=== PATIENT | male | born 1935 | race Caucasian/White ===

== ENCOUNTER 2022-09-23 16:48 | Observation (INO) ==
[2022-09-23] MEDS ORDERED: ONDANSETRON INJ 2 MG/ML 2 ML VIAL ONE (17:21)
[2022-09-23] MEDS ORDERED: ONDANSETRON INJ 2 MG/ML 2 ML VIAL IV STA (17:23)
--- NOTE | 2022-09-23 17:27 | Emergency Department Note ---
History of Present Illness General Chief complaint: Weakness Time Seen by Provider: 09/23/22 17:03 Source: patient, family, RN notes reviewed and old records reviewed Mode of arrival: ambulatory Limitations: no limitations History of Present Illness This patient 86-year-old male who comes in after feeling sick since this morning. His was diagnosed with COVID and he took a home test and it was positive as well. He has had nausea and vomiting no diarrhea he had a little bit of a cough denies shortness of breath he was supposed to get his Paxlovid today after he called his doctor but when the family went to check on him he was vomiting and too weak. No blood in vomit or blood or melena stool. Feels diffusely weak nonfocal. He did eat some bad fish on Tuesday as well. His is in the hospital here with it sounds like A-fib. No chest pain Home Medications Medication Instructions Recorded Confirmed Type aspirin 81 mg tablet,delayed 81 mg PO QAM 06/14/19 09/23/22 History release atorvastatin 40 mg tablet (Lipitor) 40 mg PO HS 06/14/19 09/23/22 History fluticasone propionate 50 1 spray intranasal QAM 06/14/19 09/23/22 History mcg/actuation nasal spray,suspension (Flonase Allergy Relief) hydrochlorothiazide 25 mg tablet 25 mg PO QAM 06/14/19 09/23/22 History metformin 500 mg tablet 500 mg PO BIDM 06/14/19 09/23/22 History sitagliptin phosphate 50 mg tablet 50 mg PO QAM 06/14/19 09/23/22 History (Januvia) timolol 0.5 % eye drops 1 drp OPB QAM 06/14/19 09/23/22 History acetaminophen 650 mg 650 mg PO BID PRN Pain 09/23/22 09/23/22 History tablet,extended release ascorbic acid (vitamin C) 1,000 mg 1 g PO QDL 09/23/22 09/23/22 History tablet (Vitamin C) carboxymethylcellulose sodium 0.5 1 drp OPB QID PRN Dry Eyes 09/23/22 09/23/22 History % eye drops cholecalciferol (vitamin D3) 25 25 mcg PO DAILY 09/23/22 09/23/22 History mcg (1,000 unit) capsule (Vitamin D3) cilostazol 50 mg tablet 50 mg PO QAM 09/23/22 09/23/22 History cyanocobalamin (vitamin B-12) 1,000 mcg PO DAILY 09/23/22 09/23/22 History 1,000 mcg tablet (Vitamin B-12) famotidine 20 mg tablet 20 mg PO HS 09/23/22 09/23/22 History folic acid 1 mg tablet 1 mg PO BID 09/23/22 09/23/22 History glipizide 2.5 mg tablet, extended 2.5 mg PO DAILYBB 09/23/22 09/23/22 History release 24 hr glucosamine-chondroitin 1,500 mg 30 ml PO DAILY 09/23/22 09/23/22 History -1,200 mg/30 mL oral liquid lisinopril 10 mg tablet 10 mg PO QAM 09/23/22 09/23/22 History nirmatrelvir 150 mg-ritonavir 100 1 ea PO DAILY 09/23/22 09/23/22 History mg tablets in a dose pack (EUA) (Paxlovid) Allergies Allergy/AdvReac Type Severity Reaction Status Date / Time No Known Allergies Allergy Verified 09/23/22 18:45 Past Med/Surg History Medical History Aortic stenosis Follows with Dr. Woods Cardiac murmur Chronic kidney disease, stage 3 FOLLOWS W/ DR. SORENSEN IN [place] Degenerative disc disease Diabetes mellitus, type 2 NIDDM GERD (gastroesophageal reflux disease) Glaucoma History of prostate cancer PROSTATECTOMY + RADIATION [place] (hard of hearing) Hyperlipidemia Hypertension Osteoarthritis Spinal stenosis Surgical History History of appendectomy History of cataract surgery History of colonoscopy History of esophagogastroduodenoscopy (EGD) History of lumbar surgery History of prostate biopsy History of prostatectomy History of right inguinal hernia repair X 2 History of right shoulder replacement Family History Sister Family history of diabetes mellitus Family hx of colon cancer Sister Family history of diabetes mellitus Sister Family history of diabetes mellitus Brother Family history of diabetes mellitus Mother Family history of diabetes mellitus Other No family history of adverse response to anesthesia Social History Smoking Status: Never smoker Second Hand Exposure: No; Do You Dip or Chew Tobacco: No (QUIT 3 YEARS AGO); Hx Alcohol Use: No Hx Substance Use: No Preferred Language: Macedonian Communication Ability: Effective Beliefs That Will Affect Care: None Current Living Situation: Spouse Feels Safe at Home: Yes Assistive Devices: Glasses Review of Systems A total of 10 systems reviewed and were otherwise negative Physical Exam Vital Signs Vital Signs - 24 hr 09/23/22 16:56 09/23/22 17:19 09/23/22 17:47 Temperature 36.9 C Temperature Source Oral Pulse Rate 101 H 100 H Pulse Rate from SpO2 Sensor Respiratory Rate 22 Blood Pressure 184/123 H Blood Pressure Mean 143 Pulse Oximetry 95 92 Oxygen Delivery Method Room Air Room Air Oxygen Flow Rate Sepsis Recent Fever Within 48 Hours No Sepsis New/Unexplained Change in Mental Status No Sepsis Action Taken by Nursing No Action Required Oxygen Flow Rate - Titration Pulse Oximetry Post Tiitration 09/23/22 17:15 09/23/22 17:30 09/23/22 17:31 Temperature Temperature Source Pulse Rate 100 H 101 H Pulse Rate from SpO2 Sensor Respiratory Rate 25 H 23 Blood Pressure 182/97 H Blood Pressure Mean 125 Pulse Oximetry Oxygen Delivery Method Oxygen Flow Rate Sepsis Recent Fever Within 48 Hours Sepsis New/Unexplained Change in Mental Status Sepsis Action Taken by Nursing Oxygen Flow Rate - Titration Pulse Oximetry Post Tiitration 09/23/22 17:31 09/23/22 17:45 09/23/22 18:22 Temperature Temperature Source Pulse Rate 102 H 99 H Pulse Rate from SpO2 Sensor 102 H Respiratory Rate 21 24 Blood Pressure Blood Pressure Mean Pulse Oximetry 92 88 L Oxygen Delivery Method Room Air Nasal Cannula Oxygen Flow Rate 0 Sepsis Recent Fever Within 48 Hours Sepsis New/Unexplained Change in Mental Status Sepsis Action Taken by Nursing Oxygen Flow Rate - Titration 2 Pulse Oximetry Post Tiitration 95 09/23/22 18:00 09/23/22 18:00 09/23/22 18:15 Temperature Temperature Source Pulse Rate 102 H 101 H Pulse Rate from SpO2 Sensor 106 H Respiratory Rate 33 H 33 H Blood Pressure 185/88 H Blood Pressure Mean 120 Pulse Oximetry 96 Oxygen Delivery Method Nasal Cannula Oxygen Flow Rate 2 Sepsis Recent Fever Within 48 Hours Sepsis New/Unexplained Change in Mental Status Sepsis Action Taken by Nursing Oxygen Flow Rate - Titration Pulse Oximetry Post Tiitration 09/23/22 18:30 09/23/22 18:30 09/23/22 18:45 Temperature Temperature Source Pulse Rate 100 H 101 H Pulse Rate from SpO2 Sensor 100 H 101 H Respiratory Rate 31 H 30 H Blood Pressure 185/87 H Blood Pressure Mean 119 Pulse Oximetry 96 96 Oxygen Delivery Method Nasal Cannula Nasal Cannula Oxygen Flow Rate 2 2 Sepsis Recent Fever Within 48 Hours Sepsis New/Unexplained Change in Mental Status Sepsis Action Taken by Nursing Oxygen Flow Rate - Titration Pulse Oximetry Post Tiitration 09/23/22 19:00 09/23/22 19:15 09/23/22 19:30 Temperature Temperature Source Pulse Rate 102 H 101 H 100 H Pulse Rate from SpO2 Sensor 102 H 101 H 100 H Respiratory Rate 31 H 30 H 29 H Blood Pressure 189/91 H 170/85 H Blood Pressure Mean 123 113 Pulse Oximetry 97 98 97 Oxygen Delivery Method Oxygen Flow Rate Sepsis Recent Fever Within 48 Hours Sepsis New/Unexplained Change in Mental Status Sepsis Action Taken by Nursing Oxygen Flow Rate - Titration Pulse Oximetry Post Tiitration 09/23/22 19:45 09/23/22 20:00 09/23/22 20:15 Temperature Temperature Source Pulse Rate 112 H 111 H 109 H Pulse Rate from SpO2 Sensor 111 H 110 H 111 H Respiratory Rate 30 H 30 H 29 H Blood Pressure 167/78 H Blood Pressure Mean 107 Pulse Oximetry 97 97 98 Oxygen Delivery Method Oxygen Flow Rate Sepsis Recent Fever Within 48 Hours Sepsis New/Unexplained Change in Mental Status Sepsis Action Taken by Nursing Oxygen Flow Rate - Titration Pulse Oximetry Post Tiitration 09/23/22 20:30 Temperature Temperature Source Pulse Rate 99 H Pulse Rate from SpO2 Sensor 99 H Respiratory Rate 28 H Blood Pressure 164/78 H Blood Pressure Mean 106 Pulse Oximetry 97 Oxygen Delivery Method Oxygen Flow Rate Sepsis Recent Fever Within 48 Hours Sepsis New/Unexplained Change in Mental Status Sepsis Action Taken by Nursing Oxygen Flow Rate - Titration Pulse Oximetry Post Tiitration General: Well developed well nourished older male who is wearing a mask but in no acute distress, breathing comfortably on room air. Normal speech. While I was examining he started throwing up some clear vomit. HEENT: Normal cephalic atraumatic. Pupils are equal round and reactive to light. Extraocular movements are intact. Oropharynx is pink with moist mucous membranes. No swelling of the mouth lips or tongue. Neck: Supple with a midline trachea. No meningeal signs or stiffness, no JVD or bruits. No Stridor. Chest: Clear to auscultation bilaterally. No wheezes or rhonchi. No increased work of breathing. Heart: Regular rate and rhythm without murmurs or gallops. Abdomen: Soft nontender, nondistended without rebound guarding or rigidity. Extremities: No cyanosis clubbing or edema. No calf tenderness or assymetry Spine/Back. Non tender to palpation. No CVA tenderness Skin: Good turgor without rashes. Neurologic exam: Cranial nerves two through 12 are intact. Motor and sensation are intact and symmetrical throughout. Course Administered Medications Sodium Chloride (Nss 1000ml) 1,000 mls @ 80 mls/hr IV .[id number] [facility] Stop: 09/24/22 10:41 Last Admin: 09/23/22 22:34 Dose: 80 mls/hr Documented By: STEPHANIE Discontinued Medications Sodium Chloride (Nss 1000ml) 1,000 mls @ 125 mls/hr IV .Q8H [facility] Stop: 09/24/22 01:29 Last Infusion: 09/23/22 22:52 Dose: 0 mls/hr Documented By: Admin: 09/23/22 17:29 Dose: 125 mls/hr Documented By: DARRELL Ondansetron HCl (Ondansetron Inj 2 Mg/Ml 2 Ml Vial) Confirm Administered Dose 4 mg .ROUTE .STK-MED ONE Stop: 09/23/22 17:22 Last Admin: 09/23/22 17:26 Dose: Not Given Documented By: DARRELL Ondansetron HCl (Ondansetron Inj 2 Mg/Ml 2 Ml Vial) 4 mg IV NOW [facility]UST Stop: 09/23/22 17:24 Last Admin: 09/23/22 17:26 Dose: 4 mg Documented By: DARRELL Medical Decision Making Differential Diagnosis Dehydration, COVID, electrolyte or metabolic abnormality, cardiac disease, infection, intra-abdominal process Medical Records Attestation: I reviewed the patient's medical records. Home Medications Current Medication List: was personally reviewed by me Laboratory Data Attestation: I reviewed the patient's lab results. 09/23/22 17:13 09/23/22 17:13 Lab Results 09/23/22 09/23/22 09/23/22 Range/Units 17:13 17:13 17:13 WBC 11.63 H (4.8-10.8) K/ul RBC 4.21 L (4.70-6.10) M/uL Hgb 12.5 L (14.0-18.0) g/dl Hct 38.0 L (42.0-52.0) % MCV 90.3 (80.0-100.0) fL MCH 29.7 (25.0-34.0) pg MCHC 32.9 (32.0-36.0) g/dL RDW Std Deviation 46.8 H (36.4-46.3) fL RDW Coeff of Desire 14.3 (11.5-14.5) % Plt Count 264 (130-400) K/uL MPV 10.6 (9.4-12.4) fL Immature Gran % (Auto) 0.4 % Neut % (Auto) 81.0 % Lymph % (Auto) 8.7 % [place] % (Auto) 8.3 % Eos % (Auto) 1.0 % Baso % (Auto) 0.6 % Neut # (Auto) 9.41 H (1.40-6.50) K/uL Lymph # (Auto) 1.01 L (1.2-3.4) K/uL [place] # (Auto) 0.97 H (0.11-0.59) K/uL Eos # (Auto) 0.12 (0-0.50) K/uL Baso # (Auto) 0.07 (0-0.2) K/uL Immature Gran # (Auto) 0.05 (0.01-0.20) K/uL Sodium 137 (136-145) mmol/L Potassium 4.5 (3.5-5.1) mmol/L Chloride 102 (98-107) mmol/L Carbon Dioxide 24 (21-32) mmol/L Anion Gap 11 (3-11) BUN 27 H (6-23) mg/dl Creatinine 1.31 (0.6-1.4) mg/dl Est Cr Clr Drug Dosing 44.8 ml/min Est GFR ( Amer) 57.5 ml/min Est GFR (Non-Af Amer) 49.6 ml/min BUN/Creatinine Ratio 20.6 H (10-20) Glucose 193 H (70-99(Fasting)) mg/dl Calcium 9.5 (8.6-10.3) mg/dl Magnesium 1.7 (1.7-2.4) mg/dl Total Bilirubin 0.9 (0.2-1.0) mg/dl AST 24 (13-39) U/L ALT 19 (7-52) U/L Alkaline Phosphatase 80 (34-104) U/L Troponin I High Sens 43.0 H (0-20) pg/ml Total Protein 7.6 (6.0-8.3) gm/dl Albumin 4.5 (3.4-5.0) gm/dl Globulin 3.1 (2.5-4.0) gm/dl Albumin/Globulin Ratio 1.5 (0.9-2) TSH 2.010 (0.300-4.500) uIu/ml SARS-CoV-2 (PCR) Influenza Type A (PCR) (Neg) Influenza Type B (PCR) (Neg) RSV (RT-PCR) (Neg) 09/23/22 09/23/22 09/23/22 Range/Units 17:42 17:42 19:31 WBC (4.8-10.8) K/ul RBC (4.70-6.10) M/uL Hgb (14.0-18.0) g/dl Hct (42.0-52.0) % MCV (80.0-100.0) fL MCH (25.0-34.0) pg MCHC (32.0-36.0) g/dL RDW Std Deviation (36.4-46.3) fL RDW Coeff of Desire (11.5-14.5) % Plt Count (130-400) K/uL MPV (9.4-12.4) fL Immature Gran % (Auto) % Neut % (Auto) % Lymph % (Auto) % [place] % (Auto) % Eos % (Auto) % Baso % (Auto) % Neut # (Auto) (1.40-6.50) K/uL Lymph # (Auto) (1.2-3.4) K/uL [place] # (Auto) (0.11-0.59) K/uL Eos # (Auto) (0-0.50) K/uL Baso # (Auto) (0-0.2) K/uL Immature Gran # (Auto) (0.01-0.20) K/uL Sodium (136-145) mmol/L Potassium (3.5-5.1) mmol/L Chloride (98-107) mmol/L Carbon Dioxide (21-32) mmol/L Anion Gap (3-11) BUN (6-23) mg/dl Creatinine (0.6-1.4) mg/dl Est Cr Clr Drug Dosing ml/min Est GFR ( Amer) ml/min Est GFR (Non-Af Amer) ml/min BUN/Creatinine Ratio (10-20) Glucose (70-99(Fasting)) mg/dl Calcium (8.6-10.3) mg/dl Magnesium (1.7-2.4) mg/dl Total Bilirubin (0.2-1.0) mg/dl AST (13-39) U/L ALT (7-52) U/L Alkaline Phosphatase (34-104) U/L Troponin I High Sens 54.9 H* D (0-20) pg/ml Total Protein (6.0-8.3) gm/dl Albumin (3.4-5.0) gm/dl Globulin (2.5-4.0) gm/dl Albumin/Globulin Ratio (0.9-2) TSH (0.300-4.500) uIu/ml SARS-CoV-2 (PCR) Cancelled POSITIVE A* Influenza Type A (PCR) Negative (Neg) Influenza Type B (PCR) Negative (Neg) RSV (RT-PCR) Negative (Neg) Imaging Data Attestation: I personally reviewed and interpreted this imaging study as follows: My Impression: Chest x-raycardiomegaly but no acute infiltrate, failure, pneumothorax seen. Previous surgery on right shoulder Radiologist's Impression: Chest X-Ray 09/23/22 17:23 SINGLE VIEW CHEST CLINICAL HISTORY: Generalized weakness. FINDINGS: An AP, portable, upright chest radiograph is compared to study dated 06/19/2012. The heart is enlarged. The pulmonary vasculature is noncongested. There is mild elevation of the right hemidiaphragm with bibasilar scarring/atelectasis. No airspace consolidation or large pleural effusion is identified. No pneumothorax is seen. The skeletal structures are osteopenic. The bony thorax is grossly intact. A right shoulder arthroplasty is in place. Advanced arthritic change is noted in the left shoulder. IMPRESSION: Cardiomegaly with no acute cardiopulmonary abnormality identified. ACT 112: Negative or not required by law. Electronically signed by: Jean Bernal M.D. 09/23/2022 5:42 PM ECG Data Attestation: I personally reviewed and interpreted this ECG as follows: Indication: + nausea and + vomiting Rate (beats per minute): 100 Rhythm: + sinus tachycardia ECG Intervals/blocks: + Normal QRS, + Normal QT and + Normal NE ECG [place]: + Left axis deviation ECG ST segments: + Normal ST segments ECG Findings: + Other (Low voltage); no PACs or no PVCs Comparison ECG Date: from (06/19/22) Change: the following changes noted (Rate has increased.) MDM Narrative This patient comes in after feeling ill both him and his have positive COVID test. It is most likely related to that but he is also 86 and has multiple other medical problems. He was vomiting when I saw him. He is in no respiratory distress. IV access was established and he was hydrated with a 1 L IV normal saline bolus. He was given Zofran 4 mg IV. EKG, chest x-ray were obtained. he was placed on a nurse monitoring COVID testing was performed here as well as multiple other testing. Despite having nausea he had no diarrhea and denies abdominal pain. EKG did not show any definite ischemic changes the voltage may be lower than before. His initial troponin is mildly elevated. And thus I did a second 1 and it is slightly more elevated in the first. He has had no chest pain he has no significant electrolyte or metabolic abnormality with exception of BUN being mildly elevated which likely goes with dehydration. His COVID test did come back positive. I do think he needs to be admitted for his weakness COVID concern for dehydration his O2 sats also been low at times in the high 80s and was placed on oxygen. Also concerned troponins mildly elevated as well although again has no chest pain or shortness of breath. I have consulted and discussed case with Dr. Mackey and he saw the patient in the ER for these m easures. Continuous nurse monitoring: Orders placed in EMR for continuous cardiac monitoring. Upon my evaluation patient noted to be normal sinus rhythm with a rate of 95 Impression & Plan COVID, Acute dehydration, Vomiting, Elevated troponin, Weakness Discharge Plan Visit Data Chief Complaint: Weakness ED Provider: Paulo Randhawa Discharge Problem: COVID, Acute dehydration, Vomiting, Elevated troponin, Weakness Discharge Instructions Interventions: ED Discharge Assessment Last Done: 09/23/22 21:54
[2022-09-23] MEDS ORDERED: SODIUM CHLORIDE 0.9% 1000ML 1,000 ML IV SCH ×2 (17:30→22:12)
--- NOTE | 2022-09-23 17:44 | XRay Report ---
SINGLE VIEW CHEST CLINICAL HISTORY: Generalized weakness. FINDINGS: An AP, portable, upright chest radiograph is compared to study dated 06/19/2012. The heart i s enlarged. The pulmonary vasculature is noncongested. There is mild elevation of the right hemidiaph ragm with bibasilar scarring/atelectasis. No airspace consolidation or large pleural effusion is iden tified. No pneumothorax is seen. The skeletal structures are osteopenic. The bony thorax is grossly i ntact. A right shoulder arthroplasty is in place. Advanced arthritic change is noted in the left shou lder. IMPRESSION: Cardiomegaly with no acute cardiopulmonary abnormality identified. ACT 112: Negative or not required by law. Electronically signed by: eJan Bernal M.D. 09/23/2022 5:42 PM
[2022-09-23 17:50] LABS: Basophils # (auto) 0.07 K/uL (0-0.2); Basophils % (auto) 0.6 %; Eosinophils # (auto) 0.12 K/uL (0-0.50); Hemoglobin 12.5 g/dl (14.0-18.0); Immature Granulocytes # (auto) 0.05 K/uL (0.01-0.20); Immature Granulocytes % (auto) 0.4 %; Lymphocytes # (auto) 1.01 K/uL (1.2-3.4); Lymphocytes % (auto) 8.7 %; Mean Corpuscular Hemoglobin 29.7 pg (25.0-34.0); Mean Corpuscular Hgb Conc 32.9 g/dL (32.0-36.0); Mean Corpuscular Volume 90.3 fL (80.0-100.0); Mean Platelet Volume 10.6 fL (9.4-12.4); Monocytes # (auto) 0.97 K/uL (0.11-0.59); Monocytes % (auto) 8.3 %; Neutrophils # (auto) 9.41 K/uL (1.40-6.50); Platelet Count 264 K/uL (130-400); RDW Coefficient of Variation 14.3 % (11.5-14.5); RDW Standard Deviation 46.8 fL (36.4-46.3); Red Blood Count 4.21 M/uL (4.70-6.10); White Blood Count 11.63 K/ul (4.8-10.8)
[2022-09-23 17:56] LABS: Albumin Globulin Ratio 1.5 (0.9-2); Albumin Level 4.5 gm/dl (3.4-5.0); BUN Creatinine Ratio 20.6 (10-20); Bilirubin,Total 0.9 mg/dl (0.2-1.0); Calcium 9.5 mg/dl (8.6-10.3); Creatinine Clr Calc Pharmacy 44.8 ml/min; Est GFR (African American) 57.5 ml/min; Est GFR (Non-African American) 49.6 ml/min; Globulin 3.1 gm/dl (2.5-4.0); Magnesium 1.7 mg/dl (1.7-2.4); Potassium 4.5 mmol/L (3.5-5.1); Total Protein 7.6 gm/dl (6.0-8.3)
[2022-09-23 18:36] LABS: Influenza A virus by PCR Negative (Neg); Influenza B virus by PCR Negative (Neg); RSV by PCR Negative (Neg)
[2022-09-23 18:59] LABS: SARS CoV2 RNA(COVID-19) Ceph POSITIVE (Negative)
[2022-09-23] MEDS ORDERED: GLUCOSE 10 TAB/TUBE PO PRN (22:12)
[2022-09-23] MEDS ORDERED: NITROGLYCERIN SL 0.4 MG/TAB TAB SL PRN (22:12)
[2022-09-23] MEDS ORDERED: GLUCOSE 40% GEL 15 GM TUBE PO PRN (22:12)
[2022-09-23] MEDS ORDERED: CARBOHYDRATES FOR HYPOGLYCEMIA PO PRN (22:12)
[2022-09-23] MEDS ORDERED: ACETAMINOPHEN 325 MG TAB PO PRN (22:12)
[2022-09-23] MEDS ORDERED: DEXTROSE 50% 50 ML SYRINGE IV PRN (22:12)
[2022-09-23] MEDS ORDERED: PHARMACY GLYCEMIC MGMT CONSULT PRN (22:12)
[2022-09-23] MEDS ORDERED: GLUCAGON FOR INJ 1 MG VIAL SQ PRN (22:12)
[2022-09-23] MEDS ORDERED: REMDESIVIR 200 MG in SODIUM CHLORIDE 0.9% 210 ML IV ONE (22:30)
[2022-09-23] MEDS ORDERED: ARTIFICIAL TEARS OP PRN (22:38)
[2022-09-23] MEDS: INSULIN ASPART PER UNIT CHARGE SC SCH (23:45)
[2022-09-23] MEDS: HEPARIN SOD 5,000 UNIT/0.5 ML VIAL SQ SCH (23:46)
[2022-09-23] MEDS: FAMOTIDINE 20 MG TAB PO SCH (23:47)
[2022-09-23] MEDS: ATORVASTATIN 40 MG TAB PO SCH (23:47)
[2022-09-23] MEDS: FOLIC ACID 1 MG TAB PO SCH (23:48)
--- NOTE | 2022-09-24 02:33 | History and Physical Report ---
DATE OF ADMISSION: 09/23/2022. CHIEF COMPLAINT: Weakness, COVID. 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 The patient says he is feeling sick since morning. The patient says he had cough for the last two to three days. He was diagnosed with COVID at home test. His has also COVID, seems to be in the hospital. It looks like he has some nausea and vomiting, no diarrhea and seems to get paxlovid today, but when family went to check on him, he was vomiting and too weak, so they brought him here. The patient is somewhat hard of hearing, somewhat drowsy, but answers simple questions. Denies any chest pain, denies any cough. Currently, denies any nausea or abdominal pain. Denies any diarrhea currently. Denies any headache. Denies any blurred visions, runny nose, or sore throat. Knows that he is in the hospital, could tell his name.Tried to call his son, not able to reach. He was saturating at 88% on room air in the ER. Currently on 2 liters, saturating okay. . ALLERGIES: No known drug allergies. PAST MEDICAL HISTORY: As mentioned above. PAST SURGICAL HISTORY: Right carpal tunnel surgery, colonoscopy, cystoscopy, EGDs, injection of the lumbosacral spine, lumbar laminectomy, right partial shoulder replacement, radical prostatectomy, cataract surgeries, repair of inguinal hernia. MEDICATIONS: The patient is on Tylenol 650 mg p.o. b.i.d. p.r.n., vitamin C 1 gram p.o. daily, aspirin 81 mg p.o. daily, Lipitor 40 mg p.o. at bedtime, carboxymethylcellulose one drop ophthalmic q.i.d. p.r.n., vitamin D 25 mcg p.o. daily, cilostazol 50 mg p.o. a.m., vitamin B12 1000 mcg p.o. daily, famotidine 20 mg p.o. at bedtime, Flonase 1 spray intranasal a.m., folic acid 1 mg p.o. b.i.d., glipizide 2.5 mg p.o. daily, glucosamine chondroitin p.o. daily, hydrochlorothiazide 25 mg p.o. daily, lisinopril 10 mg p.o. a.m., metformin 500 mg p.o. b.i.d., Paxlovid daily, Janumet 50 mg p.o. daily, timolol 1 drop ophthalmic a.m. FAMILY HISTORY: Significant for father had prostate cancer, at the age of 84; sister had cancer; brother has diabetes; mother had diabetes, at the age of 78. SOCIAL HISTORY: , quit smoking in 1962, smoked 1 pack a day for 8 years. No alcohol use. No drug use. REVIEW OF SYSTEMS: As per HPI. Could not do complete review of systems. PHYSICAL EXAMINATION: GENERAL: The patient is somewhat drowsy, head of hearing VITAL SIGNS: Temperature 36.9, pulse 98, respiratory rate 26, pressure 151/86, oxygen 98% on 2 liters. HEENT: Pupils equal, round and reactive to light. Oral mucosa somewhat dry. NECK: No JVD, no neck masses. CARDIOVASCULAR: S1 and S2 heard. No murmurs. Regular rhythm. RESPIRATORY SYSTEM: Normal AP diameter. No accessory muscle use. No wheezing, no crackles. ABDOMEN: Soft, bowel sounds present, nontender, no distention. CENTRAL NERVOUS SYSTEM: Alert and somewhat drowsy, but arousable. Speaks in low volume, hard of hearing. No obvious facial droop. Obeys simple commands. Moves extremities. EXTREMITIES: No erythema seen. LABORATORY DATA: WBC 11.6, hemoglobin 12.5, hematocrit 38, platelets 264. Sodium 137, potassium 4.5, chloride 102, bicarbonate 24, BUN 27, creatinine 1.3, serum glucose 193, calcium 9.5, magnesium 1.7, total bilirubin 0.9, AST 24, ALT 19, alkaline phosphatase 80. Troponin I high sensitivity 54.9. TSH is 2. SARS-CoV-2 PCR positive. Influenza A and B PCR negative. RSV PCR negative. IMAGING DATA: Chest x-ray: Cardiomegaly with no acute cardiopulmonary findings. EKG: Sinus tachycardia at a rate of 101, left axis deviation, Q-waves in inferior leads. ASSESSMENT AND PLAN: This is an 86-year-old male who presents with weakness, nausea, found to have COVID. 1. COVID: With some nausea, vomiting, and also the patient was requiring 2 L oxygen. Meets criteria for remdesivir, which will be given and also will place on IV Decadron. Follow the remdesivir labs. The patient says he is COVID vaccinated and boosted, but does not remember the date of his booster. Monitor in the med tele.Will monitor oxygen status and hemodynamics. 2. Diabetes: Will hold home p.o. medication. Placed him on insulin sliding scale. Follow the blood sugars while getting steroids. 3. Mild elevation of troponin: Mostly from demand ischemia. Will follow serial enzymes. 4. Gastroesophageal reflux disease: Continue famotidine. 5. Hyperlipidemia: Continue statin. 6. Hypertension: On hydrochlorothiazide/lisinopril withholding parameters. 7. History of glaucoma and macular degeneration: Continue his home eye drops. 8. History of anemia: Hemoglobin is 12.5. 9. Prostate cancer: History of surgery and radiation. 10. Deep venous thrombosis prophylaxis: Placed on heparin subcutaneous. DISPOSITION: Closely monitor in the Recommend tele. PT/OT prior to discharge. Social service to help with discharge planning. CODE STATUS: Level 1 full code for now. Job ID: [id number] [id number]
[2022-09-24 06:28] LABS: Albumin Level 3.7 gm/dl (3.4-5.0); Bilirubin Direct 0.1 mg/dl (0-0.2); Bilirubin,Total 0.5 mg/dl (0.2-1.0); Total Protein 6.4 gm/dl (6.0-8.3)
[2022-09-24] MEDS: HEPARIN SOD 5,000 UNIT/0.5 ML VIAL SQ SCH ×3 (06:32→21:46)
[2022-09-24 07:57] LABS: Estimated Average Glucose 183 mg/dl
[2022-09-24] MEDS: ASPIRIN 81 MG ECTAB PO SCH (08:07)
[2022-09-24] MEDS: dexAMETHasone 6 MG in SYRINGE 0 ML IV SCH (08:07)
[2022-09-24] MEDS: cilostazoL 100 MG TAB PO SCH (08:07)
[2022-09-24] MEDS: FLUTICASONE PROPIONATE NA SPR 16 GM BTL SCH (08:08)
[2022-09-24] MEDS: FOLIC ACID 1 MG TAB PO SCH ×2 (08:08→20:37)
[2022-09-24] MEDS: CYANOCOBALAMIN (B-12) 500 MCG TABLET PO SCH (08:08)
[2022-09-24] MEDS: hydroCHLOROthiazide 25 MG TAB PO SCH (08:08)
[2022-09-24] MEDS: TIMOLOL MALEATE 0.5% OP SOLN 5 ML BTL OP SCH (08:08)
[2022-09-24] MEDS: CHOLECALCIFEROL 1,000 UNITS 25 MCG TAB PO SCH (08:08)
[2022-09-24] MEDS: lisinopril 10 MG TAB PO SCH (08:08)
[2022-09-24] MEDS: INSULIN ASPART PER UNIT CHARGE SC SCH ×4 (08:31→21:13)
[2022-09-24] MEDS ORDERED: GLUCOSAMINE PO SCH (09:00)
[2022-09-24] MEDS ORDERED: TIMOLOL MALEATE 0.5% OP SOLN 5 ML BTL OP SCH (09:00)
[2022-09-24] MEDS ORDERED: CHONDROITIN PO SCH (09:00)
[2022-09-24] MEDS ORDERED: LANTUS PER UNIT CHARGE SC SCH (09:00)
[2022-09-24 09:07] LABS: Appearance Urine Cloudy (Clear); Bacteria Urine Automated 2+ (Negative); Bilirubin Urine Negative (Negative); Blood Urine 1+ (Negative); Color Urine Yellow; Epithelial Cell Urine Auto >30 /lpf (0-5); Glucose Urine UA Trace (Negative); Ketones Urine Negative (Negative); Leukocyte Esterase Urine 3+ (Negative); Nitrite Urine Positive (Negative); Protein Urine 2+ (Negative); Specific Gravity Urine 1.024 (1.000-1.030); Urobilinogen Urine Negative (Negative); WBC Urine Automated >30 /hpf (0-5)
--- NOTE | 2022-09-24 09:38 | Hospitalist Progress Note ---
Date of Service September 24, 2022 Assessment & Plan (1) COVID: (2) Vomiting: Plan: This is an 86 yo M who presents with weakness, nausea, found to have COVID. 1. +COVID: With some nausea, vomiting, and also the patient was requiring 2 L oxygen. Meets criteria for remdesivir, which will be given and also will place on IV Decadron. Follow the remdesivir labs. The patient says he is COVID vaccinated and boosted, but does not remember the date of his booster. Monitor in the med tele.Will monitor oxygen status and hemodynamics. Currently on RA nausea vomiting resolved, tolerating diet 2. Diabetes: Will hold home p.o. medication. Placed him on insulin sliding scale. Follow the blood sugars while getting steroids. 3. Mild elevation of troponin: Mostly from demand ischemia. Will follow serial enzymes. 4. Gastroesophageal reflux disease: Continue famotidine. 5. Hyperlipidemia: Continue statin. 6. Hypertension: On hydrochlorothiazide/lisinopril withholding parameters. 7. History of glaucoma and macular degeneration: Continue his home eye drops. 8. History of anemia: Hemoglobin is 12.5. 9. Prostate cancer: History of surgery and radiation. DVT prophylaxis:heparin subcutaneous. DISPOSITION: med tele. PT/OT prior to discharge. CODE STATUS: full code Admission and Anticipated Discharge Date Admission Date: September 23, 2022 Subjective Pt seen in follow up of hypoxia, weakness, vomiting, + COVID Currently laying in bed, in NAD Now on RA No more nausea or vomiting - now eating without any issues No fever, chills, chest pain, shortness of breath Reports feeling much better Review of Systems Review of Systems: All systems reviewed & are unremarkable except as noted in Subjective Physical Exam Physical Exam: GENERAL:WD/WN M in NAD HEENT: NC/AT. EOMI. Pupils equal, round and reactive to light. NECK: No JVD, no neck masses. CARDIOVASCULAR: S1 and S2 heard. No murmurs. Regular rhythm. RESPIRATORY: Normal AP diameter. No accessory muscle use. No wheezing, no crackles. ABDOMEN: Soft, bowel sounds present, nontender, no distention. NEURO: Awake and alert, answers appropriately,speech fluent, Moves extremiti es. EXTREMITIES: No erythema seen.no LE edema Results & Data Results & Data Vital Signs (Past 12 Hours) Vital Signs Temp Pulse Pulse Resp BP Pulse Ox O2 Del Method 04/28/23 08:55 95 Room Air 09/24/22 07:40 37.6 C H 87 18 163/80 H 97 Nasal Cannula 09/24/22 00:00 90 09/23/22 22:12 Nasal Cannula 09/23/22 22:12 37.2 C 98 H 22 174/88 H 95 Nasal Cannula 09/24/22 03:00 36.3 C L 83 16 148/74 H 98 Nasal Cannula 09/23/22 22:00 97 H 09/23/22 21:45 98 H 26 H 98 09/23/22 21:54 Nasal Cannula O2 Flow Rate 09/24/22 08:55 09/24/22 07:40 2 09/24/22 00:00 09/23/22 22:12 2 09/23/22 22:12 2 09/24/22 03:00 2 09/23/22 22:00 09/23/22 21:45 09/23/22 21:54 2 Laboratory Results 09/24/22 09/24/22 09/24/22 Range/Units 08:30 08:02 05:24 WBC (4.8-10.8) K/ul RBC (4.70-6.10) M/uL Hgb (14.0-18.0) g/dl Hct (42.0-52.0) % MCV (80.0-100.0) fL MCH (25.0-34.0) pg MCHC (32.0-36.0) g/dL RDW Std Deviation (36.4-46.3) fL RDW Coeff of Desire (11.5-14.5) % Plt Count (130-400) K/uL MPV (9.4-12.4) fL Immature Gran % (Auto) % Neut % (Auto) % Lymph % (Auto) % [place] % (Auto) % Eos % (Auto) % Baso % (Auto) % Neut # (Auto) (1.40-6.50) K/uL Lymph # (Auto) (1.2-3.4) K/uL [place] # (Auto) (0.11-0.59) K/uL Eos # (Auto) (0-0.50) K/uL Baso # (Auto) (0-0.2) K/uL Immature Gran # (Auto) (0.01-0.20) K/uL Sodium (136-145) mmol/L Potassium (3.5-5.1) mmol/L Chloride (98-107) mmol/L Carbon Dioxide (21-32) mmol/L Anion Gap (3-11) BUN (6-23) mg/dl Creatinine (0.6-1.4) mg/dl Est Cr Clr Drug Dosing ml/min Est GFR ( Amer) ml/min Est GFR (Non-Af Amer) ml/min BUN/Creatinine Ratio (10-20) Glucose (70-99(Fasting)) mg/dl POC Glucose 195 H (70-99) mg/dl Estimat Average Glucose 183 mg/dl Hemoglobin A1c 8.0 H (4.5-5.6) % Calcium (8.6-10.3) mg/dl Magnesium (1.7-2.4) mg/dl Total Bilirubin (0.2-1.0) mg/dl Direct Bilirubin (0-0.2) mg/dl AST (13-39) U/L ALT (7-52) U/L Alkaline Phosphatase (34-104) U/L Troponin I High Sens (0-20) pg/ml Total Protein (6.0-8.3) gm/dl Albumin (3.4-5.0) gm/dl Globulin (2.5-4.0) gm/dl Albumin/Globulin Ratio (0.9-2) TSH (0.300-4.500) uIu/ml Urine Color Yellow Urine Appearance Cloudy A (Clear) Urine pH 5.0 (4.5-7.5) Ur Specific [place] 1.024 (1.000-1.030) Urine Protein 2+ H (Negative) Urine Glucose (UA) Trace H (Negative) Urine Ketones Negative (Negative) Urine Blood 1+ H (Negative) Urine Nitrite Positive A (Negative) Urine Bilirubin Negative (Negative) Urine Urobilinogen Negative (Negative) Ur Leukocyte Esterase 3+ H (Negative) Urine WBC (Auto) >30 H (0-5) /hpf Urine RBC (Auto) 5-10 H (0-4) /hpf U Hyaline Cast (Auto) 10-30 H (0-5) /lpf U Epithel Cells (Auto) >30 H (0-5) /lpf Urine Bacteria (Auto) 2+ H (Negative) Granular Casts 1-5 H (0) /lpf SARS-CoV-2 (PCR) Influenza Type A (PCR) (Neg) Influenza Type B (PCR) (Neg) RSV (RT-PCR) (Neg) 09/24/22 09/23/22 09/23/22 Range/Units 05:24 22:54 22:36 WBC (4.8-10.8) K/ul RBC (4.70-6.10) M/uL Hgb (14.0-18.0) g/dl Hct (42.0-52.0) % MCV (80.0-100.0) fL MCH (25.0-34.0) pg MCHC (32.0-36.0) g/dL RDW Std Deviation (36.4-46.3) fL RDW Coeff of Desire (11.5-14.5) % Plt Count (130-400) K/uL MPV (9.4-12.4) fL Immature Gran % (Auto) % Neut % (Auto) % Lymph % (Auto) % [place] % (Auto) % Eos % (Auto) % Baso % (Auto) % Neut # (Auto) (1.40-6.50) K/uL Lymph # (Auto) (1.2-3.4) K/uL [place] # (Auto) (0.11-0.59) K/uL Eos # (Auto) (0-0.50) K/uL Baso # (Auto) (0-0.2) K/uL Immature Gran # (Auto) (0.01-0.20) K/uL Sodium (136-145) mmol/L Potassium (3.5-5.1) mmol/L Chloride (98-107) mmol/L Carbon Dioxide (21-32) mmol/L Anion Gap (3-11) BUN (6-23) mg/dl Creatinine (0.6-1.4) mg/dl Est Cr Clr Drug Dosing ml/min Est GFR ( Amer) ml/min Est GFR (Non-Af Amer) ml/min BUN/Creatinine Ratio (10-20) Glucose (70-99(Fasting)) mg/dl POC Glucose 193 H 191 H (70-99) mg/dl Estimat Average Glucose mg/dl Hemoglobin A1c (4.5-5.6) % Calcium (8.6-10.3) mg/dl Magnesium (1.7-2.4) mg/dl Total Bilirubin 0.5 (0.2-1.0) mg/dl Direct Bilirubin 0.1 (0-0.2) mg/dl AST 18 (13-39) U/L ALT 17 (7-52) U/L Alkaline Phosphatase 62 (34-104) U/L Troponin I High Sens (0-20) pg/ml Total Protein 6.4 (6.0-8.3) gm/dl Albumin 3.7 (3.4-5.0) gm/dl Globulin (2.5-4.0) gm/dl Albumin/Globulin Ratio (0.9-2) TSH (0.300-4.500) uIu/ml Urine Color Urine Appearance (Clear) Urine pH (4.5-7.5) Ur Specific [place] (1.000-1.030) Urine Protein (Negative) Urine Glucose (UA) (Negative) Urine Ketones (Negative) Urine Blood (Negative) Urine Nitrite (Negative) Urine Bilirubin (Negative) Urine Urobilinogen (Negative) Ur Leukocyte Esterase (Negative) Urine WBC (Auto) (0-5) /hpf Urine RBC (Auto) (0-4) /hpf U Hyaline Cast (Auto) (0-5) /lpf U Epithel Cells (Auto) (0-5) /lpf Urine Bacteria (Auto) (Negative) Granular Casts (0) /lpf SARS-CoV-2 (PCR) Influenza Type A (PCR) (Neg) Influenza Type B (PCR) (Neg) RSV (RT-PCR) (Neg) 09/23/22 09/23/22 09/23/22 Range/Units 22:25 19:31 17:42 WBC (4.8-10.8) K/ul RBC (4.70-6.10) M/uL Hgb (14.0-18.0) g/dl Hct (42.0-52.0) % MCV (80.0-100.0) fL MCH (25.0-34.0) pg MCHC (32.0-36.0) g/dL RDW Std Deviation (36.4-46.3) fL RDW Coeff of Desire (11.5-14.5) % Plt Count (130-400) K/uL MPV (9.4-12.4) fL Immature Gran % (Auto) % Neut % (Auto) % Lymph % (Auto) % [place] % (Auto) % Eos % (Auto) % Baso % (Auto) % Neut # (Auto) (1.40-6.50) K/uL Lymph # (Auto) (1.2-3.4) K/uL [place] # (Auto) (0.11-0.59) K/uL Eos # (Auto) (0-0.50) K/uL Baso # (Auto) (0-0.2) K/uL Immature Gran # (Auto) (0.01-0.20) K/uL Sodium (136-145) mmol/L Potassium (3.5-5.1) mmol/L Chloride (98-107) mmol/L Carbon Dioxide (21-32) mmol/L Anion Gap (3-11) BUN (6-23) mg/dl Creatinine (0.6-1.4) mg/dl Est Cr Clr Drug Dosing ml/min Est GFR ( Amer) ml/min Est GFR (Non-Af Amer) ml/min BUN/Creatinine Ratio (10-20) Glucose (70-99(Fasting)) mg/dl POC Glucose 370 H* (70-99) mg/dl Estimat Average Glucose mg/dl Hemoglobin A1c (4.5-5.6) % Calcium (8.6-10.3) mg/dl Magnesium (1.7-2.4) mg/dl Total Bilirubin (0.2-1.0) mg/dl Direct Bilirubin (0-0.2) mg/dl AST (13-39) U/L ALT (7-52) U/L Alkaline Phosphatase (34-104) U/L Troponin I High Sens 54.9 H* D (0-20) pg/ml Total Protein (6.0-8.3) gm/dl Albumin (3.4-5.0) gm/dl Globulin (2.5-4.0) gm/dl Albumin/Globulin Ratio (0.9-2) TSH (0.300-4.500) uIu/ml Urine Color Urine Appearance (Clear) Urine pH (4.5-7.5) Ur Specific [place] (1.000-1.030) Urine Protein (Negative) Urine Glucose (UA) (Negative) Urine Ketones (Negative) Urine Blood (Negative) Urine Nitrite (Negative) Urine Bilirubin (Negative) Urine Urobilinogen (Negative) Ur Leukocyte Esterase (Negative) Urine WBC (Auto) (0-5) /hpf Urine RBC (Auto) (0-4) /hpf U Hyaline Cast (Auto) (0-5) /lpf U Epithel Cells (Auto) (0-5) /lpf Urine Bacteria (Auto) (Negative) Granular Casts (0) /lpf SARS-CoV-2 (PCR) POSITIVE A* Influenza Type A (PCR) Negative (Neg) Influenza Type B (PCR) Negative (Neg) RSV (RT-PCR) Negative (Neg) 09/23/22 09/23/22 09/23/22 Range/Units 17:42 17:13 17:13 WBC (4.8-10.8) K/ul RBC (4.70-6.10) M/uL Hgb (14.0-18.0) g/dl Hct (42.0-52.0) % MCV (80.0-100.0) fL MCH (25.0-34.0) pg MCHC (32.0-36.0) g/dL RDW Std Deviation (36.4-46.3) fL RDW Coeff of Desire (11.5-14.5) % Plt Count (130-400) K/uL MPV (9.4-12.4) fL Immature Gran % (Auto) % Neut % (Auto) % Lymph % (Auto) % [place] % (Auto) % Eos % (Auto) % Baso % (Auto) % Neut # (Auto) (1.40-6.50) K/uL Lymph # (Auto) (1.2-3.4) K/uL [place] # (Auto) (0.11-0.59) K/uL Eos # (Auto) (0-0.50) K/uL Baso # (Auto) (0-0.2) K/uL Immature Gran # (Auto) (0.01-0.20) K/uL Sodium 137 (136-145) mmol/L Potassium 4.5 (3.5-5.1) mmol/L Chloride 102 (98-107) mmol/L Carbon Dioxide 24 (21-32) mmol/L Anion Gap 11 (3-11) BUN 27 H (6-23) mg/dl Creatinine 1.31 (0.6-1.4) mg/dl Est Cr Clr Drug Dosing 44.8 ml/min Est GFR ( Amer) 57.5 ml/min Est GFR (Non-Af Amer) 49.6 ml/min BUN/Creatinine Ratio 20.6 H (10-20) Glucose 193 H (70-99(Fasting)) mg/dl POC Glucose (70-99) mg/dl Estimat Average Glucose mg/dl Hemoglobin A1c (4.5-5.6) % Calcium 9.5 (8.6-10.3) mg/dl Magnesium 1.7 (1.7-2.4) mg/dl Total Bilirubin 0.9 (0.2-1.0) mg/dl Direct Bilirubin (0-0.2) mg/dl AST 24 (13-39) U/L ALT 19 (7-52) U/L Alkaline Phosphatase 80 (34-104) U/L Troponin I High Sens 43.0 H (0-20) pg/ml Total Protein 7.6 (6.0-8.3) gm/dl Albumin 4.5 (3.4-5.0) gm/dl Globulin 3.1 (2.5-4.0) gm/dl Albumin/Globulin Ratio 1.5 (0.9-2) TSH 2.010 (0.300-4.500) uIu/ml Urine Color Urine Appearance (Clear) Urine pH (4.5-7.5) Ur Specific [place] (1.000-1.030) Urine Protein (Negative) Urine Glucose (UA) (Negative) Urine Ketones (Negative) Urine Blood (Negative) Urine Nitrite (Negative) Urine Bilirubin (Negative) Urine Urobilinogen (Negative) Ur Leukocyte Esterase (Negative) Urine WBC (Auto) (0-5) /hpf Urine RBC (Auto) (0-4) /hpf U Hyaline Cast (Auto) (0-5) /lpf U Epithel Cells (Auto) (0-5) /lpf Urine Bacteria (Auto) (Negative) Granular Casts (0) /lpf SARS-CoV-2 (PCR) Cancelled Influenza Type A (PCR) (Neg) Influenza Type B (PCR) (Neg) RSV (RT-PCR) (Neg) 09/23/22 Range/Units 17:13 WBC 11.63 H (4.8-10.8) K/ul RBC 4.21 L (4.70-6.10) M/uL Hgb 12.5 L (14.0-18.0) g/dl Hct 38.0 L (42.0-52.0) % MCV 90.3 (80.0-100.0) fL MCH 29.7 (25.0-34.0) pg MCHC 32.9 (32.0-36.0) g/dL RDW Std Deviation 46.8 H (36.4-46.3) fL RDW Coeff of Desire 14.3 (11.5-14.5) % Plt Count 264 (130-400) K/uL MPV 10.6 (9.4-12.4) fL Immature Gran % (Auto) 0.4 % Neut % (Auto) 81.0 % Lymph % (Auto) 8.7 % [place] % (Auto) 8.3 % Eos % (Auto) 1.0 % Baso % (Auto) 0.6 % Neut # (Auto) 9.41 H (1.40-6.50) K/uL Lymph # (Auto) 1.01 L (1.2-3.4) K/uL [place] # (Auto) 0.97 H (0.11-0.59) K/uL Eos # (Auto) 0.12 (0-0.50) K/uL Baso # (Auto) 0.07 (0-0.2) K/uL Immature Gran # (Auto) 0.05 (0.01-0.20) K/uL Sodium (136-145) mmol/L Potassium (3.5-5.1) mmol/L Chloride (98-107) mmol/L Carbon Dioxide (21-32) mmol/L Anion Gap (3-11) BUN (6-23) mg/dl Creatinine (0.6-1.4) mg/dl Est Cr Clr Drug Dosing ml/min Est GFR ( Amer) ml/min Est GFR (Non-Af Amer) ml/min BUN/Creatinine Ratio (10-20) Glucose (70-99(Fasting)) mg/dl POC Glucose (70-99) mg/dl Estimat Average Glucose mg/dl Hemoglobin A1c (4.5-5.6) % Calcium (8.6-10.3) mg/dl Magnesium (1.7-2.4) mg/dl Total Bilirubin (0.2-1.0) mg/dl Direct Bilirubin (0-0.2) mg/dl AST (13-39) U/L ALT (7-52) U/L Alkaline Phosphatase (34-104) U/L Troponin I High Sens (0-20) pg/ml Total Protein (6.0-8.3) gm/dl Albumin (3.4-5.0) gm/dl Globulin (2.5-4.0) gm/dl Albumin/Globulin Ratio (0.9-2) TSH (0.300-4.500) uIu/ml Urine Color Urine Appearance (Clear) Urine pH (4.5-7.5) Ur Specific [place] (1.000-1.030) Urine Protein (Negative) Urine Glucose (UA) (Negative) Urine Ketones (Negative) Urine Blood (Negative) Urine Nitrite (Negative) Urine Bilirubin (Negative) Urine Urobilinogen (Negative) Ur Leukocyte Esterase (Negative) Urine WBC (Auto) (0-5) /hpf Urine RBC (Auto) (0-4) /hpf U Hyaline Cast (Auto) (0-5) /lpf U Epithel Cells (Auto) (0-5) /lpf Urine Bacteria (Auto) (Negative) Granular Casts (0) /lpf SARS-CoV-2 (PCR) Influenza Type A (PCR) (Neg) Influenza Type B (PCR) (Neg) RSV (RT-PCR) (Neg) Medications Administered Current Inpatient Medications Acetaminophen (Acetaminophen 325 Mg Tab) 650 mg PO Q4H PRN PRN Reason: Pain or Fever Stop: 10/23/22 22:11 Artificial Tears (Artificial Tears) 1 drops OP QID PRN PRN Reason: Dry Eyes Stop: 10/23/22 22:37 Ascorbic Acid (Ascorbic Acid 500 Mg Tab) 1,000 mg PO QDL [facility] Stop: 10/24/22 11:29 Aspirin (Aspirin 81 Mg Ectab) 81 mg PO QAM [facility] Stop: 10/24/22 08:59 Last Admin: 09/24/22 08:07 Dose: 81 mg Atorvastatin Calcium (Atorvastatin 40 Mg Tab) 40 mg PO HS [facility] Stop: 10/23/22 22:11 Last Admin: 09/23/22 23:47 Dose: 40 mg Cilostazol (Cilostazol 100 Mg Tab) 50 mg PO QAM [facility] Stop: 10/24/22 08:59 Last Admin: 09/24/22 08:07 Dose: 50 mg Cyanocobalamin (Cyanocobalamin (B-12) 500 Mcg Tablet) 1,000 mcg PO DAILY [facility] Stop: 10/24/22 08:59 Last Admin: 09/24/22 08:08 Dose: 1,000 mcg Dextrose (Dextrose 50% 50 Ml Syringe) 25 - 50 ml IV UD PRN; Protocol PRN Reason: Hypoglycemia Protocol Stop: 10/23/22 22:11 Famotidine (Famotidine 20 Mg Tab) 20 mg PO [facility] Stop: 10/23/22 22:11 Last Admin: 09/23/22 23:47 Dose: 20 mg Fluticasone Propionate (Fluticasone Propionate Na Spr 16 Gm Btl) [facility] Stop: 10/24/22 08:59 Last Admin: 09/24/22 08:08 Dose: 1 sprays Folic Acid (Folic Acid 1 Mg Tab) 1 mg PO BID [facility] Stop: 10/23/22 22:11 Last Admin: 09/24/22 08:08 Dose: 1 mg Glucagon (Glucagon For Inj 1 Mg Vial) 1 mg SQ UD PRN; Protocol PRN Reason: Hypoglycemia Protocol Stop: 10/23/22 22:11 Glucose (Glucose 10 Tab/Tube) 4 - 8 tab PO UD PRN; Protocol PRN Reason: Hypoglycemia Treatment Stop: 10/23/22 22:11 Glucose (Glucose 40% Gel 15 Gm Tube) 15 - 30 gm PO UD PRN; Protocol PRN Reason: Hypoglycemia Protocol Stop: 10/23/22 22:11 Heparin Sodium (Porcine) (Heparin Sod 5,000 Unit/0.5 Ml Vial) 5,000 units SQ Q8 [facility] Stop: 10/23/22 22:11 Last Admin: 09/24/22 06:32 Dose: 5,000 units Hydrochlorothiazide (Hydrochlorothiazide 25 Mg Tab) 25 mg PO QAM [facility] Stop: 10/24/22 08:59 Last Admin: 09/24/22 08:08 Dose: 25 mg Sodium Chloride (Nss 1000ml) 1,000 mls @ 80 mls/hr IV .[id number] [facility] Stop: 09/24/22 10:41 Last Admin: 09/23/22 22:34 Dose: 80 mls/hr Remdesivir 100 mg/ Sodium (Chloride) 250 mls @ 250 mls/hr IV Q24H [facility] Stop: 09/27/22 20:59 Dexamethasone 6 mg/ Syringe 1.5 mls @ 1 mls/min IV DAILY [facility] Stop: 10/04/22 08:59 Last Admin: 09/24/22 08:07 Dose: 1 mls/min Insulin Aspart (Insulin Aspart Per Unit Charge) 0 units SC ACHS [facility] Stop: 10/23/22 22:11 Last Admin: 09/24/22 08:31 Dose: 7 units Insulin Glargine (Lantus Per Unit Charge) 15 units SC DAILY [facility] Stop: 10/24/22 08:59 Last Admin: 09/24/22 08:56 Dose: 15 units Lisinopril (Lisinopril 10 Mg Tab) 10 mg PO QAM [facility] Stop: 10/24/22 08:59 Last Admin: 09/24/22 08:08 Dose: 10 mg Miscellaneous (Carbohydrates For Hypoglycemia ) 15 - 30 gm PO UD PRN PRN Reason: Hypoglycemia Protocol Stop: 10/23/22 22:11 Miscellaneous Information (Pharmacy Glycemic Mgmt Consult) 1 each N/A UD PRN PRN Reason: Consult Stop: 10/23/22 22:11 Nitroglycerin (Nitroglycerin Sl 0.4 Mg/Tab Tab) 0.4 mg SL UD PRN PRN Reason: Chest Pain Stop: 10/23/22 22:11 Timolol Maleate (Timolol Maleate 0.5% Op Soln 5 Ml Btl) 1 drops OP QAM [facility] Stop: 10/24/22 08:59 Last Admin: 09/24/22 08:08 Dose: 1 drops Vitamin D (Cholecalciferol 1,000 Units 25 Mcg Tab) 1,000 units PO DAILY [facility] Stop: 10/24/22 08:59 Last Admin: 09/24/22 08:08 Dose: 1,000 units
[2022-09-24] MEDS: ASCORBIC ACID 500 MG TAB PO SCH (10:48)
[2022-09-24 12:12] LABS: BUN Creatinine Ratio 20.3 (10-20); Calcium 8.3 mg/dl (8.6-10.3); Creatinine Clr Calc Pharmacy 46.1 ml/min; Est GFR (African American) 59.2 ml/min; Est GFR (Non-African American) 51.1 ml/min; Magnesium 1.6 mg/dl (1.7-2.4); Phosphorus 3.1 mg/dl (2.5-4.9); Potassium 4.2 mmol/L (3.5-5.1)
[2022-09-24 12:50] LABS: Appearance Urine Clear (Clear); Bacteria Urine Automated Negative (Negative); Bilirubin Urine Negative (Negative); Blood Urine 1+ (Negative); Color Urine Yellow; Glucose Urine UA Negative (Negative); Ketones Urine Negative (Negative); Leukocyte Esterase Urine Negative (Negative); Nitrite Urine Negative (Negative); Protein Urine Trace (Negative); Urobilinogen Urine Negative (Negative)
[2022-09-24 13:07] LABS: RBC Urine Automated 0-4 /hpf (0-4)
--- NOTE | 2022-09-24 13:44 | Electrocardiogram Report ---
Test Reason : Blood Pressure : / mmHG Vent. Rate : 101 BPM Atrial Rate : 101 BPM P-R Int : 192 ms QRS Dur : 074 ms QT Int : 350 ms P-R-T Axes : 038 -32 016 degrees QTc Int : 453 ms Sinus tachycardia Left axis deviation Low voltage QRS Inferior infarct , age undetermined Cannot rule out Anterior infarct , age undetermined Abnormal ECG When compared with ECG of 19-JUN-2012 10:09, Significant changes have occurred Confirmed by Jac Birmingham ([id number]) on 09/24/2022 1:44:04 PM Referred By: REFERRED SELF Confirmed By:Jac Birmingham
--- NOTE | 2022-09-24 13:59 | Pharmacy Report ---
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 Pharmacy has been consulted to manage the glycemic control of this patient while admitted. * Patient was started on dexamethasone 6mg IV Q24H today at 0900. T2DM diet ordered. HbA1c resulted at 8% this AM. * Fasting BSG of 195 mg/dL. Administered moderate-stress dose of Lantus this AM since patient above goal. * NovoLog parameters set to weight-based stress of 2. Lunchtime BSG 186mg/dL today. Appears appropriate for now, further adjustment may be indicated with continued steroid administration. PLAN FOR INPATIENT GLYCEMIC CONTROL: * Hold outpatient oral diabetes medications * Basal insulin * Lantus 15 units SQ QAM * Bolus insulin * NovoLog per scale ACHS or Q6hrs while NPO * Goal Range: Low 110 mg/dL - High 140 mg/dL * Correction Factor: 25 mg/dL/unit * Nutritional / Prandial insulin per carb ratio of 1 unit per 9 grams CHO consumed
[2022-09-24] MEDS: REMDESIVIR 100 MG in SODIUM CHLORIDE 0.9% 230 ML IV SCH (20:32)
[2022-09-24] MEDS: ATORVASTATIN 40 MG TAB PO SCH (20:36)
[2022-09-24] MEDS: FAMOTIDINE 20 MG TAB PO SCH (20:37)
[2022-09-24] MEDS: guaiFENesin 600 MG TABCR PO SCH (21:48)
[2022-09-25] MEDS: HEPARIN SOD 5,000 UNIT/0.5 ML VIAL SQ SCH ×3 (05:28→21:24)
[2022-09-25 07:16] LABS: BUN Creatinine Ratio 22.2 (10-20); Calcium 8.4 mg/dl (8.6-10.3); Creatinine Clr Calc Pharmacy 41.2 ml/min; Est GFR (African American) 51.3 ml/min; Est GFR (Non-African American) 44.3 ml/min; Magnesium 1.8 mg/dl (1.7-2.4); Phosphorus 2.7 mg/dl (2.5-4.9); Potassium 3.8 mmol/L (3.5-5.1)
[2022-09-25 07:23] LABS: Hematocrit (blood only) 29.6 % (42.0-52.0); Mean Corpuscular Hemoglobin 29.9 pg (25.0-34.0); Mean Corpuscular Hgb Conc 33.8 g/dL (32.0-36.0); Mean Corpuscular Volume 88.4 fL (80.0-100.0); Mean Platelet Volume 11.1 fL (9.4-12.4); Platelet Count 204 K/uL (130-400); RDW Coefficient of Variation 13.9 % (11.5-14.5); RDW Standard Deviation 45.1 fL (36.4-46.3); Red Blood Count 3.35 M/uL (4.70-6.10); White Blood Count 8.23 K/ul (4.8-10.8)
[2022-09-25 07:27] LABS: Troponin I High Sensitivity 85.7 pg/ml (0-20)
[2022-09-25] MEDS ORDERED: SODIUM CHLORIDE 0.9% 1000ML 1,000 ML IV SCH (08:00)
[2022-09-25] MEDS: INSULIN ASPART PER UNIT CHARGE SC SCH ×4 (08:44→21:23)
[2022-09-25] MEDS: FOLIC ACID 1 MG TAB PO SCH ×2 (08:45→20:01)
[2022-09-25] MEDS: LANTUS PER UNIT CHARGE SC SCH (08:45)
[2022-09-25] MEDS: ASPIRIN 81 MG ECTAB PO SCH (08:45)
[2022-09-25] MEDS: FLUTICASONE PROPIONATE NA SPR 16 GM BTL SCH (08:45)
[2022-09-25] MEDS: CHOLECALCIFEROL 1,000 UNITS 25 MCG TAB PO SCH (08:46)
[2022-09-25] MEDS: cilostazoL 100 MG TAB PO SCH (08:46)
[2022-09-25] MEDS: hydroCHLOROthiazide 25 MG TAB PO SCH (08:46)
[2022-09-25] MEDS: guaiFENesin 600 MG TABCR PO SCH ×2 (08:47→20:01)
[2022-09-25] MEDS: dexAMETHasone 6 MG in SYRINGE 0 ML IV SCH (08:47)
[2022-09-25] MEDS: CYANOCOBALAMIN (B-12) 500 MCG TABLET PO SCH (08:47)
[2022-09-25] MEDS: TIMOLOL MALEATE 0.5% OP SOLN 5 ML BTL OP SCH (08:48)
--- NOTE | 2022-09-25 12:19 | Hospitalist Progress Note ---
Date of Service September 25, 2022 Assessment & Plan (1) COVID: (2) Vomiting: Plan: This is an 86 yo M who presents with weakness, nausea, found to have COVID. 1. +COVID: With some nausea, vomiting, and also the patient was requiring 2 L oxygen. Meeting criteria for remdesivir, which was started and alsol place on IV Decadron. Follow the remdesivir labs. The patient says he is COVID vaccinated and boosted, but does not remember the date of his booster. Monitor in the med tele.Will monitor oxygen status and hemodynamics. Currently on RA nausea vomiting resolved, tolerating diet 2. Diabetes: Holding home p.o. medication. Placed him on insulin sliding scale. Follow the blood sugars while getting steroids. 3. Mild elevation of troponin: Likely demand ischemia. Pt has no chest pain, feeling well and saturating well on RA Serial enzymes followed and elevated today at 80. Repeated ECG - w/ new inferior infarct, age undetermined Discussed w/ cardiology - last ecg to compare with from 06/2021. Cardiology will see the pt, consult placed. 4. Gastroesophageal reflux disease: Continue famotidine. 5. Hyperlipidemia: Continue statin. 6. Hypertension: On hydrochlorothiazide/lisinopril withholding parameters. 7. History of glaucoma and macular degeneration: Continue his home eye drops. 8. History of anemia: Hemoglobin is 12.5. 9. Prostate cancer: History of surgery and radiation. DVT prophylaxis:heparin subcutaneous. DISPOSITION: med tele. PT/OT prior to discharge. CODE STATUS: full code Admission and Anticipated Discharge Date Admission Date: September 23, 2022 Subjective Pt seen in follow up of hypoxia, weakness, vomiting, + COVID Currently laying in bed, in NAD Now on RA No more nausea or vomiting - now eating without any issues No fever, chills, chest pain, shortness of breath Reports feeling much better overall Discussed w/ cardiology abnormal ECG, elev. trop. Also asked PT for eval Review of Systems Review of Systems: All systems reviewed & are unremarkable except as noted in Subjective Physical Exam Physical Exam: GENERAL:WD/WN M in NAD HEENT: NC/AT. EOMI. Pupils equal, round and reactive to light. NECK: No JVD, no neck masses. CARDIOVASCULAR: S1 and S2 heard. No murmurs. Regular rhythm. RESPIRATORY: Normal AP diameter. No accessory muscle use. No wheezing, no crackles. ABDOMEN: Soft, bowel sounds present, nontender, no distention. NEURO: Awake and alert, answers appropriately,speech fluent, Moves extremities. EXTREMITIES: No erythema seen.no LE edema Results & Data Results & Data Vital Signs (Past 12 Hours) Vital Signs Temp Pulse Pulse Resp BP Pulse Ox O2 Del Method 09/25/22 12:04 36.4 C L 76 18 151/75 H 93 Room Air 09/25/22 11:43 97 09/25/22 02:56 36.5 C 67 18 101/60 97 Room Air 09/25/22 00:36 72 Laboratory Results 09/25/22 09/25/22 09/25/22 Range/Units 12:04 07:50 05:58 WBC 8.23 (4.8-10.8) K/ul RBC 3.35 L (4.70-6.10) M/uL Hgb 10.0 L (14.0-18.0) g/dl Hct 29.6 L (42.0-52.0) % MCV 88.4 (80.0-100.0) fL MCH 29.9 (25.0-34.0) pg MCHC 33.8 (32.0-36.0) g/dL RDW Std Deviation 45.1 (36.4-46.3) fL RDW Coeff of Desire 13.9 (11.5-14.5) % Plt Count 204 (130-400) K/uL MPV 11.1 (9.4-12.4) fL Sodium (136-145) mmol/L Potassium (3.5-5.1) mmol/L Chloride (98-107) mmol/L Carbon Dioxide (21-32) mmol/L Anion Gap (3-11) BUN (6-23) mg/dl Creatinine (0.6-1.4) mg/dl Est Cr Clr Drug Dosing ml/min Est GFR ( Amer) ml/min Est GFR (Non-Af Amer) ml/min BUN/Creatinine Ratio (10-20) Glucose (70-99(Fasting)) mg/dl POC Glucose 189 H 164 H (70-99) mg/dl Calcium (8.6-10.3) mg/dl Phosphorus (2.5-4.9) mg/dl Magnesium (1.7-2.4) mg/dl AST (13-39) U/L ALT (7-52) U/L Troponin I High Sens (0-20) pg/ml Urine Color Urine Appearance (Clear) Urine pH (4.5-7.5) Ur Specific [place] (1.000-1.030) Urine Protein (Negative) Urine Glucose (UA) (Negative) Urine Ketones (Negative) Urine Blood (Negative) Urine Nitrite (Negative) Urine Bilirubin (Negative) Urine Urobilinogen (Negative) Ur Leukocyte Esterase (Negative) Urine WBC (Auto) (0-5) /hpf Urine RBC (Auto) (0-4) /hpf U Hyaline Cast (Auto) (0-5) /lpf U Epithel Cells (Auto) (0-5) /lpf Urine Bacteria (Auto) (Negative) Urine Yeast 09/25/22 09/24/22 09/24/22 Range/Units 05:58 Unknown 20:10 WBC (4.8-10.8) K/ul RBC (4.70-6.10) M/uL Hgb (14.0-18.0) g/dl Hct (42.0-52.0) % MCV (80.0-100.0) fL MCH (25.0-34.0) pg MCHC (32.0-36.0) g/dL RDW Std Deviation (36.4-46.3) fL RDW Coeff of Desire (11.5-14.5) % Plt Count (130-400) K/uL MPV (9.4-12.4) fL Sodium 136 (136-145) mmol/L Potassium 3.8 (3.5-5.1) mmol/L Chloride 104 (98-107) mmol/L Carbon Dioxide 23 (21-32) mmol/L Anion Gap 9 (3-11) BUN 32 H (6-23) mg/dl Creatinine 1.44 H (0.6-1.4) mg/dl Est Cr Clr Drug Dosing 41.2 ml/min Est GFR ( Amer) 51.3 ml/min Est GFR (Non-Af Amer) 44.3 ml/min BUN/Creatinine Ratio 22.2 H (10-20) Glucose 139 H (70-99(Fasting)) mg/dl POC Glucose 262 H (70-99) mg/dl Calcium 8.4 L (8.6-10.3) mg/dl Phosphorus 2.7 (2.5-4.9) mg/dl Magnesium 1.8 (1.7-2.4) mg/dl AST 27 (13-39) U/L ALT 21 (7-52) U/L Troponin I High Sens 85.7 H* D (0-20) pg/ml Urine Color Yellow Urine Appearance Clear (Clear) Urine pH 5.0 (4.5-7.5) Ur Specific [place] 1.010 (1.000-1.030) Urine Protein Trace H (Negative) Urine Glucose (UA) Negative (Negative) Urine Ketones Negative (Negative) Urine Blood 1+ H (Negative) Urine Nitrite Negative (Negative) Urine Bilirubin Negative (Negative) Urine Urobilinogen Negative (Negative) Ur Leukocyte Esterase Negative (Negative) Urine WBC (Auto) 1-5 (0-5) /hpf Urine RBC (Auto) 0-4 (0-4) /hpf U Hyaline Cast (Auto) 1-5 (0-5) /lpf U Epithel Cells (Auto) 5-10 H (0-5) /lpf Urine Bacteria (Auto) Negative (Negative) Urine Yeast Not Reportable 09/24/22 Range/Units 16:16 WBC (4.8-10.8) K/ul RBC (4.70-6.10) M/uL Hgb (14.0-18.0) g/dl Hct (42.0-52.0) % MCV (80.0-100.0) fL MCH (25.0-34.0) pg MCHC (32.0-36.0) g/dL RDW Std Deviation (36.4-46.3) fL RDW Coeff of Desire (11.5-14.5) % Plt Count (130-400) K/uL MPV (9.4-12.4) fL Sodium (136-145) mmol/L Potassium (3.5-5.1) mmol/L Chloride (98-107) mmol/L Carbon Dioxide (21-32) mmol/L Anion Gap (3-11) BUN (6-23) mg/dl Creatinine (0.6-1.4) mg/dl Est Cr Clr Drug Dosing ml/min Est GFR ( Amer) ml/min Est GFR (Non-Af Amer) ml/min BUN/Creatinine Ratio (10-20) Glucose (70-99(Fasting)) mg/dl POC Glucose 273 H (70-99) mg/dl Calcium (8.6-10.3) mg/dl Phosphorus (2.5-4.9) mg/dl Magnesium (1.7-2.4) mg/dl AST (13-39) U/L ALT (7-52) U/L Troponin I High Sens (0-20) pg/ml Urine Color Urine Appearance (Clear) Urine pH (4.5-7.5) Ur Specific [place] (1.000-1.030) Urine Protein (Negative) Urine Glucose (UA) (Negative) Urine Ketones (Negative) Urine Blood (Negative) Urine Nitrite (Negative) Urine Bilirubin (Negative) Urine Urobilinogen (Negative) Ur Leukocyte Esterase (Negative) Urine WBC (Auto) (0-5) /hpf Urine RBC (Auto) (0-4) /hpf U Hyaline Cast (Auto) (0-5) /lpf U Epithel Cells (Auto) (0-5) /lpf Urine Bacteria (Auto) (Negative) Urine Yeast Medications Administered Current Inpatient Medications Acetaminophen (Acetaminophen 325 Mg Tab) 650 mg PO Q4H PRN PRN Reason: Pain or Fever Stop: 10/23/22 22:11 Artificial Tears (Artificial Tears) 1 drops OP QID PRN PRN Reason: Dry Eyes Stop: 10/23/22 22:37 Ascorbic Acid (Ascorbic Acid 500 Mg Tab) 1,000 mg PO QDL [facility] Stop: 10/24/22 11:29 Last Admin: 09/24/22 10:48 Dose: 1,000 mg Aspirin (Aspirin 81 Mg Ectab) 81 mg PO QAM [facility] Stop: 10/24/22 08:59 Last Admin: 09/25/22 08:45 Dose: 81 mg Atorvastatin Calcium (Atorvastatin 40 Mg Tab) 40 mg PO HS [facility] Stop: 10/23/22 22:11 Last Admin: 09/24/22 20:36 Dose: 40 mg Cilostazol (Cilostazol 100 Mg Tab) 50 mg PO QAM [facility] Stop: 10/24/22 08:59 Last Admin: 09/25/22 08:46 Dose: 50 mg Cyanocobalamin (Cyanocobalamin (B-12) 500 Mcg Tablet) 1,000 mcg PO DAILY [facility] Stop: 10/24/22 08:59 Last Admin: 09/25/22 08:47 Dose: 1,000 mcg Dextrose (Dextrose 50% 50 Ml Syringe) 25 - 50 ml IV UD PRN; Protocol PRN Reason: Hypoglycemia Protocol Stop: 10/23/22 22:11 Famotidine (Famotidine 20 Mg Tab) 20 mg PO HS [facility] Stop: 10/23/22 22:11 Last Admin: 09/24/22 20:37 Dose: 20 mg Fluticasone Propionate (Fluticasone Propionate Na Spr 16 Gm Btl) 1 sprays NA QAM [facility] Stop: 10/24/22 08:59 Last Admin: 09/25/22 08:45 Dose: 1 sprays Folic Acid (Folic Acid 1 Mg Tab) 1 mg PO BID [facility] Stop: 10/23/22 22:11 Last Admin: 09/25/22 08:45 Dose: 1 mg Glucagon (Glucagon For Inj 1 Mg Vial) 1 mg SQ UD PRN; Protocol PRN Reason: Hypoglycemia Protocol Stop: 10/23/22 22:11 Glucose (Glucose 10 Tab/Tube) 4 - 8 tab PO UD PRN; Protocol PRN Reason: Hypoglycemia Treatment Stop: 10/23/22 22:11 Glucose (Glucose 40% Gel 15 Gm Tube) 15 - 30 gm PO UD PRN; Protocol PRN Reason: Hypoglycemia Protocol Stop: 10/23/22 22:11 Guaifenesin (Guaifenesin 600 Mg Tabcr) 600 mg PO Q12 [facility] Stop: 10/24/22 21:34 Last Admin: 09/25/22 08:47 Dose: 600 mg Heparin Sodium (Porcine) (Heparin Sod 5,000 Unit/0.5 Ml Vial) 5,000 units SQ Q8 [facility] Stop: 10/23/22 22:11 Last Admin: 09/25/22 05:28 Dose: 5,000 units Hydrochlorothiazide (Hydrochlorothiazide 25 Mg Tab) 25 mg PO QAM [facility] Stop: 10/24/22 08:59 Last Admin: 09/25/22 08:46 Dose: 25 mg Remdesivir 100 mg/ Sodium (Chloride) 250 mls @ 250 mls/hr IV Q24H [facility] Stop: 09/27/22 20:59 Last Infusion: 09/24/22 21:47 Dose: Infused Dexamethasone 6 mg/ Syringe 1.5 mls @ 1 mls/min IV DAILY [facility] Stop: 10/04/22 08:59 Last Admin: 09/25/22 08:47 Dose: 1 mls/min Sodium Chloride (Nss 1000ml) 1,000 mls @ 80 mls/hr IV .[id number] [facility] Stop: 10/25/22 07:59 Last Admin: 09/25/22 08:47 Dose: 80 mls/hr Insulin Aspart (Insulin Aspart Per Unit Charge) 0 units SC ACHS [facility] Stop: 10/23/22 22:11 Last Admin: 09/25/22 08:44 Dose: 10 units Insulin Glargine (Lantus Per Unit Charge) 20 units SC DAILY [facility] Stop: 10/25/22 08:59 Last Admin: 09/25/22 08:45 Dose: 20 units Lisinopril (Lisinopril 10 Mg Tab) 10 mg PO QAM [facility] Stop: 10/24/22 08:59 Last Admin: 09/24/22 08:08 Dose: 10 mg Miscellaneous (Carbohydrates For Hypoglycemia ) 15 - 30 gm PO UD PRN PRN Reason: Hypoglycemia Protocol Stop: 10/23/22 22:11 Miscellaneous Information (Pharmacy Glycemic Mgmt Consult) 1 each N/A UD PRN PRN Reason: Consult Stop: 10/23/22 22:11 Nitroglycerin (Nitroglycerin Sl 0.4 Mg/Tab Tab) 0.4 mg SL UD PRN PRN Reason: Chest Pain Stop: 10/23/22 22:11 Timolol Maleate (Timolol Maleate 0.5% Op Soln 5 Ml Btl) 1 drops OP QAM [facility] Stop: 10/24/22 08:59 Last Admin: 09/25/22 08:48 Dose: 1 drops Vitamin D (Cholecalciferol 1,000 Units 25 Mcg Tab) 1,000 units PO DAILY [facility] Stop: 10/24/22 08:59 Last Admin: 09/25/22 08:46 Dose: 1,000 units
[2022-09-25] MEDS: ASCORBIC ACID 500 MG TAB PO SCH (12:39)
--- NOTE | 2022-09-25 15:45 | Cardiology Consultation ---
Date of Consultation September 25, 2022 Assessment & Plan (1) Elevated troponin: (2) COVID: (3) Weakness: - Patient presented with generalized illness including abdominal discomfort and cough of several days duration. He tested positive for SARS-CoV-2 at home and again while in the hospital. -He has a known history of aortic stenosis, graded as being mild on his most recent outpatient echocardiogram performed in May, as summarized. -He has had 3 measurements of the high-sensitivity troponin of 43, 55, and the third most recent measurement this morning was 85.7 PG per mL. -EKG performed today 09/25/2022 at 1038 and interpreted independently: Sinus rhythm at 71 bpm with age-indeterminate inferior infarct pattern noted, Q waves in leads III and aVF. Low voltage and nonspecific T wave flattening otherwise noted. Compared to the baseline EKG performed 06/18/2021 as an outpatient, the low voltage is a chronic finding. The Q waves noted in the inferior leads are more prominent. The current EKG however does not reveal any acute repolarization changes, and as noted the patient denies any cardiac symptoms. He certainly has a firm belief that he did not come to the hospital because he was having a heart attack. -I would recommend that his chronic outpatient medications be continued incl uding aspirin 81 mg daily, HCTZ, lisinopril, and atorvastatin. -He has received 2 doses of remdesivir and 2 doses of dexamethasone thus far. -Patient stable from a cardiac perspective for discharge today, order remain in the hospital for further supportive care and additional remdesivir and dexamethasone. The patient tells me he prefers to go home which I think is reasonable. History of Present Illness Attending Physician: George Clark MD History of Present Illness Shaan Meyer is an 86-year-old male seen in cardiology consultation per the request of Dr. Clark for the evaluation of mild elevation in troponin I and abnormalities on EKG. [facility] I had most recently seen him as an outpatient 2 months ago at which time he described stable cardiac signs and symptoms, and an echocardiogram had revealed stable mild aortic valve stenosis. The patient was admitted via the emergency department on 09/24/2022 with generalized illness including a cough for the last 2 to 3 days with positive COVID test. His had similar symptoms and is also currently admitted. Initially, hypoxia have been noted with oxygen saturation of 80% in the emergency room, but this subsequently improved with supplemental oxygen, and he has since been weaned with most recent pulse oximetry of 95% on room air. Per my discussion with the patient he states that he had been feeling well prior to developing his cough illness. He denies any recent chest discomfort, shortness of breath, or change in activity tolerance. At the time of my assessment in room 279 he stated that he felt like he was ready to go home already feeling improved compared to yesterday. Telemetry revealed sinus rhythm in the 70s with occasional PVCs. Allergies Allergy/AdvReac Type Severity Reaction Status Date / Time No Known Allergies Allergy Verified 09/23/22 18:45 Home Medications Medication Instructions Recorded Confirmed Type aspirin 81 mg tablet,delayed 81 mg PO QAM 06/14/19 09/23/22 History release atorvastatin 40 mg tablet (Lipitor) 40 mg PO HS 06/14/19 09/23/22 History fluticasone propionate 50 1 spray intranasal QAM 06/14/19 09/23/22 History mcg/actuation nasal spray,suspension (Flonase Allergy Relief) hydrochlorothiazide 25 mg tablet 25 mg PO QAM 06/14/19 09/23/22 History metformin 500 mg tablet 500 mg PO BIDM 06/14/19 09/23/22 History sitagliptin phosphate 50 mg tablet 50 mg PO QAM 06/14/19 09/23/22 History (Januvia) timolol 0.5 % eye drops 1 drp OPB QAM 06/14/19 09/23/22 History acetaminophen 650 mg 650 mg PO BID PRN Pain 09/23/22 09/23/22 History tablet,extended release ascorbic acid (vitamin C) 1,000 mg 1 g PO QDL 09/23/22 09/23/22 History tablet (Vitamin C) carboxymethylcellulose sodium 0.5 1 drp OPB QID PRN Dry Eyes 09/23/22 09/23/22 History % eye drops cholecalciferol (vitamin D3) 25 25 mcg PO DAILY 09/23/22 09/23/22 History mcg (1,000 unit) capsule (Vitamin D3) cilostazol 50 mg tablet 50 mg PO QAM 09/23/22 09/23/22 History cyanocobalamin (vitamin B-12) 1,000 mcg PO DAILY 09/23/22 09/23/22 History 1,000 mcg tablet (Vitamin B-12) famotidine 20 mg tablet 20 mg PO HS 09/23/22 09/23/22 History folic acid 1 mg tablet 1 mg PO BID 09/23/22 09/23/22 History glipizide 2.5 mg tablet, extended 2.5 mg PO DAILYBB 09/23/22 09/23/22 History release 24 hr glucosamine-chondroitin 1,500 mg 30 ml PO DAILY 09/23/22 09/23/22 History -1,200 mg/30 mL oral liquid lisinopril 10 mg tablet 10 mg PO QAM 09/23/22 09/23/22 History nirmatrelvir 150 mg-ritonavir 100 1 ea PO DAILY 09/23/22 09/23/22 History mg tablets in a dose pack (EUA) (Paxlovid) Patient History Medical History Aortic stenosis Follows with Dr. Woods Cardiac murmur Chronic kidney disease, stage 3 FOLLOWS W/ DR. S[place]EN IN [place] Degenerative disc disease Diabetes mellitus, type 2 NIDDM GERD (gastroesophageal reflux disease) Glaucoma History of prostate cancer PROSTATECTOMY + RADIATION RESIGHINI (hard of hearing) Hyperlipidemia Hypertension Osteoarthritis Spinal stenosis Surgical History History of appendectomy History of cataract surgery History of colonoscopy History of esophagogastroduodenoscopy (EGD) History of lumbar surgery History of prostate biopsy History of prostatectomy History of right inguinal hernia repair X 2 History of right shoulder replacement Family History Sister Family history of diabetes mellitus Family hx of colon cancer Sister Family history of diabetes mellitus Sister Family history of diabetes mellitus Brother Family history of diabetes mellitus Mother Family history of diabetes mellitus Other No family history of adverse response to anesthesia Social History Smoking Status: Former smoker Smoking End Date: ; Second Hand Exposure: No; Do You Dip or Chew Tobacco: No (QUIT 3 YEARS AGO); Hx Alcohol Use: No Hx Substance Use: No Preferred Language: Faroese Communication Ability: Effective Mutual Fund Manager Required: No Beliefs That Will Affect Care: None Current Living Situation: Spouse Feels Safe at Home: Yes Safety Concerns: Feels Safe At This Time Assistive Devices: Glasses Review of Systems Review of Systems: All systems reviewed & are unremarkable except as noted in HPI & below Physical Exam Constitutional: no acute distress Respiratory: normal respiratory effort, lungs clear to auscultation Cardiovascular: Heart Sounds: normal S1, normal S2 and + murmur (1/6 systolic murmur) Extremities: no edema Gastrointestinal (Abdomen): normal bowel sounds, soft, nontender, no hepatosplenomegaly Neurologic: PERRL, EOMI, accommodation nl, no face palsy, no dysarthria Results & Data Vital Signs (Past 12 Hours) Vital Signs Temp Pulse Pulse Resp BP Pulse Ox O2 Del Method 09/25/22 15:33 67 09/25/22 14:41 36.7 C 88 18 164/78 H 95 Room Air 09/25/22 07:45 36.8 C 70 20 135/75 95 Room Air 09/25/22 08:00 68 09/25/22 12:04 36.4 C L 76 18 151/75 H 93 Room Air 09/25/22 11:43 97 Laboratory Results Cardiac Enzymes 09/25/22 Range/Units 05:58 AST 27 (13-39) U/L Troponin I High Sens 85.7 H* D (0-20) pg/ml CBC 09/25/22 Range/Units 05:58 WBC 8.23 (4.8-10.8) K/ul RBC 3.35 L (4.70-6.10) M/uL Hgb 10.0 L (14.0-18.0) g/dl Hct 29.6 L (42.0-52.0) % Plt Count 204 (130-400) K/uL Comprehensive Metabolic Panel 09/25/22 Range/Units 05:58 Sodium 136 (136-145) mmol/L Potassium 3.8 (3.5-5.1) mmol/L Chloride 104 (98-107) mmol/L Carbon Dioxide 23 (21-32) mmol/L BUN 32 H (6-23) mg/dl Creatinine 1.44 H (0.6-1.4) mg/dl Glucose 139 H (70-99(Fasting)) mg/dl Calcium 8.4 L (8.6-10.3) mg/dl AST 27 (13-39) U/L ALT 21 (7-52) U/L Intake and Output 09/25/22 09/25/22 09/25/22 06:59 14:59 22:59 Intake Total 120 / 1850 730 / 730 Output Total 300 / 701 100 / 100 Balance -180 / 1149 630 / 630 Intake: Oral 120 / 600 730 / 730 Output: Urine 300 / 700 100 / 100 Other: # Unmeasured Voids 2 Weight 87.9 kg Diagnostic Findings Summary of radiology report of chest x-ray: Cardiomegaly with no acute cardiopulmonary abnormality Summary of recent outpatient echocardiogram performed 06/23/2022: The left ventricular cavity size is normal. The LV wall thickness is moderately increased (concentric). The left ventricular wall motion is normal. The qualitative LV ejection fraction is 60-64% (normal). The aortic valve is moderately calcified. Mild aortic valve stenosis is present. There is no significant aortic regurgitation. The aortic root and proximal ascending aorta are mildly enlarged. (4.2/4.1 cm) In comparison prior study of June 09, 2021 aortic size has increased slightly
[2022-09-25] MEDS: REMDESIVIR 100 MG in SODIUM CHLORIDE 0.9% 230 ML IV SCH (19:58)
[2022-09-25] MEDS: FAMOTIDINE 20 MG TAB PO SCH (20:01)
[2022-09-25] MEDS: ATORVASTATIN 40 MG TAB PO SCH (20:01)
[2022-09-26] MEDS: HEPARIN SOD 5,000 UNIT/0.5 ML VIAL SQ SCH (06:17)
[2022-09-26 07:54] LABS: Hematocrit (blood only) 30.1 % (42.0-52.0); Hemoglobin 10.1 g/dl (14.0-18.0); Mean Corpuscular Hemoglobin 28.9 pg (25.0-34.0); Mean Corpuscular Hgb Conc 33.6 g/dL (32.0-36.0); Mean Corpuscular Volume 86.2 fL (80.0-100.0); Mean Platelet Volume 10.5 fL (9.4-12.4); Platelet Count 238 K/uL (130-400); RDW Coefficient of Variation 13.9 % (11.5-14.5); RDW Standard Deviation 43.8 fL (36.4-46.3); Red Blood Count 3.49 M/uL (4.70-6.10); White Blood Count 8.58 K/ul (4.8-10.8)
[2022-09-26] MEDS: INSULIN ASPART PER UNIT CHARGE SC SCH ×2 (08:02→12:36)
[2022-09-26] MEDS: LANTUS PER UNIT CHARGE SC SCH (08:03)
[2022-09-26 08:15] LABS: BUN Creatinine Ratio 24.4 (10-20); Calcium 8.1 mg/dl (8.6-10.3); Creatinine Clr Calc Pharmacy 44.1 ml/min; Est GFR (African American) 55.5 ml/min; Est GFR (Non-African American) 47.9 ml/min; Potassium 3.7 mmol/L (3.5-5.1)
[2022-09-26] MEDS: CYANOCOBALAMIN (B-12) 500 MCG TABLET PO SCH (08:15)
[2022-09-26] MEDS: cilostazoL 100 MG TAB PO SCH (08:15)
[2022-09-26] MEDS: lisinopril 10 MG TAB PO SCH (08:16)
[2022-09-26] MEDS: guaiFENesin 600 MG TABCR PO SCH (08:16)
[2022-09-26] MEDS: hydroCHLOROthiazide 25 MG TAB PO SCH (08:16)
[2022-09-26] MEDS: FOLIC ACID 1 MG TAB PO SCH (08:16)
[2022-09-26] MEDS: TIMOLOL MALEATE 0.5% OP SOLN 5 ML BTL OP SCH (08:17)
[2022-09-26] MEDS: CHOLECALCIFEROL 1,000 UNITS 25 MCG TAB PO SCH (08:17)
[2022-09-26] MEDS: ASPIRIN 81 MG ECTAB PO SCH (08:17)
[2022-09-26] MEDS: FLUTICASONE PROPIONATE NA SPR 16 GM BTL SCH (08:17)
--- NOTE | 2022-09-26 09:16 | Discharge Summary ---
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 The patient says he is feeling sick since morning. The patient says he had cough for the last two to three days. He was diagnosed with COVID at home test. His has also COVID, seems to be in the hospital. It looks like he has some nausea and vomiting, no diarrhea and seems to get paxlovid today, but when family went to check on him, he was vomiting and too weak, so they brought him here. The patient is somewhat hard of hearing, somewhat drowsy, but answers simple questions. Denies any chest pain, denies any cough. Currently, denies any nausea or abdominal pain. Denies any diarrhea currently. Denies any headache. Denies any blurred visions, runny nose, or sore throat. Knows that he is in the hospital, could tell his name.Tried to call his son, not able to reach. He was saturating at 88% on room air in the ER. Currently on 2 liters, saturating okay. . Admission Exam Per Admitting Provider GENERAL: The patient is somewhat drowsy, head of hearing VITAL SIGNS: Temperature 36.9, pulse 98, respiratory rate 26, pressure 151/86, oxygen 98% on 2 liters. HEENT: Pupils equal, round and reactive to light. Oral mucosa somewhat dry. NECK: No JVD, no neck masses. CARDIOVASCULAR: S1 and S2 heard. No murmurs. Regular rhythm. RESPIRATORY SYSTEM: Normal AP diameter. No accessory muscle use. No wheezing, no crackles. ABDOMEN: Soft, bowel sounds present, nontender, no distention. CENTRAL NERVOUS SYSTEM: Alert and somewhat drowsy, but arousable. Speaks in low volume, hard of hearing. No obvious facial droop. Obeys simple commands. Moves extremities. EXTREMITIES: No erythema seen. Principal Diagnosis Covid 19, hypoxia, nausea/vomiting, weakness Discharge Exam GENERAL:WD/WN M in NAD HEENT: NC/AT. EOMI. Pupils equal, round and reactive to light. NECK: No JVD, no neck masses. CARDIOVASCULAR: S1 and S2 heard. No murmurs. Regular rhythm. RESPIRATORY: Normal AP diameter. No accessory muscle use. No wheezing, no crackles. ABDOMEN: Soft, bowel sounds present, nontender, no distention. NEURO: Awake and alert, answers appropriately,speech fluent, Moves extremities. EXTREMITIES: No erythema seen.no LE edema Discharge Data Allergies Allergy/AdvReac Type Severity Reaction Status Date / Time No Known Allergies Allergy Verified 09/23/22 18:45 Consultations 09/23/22 19:19 ED Decision to Admit Stat 09/25/22 12:10 Consult Cardiology Routine Hospital Course (1) COVID: (2) Vomiting: This is an 86 yo M who presents with weakness, nausea, found to have COVID. 1. +COVID: With some nausea, vomiting, and also the patient was requiring 2 L oxygen. Meeting criteria for remdesivir, which was started and alsol placed on IV Decadron. Follow the remdesivir labs. The patient says he is COVID vaccinated and boosted, but does not remember the date of his booster. Monitor in the med tele.Will monitor oxygen status and hemodynamics. Currently on RA nausea vomiting resolved, tolerating diet 2. Diabetes: Holding home p.o. medication. Placed him on insulin sliding scale. Follow the blood sugars while getting steroids. 3. Mild elevation of troponin: Likely demand ischemia. Pt has no chest pain, feeling well and saturating well on RA Serial enzymes followed and elevated yesterday at 80. Repeated ECG - w/ new inferior infarct, age undetermined Discussed w/ cardiology - last ecg to compare with from 06/2021. Cardiology saw the pt - recommend to continue current home meds. 4. Gastroesophageal reflux disease: Continue famotidine. 5. Hyperlipidemia: Continue statin. 6. Hypertension: On hydrochlorothiazide/lisinopril withholding parameters. 7. History of glaucoma and macular degeneration: Continue his home eye drops. 8. History of anemia: Hemoglobin is 12.5. 9. Prostate cancer: History of surgery and radiation. Ambulatory dysfunction PT recommends walker, home PT - Rx given to CM , HH to be arranged Total Time Total Time Spent Total Time Spent (In Minutes): 40 Discharge Plan Discharge Items Patient Disposition: Home - Home Health Services Reason For Visit: WEAKNESS Discharge Diagnosis: Covid 19, hypoxia, nausea/vomiting, weakness Activity: Per Instructions section Non-emergency contact: Primary Care Provider Call non-emergency contact if: you have any medication questions and your symptoms worsen Follow-up/Referrals: Ken Carson MD [Primary Care Provider] - Diet: Carb Consistent or DM2 Addtl Attending Provider Instructions: Follow-up with primary care physician within 1 week. Continue taking guaifenesin, and using flutter valve and incentive spirometry for next several days. As discussed, recommend to use a walker to prevent any falls. Home physical therapy to be set up by our case management. Addtl [employer] Provider Instructions: Home Isolation COVID-19 Instructions The following information about Home Isolation is from the CDC Website: https://www.cdc.gov/coronavirus/2019-ncov/hcp/oyshiovc-qgpjiqp-lnidod.html Stay home except to get medical care People who are mildly ill with COVID-19 are able to isolate at home during their illness. You should restrict activities outside your home, except for getting medical care. Do not go to work, school, or public areas. Avoid using public transportation, ride-sharing, or taxis. Separate yourself from other people and animals in your home People: As much as possible, you should stay in a specific room and away from other people in your home. Also, you should use a separate bathroom, if available. Animals: You should restrict contact with pets and other animals while you are sick with COVID-19, just like you would around other people. Although there have not been reports of pets or other animals becoming sick with COVID-19, it is still recommended that people sick with COVID-19 limit contact with animals until more information is known about the virus. When possible, have another member of your household care for your animals while you are sick. If you are sick with COVID-19, avoid contact with your pet, including petting, snuggling, being kissed or licked, and sharing food. If you must care for your pet or be around animals while you are sick, wash your hands before and after you interact with pets and wear a face mask. Call ahead before visiting your doctor If you have a medical appointment, call the healthcare provider and tell them that you have or may have COVID-19. This will help the healthcare providers office take steps to keep other people from getting infected or exposed. Wear a face mask You should wear a face mask when you are around other people (e.g., sharing a room or vehicle) or pets and before you enter a healthcare providers office. If you are not able to wear a face mask (for example, because it causes trouble breathing), then people who live with you should not stay in the same room with you, or they should wear a face mask if they enter your room. Cover your coughs and sneezes Cover your mouth and nose with a tissue when you cough or sneeze. Throw used tissues in a lined trash can. Immediately wash your hands with soap and water for at least 20 seconds or, if soap and water are not available, clean your hands with an alcohol-based hand job service consultant that contains at least 60% alcohol. Clean your hands often Wash your hands often with soap and water for at least 20 seconds, especially after blowing your nose, coughing, or sneezing; going to the bathroom; and before eating or preparing food. If soap and water are not readily available, use an alcohol-based hand job service consultant with at least 60% alcohol, covering all surfaces of your hands and rubbing them together until they feel dry. Soap and water are the best option if hands are visibly dirty. Avoid touching your eyes, nose, and mouth with unwashed hands. Avoid sharing personal household items You should not share dishes, drinking glasses, cups, eating utensils, towels, or bedding with other people or pets in your home. After using these items, they should be washed thoroughly with soap and water. Clean all high-touch surfaces everyday High touch surfaces include counters, tabletops, doorknobs, bathroom fixtures, toilets, phones, keyboards, tablets, and bedside tables. Also, clean any surfaces that may have blood, stool, or body fluids on them. Use a household cleaning spray or wipe, according to the label instructions. Labels contain instructions for safe and effective use of the cleaning product including precautions you should take when applying the product, such as wearing gloves and making sure you have good ventilation during use of the product. Monitor your symptoms Seek prompt medical attention if your illness is worsening (e.g., difficulty breathing).Beforeseeking care, call your healthcare provider and tell them that you have, or are being evaluated for, COVID-19. Put on a face mask before you enter the facility. These steps will help the healthcare providers office to keep other people in the office or waiting room from getting infected or exposed. Ask your healthcare provider to call the local or state health department. Persons who are placed under active monitoring or facilitated self- monitoring should follow instructions provided by their local health department or occupational health professionals, as appropriate. When working with your local health department check their available hours. If you have a medical emergency and need to call 911, notify the dispatch personnel that you have, or are being evaluated for COVID-19. If possible, put on a face mask before emergency medical services arrive. Discontinuing home isolation Patients with confirmed COVID-19 should remain under home isolation precautions until the risk of secondary transmission to others is thought to be low. The decision to discontinue home isolation precautions should be made on a tqqw-ga-joah basis, in consultation with healthcare providers and state and local health departments. Coronavirus disease 2019 (COVID-19) is a virus that causes a respiratory illness. It is caused by a coronavirus called 2019 novel coronavirus (2019- nCoV). There are many types of coronavirus. Coronaviruses are a very common cause of bronchitis. They may sometimes cause lung infection(pneumonia). Symptoms can range from mild to severe respiratory illness. These viruses are also foundin some animals. COVID-19 was first found in people in [facility], in late 2019. In 2020, several cases of COVID-19 have been confirmed in the [place] Public health officials are working to find the source. How the virus spreads is not yet fully known. It may be spread through droplets of fluid that a person coughs or sneezes into the air. It may be spread if you touch a surface with virus on it, such as a handle or object, and then touch your mouth. What are the symptoms of COVID-19? Some people have no symptoms or mild symptoms. Symptoms may appear 2 to 14 days after contact with the virus. Symptoms can include: Fever Coughing Trouble breathing What are possible complications from COVID-19? In many cases, this virus can cause infection (pneumonia) in both lungs. In some cases, this can cause . How is COVID-19 diagnosed? Your healthcare provider will ask about your symptoms. He or she will also ask about your recent travel and contact with sick people. Testing for the virus is only done through the CDC. If yourhealthcare provider thinks you may have COVID- 19, he or she will work with your local health department and the CDC on testing. Follow all instructions from your healthcare provider. COVID-19 is d iagnosed by: Nasal and throat swab. A cotton-tipped swab is wiped inside your nose or throat. This is done to check for viruses in your nasal mucus. Sputum culture. A small sample of mucus coughed from your lungs (sputum) is collected if you have a cough. It is checked for the virus. How is COVID-19 treated? There is currently no medicine to treat the virus. Treatment is done to help your body while it fights the virus. This is known as supportive care. Supportive care may include: Pain medicine. These include acetaminophen and ibuprofen. They are used to help ease pain and reduce fever. Bed rest. This helps your body fight the illness. For severe illness, you may need to stay in the hospital. Care during severe illness may include: IV (intravenous) fluids.These are given through a vein to help keep your body hydrated. Oxygen. Supplemental oxygen or ventilation with a breathing machine (ventilator) may be given. This is done to keep enough oxygen in your body. Are you at risk for COVID-19? If youve been to a place where people have been sick with this virus, you are at risk for infection. You are at risk if you: Recently traveled to an affected area Had contact with a sick person who recently traveled to this area Had contact with a person who was diagnosed with COVID-19 How can COVID-19 be prevented? There is no vaccine yet. The best prevention is to not have contact with the virus. The CDC advises that people should not travel to areas where there are COVID-19 outbreaks right now for any reason that is not urgent. To help prevent spreading the infection, wash your hands often, or use an alcohol-basedhand job service consultant. If you are in an area with COVID-19: Wash your hands often. Or use an alcohol-based hand job service consultant often. Only touch your eyes, nose, or mouth with clean hands. Dont have contact with people who are sick. Follow local instructions about being in public. For example, you may be told to not use public transport for a period of time. Stay away from markets that have live or animals. Wash your hands after touching any animals. Don't touch animals that may be sick. Dont share eating or drinking tools with sick people. Dont kiss someone who is sick. Clean surfaces often with disinfectant. If you were in an area with COVID-19 in the last 14 days: Call your healthcare provider. He or she can talk with local health staff to see what action may be needed. Follow all instructions from your provider. Take your temperature every morning and evening for at least 14 days. This is to check for fever. Keep a record of the readings. Keep watch for symptoms of the virus. Tell your provider right away if you have symptoms. If you were in an area with COVID-19 and have a fever or other symptoms: Dont panic. Keep in mind that other illnesses can cause similar symptoms. Stay away from work, school, and public places. Limit physical contact with family members. Don't kiss anyone or share eating or drinking utensils. Clean surfaces you touch with disinfectant. This is to help prevent the virus from spreading. Call your healthcare provider. Explain that you have been exposed to COVID-19 and have symptoms. Do this before going to any hospital. Wait for instructions. Keep in mind that healthcare staff may wear protective equipment such as masks, gowns, gloves, and eye protection. You may be put in a separate room. This is to prevent the possible virus from spreading. Tell the healthcare staff about recent travel. This includes local travel on public transport. Staff may need to find other people you have been in contact with. Follow all instructions the healthcare staff give you. If you have been diagnosed with COVID-19 Follow all instructions from your healthcare provider. Dont leave your home, except to get medical care. Call your healthcare providers office before going. They can prepare and give you instructions. This will help prevent the virus from spreading. Dont go to work, school, or public areas. Dont use public transport or taxis. Stay away from other people in your home. Have them wear face masks around you. Dont share household items or food. Wear a face mask if you can. This includes at home or in a medical facility. Cover your face with a tissue when you cough or sneeze. Throw the tissue away. Wash your hands. Wash your hands often. Caregivers should: Follow all instructions from healthcare staff. Wear a face mask and protective clothing as advised. Wash hands often. Keep track of the sick persons symptoms. Clean surfaces, fabrics, and laundry thoroughly. Keep other people away from the sick person. When to call your healthcare provider Call your healthcare provider: If youve recently traveled and have symptoms If you have been diagnosed with COVID-19 and your symptoms are worse To learn more To find out more about COVID-19, visit the CDC website at www.cdc.gov/coronavirus/2019-ncov/index.html. 6051-2938 [employer]. [address] [place] [address], [place] [address]. All rights reserved. This information is not intended as a substitute for professional medical care. Always follow your healthcare professional's instructions. This information has been adapted from [employer] Pending Studies at Discharge: No Stand-Alone Forms: My [facility] Vtap, Smoking Cessation Medications and DC Order Prescriptions: New guaifenesin [Mucinex] 600 mg Tablet Extended Release 12hr 600 mg PO BID 5 Days Qty: 10 0RF Continued atorvastatin [Lipitor] 40 mg Tablet 40 mg PO HS metformin 500 mg Tablet 500 mg PO BIDM aspirin 81 mg Tablet,Delayed Release (Dr/Ec) 81 mg PO QAM timolol 0.5 % Drops 1 drp OPB QAM hydrochlorothiazide 25 mg Tablet 25 mg PO QAM fluticasone propionate [Flonase Allergy Relief] 50 mcg/actuation [place],Suspension 1 spray INTRANASAL QAM Januvia 50 mg Tablet 50 mg PO QAM ascorbic acid (vitamin C) [Vitamin C] 1,000 mg Tablet 1 g PO QDL cilostazol 50 mg tablet 50 mg PO QAM cyanocobalamin (vitamin B-12) [Vitamin B-12] 1,000 mcg Tablet 1,000 mcg PO DAILY acetaminophen [Tylenol Extended Release] 650 mg Tablet Extended Release 650 mg PO BID MDD 6 TABS/24 HOURS PRN (Reason: Pain) famotidine 20 mg Tablet 20 mg PO HS carboxymethylcellulose sodium 0.5 % Drops 1 drp OPB QID PRN (Reason: Dry Eyes) glipizide 2.5 mg tablet extended release 24hr 2.5 mg PO DAILYBB lisinopril 10 mg tablet 10 mg PO QAM folic acid 1 mg Tablet 1 mg PO BID cholecalciferol (vitamin D3) [Vitamin D3] 25 mcg (1,000 unit) Capsule 25 mcg PO DAILY glucosamine-chondroitin 1,500-1,200 mg/30 mL Liquid 30 ml PO DAILY Discontinued Paxlovid (EUA) 150-100 mg tablets,dose pack 1 ea PO DAILY Rx Instructions: ORDERED 09/23/22 DIRECTED. Discharge Orders: Discharge Order (Routine); Ordered 09/26/22 Ordered By: George Mcclain/Other Patient Handouts: Managing Type 2 Diabetes Admission Data Admit Date/Time: 09/23/22 20:43 Attending Provider: George Clark Admit Provider: Simeon Mackey Primary Care Provider: Ken Carson Other Providers: Simeon Mackey ; Chong Woods ; [facility]
[2022-09-26] MEDS: dexAMETHasone 6 MG in SYRINGE 0 ML IV SCH (10:01)
[2022-09-26] MEDS: ASCORBIC ACID 500 MG TAB PO SCH (12:48)
--- NOTE | 2022-09-27 08:52 | Electrocardiogram Report ---
Test Reason : Blood Pressure : / mmHG Vent. Rate : 071 BPM Atrial Rate : 071 BPM P-R Int : 152 ms QRS Dur : 064 ms QT Int : 422 ms P-R-T Axes : 053 -03 -25 degrees QTc Int : 458 ms Normal sinus rhythm Possible Inferior infarct (cited on or before 23-SEP-2022) Abnormal ECG When compared with ECG of 23-SEP-2022 17:41, Inverted T waves have replaced nonspecific T wave abnormality in Inferior leads Confirmed by Paulo Maher ([id number]) on 09/27/2022 8:52:12 AM Referred By: REFERRED SELF Confirmed By:Paulo Maher
== END 2022-09-26 14:20 | disposition home health service (06) | DRG 178 ==
LOC: ED 16:48 → INTOOBSV 20:43 → 2N 20:43

== ENCOUNTER 2022-11-27 21:58 | Inpatient (IN) ==
--- NOTE | 2022-11-28 00:26 | Emergency Department Note ---
Impression & Plan Acute renal failure, Acute hyponatremia Admit to the [facility] ED Provider Note NAME: TITA OWENS AGE: 86 SEX: M ARRIVES VIA: Walk-In INFORMANT: Patient and his daughter ED PROVIDER(S): Tonie Gandhi DO CHIEF COMPLAINT: Decreased urinary output PLAN: Disposition: Admit to the [facility] Condition: Fair MEDICAL DECISION MAKING: This is an 86-year-old male patient who underwent lumbar laminectomy 2 days ago in [place] who now presents to the emergency department with decreased urinary output. Patient has also not had a bowel movement. He was just released from [place] yesterday. He has had minimal food and clear liquid intake. Bladder scan here in the ER shows only 7 cc of urine within the bladder. Laboratory studies show no leukocytosis. Hemoglobin is low at 9.2. He is hyponatremic with a sodium of 127. BUN is 70 and creatinine is 4.1. Reviewing external medical records in the [facility]. His last creatinine from 2 days ago was 1.4. Patient is suffering acute renal failure. He was bolused with IV normal saline solution and placed on IV normal saline drip. He does appear to be dehydrated on physical exam as he has poor skin turgor and dry mucous membranes although he does have some noted peripheral edema. [facility] t [facility] and he will be evaluated for further inpatient care. Triage Nursing notes reviewed and agree with them. Additional history obtained from his daughter who is at the bedside External medical records from the [facility] system were reviewed Vital Signs: reviewed and unremarkable. Differential diagnosis: Acute renal failure, dehydration, constipation, obstructive uropathy ER treatment provided: residential monitor Twelve-lead EKG IV normal saline bolus Diagnostics interpreted by me: ECG: Normal sinus rhythm at a rate of 83 with PACs. There is no ST segment elevation or signs of ischemia. Cardiac Monitoring: Normal sinus rhythm at a rate of 81 Laboratory studies: See below Imaging studies: Bladder scan: 7 cc of urine HPI: 86/M arrives for evaluation of decreased urinary output. Patient underwent a thoracic/lumbar laminectomy at [facility] on November 25. He was discharged from the hospital yesterday. He has had very limited urinary output since that time. His family is concerned about his kidneys. He has a history of stage III kidney disease. He also describes no bowel movement since the surgery. PAST MEDICAL HISTORY:See Below PAST SURGICAL HISTORY:See Below FAMILY HISTORY:See Below SOCIAL HISTORY:See Below HOME MEDICATIONS:See list ALLERGIES:None VITALS:See Below PHYSICAL EXAMINATION: HEENT: Head - normocephalic and atraumatic Pupils are equal, round, and reactive to light. Extraocular eye muscles are intact, and sclera are anicteric. Nose - moist nasal mucosa without discharge. Mouth - moist buccal mucosa. Oropharynx is nonerythematous and there is no tonsillar exudate or edema noted. Neck: Supple; no JVD or cervical lymphadenopathy Heart: Regular rate and rhythm. There is a normal S1 and S2 with no murmurs, clicks, or gallops appreciated. Lungs: Clear to auscultation bilaterally with no wheezes, rales, or rhonchi. Abdomen: Soft, completely nontender, nondistended, with good bowel sounds. There are no palpable pulsatile masses or hepatosplenomegaly. There is no guarding, rigidity, or rebound noted. Extremities: 1+ pitting edema both lower extremities. There are easily palpable peripheral pulses. Skin: Pale, warm and dry with good turgor and no rashes. ED COURSE: Times/Reassessments: 2345: Patient was evaluated in room B10. A complete history and physical was performed. An order was placed for continuous cardiac monitoring. A bladder scan was performed and revealed only 7 cc of urine. The patient was in a normal sinus rhythm at a rate of 84. An IV lock was initiated and labs were drawn as above. Patient was bolused with 500 cc of saline and started on normal saline drip. [facility] and they will evaluate for further management. Tonie Gandhi DO Past Med/Surg History Medical History Aortic stenosis Follows with Dr. Woods Cardiac murmur Chronic kidney disease, stage 3 FOLLOWS W/ DR. SORENSEN IN [place] Degenerative disc disease Diabetes mellitus, type 2 NIDDM GERD (gastroesophageal reflux disease) Glaucoma History of prostate cancer PROSTATECTOMY + RADIATION [place] (hard of hearing) Hyperlipidemia Hypertension Osteoarthritis Spinal stenosis Surgical History History of appendectomy History of cataract surgery History of colonoscopy History of esophagogastroduodenoscopy (EGD) History of lumbar surgery History of prostate biopsy History of prostatectomy History of right inguinal hernia repair X 2 History of right shoulder replacement Family History Sister Family history of diabetes mellitus Family hx of colon cancer Sister Family history of diabetes mellitus Sister Family history of diabetes mellitus Brother Family history of diabetes mellitus Mother Family history of diabetes mellitus Other No family history of adverse response to anesthesia Social History Smoking Status: Never smoker Second Hand Exposure: No; Do You Dip or Chew Tobacco: No; Hx Alcohol Use: No Hx Substance Use: No Preferred Language: Latvian Communication Ability: Effective Senior Safety Support Manager Required: No Beliefs That Will Affect Care: None Current Living Situation: Spouse Feels Safe at Home: Yes Safety Concerns: Feels Safe At This Time Assistive Devices: Cane and Walker Allergies Allergies Allergy/AdvReac Type Severity Reaction Status Date / Time No Known Allergies Allergy Verified 11/28/22 00:10 Home Meds Home Medications Medication Instructions Recorded Confirmed aspirin 81 mg tablet,delayed 81 mg PO .RESUME IN 2 WEEKS 06/14/19 11/27/22 release atorvastatin 40 mg tablet (Lipitor) 40 mg PO HS 06/14/19 11/27/22 fluticasone propionate 50 1 spray intranasal QA 06/14/19 11/27/22 mcg/actuation nasal spray,suspension (Flonase Allergy Relief) hydrochlorothiazide 25 mg tablet 25 mg PO QAM 06/14/19 11/27/22 metformin 500 mg tablet 500 mg PO BIDM 06/14/19 11/27/22 sitagliptin phosphate 50 mg tablet 50 mg PO QAM 06/14/19 11/27/22 (Januvia) timolol 0.5 % eye drops 1 drp OPB QAM 06/14/19 11/27/22 acetaminophen 650 mg 650 mg PO BID PRN Pain 09/23/22 11/27/22 tablet,extended release ascorbic acid (vitamin C) 1,000 mg 1 g PO QDL 09/23/22 11/27/22 tablet (Vitamin C) carboxymethylcellulose sodium 0.5 1 drp OPB QID PRN Dry Eyes 09/23/22 11/27/22 % eye drops cholecalciferol (vitamin D3) 25 25 mcg PO DAILY 09/23/22 11/27/22 mcg (1,000 unit) capsule (Vitamin D3) cilostazol 50 mg tablet 50 mg PO .RESUME IN 2 WEEKS 09/23/22 11/27/22 cyanocobalamin (vitamin B-12) 1,000 mcg PO DAILY 09/23/22 11/27/22 1,000 mcg tablet (Vitamin B-12) famotidine 20 mg tablet 20 mg PO HS 09/23/22 11/27/22 folic acid 1 mg tablet 1 mg PO BID 09/23/22 11/27/22 glipizide 2.5 mg tablet, extended 2.5 mg PO DAILYBB 09/23/22 11/27/22 release 24 hr glucosamine-chondroitin 1,500 mg 30 ml PO DAILY 09/23/22 11/27/22 -1,200 mg/30 mL oral liquid lisinopril 10 mg tablet 10 mg PO QAM 09/23/22 11/27/22 guaifenesin 600 mg tablet, 600 mg PO AMHS 11/27/22 11/27/22 extended release 12 hr (Mucinex) hydrocortisone acetate 25 mg 25 mg LA AMHS PRN .. 11/27/22 11/28/22 rectal suppository pantoprazole 20 mg tablet,delayed 20 mg PO QAM 11/27/22 11/28/22 release tramadol 50 mg tablet 50 mg PO Q6 PRN Pain 11/27/22 11/28/22 Results & Data (ED) Vital Signs Vital Signs - 24 hr 11/27/22 22:08 11/28/22 00:01 11/27/22 23:55 Temperature 36.9 C Temperature Source Temporal Artery Scan Pulse Rate 59 L 84 Pulse Rate from SpO2 Sensor Pulse Rhythm Regular Pulse Strength Normal Respiratory Rate 20 Respiratory Effort / Characteristics Non-Labored Spontaneous Respiratory Depth Normal Respiratory Pattern Regular Blood Pressure 125/75 Blood Pressure Mean 91 Blood Pressure Position Sitting Pulse Oximetry 100 95 Oxygen Delivery Method Room Air Room Air Sepsis Recent Fever Within 48 Hours No Sepsis New/Unexplained Change in Mental Status N/A Sepsis Action Taken by Nursing No Action Required 11/28/22 00:00 11/28/22 00:05 11/28/22 00:05 Temperature Temperature Source Pulse Rate 84 83 Pulse Rate from SpO2 Sensor 87 Pulse Rhythm Pulse Strength Respiratory Rate 15 25 H Respiratory Effort / Characteristics Respiratory Depth Respiratory Pattern Blood Pressure 137/64 Blood Pressure Mean 74 Blood Pressure Position Pulse Oximetry 96 Oxygen Delivery Method Sepsis Recent Fever Within 48 Hours Sepsis New/Unexplained Change in Mental Status Sepsis Action Taken by Nursing 11/28/22 00:10 11/28/22 00:20 11/28/22 00:30 Temperature Temperature Source Pulse Rate 86 85 Pulse Rate from SpO2 Sensor 87 85 Pulse Rhythm Pulse Strength Respiratory Rate 29 H 19 Respiratory Effort / Characteristics Respiratory Depth Respiratory Pattern Blood Pressure 147/72 H Blood Pressure Mean 108 Blood Pressure Position Pulse Oximetry 96 90 Oxygen Delivery Method Sepsis Recent Fever Within 48 Hours Sepsis New/Unexplained Change in Mental Status Sepsis Action Taken by Nursing 11/28/22 00:30 11/28/22 00:40 11/28/22 00:50 Temperature Temperature Source Pulse Rate 83 124 H 120 H Pulse Rate from SpO2 Sensor 84 129 H 121 H Pulse Rhythm Pulse Strength Respiratory Rate 21 22 20 Respiratory Effort / Characteristics Respiratory Depth Respiratory Pattern Blood Pressure Blood Pressure Mean Blood Pressure Position Pulse Oximetry 92 90 91 Oxygen Delivery Method Sepsis Recent Fever Within 48 Hours Sepsis New/Unexplained Change in Mental Status Sepsis Action Taken by Nursing 11/28/22 01:00 11/28/22 01:00 11/28/22 01:10 Temperature Temperature Source Pulse Rate 122 H 121 H Pulse Rate from SpO2 Sensor 122 H 122 H Pulse Rhythm Pulse Strength Respiratory Rate 21 21 Respiratory Effort / Characteristics Respiratory Depth Respiratory Pattern Blood Pressure 144/86 H Blood Pressure Mean 105 Blood Pressure Position Pulse Oximetry 94 95 Oxygen Delivery Method Sepsis Recent Fever Within 48 Hours Sepsis New/Unexplained Change in Mental Status Sepsis Action Taken by Nursing 11/28/22 01:20 11/28/22 01:30 11/28/22 01:30 Temperature Temperature Source Pulse Rate 123 H 86 Pulse Rate from SpO2 Sensor 122 H 86 Pulse Rhythm Pulse Strength Respiratory Rate 22 21 Respiratory Effort / Characteristics Respiratory Depth Respiratory Pattern Blood Pressure 137/69 Blood Pressure Mean 100 Blood Pressure Position Pulse Oximetry 92 93 Oxygen Delivery Method Sepsis Recent Fever Within 48 Hours Sepsis New/Unexplained Change in Mental Status Sepsis Action Taken by Nursing 11/28/22 01:40 11/28/22 01:50 11/28/22 02:00 Temperature Temperature Source Pulse Rate 90 88 Pulse Rate from SpO2 Sensor 87 Pulse Rhythm Pulse Strength Respiratory Rate 16 18 Respiratory Effort / Characteristics Respiratory Depth Respiratory Pattern Blood Pressure 149/86 H Blood Pressure Mean 116 Blood Pressure Position Pulse Oximetry 95 Oxygen Delivery Method Sepsis Recent Fever Within 48 Hours Sepsis New/Unexplained Change in Mental Status Sepsis Action Taken by Nursing 11/28/22 02:00 11/28/22 02:10 11/28/22 02:20 Temperature Temperature Source Pulse Rate 87 88 86 Pulse Rate from SpO2 Sensor 86 85 Pulse Rhythm Pulse Strength Respiratory Rate 20 21 23 Respiratory Effort / Characteristics Respiratory Depth Respiratory Pattern Blood Pressure Blood Pressure Mean Blood Pressure Position Pulse Oximetry 96 97 Oxygen Delivery Method Sepsis Recent Fever Within 48 Hours Sepsis New/Unexplained Change in Mental Status Sepsis Action Taken by Nursing 11/28/22 02:30 11/28/22 02:30 11/28/22 02:40 Temperature Temperature Source Pulse Rate 88 87 Pulse Rate from SpO2 Sensor Pulse Rhythm Pulse Strength Respiratory Rate 22 22 Respiratory Effort / Characteristics Respiratory Depth Respiratory Pattern Blood Pressure 151/81 H Blood Pressure Mean 120 Blood Pressure Position Pulse Oximetry Oxygen Delivery Method Sepsis Recent Fever Within 48 Hours Sepsis New/Unexplained Change in Mental Status Sepsis Action Taken by Nursing Laboratory Data 11/28/22 00:12 11/28/22 00:12 Lab Results 11/28/22 11/28/22 11/28/22 Range/Units 00:12 00:12 00:12 WBC 12.28 H (4.8-10.8) K/ul RBC 3.08 L (4.70-6.10) M/uL Hgb 9.2 L (14.0-18.0) g/dl Hct 27.5 L (42.0-52.0) % MCV 89.3 (80.0-100.0) fL MCH 29.9 (25.0-34.0) pg MCHC 33.5 (32.0-36.0) g/dL RDW Std Deviation 46.4 H (36.4-46.3) fL RDW Coeff of Desire 14.3 (11.5-14.5) % Plt Count 205 (130-400) K/uL MPV 11.0 (9.4-12.4) fL Immature Gran % (Auto) 0.4 % Neut % (Auto) 76.5 % Lymph % (Auto) 9.2 % [place] % (Auto) 11.5 % Eos % (Auto) 2.1 % Baso % (Auto) 0.3 % Neut # (Auto) 9.39 H (1.40-6.50) K/uL Lymph # (Auto) 1.13 L (1.2-3.4) K/uL [place] # (Auto) 1.41 H (0.11-0.59) K/uL Eos # (Auto) 0.26 (0-0.50) K/uL Baso # (Auto) 0.04 (0-0.2) K/uL Immature Gran # (Auto) 0.05 (0.01-0.20) K/uL Sodium 127 L (136-145) mmol/L Potassium 4.5 (3.5-5.1) mmol/L Chloride 96 L (98-107) mmol/L Carbon Dioxide 20 L (21-32) mmol/L Anion Gap 11 (3-11) BUN 70 H (6-23) mg/dl Creatinine 4.10 H (0.6-1.4) mg/dl Est Cr Clr Drug Dosing Not Reportable Est GFR ( Amer) 14.5 ml/min Est GFR (Non-Af Amer) 12.5 ml/min BUN/Creatinine Ratio 17.1 (10-20) Glucose 169 H (70-99(Fasting)) mg/dl Osmolality (280-300) mOsm/kg Calcium 8.1 L (8.6-10.3) mg/dl Magnesium 1.8 (1.7-2.4) mg/dl Total Bilirubin 0.7 (0.2-1.0) mg/dl AST 71 H (13-39) U/L ALT 11 (7-52) U/L Alkaline Phosphatase 60 (34-104) U/L Total Creatine Kinase (30-223) U/L Total Protein 6.5 (6.0-8.3) gm/dl Albumin 3.7 (3.4-5.0) gm/dl Globulin 2.8 (2.5-4.0) gm/dl Albumin/Globulin Ratio 1.3 (0.9-2) TSH 1.586 (0.300-4.500) uIu/ml SARS-CoV-2, RNA, NAAT (NEGATIVE) 11/28/22 11/28/22 11/28/22 Range/Units 00:12 00:12 02:23 WBC (4.8-10.8) K/ul RBC (4.70-6.10) M/uL Hgb (14.0-18.0) g/dl Hct (42.0-52.0) % MCV (80.0-100.0) fL MCH (25.0-34.0) pg MCHC (32.0-36.0) g/dL RDW Std Deviation (36.4-46.3) fL RDW Coeff of Desire (11.5-14.5) % Plt Count (130-400) K/uL MPV (9.4-12.4) fL Immature Gran % (Auto) % Neut % (Auto) % Lymph % (Auto) % [place] % (Auto) % Eos % (Auto) % Baso % (Auto) % Neut # (Auto) (1.40-6.50) K/uL Lymph # (Auto) (1.2-3.4) K/uL [place] # (Auto) (0.11-0.59) K/uL Eos # (Auto) (0-0.50) K/uL Baso # (Auto) (0-0.2) K/uL Immature Gran # (Auto) (0.01-0.20) K/uL Sodium (136-145) mmol/L Potassium (3.5-5.1) mmol/L Chloride (98-107) mmol/L Carbon Dioxide (21-32) mmol/L Anion Gap (3-11) BUN (6-23) mg/dl Creatinine (0.6-1.4) mg/dl Est Cr Clr Drug Dosing Est GFR ( Amer) ml/min Est GFR (Non-Af Amer) ml/min BUN/Creatinine Ratio (10-20) Glucose (70-99(Fasting)) mg/dl Osmolality 291 (280-300) mOsm/kg Calcium (8.6-10.3) mg/dl Magnesium (1.7-2.4) mg/dl Total Bilirubin (0.2-1.0) mg/dl AST (13-39) U/L ALT (7-52) U/L Alkaline Phosphatase (34-104) U/L Total Creatine Kinase 3844 H (30-223) U/L Total Protein (6.0-8.3) gm/dl Albumin (3.4-5.0) gm/dl Globulin (2.5-4.0) gm/dl Albumin/Globulin Ratio (0.9-2) TSH (0.300-4.500) uIu/ml SARS-CoV-2, RNA, NAAT NEGATIVE (NEGATIVE) Administered Medications Acetaminophen (Acetaminophen 325 Mg Tab) 650 mg PO Q6H PRN PRN Reason: Fever/Pain Stop: 12/28/22 02:42 Last Admin: 11/28/22 17:09 Dose: 650 mg Documented By: Admin: 11/28/22 09:38 Dose: 650 mg Documented By: Admin: 11/28/22 03:38 Dose: 650 mg Documented By: OMAR Cyanocobalamin (Cyanocobalamin (B-12) 500 Mcg Tablet) 1,000 mcg PO DAILY [facility] Stop: 12/28/22 08:59 Last Admin: 11/28/22 07:48 Dose: 1,000 mcg Documented By: SHARON Fluticasone Propionate (Fluticasone Propionate Na Spr 16 Gm Btl) 1 sprays NA QAM [facility] Stop: 12/28/22 08:59 Last Admin: 11/28/22 07:49 Dose: 1 sprays Documented By: SHARON Folic Acid (Folic Acid 1 Mg Tab) 1 mg PO BID [facility] Stop: 12/28/22 08:59 Last Admin: 11/28/22 07:48 Dose: 1 mg Documented By: SHARON Lactated Ringer's (Lr) 1,000 mls @ 100 mls/hr IV .Q10H [facility] Stop: 11/29/22 15:59 Last Admin: 11/28/22 17:10 Dose: 100 mls/hr Documented By: JAKOB Insulin Aspart (Insulin Aspart Per Unit Charge) 0 units SC Q6 [facility] Stop: 12/28/22 05:59 Last Admin: 11/28/22 17:02 Dose: 4 units Documented By: JAKOB Co-signed By: YOHANNES Admin: 11/28/22 12:42 Dose: 4 units Documented By: JAKOB Co-signed By: YOHANNES Admin: 11/28/22 06:32 Dose: 2 units Documented By: OMAR Co-signed By: STEVE Timolol Maleate (Timolol Maleate 0.5% Op Soln 5 Ml Btl) 1 drops OPB QAM [facility] Stop: 12/28/22 08:59 Last Admin: 11/28/22 07:49 Dose: 1 drops Documented By: SHARON Discontinued Medications Sodium Chloride (Nss) 500 mls @ 999 mls/hr IV .Q31M ONE Stop: 11/28/22 02:04 Last Infusion: 11/28/22 02:30 Dose: 0 mls/hr Documented By: Admin: 11/28/22 01:55 Dose: 999 mls/hr Documented By: NIKA Sodium Chloride (Nss) 500 mls @ 125 mls/hr IV .Q4H [facility] Stop: 12/28/22 01:44 Last Infusion: 11/28/22 03:42 Dose: 0 mls/hr Documented By: Admin: 11/28/22 01:55 Dose: 125 mls/hr Documented By: NIKA Sodium Chloride (Nss) 500 mls @ 100 mls/hr IV .Q5H STA Stop: 11/28/22 07:57 Last Infusion: 11/28/22 06:33 Dose: 0 mls/hr Documented By: Admin: 11/28/22 03:42 Dose: 100 mls/hr Documented By: OMAR Lactated Ringer's (Lr) 1,000 mls @ 100 mls/hr IV .Q10H ONE Stop: 11/28/22 16:11 Last Infusion: 11/28/22 17:16 Dose: 0 mls/hr Documented By: Admin: 11/28/22 06:33 Dose: 100 mls/hr Documented By: OMAR Lactulose (Lactulose Syrup 20 Gm/30 Ml Udc) 30 gm PO NOW STA Stop: 11/28/22 02:38 Last Admin: 11/28/22 04:28 Dose: 30 gm Documented By: OMAR Lactulose (Lactulose Syrup 20 Gm/30 Ml Udc) 30 gm PO NOW STA Stop: 11/28/22 06:56 Last Admin: 11/28/22 07:48 Dose: 30 gm Documented By: SHARON Ondansetron HCl (Ondansetron Inj 2 Mg/Ml 2 Ml Vial) 4 mg IV NOW STA Stop: 11/28/22 02:38 Last Admin: 11/28/22 03:39 Dose: 4 mg Documented By: OMAR Senna/Docusate Sodium (Docusate Sodium/Senna 50/8.6mg Tab) 1 tab PO NOW STA Stop: 11/28/22 02:38 Last Admin: 11/28/22 03:38 Dose: 1 tab Documented By: OMAR Imaging Data Radiologist's Impression: Chest X-Ray 11/27/22 23:55 SINGLE VIEW CHEST CLINICAL HISTORY: Generalized weakness. FINDINGS: An AP, portable, upright chest radiograph is compared to study dated 09/23/2022. The examination is degraded by portable technique and apical lordotic positioning. The heart is enlarged noting atherosclerotic calcification of the thoracic aorta. The pulmonary vasculature is noncongested. There is elevation of the right hemidiaphragm with bibasilar scarring/atelectasis. Chronic interstit ial thickening is similar to previous. Suspect small pleural effusions. No pneumothorax is seen. The skeletal structures are osteopenic. The bony thorax is grossly intact. A right shoulder arthroplasty is in place. Advanced arthritic change is seen in the left shoulder. IMPRESSION: 1. Cardiomegaly without radiographic evidence of congestive failure. 2. Suspect small pleural effusions. ACT 112: Negative or not required by law. Electronically signed by: Jean Bernal M.D. 11/28/2022 7:26 AM Abdomen/Pelvis CT 11/28/22 02:37 CT SCAN OF THE ABDOMEN AND PELVIS WITHOUT IV CONTRAST CLINICAL HISTORY: Nausea and vomiting. Obstipation. COMPARISON STUDY: No priors. TECHNIQUE: CT scan of the abdomen and pelvis is performed from the lung bases to the proximal femora. Images are reviewed in the axial, sagittal, and coronal planes. IV contrast was not administered for this examination as per the referring clinician. Note that the examination was performed in suboptimal f ashion without oral and IV contrast. Examination is also degraded by motion artifact. A dose lowering technique was utilized adhering to the principles of ALARA. CT DOSE: 1521.46 mGy.cm FINDINGS: Lung bases: The heart is enlarged and without pericardial effusion. There is calcification of the coronary arteries and aortic valve leaflets. There are trace pleural effusions with bibasilar consolidation. Liver: The unenhanced liver is normal in size, contour, and attenuation. There is no intrahepatic biliary ductal dilatation. Gallbladder: Unremarkable. Spleen: Normal in size and attenuation. Pancreas: The unenhanced pancreas is atrophic and grossly unremarkable. Adrenal glands: Unremarkable. Kidneys: The unenhanced kidneys demonstrate mild cortical atrophy and are without hydronephrosis. There are no renal calculi identified. There is no evidence of contour deforming renal mass lesion. Abdominal vasculature: The abdominal aorta is normal in course and caliber noting advanced atherosclerotic calcification. Bowel: There is moderate colonic diverticulosis without CT evidence of acute diverticulitis. No bowel obstruction is seen. [id number] fecal retention is noted throughout the colon. A tiny segment of the sigmoid colon is contained within a left inguinal hernia. The appendix is not visualized. Peritoneum: There is no intraperitoneal free air or abdominal ascites. Lymphadenopathy: None. Pelvic viscera: The prostate gland is surgically absent. The bladder is decompressed and grossly unremarkable. A left inguinal hernia contains a tiny segment of the sigmoid colon. Skeletal structures: The skeletal structures are osteopenic. There is postsurgical change from laminectomy seen at T11-T12 as well as from L2-L5. No lytic or blastic lesions are seen. Soft tissues: Skin clips are seen in the posterior midline. There is soft tissue infiltration and fluid with foci of soft tissue gas posterior to the thecal sac in the upper lobes. This is likely related to recent surgery. No organized fluid collections clearly identified on this unenhanced examination. IMPRESSION: 1. Significantly suboptimal examination without oral and IV contrast. There is also motion artifact. 2. No acute infectious or inflammatory findings are identified in the abdomen or pelvis. 3. Trace pleural effusions with bibasilar consolidation. This could represent atelectasis versus pneumonia/aspiration pneumonitis. Pneumonia is favored at the right lung base. Clinical correlation will be required. 4. A left inguinal hernia contains a tiny segment of the sigmoid colon. 5. Colonic diverticulosis without CT evidence of acute diverticulitis. 6. Extensive postsurgical change involving the thoracic and lumbar spine as above with infiltration posterior to the thecal sac at these levels. This is likely related to recent surgery. 7. Additional findings as above. ACT 112: Negative or not required by law. Electronically signed by: Jean Bernal M.D. 11/28/2022 6:38 AM Discharge Plan Visit Data Chief Complaint: Unable to Void Stated Complaint: NO URINATION FOR 2 HRS ED Provider: Tonie Gandhi Discharge Problem: Acute renal failure, Acute hyponatremia Patient Disposition: Admitted As Inpatient Discharge Instructions Interventions: ED Discharge Assessment Last Done: 11/28/22 05:33
[2022-11-28 00:35] LABS: Basophils # (auto) 0.04 K/uL (0-0.2); Basophils % (auto) 0.3 %; Eosinophils # (auto) 0.26 K/uL (0-0.50); Eosinophils % (auto) 2.1 %; Hematocrit (blood only) 27.5 % (42.0-52.0); Hemoglobin 9.2 g/dl (14.0-18.0); Immature Granulocytes # (auto) 0.05 K/uL (0.01-0.20); Immature Granulocytes % (auto) 0.4 %; Lymphocytes # (auto) 1.13 K/uL (1.2-3.4); Lymphocytes % (auto) 9.2 %; Mean Corpuscular Hemoglobin 29.9 pg (25.0-34.0); Mean Corpuscular Hgb Conc 33.5 g/dL (32.0-36.0); Mean Corpuscular Volume 89.3 fL (80.0-100.0); Monocytes # (auto) 1.41 K/uL (0.11-0.59); Monocytes % (auto) 11.5 %; Neutrophils # (auto) 9.39 K/uL (1.40-6.50); Neutrophils % (auto) 76.5 %; Platelet Count 205 K/uL (130-400); RDW Coefficient of Variation 14.3 % (11.5-14.5); RDW Standard Deviation 46.4 fL (36.4-46.3); Red Blood Count 3.08 M/uL (4.70-6.10); White Blood Count 12.28 K/ul (4.8-10.8)
[2022-11-28 00:48] LABS: Alanine Aminotransferase 11 U/L (7-52); Albumin Globulin Ratio 1.3 (0.9-2); Albumin Level 3.7 gm/dl (3.4-5.0); Alkaline Phosphatase 60 U/L (34-104); Anion Gap 11 (3-11); Aspartate Aminotransferase 71 U/L (13-39); BUN Creatinine Ratio 17.1 (10-20); Bilirubin,Total 0.7 mg/dl (0.2-1.0); Blood Urea Nitrogen 70 mg/dl (6-23); Calcium 8.1 mg/dl (8.6-10.3); Carbon Dioxide 20 mmol/L (21-32); Chloride 96 mmol/L (98-107); Est GFR (African American) 14.5 ml/min; Est GFR (Non-African American) 12.5 ml/min; Globulin 2.8 gm/dl (2.5-4.0); Glucose 169 mg/dl (70-99(Fasting)); Potassium 4.5 mmol/L (3.5-5.1); Sodium 127 mmol/L (136-145); Total Protein 6.5 gm/dl (6.0-8.3)
[2022-11-28] MEDS ORDERED: SODIUM CHLORIDE 0.9% 500 ML IV ONE (01:34)
[2022-11-28] MEDS ORDERED: SODIUM CHLORIDE 0.9% 500 ML IV SCH (01:45)
[2022-11-28 02:11] LABS: Magnesium 1.8 mg/dl (1.7-2.4)
[2022-11-28] MEDS ORDERED: LACTULOSE SYRUP 20 GM/30 ML UDC PO STA ×2 (02:37→06:55)
[2022-11-28] MEDS ORDERED: ONDANSETRON INJ 2 MG/ML 2 ML VIAL IV STA (02:37)
[2022-11-28] MEDS ORDERED: DOCUSATE SODIUM/SENNA 50/8.6MG TAB PO STA (02:37)
--- NOTE | 2022-11-28 02:39 | History & Physical Report ---
Date of Service November 28, 2022 Assessment & Plan (1) Hyponatremia: Plan: Postop hyponatremia, ARF on CKD, rhabdomyolysis Recent thoracolumbar laminectomy at [facility] secondary to kidney dysfunction hypertension, stable hyperlipidemia, statin Rx moderate (TTE 2022) hx PVD DM2 on oral medications, reasonable control as of recent hemoglobin A1c of 7.05 September 2022 Acute on chronic anemia, possibly from postop blood loss, patient antiplatelet Rx on hold for 2 weeks after surgery as per instructions prostate cancer status post surgery Postop constipation past tobacco abuse Medical telemetry Hyponatremia work-up Baseline UA, monitor creatinine/CPK response to gentle IV hydration given valvular heart disease Appropriate to hold home HCTZ, ACEI, and metformin medications for now lisinopril given kidney dysfunction Nephrology consult Re: Hyponatremia, ARF on CKD Bowel regimen Basal bolus insulin, ISS BG goal 1 10-1 40, carb count coverage DVT prophylaxis. SCDs Re: Recent spinal surgery Full code Text document was generated using [employer] voice recognition software. It may contain grammatical or spelling errors. Kindly contact undersigned for clarification of any documentation item in question. History of Present Illness Chief Complaint: Vomiting, constipation, not peeing Primary Care Provider: Ken Carson MD History obtained from patient and records. Medical history significant for hypertension, hyperlipidemia, moderate (TTE 2022), PVD, DM2 on oral medications, CRI (baseline creatinine 1.6), chronic anemia (baseline hemoglobin 11), GERD, prostate cancer status post surgery, recent thoracolumbar laminectomy, past tobacco abuse. Last confinement August 2022 for COVID-19 illness. Overnight confinement at [facility] under Neurosurgery service 3 days ago for thoracic stenosis with cord compression, lumbar stenosis with neurogenic claudication status post laminectomy. No BM, poor urine output at home the last 2 days. Minimal abdominal discomfort with nausea, bilious emesis. Patient denies headache, chest pain, SOB, cough. Denies OTC NSAID intake. Patient brought to ER for evaluation. 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 Allergies Allergy/AdvReac Type Severity Reaction Status Date / Time No Known Allergies Allergy Verified 11/28/22 00:10 Home Medications Medication Instructions Recorded Confirmed Type aspirin 81 mg tablet,delayed 81 mg PO .RESUME IN 2 WEEKS 06/14/19 11/27/22 History release atorvastatin 40 mg tablet (Lipitor) 40 mg PO HS 06/14/19 11/27/22 History fluticasone propionate 50 1 spray intranasal QAM 06/14/19 11/27/22 History mcg/actuation nasal spray,suspension (Flonase Allergy Relief) hydrochlorothiazide 25 mg tablet 25 mg PO QAM 06/14/19 11/27/22 History metformin 500 mg tablet 500 mg PO BIDM 06/14/19 11/27/22 History sitagliptin phosphate 50 mg tablet 50 mg PO QAM 06/14/19 11/27/22 History (Januvia) timolol 0.5 % eye drops 1 drp OPB QAM 06/14/19 11/27/22 History acetaminophen 650 mg 650 mg PO BID PRN Pain 09/23/22 11/27/22 History tablet,extended release ascorbic acid (vitamin C) 1,000 mg 1 g PO QDL 09/23/22 11/27/22 History tablet (Vitamin C) carboxymethylcellulose sodium 0.5 1 drp OPB QID PRN Dry Eyes 09/23/22 11/27/22 History % eye drops cholecalciferol (vitamin D3) 25 25 mcg PO DAILY 09/23/22 11/27/22 History mcg (1,000 unit) capsule (Vitamin D3) cilostazol 50 mg tablet 50 mg PO .RESUME IN 2 WEEKS 09/23/22 11/27/22 History cyanocobalamin (vitamin B-12) 1,000 mcg PO DAILY 09/23/22 11/27/22 History 1,000 mcg tablet (Vitamin B-12) famotidine 20 mg tablet 20 mg PO HS 09/23/22 11/27/22 History folic acid 1 mg tablet 1 mg PO BID 09/23/22 11/27/22 History glipizide 2.5 mg tablet, extended 2.5 mg PO DAILYBB 09/23/22 11/27/22 History release 24 hr glucosamine-chondroitin 1,500 mg 30 ml PO DAILY 09/23/22 11/27/22 History -1,200 mg/30 mL oral liquid lisinopril 10 mg tablet 10 mg PO QAM 09/23/22 11/27/22 History guaifenesin 600 mg tablet, 600 mg PO AMHS 11/27/22 11/27/22 History extended release 12 hr (Mucinex) hydrocortisone acetate 25 mg 25 mg [place] AMHS PRN .. 11/27/22 11/28/22 History rectal suppository pantoprazole 20 mg tablet,delayed 20 mg PO QAM 11/27/22 11/28/22 History release tramadol 50 mg tablet 50 mg PO Q6 PRN Pain 11/27/22 11/28/22 History Past Med/Surg History Medical History Aortic stenosis Follows with Dr. Woods Cardiac murmur Chronic kidney disease, stage 3 FOLLOWS W/ DR. SORENSEN IN [place] Degenerative disc disease Diabetes mellitus, type 2 NIDDM GERD (gastroesophageal reflux disease) Glaucoma History of prostate cancer PROSTATECTOMY + RADIATION [place] (hard of hearing) Hyperlipidemia Hypertension Osteoarthritis Spinal stenosis Surgical History History of appendectomy History of cataract surgery History of colonoscopy History of esophagogastroduodenoscopy (EGD) History of lumbar surgery History of prostate biopsy History of prostatectomy History of right inguinal hernia repair X 2 History of right shoulder replacement Family History Sister Family history of diabetes mellitus Family hx of colon cancer Sister Family history of diabetes mellitus Sister Family history of diabetes mellitus Brother Family history of diabetes mellitus Mother Family history of diabetes mellitus Other No family history of adverse response to anesthesia Social History Smoking Status: Never smoker Second Hand Exposure: No; Do You Dip or Chew Tobacco: No (QUIT 3 YEARS AGO); Hx Alcohol Use: No Hx Substance Use: No Preferred Language: Welsh Communication Ability: Effective Legal Secretary Receptionist Required: No Beliefs That Will Affect Care: None Current Living Situation: Spouse Feels Safe at Home: Yes Assistive Devices: Glasses Review of Systems Review of Systems: As per HPI, all other systems reviewed and negative Physical Exam Physical Exam: GENERAL: Slightly uncomfortable, pleasant, no respiratory distress SKIN: Pallor, warm HEENT: Alopecia, pale palpebral conjunctivae, no ptosis, dry buccal mucosa NECK : Supple, no tenderness CHEST : Decreased breath sounds, no tenderness HEART : RRR, systolic murmur ABDOMEN: Some distention, nontender EXTREMITIES : Minimal LE swelling, no LE tenderness, no other conspicuous deformities noted NEUROLOGIC : Coherent, no facial asymmetry, no other gross focality Results & Data Results & Data Vital Signs (Past 12 Hours) Vital Signs Temp Pulse Resp BP Pulse Ox O2 Del Method 11/27/22 23:55 95 Room Air 11/28/22 00:01 84 11/27/22 22:08 36.9 C 59 L 20 125/75 100 Room Air Laboratory Results Laboratory Results WBC 12.28 K/ul (4.8-10.8) H 11/28/22 00:12 RBC 3.08 M/uL (4.70-6.10) L 11/28/22 00:12 Hgb 9.2 g/dl (14.0-18.0) L 11/28/22 00:12 Hct 27.5 % (42.0-52.0) L 11/28/22 00:12 MCV 89.3 fL (80.0-100.0) 11/28/22 00:12 MCH 29.9 pg (25.0-34.0) 11/28/22 00:12 MCHC 33.5 g/dL (32.0-36.0) 11/28/22 00:12 RDW Std Deviation 46.4 fL (36.4-46.3) H 11/28/22 00:12 RDW Coeff of Desire 14.3 % (11.5-14.5) 11/28/22 00:12 Plt Count 205 K/uL (130-400) 11/28/22 00:12 MPV 11.0 fL (9.4-12.4) 11/28/22 00:12 Immature Gran % (Auto) 0.4 % 11/28/22 00:12 Neut % (Auto) 76.5 % 11/28/22 00:12 Lymph % (Auto) 9.2 % 11/28/22 00:12 [place] % (Auto) 11.5 % 11/28/22 00:12 Eos % (Auto) 2.1 % 11/28/22 00:12 Baso % (Auto) 0.3 % 11/28/22 00:12 Neut # (Auto) 9.39 K/uL (1.40-6.50) H 11/28/22 00:12 Lymph # (Auto) 1.13 K/uL (1.2-3.4) L 11/28/22 00:12 [place] # (Auto) 1.41 K/uL (0.11-0.59) H 11/28/22 00:12 Eos # (Auto) 0.26 K/uL (0-0.50) 11/28/22 00:12 Baso # (Auto) 0.04 K/uL (0-0.2) 11/28/22 00:12 Immature Gran # (Auto) 0.05 K/uL (0.01-0.20) 11/28/22 00:12 Sodium 127 mmol/L (136-145) L 11/28/22 00:12 Potassium 4.5 mmol/L (3.5-5.1) 11/28/22 00:12 Chloride 96 mmol/L (98-107) L 11/28/22 00:12 Carbon Dioxide 20 mmol/L (21-32) L 11/28/22 00:12 Anion Gap 11 (3-11) 11/28/22 00:12 BUN 70 mg/dl (6-23) H 11/28/22 00:12 Creatinine 4.10 mg/dl (0.6-1.4) H 11/28/22 00:12 Est Cr Clr Drug Dosing Not Reportable 11/28/22 00:12 Est GFR ( Amer) 14.5 ml/min 11/28/22 00:12 Est GFR (Non-Af Amer) 12.5 ml/min 11/28/22 00:12 BUN/Creatinine Ratio 17.1 (10-20) 11/28/22 00:12 Glucose 169 mg/dl (70-99(Fasting)) H 11/28/22 00:12 Osmolality 291 mOsm/kg (280-300) 11/28/22 00:12 Calcium 8.1 mg/dl (8.6-10.3) L 11/28/22 00:12 Magnesium 1.8 mg/dl (1.7-2.4) 11/28/22 00:12 Total Bilirubin 0.7 mg/dl (0.2-1.0) 11/28/22 00:12 AST 71 U/L (13-39) H 11/28/22 00:12 ALT 11 U/L (7-52) 11/28/22 00:12 Alkaline Phosphatase 60 U/L (34-104) 11/28/22 00:12 Total Protein 6.5 gm/dl (6.0-8.3) 11/28/22 00:12 Albumin 3.7 gm/dl (3.4-5.0) 11/28/22 00:12 Globulin 2.8 gm/dl (2.5-4.0) 11/28/22 00:12 Albumin/Globulin Ratio 1.3 (0.9-2) 11/28/22 00:12 TSH 1.586 uIu/ml (0.300-4.500) 11/28/22 00:12 Diagnostic Findings Chest x-ray as per my interpretation cardiomegaly CT abdomen pelvis: 1. Significantly suboptimal examination without oral and IV contrast. There is also motion artifact. 2. No acute infectious or inflammatory findings are identified in the abdomen or pelvis. 3. Trace pleural effusions with bibasilar consolidation. This could represent atelectasis versus pneumonia/aspiration pneumonitis. Pneumonia is favored at the right lung base. Clinical correlation will be required. 4. A left inguinal hernia contains a tiny segment of the sigmoid colon. 5. Colonic diverticulosis without CT evidence of acute diverticulitis. 6. Extensive postsurgical change involving the thoracic and lumbar spine as above with infiltration posterior to the thecal sac at these levels. This is likely related to recent surgery. EKG as per my interpretation : Rate 85, NSR, LAD, LAFB, T wave abnormalities inferior leads, inferior and septal infarcts
[2022-11-28] MEDS ORDERED: PROMETHAZINE HCL 6.25 MG in SODIUM CHLORIDE 0.9% 50 ML IV PRN (02:43)
[2022-11-28] MEDS ORDERED: oxyCODONE HCL IR 5 MG TAB (IMMEDIATE RELEASE) PO PRN (02:43)
[2022-11-28] MEDS ORDERED: SODIUM CHLORIDE 0.9% 500 ML IV STA (02:58)
[2022-11-28] MEDS: ACETAMINOPHEN 325 MG TAB PO PRN ×3 (03:38→17:09)
[2022-11-28 04:38] LABS: Appearance Urine Turbid (Clear); Bilirubin Urine Negative (Negative); Blood Urine 3+ (Negative); Color Urine Yellow; Epithelial Cell Urine Auto >30 /lpf (0-5); Glucose Urine UA Negative (Negative); Ketones Urine Trace (Negative); Leukocyte Esterase Urine Trace (Negative); Nitrite Urine Negative (Negative); Protein Urine 2+ (Negative); Specific Gravity Urine 1.019 (1.000-1.030); Urobilinogen Urine Negative (Negative)
[2022-11-28 04:55] LABS: Base Excess VBG -5.3 mEq/L; HCO3 VBG 21 mmol/L; Oxygen Saturation VBG < 60.0 %; PCO2 VBG 44 mmHg (38-50); PO2 VBG 20 mmHg; pH VBG 7.29 (7.36-7.41)
[2022-11-28 04:59] LABS: Hematocrit (blood only) 28.5 % (42.0-52.0); Hemoglobin 9.7 g/dl (14.0-18.0)
[2022-11-28 05:03] LABS: RBC Urine Automated 0-4 /hpf (0-4)
[2022-11-28 05:04] LABS: Bacteria Urine Automated 1+ (Negative); Calcium Oxalate Crystals Urine Present (None Prsent)
[2022-11-28 05:18] LABS: BUN Creatinine Ratio 17.1 (10-20); Calcium 8.1 mg/dl (8.6-10.3); Creatinine Clr Calc Pharmacy 14.8 ml/min; Est GFR (African American) 14.2 ml/min; Est GFR (Non-African American) 12.3 ml/min; Potassium 4.4 mmol/L (3.5-5.1)
[2022-11-28] MEDS ORDERED: CARBOHYDRATES FOR HYPOGLYCEMIA PO PRN (05:33)
[2022-11-28] MEDS ORDERED: GLUCOSE 40% GEL 15 GM TUBE PO PRN (05:33)
[2022-11-28] MEDS ORDERED: GLUCOSE 10 TAB/TUBE PO PRN (05:33)
[2022-11-28] MEDS ORDERED: DEXTROSE 50% 50 ML SYRINGE IV PRN (05:33)
[2022-11-28] MEDS ORDERED: GLUCAGON FOR INJ 1 MG VIAL SQ PRN (05:33)
[2022-11-28] MEDS ORDERED: ARTIFICIAL TEARS OP PRN (05:52)
[2022-11-28] MEDS ORDERED: LACTATED RINGER'S 1,000 ML IV ONE (06:12)
[2022-11-28] MEDS: INSULIN ASPART PER UNIT CHARGE SC SCH ×3 (06:32→17:02)
--- NOTE | 2022-11-28 06:41 | CT Scan Report ---
CT SCAN OF THE ABDOMEN AND PELVIS WITHOUT IV CONTRAST CLINICAL HISTORY: Nausea and vomiting. Obstipation. COMPARISON STUDY: No priors. TECHNIQUE: CT scan of the abdomen and pelvis is performed from the lung bases to the proximal femora. Images are reviewed in the axial, sagittal, and coronal planes. IV contrast was not administered for this examination as per the referring clinician. Note that the examination was performed in suboptim al fashion without oral and IV contrast. Examination is also degraded by motion artifact. A dose lowe ring technique was utilized adhering to the principles of ALARA. CT DOSE: 1521.46 mGy.cm FINDINGS: Lung bases: The heart is enlarged and without pericardial effusion. There is calcification of the cor onary arteries and aortic valve leaflets. There are trace pleural effusions with bibasilar consolidat ion. Liver: The unenhanced liver is normal in size, contour, and attenuation. There is no intrahepatic herminio iary ductal dilatation. Gallbladder: Unremarkable. Spleen: Normal in size and attenuation. Pancreas: The unenhanced pancreas is atrophic and grossly unremarkable. Adrenal glands: Unremarkable. Kidneys: The unenhanced kidneys demonstrate mild cortical atrophy and are without hydronephrosis. The re are no renal calculi identified. There is no evidence of contour deforming renal mass lesion. Abdominal vasculature: The abdominal aorta is normal in course and caliber noting advanced atheroscle rotic calcification. Bowel: There is moderate colonic diverticulosis without CT evidence of acute diverticulitis. No bowel obstruction is seen. [id number] fecal retention is noted throughout the colon. A tiny segment of the sigmoid colon is contained within a left inguinal hernia. The appendix is not visualized. Peritoneum: There is no intraperitoneal free air or abdominal ascites. Lymphadenopathy: None. Pelvic viscera: The prostate gland is surgically absent. The bladder is decompressed and grossly unre markable. A left inguinal hernia contains a tiny segment of the sigmoid colon. Skeletal structures: The skeletal structures are osteopenic. There is postsurgical change from gideon ctomy seen at T11-T12 as well as from L2-L5. No lytic or blastic lesions are seen. Soft tissues: Skin clips are seen in the posterior midline. There is soft tissue infiltration and flu id with foci of soft tissue gas posterior to the thecal sac in the upper lobes. This is likely relate d to recent surgery. No organized fluid collections clearly identified on this unenhanced examination . IMPRESSION: 1. Significantly suboptimal examination without oral and IV contrast. There is also motion artifact. 2. No acute infectious or inflammatory findings are identified in the abdomen or pelvis. 3. Trace pleural effusions with bibasilar consolidation. This could represent atelectasis versus pneu monia/aspiration pneumonitis. Pneumonia is favored at the right lung base. Clinical correlation will be required. 4. A left inguinal hernia contains a tiny segment of the sigmoid colon. 5. Colonic diverticulosis without CT evidence of acute diverticulitis. 6. Extensive postsurgical change involving the thoracic and lumbar spine as above with infiltration p osterior to the thecal sac at these levels. This is likely related to recent surgery. 7. Additional findings as above. ACT 112: Negative or not required by law. Electronically signed by: Jean Bernal M.D. 11/28/2022 6:38 AM
--- NOTE | 2022-11-28 07:27 | XRay Report ---
SINGLE VIEW CHEST CLINICAL HISTORY: Generalized weakness. FINDINGS: An AP, portable, upright chest radiograph is compared to study dated 09/23/2022. The examina tion is degraded by portable technique and apical lordotic positioning. The heart is enlarged noting atherosclerotic calcification of the thoracic aorta. The pulmonary vasculature is noncongested. There is elevation of the right hemidiaphragm with bibasilar scarring/atelectasis. Chronic interstitial th ickening is similar to previous. Suspect small pleural effusions. No pneumothorax is seen. The skelet al structures are osteopenic. The bony thorax is grossly intact. A right shoulder arthroplasty is in place. Advanced arthritic change is seen in the left shoulder. IMPRESSION: 1. Cardiomegaly without radiographic evidence of congestive failure. 2. Suspect small pleural effusions. ACT 112: Negative or not required by law. Electronically signed by: Jean Bernal M.D. 11/28/2022 7:26 AM
[2022-11-28] MEDS: CYANOCOBALAMIN (B-12) 500 MCG TABLET PO SCH (07:48)
[2022-11-28] MEDS: FOLIC ACID 1 MG TAB PO SCH ×2 (07:48→20:37)
[2022-11-28] MEDS: TIMOLOL MALEATE 0.5% OP SOLN 5 ML BTL OPB SCH (07:49)
[2022-11-28] MEDS: FLUTICASONE PROPIONATE NA SPR 16 GM BTL SCH (07:49)
--- NOTE | 2022-11-28 08:02 | Hospitalist Progress Note ---
Date of Service November 28, 2022 Assessment & Plan (1) Acute renal failure: (2) Hyponatremia: (3) Status post spinal surgery: Plan 86 year old male with h/o hypertension, hyperlipidemia, moderate (TTE 2022), PVD, DM2 on oral medications, CRI (baseline creatinine 1.6), chronic anemia (baseline hemoglobin 11), GERD, prostate cancer status post surgery, recent thoracolumbar laminectomy, past tobacco abuse, recent spinal surgery at [place] on 11/25 and discharged on 11/26 presented to the ED 11/27 with inability to void since discharge. CT A/P 1. Significantly suboptimal examination without oral and IV contrast. There is also motion artifact. 2. No acute infectious or inflammatory findings are identified in the abdomen or pelvis. 3. Trace pleural effusions with bibasilar consolidation. This could represent atelectasis versus pneumonia/aspiration pneumonitis. Pneumonia is favored at the right lung base. Clinical correlation will be required. 4. A left inguinal hernia contains a tiny segment of the sigmoid colon. 5. Colonic diverticulosis without CT evidence of acute diverticulitis. 6. Extensive postsurgical change involving the thoracic and lumbar spine as above with infiltration posterior to the thecal sac at these levels. This is likely related to recent surgery. 7. Additional findings as above. Acute renal failure-suspected ischemic ATN. Status post Johnson in ED. getting gentle IVF. -Baseline creatinine 1.3, currently trending up 4.1->4.5. Avoid nephrotoxics -Nephro following NAGMA-due to above, mild. Hyponatremia-sodium 127, getting gentle IVF, recheck. Rhabdomyolysis CK 3800-not enough to cause ROSANNA. Recheck in a.m. DM-2- A1c 7.9-continue Lantus, sliding cell insulin, adjust as indicated S/p T11-12 and L2-L3 laminectomies for thoracic stenosis with cord compression, lumbar stenosis with neurogenic claudication- surgery done at [facility] on 11/25/22 and discharged on 11/[address]- as noted above but clinically no S/S of PNA. Denies any aspiration event. Mild leucocytosis on admission is probably reactive. Currently no indication for antibiotics. Will monitor. DVT prophylaxis-subcu heparin Disposition-pending stabilization improvement in renal function Admission and Anticipated Discharge Date Admission Date: November 28, 2022 Subjective Patient was seen and examined at bedside. Still feels nauseous. No vomiting. Had multiple BM after lactulose. has some back pain. No fever, chills, chest pain, shortness of breath, nausea or vomiting. Review of Systems Review of Systems: All systems reviewed & are unremarkable except as noted in Subjective Physical Exam Physical Exam: General: Lying comfortably in bed, not in distress, on room air HEENT: EOMI, JD, MMM Chest: Clear breath sounds bilaterally, no wheezes or crackles CVS: Regular rate and rhythm, normal heart sounds, no murmur Abdomen: Soft, non tender, not distended, normal bowel sounds Neuro: Awake, alert, oriented, conversing well, non focal Extremities: No cyanosis, clubbing or edema : Johnson with carlos urine Back: Midline incision site clean dry intact with jaclyn. Mepilex on lower back. Results & Data Results & Data Vital Signs (Past 12 Hours) Vital Signs Temp Pulse Resp BP Pulse Ox O2 Del Method 11/28/22 06:31 98 H 18 118/80 88 L 11/28/22 06:30 99 H 17 11/28/22 06:00 102 H 20 11/28/22 06:00 113/78 11/28/22 05:30 101 H 21 11/28/22 05:30 124/60 11/28/22 05:00 91 H 22 11/28/22 05:00 145/73 H 11/28/22 04:30 91 H 20 11/28/22 04:00 88 23 11/28/22 04:00 145/74 H 11/28/22 03:36 90 15 92 11/28/22 03:00 87 21 11/28/22 03:00 146/83 H 11/28/22 06:38 36.9 C 11/28/22 04:09 95 H 11/28/22 02:40 87 22 11/28/22 02:30 88 22 11/28/22 02:30 151/81 H 11/28/22 02:20 86 23 11/28/22 02:10 88 21 97 11/28/22 02:00 87 20 96 11/28/22 02:00 149/86 H 11/28/22 01:50 88 18 95 11/28/22 01:40 90 16 07/02/23 01:30 86 21 93 11/28/22 01:30 137/69 11/28/22 01:20 123 H 22 92 11/28/22 01:10 121 H 21 95 11/28/22 01:00 122 H 21 94 11/28/22 01:00 144/86 H 11/28/22 00:50 120 H 20 91 11/28/22 00:40 124 H 22 90 11/28/22 00:30 83 21 92 11/28/22 00:30 147/72 H 11/28/22 00:20 85 19 90 11/28/22 00:10 86 29 H 96 11/28/22 00:05 137/64 11/28/22 00:05 83 25 H 96 11/28/22 00:00 84 15 11/27/22 23:55 95 Room Air 11/28/22 00:01 84 11/27/22 22:08 36.9 C 59 L 20 125/75 100 Room Air Laboratory Results Short CBC 11/28/22 11/28/22 Range/Units 00:12 04:45 WBC 12.28 H (4.8-10.8) K/ul Hgb 9.2 L 9.7 L (14.0-18.0) g/dl Hct 27.5 L 28.5 L (42.0-52.0) % Plt Count 205 (130-400) K/uL BMP 11/28/22 11/28/22 11/28/22 00:12 04:45 10:06 Sodium 127 L 127 L 127 L Potassium 4.5 4.4 4.3 Chloride 96 L 97 L 96 L Carbon Dioxide 20 L 19 L 18 L BUN 70 H 71 H 73 H Creatinine 4.10 H 4.16 H 4.53 H* D Glucose 169 H 155 H 182 H Calcium 8.1 L 8.1 L 8.2 L Cardiac Enzymes 11/28/22 Range/Units 00:12 Total Creatine Kinase 3844 H (30-223) U/L Liver Function 11/28/22 Range/Units 00:12 Total Bilirubin 0.7 (0.2-1.0) mg/dl AST 71 H (13-39) U/L ALT 11 (7-52) U/L Alkaline Phosphatase 60 (34-104) U/L Albumin 3.7 (3.4-5.0) gm/dl Urine 11/28/22 Range/Units 04:25 Urine Color Yellow Urine Appearance Turbid A (Clear) Urine pH 5.0 (4.5-7.5) Ur Specific [place] 1.019 (1.000-1.030) Urine Protein 2+ H (Negative) Urine Glucose (UA) Negative (Negative) Medications Administered Current Inpatient Medications Acetaminophen (Acetaminophen 325 Mg Tab) 650 mg PO Q6H PRN PRN Reason: Fever/Pain Stop: 12/28/22 02:42 Last Admin: 11/28/22 09:38 Dose: 650 mg Artificial Tears (Artificial Tears) 1 drops OP QID PRN PRN Reason: Dry Eyes Stop: 12/28/22 05:51 Cyanocobalamin (Cyanocobalamin (B-12) 500 Mcg Tablet) 1,000 mcg PO DAILY KILEY Stop: 12/28/22 08:59 Last Admin: 11/28/22 07:48 Dose: 1,000 mcg Dextrose (Dextrose 50% 50 Ml Syringe) 25 - 50 ml IV UD PRN; Protocol PRN Reason: Hypoglycemia Protocol Stop: 12/28/22 05:32 Famotidine (Famotidine 20 Mg Tab) 20 mg PO HS [facility] Stop: 12/28/22 20:59 Fluticasone Propionate (Fluticasone Propionate Na Spr 16 Gm Btl) 1 sprays NA QAM [facility] Stop: 12/28/22 08:59 Last Admin: 11/28/22 07:49 Dose: 1 sprays Folic Acid (Folic Acid 1 Mg Tab) 1 mg PO BID KILEY Stop: 12/28/22 08:59 Last Admin: 11/28/22 07:48 Dose: 1 mg Glucagon (Glucagon For Inj 1 Mg Vial) 1 mg SQ UD PRN; Protocol PRN Reason: Hypoglycemia Protocol Stop: 12/28/22 05:32 Glucose (Glucose 10 Tab/Tube) 4 - 8 tab PO UD PRN; Protocol PRN Reason: Hypoglycemia Treatment Stop: 12/28/22 05:32 Glucose (Glucose 40% Gel 15 Gm Tube) 15 - 30 gm PO UD PRN; Protocol PRN Reason: Hypoglycemia Protocol Stop: 12/28/22 05:32 Promethazine HCl 6.25 mg/ (Sodium Chloride) 50.25 mls @ 201 mls/hr IV Q6H PRN PRN Reason: Nausea And Vomiting Stop: 12/28/22 02:42 Lactated Ringer's (Lr) 1,000 mls @ 100 mls/hr IV .Q10H ONE Stop: 11/28/22 16:11 Last Admin: 11/28/22 06:33 Dose: 100 mls/hr Lactated Ringer's (Lr) 1,000 mls @ 100 mls/hr IV .Q10H [facility] Stop: 11/29/22 15:59 Insulin Aspart (Insulin Aspart Per Unit Charge) 0 units SC Q6 KILEY Stop: 12/28/22 05:59 Last Admin: 11/28/22 12:42 Dose: 4 units Insulin Glargine (Lantus Per Unit Charge) 5 units SQ HS [facility] Stop: 12/28/22 20:59 Miscellaneous (Carbohydrates For Hypoglycemia ) 15 - 30 gm PO UD PRN PRN Reason: Hypoglycemia Protocol Stop: 12/28/22 05:32 Ondansetron HCl (Ondansetron Inj 2 Mg/Ml 2 Ml Vial) 4 mg IV Q6H PRN PRN Reason: Nausea And Vomiting Stop: 12/28/22 10:02 Oxycodone HCl (Oxycodone Hcl Ir 5 Mg Tab (Immediate Release)) 5 mg PO Q4H PRN PRN Reason: Pain Stop: 12/12/22 02:42 Senna/Docusate Sodium (Docusate Sodium/Senna 50/8.6mg Tab) 1 tab PO BID [facility] Stop: 12/28/22 20:59 Timolol Maleate (Timolol Maleate 0.5% Op Soln 5 Ml Btl) 1 drops OPB QAM [facility] Stop: 12/28/22 08:59 Last Admin: 11/28/22 07:49 Dose: 1 drops
[2022-11-28] MEDS ORDERED: ONDANSETRON INJ 2 MG/ML 2 ML VIAL IV PRN (10:03)
[2022-11-28 10:27] LABS: Base Excess VBG -8.1 mEq/L; HCO3 VBG 18 mmol/L; Oxygen Saturation VBG < 60.0 %; PCO2 VBG 41 mmHg (38-50); PO2 VBG 33 mmHg; pH VBG 7.26 (7.36-7.41)
[2022-11-28 10:51] LABS: BUN Creatinine Ratio 16.1 (10-20); Calcium 8.2 mg/dl (8.6-10.3); Creatinine Clr Calc Pharmacy 13.6 ml/min; Est GFR (African American) 12.8 ml/min; Est GFR (Non-African American) 11.1 ml/min; Potassium 4.3 mmol/L (3.5-5.1)
--- NOTE | 2022-11-28 11:46 | Nephrology Consultation ---
Date of Consultation November 28, 2022 Assessment & Plan (1) Acute renal failure: Patient with acute kidney injury due to ischemic ATN in setting of recent lumbar laminectomy and poor p.o. intake. Creatinine is 4.5 from a baseline of 1.6. I reviewed the urine sediment myself and shows numerous muddy brown casts. Patient also has mild CK elevation although this does not explain the creatinine elevation. Electrolytes are stable and no indications for dialysis. Renal function expected to improve. -Monitor renal function with daily BMP. -Monitor input output. -Continue IV fluids at 100 mL/h. (2) Hyponatremia: Patient with hyponatremia in setting of renal failure. If sodium continues to drop we may have to stop the fluids. History of Present Illness Reason for Consultation: Acute kidney injury Requesting Physician: Corby Wing MD Attending Physician: Corby Wing MD History of Present Illness This is a 86-year-old male with history of hypertension, hyperlipidemia, type 2 diabetes, peripheral vascular disease, ex-smoker, CKD stage III baseline creatinine of 1.6, prostate cancer status post prostatectomy and recent lumbar laminectomy at [facility] who was admitted with weakness and inability to urinate. Patient developed nausea a day after discharge. Patient also with recent COVID infection in August 2022. He was found to be in acute kidney injury with creatinine of 4.5. Patient also has hyponatremia with sodium of 127. Patient is completely anuric. Blood pressure is slightly high. He denies shortness of breath. He denied NSAID use and has been using Tylenol and occasional OxyContin. CT abdomen showed no hydronephrosis but relatively atrophic kidneys. He has a Johnson catheter. UA showed 0-4 RBCs but was positive for 3+ for blood. Patient has slightly elevated CK of 3800. He is receiving normal saline at 100 mL/h. Allergies Allergy/AdvReac Type Severity Reaction Status Date / Time No Known Allergies Allergy Verified 11/28/22 00:10 Home Medications Medication Instructions Recorded Confirmed Type aspirin 81 mg tablet,delayed 81 mg PO .RESUME IN 2 WEEKS 06/14/19 11/27/22 History release atorvastatin 40 mg tablet (Lipitor) 40 mg PO HS 06/14/19 11/27/22 History fluticasone propionate 50 1 spray intranasal QAM 06/14/19 11/27/22 History mcg/actuation nasal spray,suspension (Flonase Allergy Relief) hydrochlorothiazide 25 mg tablet 25 mg PO QAM 06/14/19 11/27/22 History metformin 500 mg tablet 500 mg PO BIDM 06/14/19 11/27/22 History sitagliptin phosphate 50 mg tablet 50 mg PO QAM 06/14/19 11/27/22 History (Januvia) timolol 0.5 % eye drops 1 drp OPB QAM 06/14/19 11/27/22 History acetaminophen 650 mg 650 mg PO BID PRN Pain 09/23/22 11/27/22 History tablet,extended release ascorbic acid (vitamin C) 1,000 mg 1 g PO QDL 09/23/22 11/27/22 History tablet (Vitamin C) carboxymethylcellulose sodium 0.5 1 drp OPB QID PRN Dry Eyes 09/23/22 11/27/22 History % eye drops cholecalciferol (vitamin D3) 25 25 mcg PO DAILY 09/23/22 11/27/22 History mcg (1,000 unit) capsule (Vitamin D3) cilostazol 50 mg tablet 50 mg PO .RESUME IN 2 WEEKS 09/23/22 11/27/22 History cyanocobalamin (vitamin B-12) 1,000 mcg PO DAILY 09/23/22 11/27/22 History 1,000 mcg tablet (Vitamin B-12) famotidine 20 mg tablet 20 mg PO HS 09/23/22 11/27/22 History folic acid 1 mg tablet 1 mg PO BID 09/23/22 11/27/22 History glipizide 2.5 mg tablet, extended 2.5 mg PO DAILYBB 09/23/22 11/27/22 History release 24 hr glucosamine-chondroitin 1,500 mg 30 ml PO DAILY 09/23/22 11/27/22 History -1,200 mg/30 mL oral liquid lisinopril 10 mg tablet 10 mg PO QAM 09/23/22 11/27/22 History guaifenesin 600 mg tablet, 600 mg PO AMHS 11/27/22 11/27/22 History extended release 12 hr (Mucinex) hydrocortisone acetate 25 mg 25 mg MA AMHS PRN .. 11/27/22 11/28/22 History rectal suppository pantoprazole 20 mg tablet,delayed 20 mg PO QAM 11/27/22 11/28/22 History release tramadol 50 mg tablet 50 mg PO Q6 PRN Pain 11/27/22 11/28/22 History Patient History Medical History Aortic stenosis Follows with Dr. Woods Cardiac murmur Chronic kidney disease, stage 3 FOLLOWS W/ DR. SORENSEN IN [place] Degenerative disc disease Diabetes mellitus, type 2 NIDDM GERD (gastroesophageal reflux disease) Glaucoma History of prostate cancer PROSTATECTOMY + RADIATION [place] (hard of hearing) Hyperlipidemia Hypertension Osteoarthritis Spinal stenosis Surgical History History of appendectomy History of cataract surgery History of colonoscopy History of esophagogastroduodenoscopy (EGD) History of lumbar surgery History of prostate biopsy History of prostatectomy History of right inguinal hernia repair X 2 History of right shoulder replacement Family History Sister Family history of diabetes mellitus Family hx of colon cancer Sister Family history of diabetes mellitus Sister Family history of diabetes mellitus Brother Family history of diabetes mellitus Mother Family history of diabetes mellitus Other No family history of adverse response to anesthesia Social History Smoking Status: Never smoker Second Hand Exposure: No; Do You Dip or Chew Tobacco: No; Hx Alcohol Use: No Hx Substance Use: No Preferred Language: Bruneian Communication Ability: Effective 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 Gastrointestinal: Abdomen is soft, non distended, non tender, bowel sounds are present CVS: Regular rate and rhythm. No murmurs, rubs or gallops Musculoskeletal: No joint or muscle tenderness Extremities: Non tender, no edema, peripheral pulses are present Neuro: Oriented, no tremors, no focal neurological deficits Skin: No rashes Results & Data Vital Signs (Past 12 Hours) Vital Signs Temp Pulse Pulse Resp BP BP Pulse Ox 11/28/22 09:50 11/28/22 09:50 36.8 C 81 16 152/74 H 94 11/28/22 08:35 72 20 124/84 97 11/28/22 06:31 98 H 18 118/80 88 L 11/28/22 06:30 99 H 17 11/28/22 06:00 102 H 20 11/28/22 06:00 113/78 11/28/22 05:30 101 H 21 11/28/22 05:30 124/60 11/28/22 05:00 91 H 22 11/28/22 05:00 145/73 H 11/28/22 04:30 91 H 20 11/28/22 04:00 88 23 11/28/22 04:00 145/74 H 11/28/22 03:36 90 15 92 11/28/22 03:00 87 21 11/28/22 03:00 146/83 H 11/28/22 06:38 36.9 C 11/28/22 04:09 95 H 11/28/22 02:40 87 22 11/28/22 02:30 88 22 11/28/22 02:30 151/81 H 11/28/22 02:20 86 23 11/28/22 02:10 88 21 97 11/28/22 02:00 87 20 96 11/28/22 02:00 149/86 H 11/28/22 01:50 88 18 95 11/28/22 01:40 90 16 11/28/22 01:30 86 21 93 11/28/22 01:30 137/69 11/28/22 01:20 123 H 22 92 11/28/22 01:10 121 H 21 95 11/28/22 01:00 122 H 21 94 11/28/22 01:00 144/86 H 11/28/22 00:50 120 H 20 91 11/28/22 00:40 124 H 22 90 11/28/22 00:30 83 21 92 11/28/22 00:30 147/72 H 11/28/22 00:20 85 19 90 11/28/22 00:10 86 29 H 96 11/28/22 00:05 137/64 11/28/22 00:05 83 25 H 96 11/28/22 00:00 84 15 11/27/22 23:55 95 11/28/22 00:01 84 O2 Del Method O2 Flow Rate 11/28/22 09:50 Room Air 11/28/22 09:50 Room Air 11/28/22 08:35 Nasal Cannula 2 11/28/22 06:31 11/28/22 06:30 11/28/22 06:00 11/28/22 06:00 11/28/22 05:30 11/28/22 05:30 11/28/22 05:00 11/28/22 05:00 11/28/22 04:30 11/28/22 04:00 11/28/22 04:00 11/28/22 03:36 11/28/22 03:00 11/28/22 03:00 11/28/22 06:38 11/28/22 04:09 11/28/22 02:40 11/28/22 02:30 11/28/22 02:30 11/28/22 02:20 11/28/22 02:10 11/28/22 02:00 11/28/22 02:00 11/28/22 01:50 11/28/22 01:40 11/28/22 01:30 11/28/22 01:30 11/28/22 01:20 11/28/22 01:10 11/28/22 01:00 11/28/22 01:00 11/28/22 00:50 11/28/22 00:40 11/28/22 00:30 11/28/22 00:30 11/28/22 00:20 11/28/22 00:10 11/28/22 00:05 11/28/22 00:05 11/28/22 00:00 11/27/22 23:55 Room Air 11/28/22 00:01 Laboratory Results 11/28/22 10:06 11/28/22 11/28/22 00:12 00:12 WBC 12.28 H RBC 3.08 L MCV 89.3 MCH 29.9 MCHC 33.5 RDW Std Deviation 46.4 H RDW Coeff of Desire 14.3 Plt Count 205 MPV 11.0 Albumin 3.7
[2022-11-28 13:09] LABS: BUN Creatinine Ratio 14.8 (10-20); Calcium 7.9 mg/dl (8.6-10.3); Creatinine Clr Calc Pharmacy 13.6 ml/min; Est GFR (African American) 12.8 ml/min; Est GFR (Non-African American) 11.1 ml/min; Potassium 4.4 mmol/L (3.5-5.1)
[2022-11-28] MEDS: LACTATED RINGER'S 1,000 ML IV SCH (17:10)
[2022-11-28] MEDS: DOCUSATE SODIUM/SENNA 50/8.6MG TAB PO SCH (20:36)
[2022-11-28] MEDS: FAMOTIDINE 20 MG TAB PO SCH (20:37)
[2022-11-28 20:42] LABS: Creatinine Clr Calc Pharmacy 13.7 ml/min; Est GFR (African American) 12.9 ml/min; Est GFR (Non-African American) 11.1 ml/min
[2022-11-28 20:43] LABS: BUN Creatinine Ratio 16.2 (10-20); Calcium 7.7 mg/dl (8.6-10.3)
[2022-11-28] MEDS: LANTUS PER UNIT CHARGE SQ SCH (20:44)
[2022-11-29] MEDS: INSULIN ASPART PER UNIT CHARGE SC SCH ×5 (00:07→21:04)
[2022-11-29 00:45] LABS: Base Excess VBG -6.9 mEq/L; HCO3 VBG 19 mmol/L; Oxygen Saturation VBG 66.1 %; PCO2 VBG 36 mmHg (38-50); PO2 VBG 39 mmHg; pH VBG 7.32 (7.36-7.41)
[2022-11-29 01:05] LABS: BUN Creatinine Ratio 16.4 (10-20); Calcium 7.9 mg/dl (8.6-10.3); Creatinine Clr Calc Pharmacy 14.1 ml/min; Est GFR (African American) 13.4 ml/min; Est GFR (Non-African American) 11.5 ml/min; Potassium 4.2 mmol/L (3.5-5.1)
[2022-11-29] MEDS ORDERED: Nursing to Pharmacy Communication SCH (02:30)
[2022-11-29] MEDS: LACTATED RINGER'S 1,000 ML IV SCH ×2 (02:33→12:10)
[2022-11-29 07:34] LABS: Hematocrit (blood only) 25.2 % (42.0-52.0); Hemoglobin 8.8 g/dl (14.0-18.0); Mean Corpuscular Hemoglobin 30.1 pg (25.0-34.0); Mean Corpuscular Hgb Conc 34.9 g/dL (32.0-36.0); Mean Corpuscular Volume 86.3 fL (80.0-100.0); Mean Platelet Volume 10.7 fL (9.4-12.4); Platelet Count 199 K/uL (130-400); RDW Coefficient of Variation 14.1 % (11.5-14.5); RDW Standard Deviation 44.3 fL (36.4-46.3); Red Blood Count 2.92 M/uL (4.70-6.10); White Blood Count 9.21 K/ul (4.8-10.8)
[2022-11-29 07:42] LABS: BUN Creatinine Ratio 15.9 (10-20); Calcium 7.8 mg/dl (8.6-10.3); Creatinine Clr Calc Pharmacy 14.7 ml/min; Est GFR (African American) 14.5 ml/min; Est GFR (Non-African American) 12.5 ml/min; Magnesium 1.9 mg/dl (1.7-2.4); Phosphorus 4.7 mg/dl (2.5-4.9); Potassium 4.2 mmol/L (3.5-5.1)
[2022-11-29] MEDS: ACETAMINOPHEN 325 MG TAB PO PRN (07:57)
[2022-11-29] MEDS: FOLIC ACID 1 MG TAB PO SCH ×2 (07:59→21:05)
[2022-11-29] MEDS: CYANOCOBALAMIN (B-12) 500 MCG TABLET PO SCH (07:59)
[2022-11-29] MEDS: DOCUSATE SODIUM/SENNA 50/8.6MG TAB PO SCH ×2 (09:31→21:05)
[2022-11-29] MEDS: FLUTICASONE PROPIONATE NA SPR 16 GM BTL SCH (09:31)
[2022-11-29] MEDS: TIMOLOL MALEATE 0.5% OP SOLN 5 ML BTL OPB SCH (09:52)
--- NOTE | 2022-11-29 14:26 | Hospitalist Progress Note ---
Date of Service November 29, 2022 Assessment & Plan (1) Acute renal failure: (2) Hyponatremia: (3) Status post spinal surgery: Plan 86 year old male with h/o hypertension, hyperlipidemia, moderate (TTE 2022), PVD, DM2 on oral medications, CRI (baseline creatinine 1.6), chronic anemia (baseline hemoglobin 11), GERD, prostate cancer status post surgery, recent thoracolumbar laminectomy, past tobacco abuse, recent spinal surgery at [place] on 11/25 and discharged on 11/26 presented to the ED 11/27 with inability to void since discharge. CT A/P 1. Significantly suboptimal examination without oral and IV contrast. There is also motion artifact. 2. No acute infectious or inflammatory findings are identified in the abdomen or pelvis. 3. Trace pleural effusions with bibasilar consolidation. This could represent atelectasis versus pneumonia/aspiration pneumonitis. Pneumonia is favored at the right lung base. Clinical correlation will be required. 4. A left inguinal hernia contains a tiny segment of the sigmoid colon. 5. Colonic diverticulosis without CT evidence of acute diverticulitis. 6. Extensive postsurgical change involving the thoracic and lumbar spine as above with infiltration posterior to the thecal sac at these levels. This is likely related to recent surgery. 7. Additional findings as above. Acute kidney injury-suspected ischemic ATN. Status post Johnson in ED. getting gentle IVF. -Baseline creatinine 1.3, currently trending up 4.1->4.5->4.38->4.1. Avoid nephrotoxics -Nephro following NAGMA-due to above, mild. Hyponatremia-improving, correcting appropriately, sodium 131 today. getting gentle IVF, recheck in a.m. Rhabdomyolysis CK trending down 3800->1400. not enough to cause ROSANNA. No need to check further DM-2- A1c 7.9-continue Lantus, sliding scale insulin, adjust as indicated S/p T11-12 and L2-L3 laminectomies for thoracic stenosis with cord compression, lumbar stenosis with neurogenic claudication- surgery done at [facility] on 11/25/22 and discharged on 11/[address]- as noted above but clinically no S/S of PNA. Denies any aspiration event. Mild leucocytosis on admission is probably reactive. Currently no indication for antibiotics. Will monitor. DVT prophylaxis-subcu heparin Disposition-pending resolution of ROSANNA Admission and Anticipated Discharge Date Admission Date: November 28, 2022 Subjective Patient was seen and examined at bedside. He feels slightly better today. Back pain is controlled. Had bowel movement. No nausea, vomiting or chest pain, shortness of breath, fever or chills Review of Systems Review of Systems: All systems reviewed & are unremarkable except as noted in Subjective Physical Exam Physical Exam: General: Lying comfortably in bed, not in distress, on room air HEENT: EOMI, JD, MMM Chest: Clear breath sounds bilaterally, no wheezes or crackles CVS: Regular rate and rhythm, normal heart sounds, no murmur Abdomen: Soft, non tender, not distended, normal bowel sounds Neuro: Awake, alert, oriented, conversing well, non focal Extremities: No cyanosis, clubbing or edema : Johnson with carlos urine Back: Midline incision site clean dry intact with jaclyn. Mepilex on lower back. Results & Data Results & Data Vital Signs (Past 12 Hours) Vital Signs Temp Pulse Pulse Resp BP Pulse Ox O2 Del Method 11/29/22 10:59 36.9 C 76 18 155/80 H 97 Room Air 11/29/22 09:19 36.6 C 11/29/22 06:00 86 11/29/22 08:10 Room Air 11/29/22 07:48 37.3 C 87 18 156/75 H 94 Room Air 11/29/22 04:12 36.9 C 91 H 20 149/79 H 93 Room Air Laboratory Results Short CBC 11/29/22 Range/Units 06:59 WBC 9.21 (4.8-10.8) K/ul Hgb 8.8 L (14.0-18.0) g/dl Hct 25.2 L (42.0-52.0) % Plt Count 199 (130-400) K/uL BMP 11/28/22 11/29/22 11/29/22 19:52 00:31 06:59 Sodium 127 L 128 L 131 L Potassium 4.0 4.2 4.2 Chloride 98 99 101 Carbon Dioxide 17 L 17 L 20 L BUN 73 H 72 H 65 H Creatinine 4.51 H* 4.38 H 4.10 H Glucose 144 H 128 H 133 H Calcium 7.7 L 7.9 L 7.8 L Cardiac Enzymes 11/29/22 Range/Units 06:59 Total Creatine Kinase 1403 H (30-223) U/L Medications Administered Current Inpatient Medications Acetaminophen (Acetaminophen 325 Mg Tab) 650 mg PO Q6H PRN PRN Reason: Fever/Pain Stop: 12/28/22 02:42 Last Admin: 11/29/22 07:57 Dose: 650 mg Artificial Tears (Artificial Tears) 1 drops OP QID PRN PRN Reason: Dry Eyes Stop: 12/28/22 05:51 Cyanocobalamin (Cyanocobalamin (B-12) 500 Mcg Tablet) 1,000 mcg PO DAILY KILEY Stop: 12/28/22 08:59 Last Admin: 11/29/22 07:59 Dose: 1,000 mcg Dextrose (Dextrose 50% 50 Ml Syringe) 25 - 50 ml IV UD PRN; Protocol PRN Reason: Hypoglycemia Protocol Stop: 12/28/22 05:32 Famotidine (Famotidine 20 Mg Tab) 20 mg PO HS KILEY Stop: 12/28/22 20:59 Last Admin: 11/28/22 20:37 Dose: 20 mg Fluticasone Propionate (Fluticasone Propionate Na Spr 16 Gm Btl) 1 sprays NA QAM KILEY Stop: 12/28/22 08:59 Last Admin: 11/29/22 09:31 Dose: Not Given Folic Acid (Folic Acid 1 Mg Tab) 1 mg PO BID KILEY Stop: 12/28/22 08:59 Last Admin: 11/29/22 07:59 Dose: 1 mg Glucagon (Glucagon For Inj 1 Mg Vial) 1 mg SQ UD PRN; Protocol PRN Reason: Hypoglycemia Protocol Stop: 12/28/22 05:32 Glucose (Glucose 10 Tab/Tube) 4 - 8 tab PO UD PRN; Protocol PRN Reason: Hypoglycemia Treatment Stop: 12/28/22 05:32 Glucose (Glucose 40% Gel 15 Gm Tube) 15 - 30 gm PO UD PRN; Protocol PRN Reason: Hypoglycemia Protocol Stop: 12/28/22 05:32 Promethazine HCl 6.25 mg/ (Sodium Chloride) 50.25 mls @ 201 mls/hr IV Q6H PRN PRN Reason: Nausea And Vomiting Stop: 12/28/22 02:42 Lactated Ringer's (Lr) 1,000 mls @ 100 mls/hr IV .Q10H KILEY Stop: 11/29/22 15:59 Last Admin: 11/29/22 12:10 Dose: 100 mls/hr Insulin Aspart (Insulin Aspart Per Unit Charge) 0 units SC ACHS [facility] Stop: 12/29/22 07:29 Last Admin: 11/29/22 11:33 Dose: 7 units Insulin Glargine (Lantus Per Unit Charge) 5 units SQ HS [facility] Stop: 12/28/22 20:59 Last Admin: 11/28/22 20:44 Dose: 5 units Miscellaneous (Carbohydrates For Hypoglycemia ) 15 - 30 gm PO UD PRN PRN Reason: Hypoglycemia Protocol Stop: 12/28/22 05:32 Ondansetron HCl (Ondansetron Inj 2 Mg/Ml 2 Ml Vial) 4 mg IV Q6H PRN PRN Reason: Nausea And Vomiting Stop: 12/28/22 10:02 Oxycodone HCl (Oxycodone Hcl Ir 5 Mg Tab (Immediate Release)) 5 mg PO Q4H PRN PRN Reason: Pain Stop: 12/12/22 02:42 Senna/Docusate Sodium (Docusate Sodium/Senna 50/8.6mg Tab) 1 tab PO BID [facility] Stop: 12/28/22 20:59 Last Admin: 11/29/22 09:31 Dose: 1 tab Timolol Maleate (Timolol Maleate 0.5% Op Soln 5 Ml Btl) 1 drops OPB QAM [facility] Stop: 12/28/22 08:59 Last Admin: 11/29/22 09:52 Dose: 1 drops
--- NOTE | 2022-11-29 14:58 | Nephrology Progress Note ---
Date of Service November 29, 2022 Assessment & Plan (1) Acute renal failure: Plan: Patient with acute kidney injury due to ischemic ATN in setting of recent lumbar laminectomy and poor p.o. intake. Creatinine peaked to 4.5 from a baseline of 1.6. Urine sediment showed numerous muddy brown casts. Patient also has mild CK elevation although this does not explain the creatinine elevation. Electrolytes are stable and no indications for dialysis. Renal function and UOP has started to improve -Monitor renal function with daily BMP. -Monitor input output. -Continue slow IV fluids . (2) Hyponatremia: Plan: Patient with hyponatremia in setting of renal failure. If sodium continues to drop we may have to stop the fluids. Admission and Anticipated Discharge Date Admission Date: November 28, 2022 Subjective Patient was seen and examined at bedside. He feels slightly better today. Back pain is controlled. Had bowel movement. No nausea, vomiting or chest pain, shortness of breath, fever or chills Review of Systems Review of Systems: All other systems were reviewed and negative except as noted in HPI Results & Data Vital Signs (Past 12 Hours) Vital Signs Temp Pulse Pulse Resp BP Pulse Ox O2 Del Method 11/29/22 14:07 82 11/29/22 10:59 36.9 C 76 18 155/80 H 97 Room Air 11/29/22 09:19 36.6 C 11/29/22 06:00 86 11/29/22 08:10 Room Air 11/29/22 07:48 37.3 C 87 18 156/75 H 94 Room Air 11/29/22 04:12 36.9 C 91 H 20 149/79 H 93 Room Air Laboratory Results 11/29/22 06:59 11/29/22 06:59
[2022-11-29] MEDS: amLODIPine BESYLATE 5 MG TAB PO SCH (17:12)
[2022-11-29] MEDS: LANTUS PER UNIT CHARGE SQ SCH (21:04)
[2022-11-29] MEDS: FAMOTIDINE 20 MG TAB PO SCH (21:05)
[2022-11-30] MEDS: ACETAMINOPHEN 325 MG TAB PO PRN ×2 (06:38→14:01)
[2022-11-30 06:45] LABS: Hematocrit (blood only) 27.9 % (42.0-52.0); Hemoglobin 9.7 g/dl (14.0-18.0); Mean Corpuscular Hemoglobin 29.8 pg (25.0-34.0); Mean Corpuscular Hgb Conc 34.8 g/dL (32.0-36.0); Mean Corpuscular Volume 85.8 fL (80.0-100.0); Mean Platelet Volume 10.4 fL (9.4-12.4); Platelet Count 238 K/uL (130-400); RDW Coefficient of Variation 14.1 % (11.5-14.5); RDW Standard Deviation 44.5 fL (36.4-46.3); Red Blood Count 3.25 M/uL (4.70-6.10); White Blood Count 9.33 K/ul (4.8-10.8)
--- NOTE | 2022-11-30 06:58 | Electrocardiogram Report ---
Test Reason : Blood Pressure : / mmHG Vent. Rate : 083 BPM Atrial Rate : 083 BPM P-R Int : 186 ms QRS Dur : 070 ms QT Int : 372 ms P-R-T Axes : 050 -27 037 degrees QTc Int : 437 ms Sinus rhythm with Premature atrial complexes Inferior infarct (cited on or before 23-SEP-2022) Abnormal ECG When compared with ECG of 25-SEP-2022 10:38, Premature atrial complexes are now Present Nonspecific T wave abnormality has replaced inverted T waves in Inferior leads Nonspecific T wave abnormality, improved in Anterolateral leads Confirmed by Caden Ríos ([id number]) on 11/30/2022 6:58:32 AM Referred By: REFERRED SELF Confirmed By:Caden Ríos
[2022-11-30 07:07] LABS: BUN Creatinine Ratio 19.7 (10-20); Calcium 8.6 mg/dl (8.6-10.3); Creatinine Clr Calc Pharmacy 19.4 ml/min; Est GFR (African American) 20.7 ml/min; Est GFR (Non-African American) 17.9 ml/min
[2022-11-30] MEDS: CYANOCOBALAMIN (B-12) 500 MCG TABLET PO SCH (08:13)
[2022-11-30] MEDS: amLODIPine BESYLATE 5 MG TAB PO SCH (08:13)
[2022-11-30] MEDS: FLUTICASONE PROPIONATE NA SPR 16 GM BTL SCH (08:13)
[2022-11-30] MEDS: INSULIN ASPART PER UNIT CHARGE SC SCH ×4 (08:14→20:38)
[2022-11-30] MEDS: FOLIC ACID 1 MG TAB PO SCH ×2 (08:14→20:37)
[2022-11-30] MEDS: TIMOLOL MALEATE 0.5% OP SOLN 5 ML BTL OPB SCH (08:14)
[2022-11-30] MEDS: DOCUSATE SODIUM/SENNA 50/8.6MG TAB PO SCH ×2 (08:17→20:40)
--- NOTE | 2022-11-30 09:07 | Nephrology Progress Note ---
Date of Service November 30, 2022 Assessment & Plan (1) Acute renal failure: Plan: Patient with acute kidney injury due to ischemic ATN in setting of recent lumbar laminectomy and poor p.o. intake. Creatinine peaked to 4.5 from a baseline of 1.6. Urine sediment showed numerous muddy brown casts. Patient also has mild CK elevation although this does not explain the creatinine elevation. Electrolytes are stable and no indications for dialysis. Renal function and UOP has improved - He is now Polyuric- start on 1/2 ns saline at 100 mls/hr -Monitor renal function with daily BMP. -Monitor input output. . (2) Hyponatremia: Plan: Improved - Iv Fluids as above. Admission and Anticipated Discharge Date Admission Date: November 28, 2022 Subjective Patient was seen and examined at bedside. Comfortable Back pain is controlled. Review of Systems Review of Systems: All other systems were reviewed and negative except as noted in HPI Physical Exam Physical Exam: General: Lying comfortably in bed, not in distress, on room air HEENT: EOMI, JD, MMM Chest: Clear breath sounds bilaterally, no wheezes or crackles CVS: Regular rate and rhythm, normal heart sounds, no murmur Abdomen: Soft, non tender, not distended, normal bowel sounds Neuro: Awake, alert, oriented, conversing well, non focal Extremities: No cyanosis, clubbing or edema : Johnson with carlos urine Back: Midline incision site clean dry intact with jaclyn. Results & Data Vital Signs (Past 12 Hours) Vital Signs Temp Pulse Pulse Resp BP BP Pulse Ox 11/30/22 07:47 92 H 11/30/22 07:03 36.4 C L 91 H 19 160/76 H 95 11/30/22 03:36 37.0 C 93 H 18 150/70 H 93 11/30/22 01:03 85 11/29/22 22:51 37.0 C 83 20 151/84 H 95 O2 Del Method 11/30/22 07:47 11/30/22 07:03 Room Air 11/30/22 03:36 Room Air 11/30/22 01:03 11/29/22 22:51 Room Air Laboratory Results 11/30/22 06:04 11/30/22 06:04
--- NOTE | 2022-11-30 11:44 | Hospitalist Progress Note ---
Date of Service November 30, 2022 Assessment & Plan (1) Acute renal failure: (2) Hyponatremia: (3) Status post spinal surgery: Plan 86 year old male with h/o hypertension, hyperlipidemia, moderate (TTE 2022), PVD, DM2 on oral medications, CRI (baseline creatinine 1.6), chronic anemia (baseline hemoglobin 11), GERD, prostate cancer status post surgery, recent thoracolumbar laminectomy, past tobacco abuse, recent spinal surgery at [place] on 11/25 and discharged on 11/26 presented to the ED 11/27 with inability to void since discharge. CT A/P 1. Significantly suboptimal examination without oral and IV contrast. There is also motion artifact. 2. No acute infectious or inflammatory findings are identified in the abdomen or pelvis. 3. Trace pleural effusions with bibasilar consolidation. This could represent atelectasis versus pneumonia/aspiration pneumonitis. Pneumonia is favored at the right lung base. Clinical correlation will be required. 4. A left inguinal hernia contains a tiny segment of the sigmoid colon. 5. Colonic diverticulosis without CT evidence of acute diverticulitis. 6. Extensive postsurgical change involving the thoracic and lumbar spine as above with infiltration posterior to the thecal sac at these levels. This is likely related to recent surgery. 7. Additional findings as above. Acute kidney injury-suspected ischemic ATN. After oliguric phase, and patient now in polyuric phase with improving renal function -Baseline creatinine 1.6, currently trending up 4.1->4.5->4.38->4.1->3. Avoid nephrotoxics -Nephro following-we will start on half NS at 100 cc/h per nephro recommendation. Daily BMP. Monitor intake and output NAGMA-due to above, almost resolved Hyponatremia-resolved. IVF change as above Rhabdomyolysis CK trending down 3800->1400. No need to check further DM-2- A1c 7.9-continue Lantus, sliding scale insulin, adjust as indicated S/p T11-12 and L2-L3 laminectomies for thoracic stenosis with cord compression, lumbar stenosis with neurogenic claudication- surgery done at [facility] on 11/25/22 and discharged on 11/[address]- as noted above but clinically no S/S of PNA. Denies any aspiration event. Mild leucocytosis on admission is probably reactive. Currently no indication for antibiotics. Will monitor. DVT prophylaxis-subcu heparin Disposition-pending resolution of ROSANNA Admission and Anticipated Discharge Date Admission Date: November 28, 2022 Subjective Patient was seen and examined at bedside. No new issues. Still with some back pain better with Tylenol. No fever, chills, chest pain, shortness of breath or nausea or vomiting. Appetite improving. No bowel movement today. Review of Systems Review of Systems: All systems reviewed & are unremarkable except as noted in Subjective Physical Exam Physical Exam: General: Lying comfortably in bed, not in distress, on room air HEENT: EOMI, JD, MMM Chest: Clear breath sounds bilaterally, no wheezes or crackles CVS: Regular rate and rhythm, normal heart sounds, no murmur Abdomen: Soft, non tender, not distended, normal bowel sounds Neuro: Awake, alert, oriented, conversing well, non focal Extremities: No cyanosis, clubbing or edema : Johnson with carlos urine Back: Midline incision site clean dry intact with jaclyn. Mepilex on lower back. Results & Data Results & Data Vital Signs (Past 12 Hours) Vital Signs Temp Pulse Pulse Resp BP BP Pulse Ox 11/30/22 07:47 92 H 11/30/22 07:03 36.4 C L 91 H 19 160/76 H 95 11/30/22 03:36 37.0 C 93 H 18 150/70 H 93 11/30/22 01:03 85 O2 Del Method 11/30/22 07:47 11/30/22 07:03 Room Air 11/30/22 03:36 Room Air 11/30/22 01:03 Laboratory Results Short CBC 11/30/22 Range/Units 06:04 WBC 9.33 (4.8-10.8) K/ul Hgb 9.7 L (14.0-18.0) g/dl Hct 27.9 L (42.0-52.0) % Plt Count 238 (130-400) K/uL BMP 11/30/22 06:04 Sodium 138 Potassium 4.0 Chloride 105 Carbon Dioxide 21 BUN 60 H Creatinine 3.05 H D Glucose 153 H Calcium 8.6 Medications Administered Current Inpatient Medications Acetaminophen (Acetaminophen 325 Mg Tab) 650 mg PO Q6H PRN PRN Reason: Fever/Pain Stop: 12/28/22 02:42 Last Admin: 11/30/22 06:38 Dose: 650 mg Amlodipine Besylate (Amlodipine Besylate 5 Mg Tab) 5 mg PO DAILY KILEY Stop: 12/29/22 16:14 Last Admin: 11/30/22 08:13 Dose: 5 mg Artificial Tears (Artificial Tears) 1 drops OP QID PRN PRN Reason: Dry Eyes Stop: 12/28/22 05:51 Cyanocobalamin (Cyanocobalamin (B-12) 500 Mcg Tablet) 1,000 mcg PO DAILY KILEY Stop: 12/28/22 08:59 Last Admin: 11/30/22 08:13 Dose: 1,000 mcg Dextrose (Dextrose 50% 50 Ml Syringe) 25 - 50 ml IV UD PRN; Protocol PRN Reason: Hypoglycemia Protocol Stop: 12/28/22 05:32 Famotidine (Famotidine 20 Mg Tab) 20 mg PO HS KILEY Stop: 12/28/22 20:59 Last Admin: 11/29/22 21:05 Dose: 20 mg Fluticasone Propionate (Fluticasone Propionate Na Spr 16 Gm Btl) 1 sprays NA QAM KILEY Stop: 12/28/22 08:59 Last Admin: 11/30/22 08:13 Dose: 1 sprays Folic Acid (Folic Acid 1 Mg Tab) 1 mg PO BID KILEY Stop: 12/28/22 08:59 Last Admin: 11/30/22 08:14 Dose: 1 mg Glucagon (Glucagon For Inj 1 Mg Vial) 1 mg SQ UD PRN; Protocol PRN Reason: Hypoglycemia Protocol Stop: 12/28/22 05:32 Glucose (Glucose 10 Tab/Tube) 4 - 8 tab PO UD PRN; Protocol PRN Reason: Hypoglycemia Treatment Stop: 12/28/22 05:32 Glucose (Glucose 40% Gel 15 Gm Tube) 15 - 30 gm PO UD PRN; Protocol PRN Reason: Hypoglycemia Protocol Stop: 12/28/22 05:32 Promethazine HCl 6.25 mg/ (Sodium Chloride) 50.25 mls @ 201 mls/hr IV Q6H PRN PRN Reason: Nausea And Vomiting Stop: 12/28/22 02:42 Insulin Aspart (Insulin Aspart Per Unit Charge) 0 units SC ACHS KILEY Stop: 12/29/22 07:29 Last Admin: 11/30/22 08:14 Dose: 4 units Insulin Glargine (Lantus Per Unit Charge) 5 units SQ HS [facility] Stop: 12/28/22 20:59 Last Admin: 11/29/22 21:04 Dose: 5 units Miscellaneous (Carbohydrates For Hypoglycemia ) 15 - 30 gm PO UD PRN PRN Reason: Hypoglycemia Protocol Stop: 12/28/22 05:32 Ondansetron HCl (Ondansetron Inj 2 Mg/Ml 2 Ml Vial) 4 mg IV Q6H PRN PRN Reason: Nausea And Vomiting Stop: 12/28/22 10:02 Oxycodone HCl (Oxycodone Hcl Ir 5 Mg Tab (Immediate Release)) 5 mg PO Q4H PRN PRN Reason: Pain Stop: 12/12/22 02:42 Senna/Docusate Sodium (Docusate Sodium/Senna 50/8.6mg Tab) 1 tab PO BID [facility] Stop: 12/28/22 20:59 Last Admin: 11/30/22 08:17 Dose: 1 tab Timolol Maleate (Timolol Maleate 0.5% Op Soln 5 Ml Btl) 1 drops OPB QAM [facility] Stop: 12/28/22 08:59 Last Admin: 11/30/22 08:14 Dose: 1 drops
[2022-11-30] MEDS: SODIUM CHLORIDE 0.45 % 1,000 ML IV SCH ×2 (12:03→22:20)
[2022-11-30] MEDS: HEPARIN SOD 5,000 UNIT/0.5 ML VIAL SQ SCH ×2 (13:16→22:21)
[2022-11-30] MEDS: FAMOTIDINE 20 MG TAB PO SCH (20:37)
[2022-11-30] MEDS: LANTUS PER UNIT CHARGE SQ SCH (20:38)
[2022-12-01] MEDS: HEPARIN SOD 5,000 UNIT/0.5 ML VIAL SQ SCH ×3 (05:45→20:30)
[2022-12-01 06:40] LABS: Hematocrit (blood only) 28.3 % (42.0-52.0); Hemoglobin 9.6 g/dl (14.0-18.0); Mean Corpuscular Hemoglobin 29.5 pg (25.0-34.0); Mean Corpuscular Hgb Conc 33.9 g/dL (32.0-36.0); Mean Corpuscular Volume 87.1 fL (80.0-100.0); Mean Platelet Volume 11.5 fL (9.4-12.4); Platelet Count 226 K/uL (130-400); RDW Coefficient of Variation 14.3 % (11.5-14.5); RDW Standard Deviation 45.7 fL (36.4-46.3); Red Blood Count 3.25 M/uL (4.70-6.10); White Blood Count 8.83 K/ul (4.8-10.8)
[2022-12-01 07:14] LABS: BUN Creatinine Ratio 19.5 (10-20); Calcium 8.3 mg/dl (8.6-10.3); Creatinine Clr Calc Pharmacy 23.6 ml/min; Est GFR (African American) 26.2 ml/min; Est GFR (Non-African American) 22.6 ml/min; Magnesium 1.7 mg/dl (1.7-2.4); Phosphorus 3.4 mg/dl (2.5-4.9); Potassium 4.2 mmol/L (3.5-5.1)
[2022-12-01] MEDS: FOLIC ACID 1 MG TAB PO SCH ×2 (07:50→20:32)
[2022-12-01] MEDS: CYANOCOBALAMIN (B-12) 500 MCG TABLET PO SCH (07:50)
[2022-12-01] MEDS: amLODIPine BESYLATE 5 MG TAB PO SCH (07:50)
[2022-12-01] MEDS: TIMOLOL MALEATE 0.5% OP SOLN 5 ML BTL OPB SCH (07:50)
[2022-12-01] MEDS: FLUTICASONE PROPIONATE NA SPR 16 GM BTL SCH (07:51)
[2022-12-01] MEDS: ACETAMINOPHEN 325 MG TAB PO PRN ×2 (07:56→17:27)
[2022-12-01] MEDS: INSULIN ASPART PER UNIT CHARGE SC SCH ×4 (08:26→20:31)
[2022-12-01] MEDS: SODIUM CHLORIDE 0.45 % 1,000 ML IV SCH ×2 (08:26→22:50)
[2022-12-01] MEDS: DOCUSATE SODIUM/SENNA 50/8.6MG TAB PO SCH ×2 (08:34→20:34)
--- NOTE | 2022-12-01 09:30 | Nephrology Progress Note ---
Date of Service December 01, 2022 Assessment & Plan (1) Acute renal failure: Plan: improving stage 3 nonoliguric acute kidney injury due to ischemic ATN in setting of recent lumbar laminectomy and poor p.o. intake. Creatinine peaked at 4.5 from a baseline of 1.3. Urine sediment showed numerous muddy brown casts. Patient also has mild CK elevation although this does not explain the creatinine elevation. Electrolytes are stable and no indications for dialysis. Renal function and UOP has improved - He is now Polyuric- start on 1/2 ns saline at 100 mls/hr -Monitor renal function with daily BMP. -Monitor input output strict though no hector needed Will need hospital discharge appt w/ nephrololgy 2-3 wks after d/c w/ Dr Kasper or myself; bmp to be ordered 48 hrs before appt by nephro RN . (2) Hyponatremia: Plan: Improved - Iv Fluids as above. Admission and Anticipated Discharge Date Admission Date: November 28, 2022 Results & Data Vital Signs (Past 12 Hours) Vital Signs Temp Pulse Pulse Resp BP BP Pulse Ox 12/01/22 07:15 36.7 C 85 18 164/94 H 94 12/01/22 07:27 89 12/01/22 03:24 36.5 C 77 18 152/82 H 94 11/30/22 22:00 94 H 11/30/22 23:23 36.7 C 87 18 172/85 H 93 O2 Del Method 12/01/22 07:15 Room Air 12/01/22 07:27 12/01/22 03:24 Room Air 11/30/22 22:00 11/30/22 23:23 Room Air Laboratory Results 12/01/22 05:50 12/01/22 05:50
--- NOTE | 2022-12-01 11:24 | Hospitalist Progress Note ---
Date of Service December 01, 2022 Assessment & Plan (1) Acute renal failure: (2) Hyponatremia: (3) Status post spinal surgery: Plan 86 year old male with h/o hypertension, hyperlipidemia, moderate (TTE 2022), PVD, DM2 on oral medications, CRI (baseline creatinine 1.6), chronic anemia (baseline hemoglobin 11), GERD, prostate cancer status post surgery, recent thoracolumbar laminectomy, past tobacco abuse, recent spinal surgery at [place] on 11/25 and discharged on 11/26 presented to the ED 11/27 with inability to void since discharge. CT A/P 1. Significantly suboptimal examination without oral and IV contrast. There is also motion artifact. 2. No acute infectious or inflammatory findings are identified in the abdomen or pelvis. 3. Trace pleural effusions with bibasilar consolidation. This could represent atelectasis versus pneumonia/aspiration pneumonitis. Pneumonia is favored at the right lung base. Clinical correlation will be required. 4. A left inguinal hernia contains a tiny segment of the sigmoid colon. 5. Colonic diverticulosis without CT evidence of acute diverticulitis. 6. Extensive postsurgical change involving the thoracic and lumbar spine as above with infiltration posterior to the thecal sac at these levels. This is likely related to recent surgery. 7. Additional findings as above. Acute kidney injury-suspected ischemic ATN. NAGMA After oliguric phase, and patient now in polyuric phase with improving renal function Baseline creatinine 1.3, Cr trend 4.1->4.5->4.38->4.1->3->2.5. Avoid nephrotoxics Nephrology on board Currently on IV 0.45% NS at 100 cc/h per nephro recommendation. Monitor BMP Hyponatremia-resolved. Rhabdomyolysis CK trending down 3800->1400. DM-2 A1c 7.9 Continue Lantus, sliding scale insulin, adjust as indicated S/p T11-12 and L2-L3 laminectomies for thoracic stenosis with cord compression, lumbar stenosis with neurogenic claudication Surgery done at [facility] on 11/25/22 and discharged on 11/26 Patient to follow up with surgeon outpatient Abnormal CT- as noted above but clinically no S/S of PNA. Denies any aspiration event. Mild leucocytosis on admission likely reactive is resolved No antibiotics. Will monitor. DVT prophylaxis-subcu heparin I spent a total of 45 minutes coordinating, documenting and providing care for this patient excluding time spent in performance of separately billed services Admission and Anticipated Discharge Date Admission Date: November 28, 2022 Subjective Patient seen and examined Reports small BM yesterday Denied any nausea, vomiting, abd pain Denied cough, chest pain, SOB Reports some soreness at recent surgery site in the back Denied fever, chills Physical Exam Constitutional: + well hydrated; no acute distress Eyes: PERRL, conjunctivae normal, anicteric sclerae ENMT: external ear and nose normal, oropharynx normal Respiratory: normal respiratory effort, lungs clear to auscultation Cardiovascular: Rate/Rhythm: regular rate and regular rhythm S1 S2 Gastrointestinal (Abdomen): normal bowel sounds, soft, nontender, no hepatosplenomegaly Musculoskeletal: No pedal edema. Leupp over surgical site on back Neurologic: PERRL, EOMI, accommodation nl, no face palsy, no dysarthria Psychiatric: A+Ox3, euthymic affect Genitourinary: Johnson in situ Results & Data Results & Data Vital Signs (Past 12 Hours) Vital Signs Temp Pulse Pulse Resp BP BP Pulse Ox 12/01/22 07:15 36.7 C 85 18 164/94 H 94 12/01/22 07:27 89 12/01/22 03:24 36.5 C 77 18 152/82 H 94 11/30/22 23:23 36.7 C 87 18 172/85 H 93 O2 Del Method 12/01/22 07:15 Room Air 12/01/22 07:27 12/01/22 03:24 Room Air 11/30/22 23:23 Room Air Laboratory Results Abnormal lab results 11/30/22 11/30/22 11/30/22 Range/Units 11:27 16:25 20:00 RBC (4.70-6.10) M/uL Hgb (14.0-18.0) g/dl Hct (42.0-52.0) % BUN (6-23) mg/dl Creatinine (0.6-1.4) mg/dl Glucose (70-99(Fasting)) mg/dl POC Glucose 197 H 203 H 180 H (70-99) mg/dl Calcium (8.6-10.3) mg/dl 12/01/22 12/01/22 12/01/22 Range/Units 05:50 05:50 07:41 RBC 3.25 L (4.70-6.10) M/uL Hgb 9.6 L (14.0-18.0) g/dl Hct 28.3 L (42.0-52.0) % BUN 49 H (6-23) mg/dl Creatinine 2.51 H D (0.6-1.4) mg/dl Glucose 148 H (70-99(Fasting)) mg/dl POC Glucose 168 H (70-99) mg/dl Calcium 8.3 L (8.6-10.3) mg/dl
[2022-12-01] MEDS: LANTUS PER UNIT CHARGE SQ SCH (20:31)
[2022-12-01] MEDS: FAMOTIDINE 20 MG TAB PO SCH (20:32)
[2022-12-02] MEDS: HEPARIN SOD 5,000 UNIT/0.5 ML VIAL SQ SCH ×3 (06:02→20:48)
[2022-12-02 08:30] LABS: Hematocrit (blood only) 28.8 % (42.0-52.0); Hemoglobin 9.8 g/dl (14.0-18.0); Mean Corpuscular Volume 88.1 fL (80.0-100.0); Mean Platelet Volume 10.3 fL (9.4-12.4); Platelet Count 321 K/uL (130-400); RDW Coefficient of Variation 14.5 % (11.5-14.5); RDW Standard Deviation 46.7 fL (36.4-46.3); Red Blood Count 3.27 M/uL (4.70-6.10); White Blood Count 9.01 K/ul (4.8-10.8)
[2022-12-02] MEDS: INSULIN ASPART PER UNIT CHARGE SC SCH ×4 (08:39→20:46)
[2022-12-02] MEDS: CYANOCOBALAMIN (B-12) 500 MCG TABLET PO SCH (08:40)
[2022-12-02] MEDS: amLODIPine BESYLATE 5 MG TAB PO SCH (08:40)
[2022-12-02 08:41] LABS: BUN Creatinine Ratio 17.8 (10-20); Calcium 8.6 mg/dl (8.6-10.3); Creatinine Clr Calc Pharmacy 27.7 ml/min; Est GFR (Non-African American) 27.6 ml/min; Magnesium 1.5 mg/dl (1.7-2.4); Potassium 3.9 mmol/L (3.5-5.1)
[2022-12-02] MEDS: FLUTICASONE PROPIONATE NA SPR 16 GM BTL SCH (08:41)
[2022-12-02] MEDS: FOLIC ACID 1 MG TAB PO SCH ×2 (08:41→20:49)
[2022-12-02] MEDS: TIMOLOL MALEATE 0.5% OP SOLN 5 ML BTL OPB SCH (08:41)
[2022-12-02] MEDS: ACETAMINOPHEN 325 MG TAB PO PRN ×2 (08:42→17:37)
[2022-12-02] MEDS: DOCUSATE SODIUM/SENNA 50/8.6MG TAB PO SCH ×2 (08:45→20:47)
[2022-12-02] MEDS ORDERED: MAGNESIUM SULFATE / D5W 1 GM/100 ML BAG IV ONE (08:48)
[2022-12-02] MEDS: SODIUM CHLORIDE 0.45 % 1,000 ML IV SCH (09:12)
--- NOTE | 2022-12-02 09:48 | Nephrology Progress Note ---
Date of Service December 02, 2022 Assessment & Plan (1) Acute renal failure: Plan: further improving stage 3 nonoliguric acute kidney injury due to ischemic ATN in setting of recent lumbar laminectomy and poor p.o. intake. Creatinine peaked at 4.5 from a baseline of 1.3. Urine sediment showed numerous muddy brown casts. Patient also has mild CK elevation although this does not explain the creatinine elevation. Electrolytes are stable and no indications for dialysis. 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 - He is now Polyuric - maintained on 1/2 ns saline at 100 mls/hr > will stop this given HTN and let him reequilibrate -Monitor renal function with daily BMP. -Monitor input output strict though no hector needed -may need amlodipine trial -if renal function stable or only slightly worse in AM he can be d/c -agree w/ d/c hector NEPHRO d/c RECS (tentative; no sign off yet) Will need hospital discharge appt w/ nephroolgy 1-2 wks after d/c w/ Dr Kasper or myself; bmp to be ordered 48 hrs before appt by nephro RN No nsaids after d/c hold metformin and hctz and ACEI at d/c trial of amlodipine care coordinated w/ dr talbert . (2) Hyponatremia: Plan: resolved stop IVF avoid thiazides use of which can be reevaluated by nephro after d/c as indicated Admission and Anticipated Discharge Date Admission Date: November 28, 2022 Subjective no pain though still moves stiffly w/ walker adn even in chair. nosob. no n/v; no rash Review of Systems Review of Systems: All systems reviewed & are unremarkable except as noted in Subjective Physical Exam Constitutional: well developed, well nourished and average body habitus; no acute distress Eyes: EOM intact bilaterally ENMT: Ears: no external ear abnormality Nose: no external nose abnormality Mouth: + dry oral mucous membranes Neck: no nuchal rigidity Respiratory: normal respiratory effort Auscultation: + diminished lung sounds and + crackles (bibasilar) Cardiovascular: RRR, no murmur, no edema Gastrointestinal (Abdomen): Inspection/Auscultation: normal bowel sounds Percussion/Palpation: abdomen soft; abdomen nontender Musculoskeletal: Extremities: strength 5/5 throughout Skin: no rashes, warm and dry Neurologic: dean, fluent speech, no tremor Results & Data Vital Signs (Past 12 Hours) Vital Signs Temp Pulse Pulse Resp BP Pulse Ox O2 Del Method 12/02/22 07:10 36.8 C 89 16 167/77 H 95 Room Air 12/02/22 07:14 91 H 12/02/22 03:36 37.1 C 74 18 140/76 95 Room Air 12/02/22 00:00 77 12/01/22 23:05 36.7 C 78 16 178/90 H 97 Room Air Laboratory Results 12/02/22 07:39 12/02/22 07:39
--- NOTE | 2022-12-02 14:03 | Hospitalist Progress Note ---
Date of Service December 02, 2022 Assessment & Plan (1) Acute renal failure: (2) Hyponatremia: (3) Status post spinal surgery: Plan 86 year old male with h/o hypertension, hyperlipidemia, moderate (TTE 2022), PVD, DM2 on oral medications, CRI (baseline creatinine 1.6), chronic anemia (baseline hemoglobin 11), GERD, prostate cancer status post surgery, recent thoracolumbar laminectomy, past tobacco abuse, recent spinal surgery at [place] on 11/25 and discharged on 11/26 presented to the ED 11/27 with inability to void since discharge. CT A/P 1. Significantly suboptimal examination without oral and IV contrast. There is also motion artifact. 2. No acute infectious or inflammatory findings are identified in the abdomen or pelvis. 3. Trace pleural effusions with bibasilar consolidation. This could represent atelectasis versus pneumonia/aspiration pneumonitis. Pneumonia is favored at the right lung base. Clinical correlation will be required. 4. A left inguinal hernia contains a tiny segment of the sigmoid colon. 5. Colonic diverticulosis without CT evidence of acute diverticulitis. 6. Extensive postsurgical change involving the thoracic and lumbar spine as above with infiltration posterior to the thecal sac at these levels. This is likely related to recent surgery. 7. Additional findings as above. Acute kidney injury-suspected ischemic ATN. NAGMA Baseline creatinine 1.3, Cr trend 4.1->4.5->4.38->4.1->3->2.5->2.1. Avoid nephrotoxics Nephrology on board Discussed with Abstract Checker. Recommends stopping IV 0.45% NS today and rechecking BMP in AM Encourage po Will need to follow up with Nephro outpatient Hypertension Home HCTZ, lisinopril on hold Continue amlodipine Hyponatremia-resolved. Hypomagnesemia today. Replete and monitor Rhabdomyolysis CK trended down 3800->1400. DM-2 A1c 7.9 Continue Lantus, sliding scale insulin, adjust as indicated S/p T11-12 and L2-L3 laminectomies for thoracic stenosis with cord compression, lumbar stenosis with neurogenic claudication Surgery done at [facility] on 11/25/22 and discharged on 11/26 Patient to follow up with surgeon outpatient PT/OT eval- home recommended Abnormal CT- as noted above but clinically no S/S of PNA. Denies any aspiration event. Mild leucocytosis on admission likely reactive is resolved No antibiotics. Will monitor. DVT prophylaxis-subcu heparin I spent a total of 45 minutes coordinating, documenting and providing care for this patient excluding time spent in performance of separately billed services Admission and Anticipated Discharge Date Admission Date: November 28, 2022 Subjective Patient seen and examined No new complaints Denied any nausea, vomiting, abd pain, constipation, diarrhea Denied cough, chest pain, SOB Denied fever, chills Physical Exam Constitutional: + well hydrated; no acute distress Eyes: PERRL, conjunctivae normal, anicteric sclerae ENMT: external ear and nose normal, oropharynx normal Respiratory: normal respiratory effort, lungs clear to auscultation Cardiovascular: Rate/Rhythm: regular rate and regular rhythm S1 S2 Gastrointestinal (Abdomen): normal bowel sounds, soft, nontender, no hepatosplenomegaly Musculoskeletal: No pedal edema Neurologic: PERRL, EOMI, accommodation nl, no face palsy, no dysarthria Psychiatric: A+Ox3, euthymic affect Results & Data Results & Data Vital Signs (Past 12 Hours) Vital Signs Temp Pulse Pulse Resp BP BP Pulse Ox 12/02/22 11:32 36.8 C 74 16 158/81 H 94 12/02/22 09:00 12/02/22 07:10 36.8 C 89 16 167/77 H 95 12/02/22 07:14 91 H 12/02/22 03:36 37.1 C 74 18 140/76 95 O2 Del Method 12/02/22 11:32 Room Air 12/02/22 09:00 Room Air 12/02/22 07:10 Room Air 12/02/22 07:14 12/02/22 03:36 Room Air Laboratory Results Abnormal lab results 12/01/22 12/01/22 12/02/22 Range/Units 16:25 20:13 07:39 RBC 3.27 L (4.70-6.10) M/uL Hgb 9.8 L (14.0-18.0) g/dl Hct 28.8 L (42.0-52.0) % RDW Std Deviation 46.7 H (36.4-46.3) fL BUN (6-23) mg/dl Creatinine (0.6-1.4) mg/dl Glucose (70-99(Fasting)) mg/dl POC Glucose 201 H 217 H (70-99) mg/dl Magnesium (1.7-2.4) mg/dl 12/02/22 12/02/22 12/02/22 Range/Units 07:39 07:45 11:47 RBC (4.70-6.10) M/uL Hgb (14.0-18.0) g/dl Hct (42.0-52.0) % RDW Std Deviation (36.4-46.3) fL BUN 38 H (6-23) mg/dl Creatinine 2.13 H D (0.6-1.4) mg/dl Glucose 178 H (70-99(Fasting)) mg/dl POC Glucose 178 H 216 H (70-99) mg/dl Magnesium 1.5 L (1.7-2.4) mg/dl
[2022-12-02] MEDS: LIDOCAINE 5% 1 PATCH TD SCH (19:09)
[2022-12-02] MEDS: LANTUS PER UNIT CHARGE SQ SCH (20:46)
[2022-12-02] MEDS: FAMOTIDINE 20 MG TAB PO SCH (20:49)
[2022-12-03] MEDS: ACETAMINOPHEN 325 MG TAB PO PRN (01:36)
[2022-12-03] MEDS: HEPARIN SOD 5,000 UNIT/0.5 ML VIAL SQ SCH (04:34)
[2022-12-03 07:10] LABS: Hematocrit (blood only) 29.1 % (42.0-52.0); Hemoglobin 9.7 g/dl (14.0-18.0); Mean Corpuscular Hemoglobin 29.6 pg (25.0-34.0); Mean Corpuscular Hgb Conc 33.3 g/dL (32.0-36.0); Mean Corpuscular Volume 88.7 fL (80.0-100.0); Mean Platelet Volume 10.7 fL (9.4-12.4); Platelet Count 325 K/uL (130-400); RDW Coefficient of Variation 13.8 % (11.5-14.5); RDW Standard Deviation 45.1 fL (36.4-46.3); Red Blood Count 3.28 M/uL (4.70-6.10); White Blood Count 8.11 K/ul (4.8-10.8)
[2022-12-03 07:24] LABS: BUN Creatinine Ratio 16.8 (10-20); Calcium 8.5 mg/dl (8.6-10.3); Est GFR (African American) 37.9 ml/min; Est GFR (Non-African American) 32.7 ml/min; Magnesium 1.7 mg/dl (1.7-2.4); Phosphorus 3.4 mg/dl (2.5-4.9); Potassium 3.7 mmol/L (3.5-5.1)
[2022-12-03] MEDS: INSULIN ASPART PER UNIT CHARGE SC SCH ×2 (08:09→12:30)
[2022-12-03] MEDS: TIMOLOL MALEATE 0.5% OP SOLN 5 ML BTL OPB SCH (08:13)
[2022-12-03] MEDS: CYANOCOBALAMIN (B-12) 500 MCG TABLET PO SCH (08:15)
[2022-12-03] MEDS: amLODIPine BESYLATE 5 MG TAB PO SCH (08:15)
[2022-12-03] MEDS: FLUTICASONE PROPIONATE NA SPR 16 GM BTL SCH (08:15)
[2022-12-03] MEDS: FOLIC ACID 1 MG TAB PO SCH (08:15)
[2022-12-03] MEDS: DOCUSATE SODIUM/SENNA 50/8.6MG TAB PO SCH (08:17)
[2022-12-03] MEDS: LIDOCAINE 5% 1 PATCH TD SCH (08:18)
--- NOTE | 2022-12-03 10:32 | Nephrology Progress Note ---
Date of Service December 03, 2022 Assessment & Plan (1) Acute renal failure: Plan: further improving stage 3 nonoliguric acute kidney injury due to ischemic ATN in setting of recent lumbar laminectomy and poor p.o. intake. Creatinine peaked at 4.5 from a baseline of 1.3. Urine sediment showed numerous muddy brown casts. Patient also has mild CK elevation although this does not explain the creatinine elevation. Electrolytes are acceptable. 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 some HTN NEPHRO d/c RECS Will need hospital discharge appt w/ nephrology 1-2 wks after d/c w/ Dr Kasper or myself; bmp to be ordered 48 hrs before appt by nephro RN No nsaids after d/c hold metformin and hctz and ACEI at d/c trial of amlodipine 5 mg daily care coordinated w/ dr talbert . (2) Hyponatremia: Plan: resolved avoid thiazides use of which can be reevaluated by nephro after d/c as indicated (2) Hyponatremia: Plan: as above Admission and Anticipated Discharge Date Admission Date: November 28, 2022 Subjective tolerated hector removal adn voiding w/o issues. no sob; no edema. some L s houlder pain this am > non radiating; started in joint; no palpitations; no diarrhea/n/v/abd pain Review of Systems Review of Systems: All systems reviewed & are unremarkable except as noted in Subjective Physical Exam Constitutional: well developed (lying flat in bed on RA) and well nourished; no acute distress Eyes: EOM intact bilaterally ENMT: Ears: + hearing impairment; no external ear abnormality Nose: no external nose abnormality Mouth: + dry oral mucous membranes Neck: no nuchal rigidity Respiratory: normal respiratory effort Auscultation: + diminished lung sounds Cardiovascular: RRR, no murmur, no edema Gastrointestinal (Abdomen): Inspection/Auscultation: normal bowel sounds Percussion/Palpation: abdomen soft; abdomen nontender Musculoskeletal: Extremities: strength 5/5 throughout Skin: no rashes, warm and dry Neurologic: dean, fluent speech, no tremor Results & Data Vital Signs (Past 12 Hours) Vital Signs Temp Pulse Pulse Resp BP BP Pulse Ox 12/03/22 08:00 36.7 C 73 16 171/70 H 95 07/07/23 07:00 74 12/03/22 02:58 36.6 C 74 18 152/74 H 93 12/03/22 00:00 80 12/02/22 23:17 36.8 C 76 18 147/62 H 93 O2 Del Method 12/03/22 08:00 Room Air 12/03/22 07:00 12/03/22 02:58 Room Air 12/03/22 00:00 12/02/22 23:17 Room Air Laboratory Results 12/03/22 06:04 12/03/22 06:04
[2022-12-03] MEDS ORDERED: amLODIPine BESYLATE 5 MG TAB PO ONE (10:44)
--- NOTE | 2022-12-03 13:37 | Discharge Summary ---
Date of Service December 03, 2022 Admission HPI Per Admitting Provider History obtained from patient and records. Medical history significant for hypertension, hyperlipidemia, moderate (TTE 2022), PVD, DM2 on oral medications, CRI (baseline creatinine 1.6), chronic anemia (baseline hemoglobin 11), GERD, prostate cancer status post surgery, recent thoracolumbar laminectomy, past tobacco abuse. Last confinement August 2022 for COVID-19 illness. Overnight confinement at [facility] under Neurosurgery service 3 days ago for thoracic stenosis with cord compression, lumbar stenosis with neurogenic claudication status post laminectomy. No BM, poor urine output at home the last 2 days. Minimal abdominal discomfort with nausea, bilious emesis. Patient denies headache, chest pain, SOB, cough. Denies OTC NSAID intake. Patient brought to ER for evaluation. 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 Admission Exam Per Admitting Provider GENERAL: Slightly uncomfortable, pleasant, no respiratory distress SKIN: Pallor, warm HEENT: Alopecia, pale palpebral conjunctivae, no ptosis, dry buccal mucosa NECK : Supple, no tenderness CHEST : Decreased breath sounds, no tenderness HEART : RRR, systolic murmur ABDOMEN: Some distention, nontender EXTREMITIES : Minimal LE swelling, no LE tenderness, no other conspicuous deformities noted NEUROLOGIC : Coherent, no facial asymmetry, no other gross focality Principal Diagnosis Acute kidney injury Hyponatremia Discharge Exam Constitutional + well hydrated; no acute distress Eyes PERRL, conjunctivae normal, anicteric sclerae ENMT external ear and nose normal, oropharynx normal Respiratory normal respiratory effort, lungs clear to auscultation Cardiovascular Rate/Rhythm: regular rate and regular rhythm S1 S2 Gastrointestinal (Abdomen) normal bowel sounds, soft, nontender, no hepatosplenomegaly Musculoskeletal No pedal edema Neurologic PERRL, EOMI, accommodation nl, no face palsy, no dysarthria Psychiatric A+Ox3, euthymic affect Discharge Data Allergies Allergy/AdvReac Type Severity Reaction Status Date / Time No Known Allergies Allergy Verified 11/28/22 00:10 Consultations 11/28/22 03:02 ED Decision to Admit Stat 11/28/22 06:14 Consult Nephrology Routine Ordered Studies 11/28/22 02:37 CT abd pelvis wo con Stat Hospital Course (1) Acute renal failure: (2) Hyponatremia: (3) Status post spinal surgery: Plan 86 year old male with h/o hypertension, hyperlipidemia, moderate (TTE 2022), PVD, DM2 on oral medications, CRI (baseline creatinine 1.6), chronic anemia (baseline hemoglobin 11), GERD, prostate cancer status post surgery, recent tho racolumbar laminectomy, past tobacco abuse, recent spinal surgery at [facility] on 11/25 and discharged on 11/26 presented to the ED 11/27 with inability to void since discharge. CT A/P 1. Significantly suboptimal examination without oral and IV contrast. There is also motion artifact. 2. No acute infectious or inflammatory findings are identified in the abdomen or pelvis. 3. Trace pleural effusions with bibasilar consolidation. This could represent atelectasis versus pneumonia/aspiration pneumonitis. Pneumonia is favored at the right lung base. Clinical correlation will be required. 4. A left inguinal hernia contains a tiny segment of the sigmoid colon. 5. Colonic diverticulosis without CT evidence of acute diverticulitis. 6. Extensive postsurgical change involving the thoracic and lumbar spine as above with infiltration posterior to the thecal sac at these levels. This is likely related to recent surgery. 7. Additional findings as above. Acute kidney injury-suspected ischemic ATN. NAGMA resolved Baseline creatinine 1.3, Cr trend 4.1->4.5->4.38->4.1->3->2.5->2.1->1.85. ROSANNA resolving Patient to follow up with Nephro outpatient Hypertension HCTZ, lisinopril stopped for now in view of renal failure Started on amlodipine Patient to follow up with Nephrology outpatient who will recheck labs and may resume meds as needed Hyponatremia-resolved. Hypomagnesemia- Resolved Rhabdomyolysis CK trended down 3800->1400. DM-2 A1c 7.9 Metformin stopped for now in view of ROSANNA Continue glipizide and Januvia S/p T11-12 and L2-L3 laminectomies for thoracic stenosis with cord compression, lumbar stenosis with neurogenic claudication Surgery done at [facility] on 11/25/22 and discharged on 11/26 Patient to follow up with surgeon outpatient PT/OT evaluated and recommended discharge home Abnormal CT- as noted above but clinically no S/S of PNA. Denies any aspiration event. Mild leucocytosis on admission likely reactive is resolved No antibiotics. Updated patient Call to daughter to update her as well were unanswered Total Time Total Time Spent Total Time Spent (In Minutes): 45 Total Time Includes: Examination of the Patient, Discharge Planning, Medication Reconciliation and Communication With Other Providers Discharge Plan Discharge Items Patient Disposition: Home - Home Health Services Reason For Visit: Poor urine output, nausea Discharge Diagnosis: Acute kidney injury Hyponatremia Activity: Resume your previous activity Non-emergency contact: Primary Care Provider and Barrel [facility]er Call non-emergency contact if: you have any medication questions and your symptoms worsen Follow-up/Referrals: Ken Carson MD [Primary Care Provider] - (Date & Time 12/07/2022 2:20 PM Provider Ken Carson MD Department Family Medicine [facility] ) Betty Kasper MD [Physician] - (Date & Time 12/17/2022 1:00 PM Provider Betty Kasper MD Department Nephrology, [facility] ) Diet: Carb Consistent or DM2 and Heart Healthy Addtl Attending Provider Instructions: Mr Diaz You presented to the hospital due to nausea, vomiting and poor urine output. You were evaluated and found to have acute kidney injury. You were managed for this with the Barrel Burner. Your kidney function is improving. Some changes were made to some of your medications due to your kidney function as follows until you follow up with the doctors: STOP TAKING LISINOPRIL, HYDROCHLOROTHIAZIDE AND METFORMIN FOR NOW. START taking amlodipine for now for your blood pressure. Please ensure follow up with the Nephrology and Primary Doctor appointment. Nephrology will arrange blood tests. It was a pleasure taking care of you. Pending Studies at Discharge: No Stand-Alone Forms: My [facility] [employer], Smoking Cessation Medications and DC Order Prescriptions: New amlodipine [Norvasc] 5 mg Tablet 10 mg PO DAILY Qty: 60 0RF Continued atorvastatin [Lipitor] 40 mg Tablet 40 mg PO HS aspirin 81 mg Tablet,Delayed Release (Dr/Ec) 81 mg PO .RESUME IN 2 WEEKS Rx Instructions: resume in 2 weeks from from 11/26/22. timolol 0.5 % Drops 1 drp OPB QAM fluticasone propionate [Flonase Allergy Relief] 50 mcg/actuation [place],Suspension 1 spray INTRANASAL QAM Januvia 50 mg Tablet 50 mg PO QAM tramadol 50 mg tablet 50 mg PO Q6 PRN (Reason: Pain) hydrocortisone acetate 25 mg Suppository 25 mg [place] [facility] PRN (Reason: ..) Rx Instructions: Up to 2 weeks pantoprazole 20 mg Tablet,Delayed Release (Dr/Ec) 20 mg PO QAM guaifenesin [Mucinex] 600 mg Tablet Extended Release 12hr 600 mg PO AMHS Rx Instructions: for 5 days ascorbic acid (vitamin C) [Vitamin C] 1,000 mg Tablet 1 g PO QDL cilostazol 50 mg tablet 50 mg PO .RESUME IN 2 WEEKS Rx Instructions: Resume in 2 weeks from 11/26/22 cyanocobalamin (vitamin B-12) [Vitamin B-12] 1,000 mcg Tablet 1,000 mcg PO DAILY acetaminophen 650 mg Tablet Extended Release 650 mg PO BID MDD 6 TABS/24 HOURS PRN (Reason: Pain) famotidine 20 mg Tablet 20 mg PO HS carboxymethylcellulose sodium 0.5 % Drops 1 drp OPB QID PRN (Reason: Dry Eyes) glipizide 2.5 mg tablet extended release 24hr 2.5 mg PO DAILYBB folic acid 1 mg Tablet 1 mg PO BID cholecalciferol (vitamin D3) [Vitamin D3] 25 mcg (1,000 unit) Capsule 25 mcg PO DAILY glucosamine-chondroitin 1,500-1,200 mg/30 mL Liquid 30 ml PO DAILY Discontinued metformin 500 mg Tablet 500 mg PO BIDM hydrochlorothiazide 25 mg Tablet 25 mg PO QAM lisinopril 10 mg tablet 10 mg PO QAM Discharge Orders: Discharge Order (Routine); Ordered 12/03/22 Ordered By: Vanessa Skinner Admission Data Admit Date/Time: 11/28/22 02:41 Attending Provider: Vanessa Skinner I. Admit Provider: Vance Phan Primary Care Provider: Ken Carson Other Providers: Vance Phan ; Enedelia Dawson ; Maximiliano Rm ; Lily Strickland Japheth E. ; Sole Alexis ; Alice Scott ; Corby Wing Other Interventions: Discharge Summary Assessment (RN) Last Done: 12/03/22 14:07
== END 2022-12-03 16:15 | disposition home health service (06) | DRG 683 ==
LOC: ED 21:58 → SUATTDRO 11-28 02:41 → EDINP 11-28 02:41 → 2S 11-28 05:33 → 2N 11-30 18:22

== ENCOUNTER 2024-08-19 12:27 | Inpatient (IN) ==
--- OUTSIDE RECORDS SUMMARY | 2024-08-19 12:32 | External Medical Summary | Summary of Care ---
Author Name Unknown Organization [facility] Address [address] [place] [address] Phone [phone] Care Team Providers Care Cattle Dealer Name Role Phone Kena Razo PA-C Primary Care Provider [phone] Reason for Visit * Reason Comments eRx-Medication Refill Encounter Details Date Type Department Care Team (Late st Contact Info) Description 07/10/2024 Refill Family Medicine [address] [phone] Ken Carson MD [address] [place] [address] [place] [phone] Type 2 diabetes mellitus with stage 3b chronic kidney disease, without long-term current use of insulin ([facility]); Anemia of chronic disease; Gastroesophageal reflux disease with esophagitis without hemorrhage; Dyslipidemia, goal LDL below 100 Allergies No known active allergiesdocumented as of this encounter (statuses as of 07/11/2024) Medications Prodigy Control Solution High In Vitro Solution Use to calibrate glucometer 1 Each 021 Active Prodigy AutoCode Blood Glucose DeviceIndications: 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 Dx E11.9 1 Each 021 Active Acetaminophen ER 650 MG Oral Tablet Extended Release Pt is taking 650mg tylenol extra strength one pill twice daily if needed for pain. Pt is not to exceed >6 in a 24hr period 021 Active Carboxymethylcellu lose Sodium 0.5 % Ophthalmic Solution Instill 1 Drop into eye 4 times a day as needed for Dry eyes. Active Hydrocortisone Acetate 25 MG Rectal Suppository (Anusol-HC)Indicat ions:Hemorrhoids Administer into the rectum 2 times a day in the morning and at bedtime as needed for Hemorrhoids. Up to 2 weeks. 24 Suppository 1 023 Active Polyethylene Glycol 3350 17 GM Oral Packet (MiraLax) Take 1 Packet by mouth in the morning. 14 Each 1 023 Active Cyanocobalamin 1000 MCG Oral Tablet (Cyanocobalamin)In dications:Type 2 diabetes mellitus with stage 3b chronic kidney disease, without long-term current use of insulin ([facility]),Anemia of chronic disease,Gastroesop hageal reflux disease with esophagitis without hemorrhage,Dyslipi demia, goal LDL below 100 Take 1 Tablet by mouth in the morning. 90 Tablet 1 023 Active Vitamin D 25 MCG (1000 UT) Oral TabletIndications: Type 2 diabetes mellitus with stage 3b chronic kidney disease, without long-term current use of insulin ([facility]),Anemia of chronic disease,Gastroesop hageal reflux disease with esophagitis without hemorrhage,Dyslipi demia, goal LDL below 100 Take 1 tablet every other day 90 Tablet 1 023 Active Vitamin C 500 MG Oral Capsule Take 2 Tablets by mouth in the morning. 023 Active Aspirin 81 MG Oral Tablet ChewableIndication s:Type 2 diabetes mellitus with stage 3b chronic kidney disease, without long-term current use of insulin ([facility]),Anemia of chronic disease,Gastroesop hageal reflux disease with esophagitis without hemorrhage,Dyslipi demia, goal LDL below 100 Take 1 Tablet by mouth in the morning. with food.. 100 Tablet 2 024 Active Prodigy Lancing Device Use as directed to test blood sugars once daily 1 Each 024 Active Fluticasone Propionate 50 MCG/ACT Nasal Suspension (Flonase)Indicatio ns:Non-seasonal allergic rhinitis due to other allergic trigger SPRAY 2 SPRAYS INTO EACH NOSTRIL IN THE MORNING 16 mL 5 024 Active Timolol Maleate 0.5 % Ophthalmic Solution (Timoptic)Indicati ons:HTN, goal below 140/90,Nonrheumati c aortic valve stenosis,Dyslipide nehal, goal LDL below 100,Ascending aorta dilatation (HCC),Fatigue, unspecified type Instill 1 Drop into both eyes in the morning. 024 Active Prodigy No Coding Blood Gluc In Vitro Strip (Glucose Blood)Indications: Type 2 diabetes mellitus with hemoglobin A1c goal of less than 8.0% ([facility]) test blood sugars once daily 100 Strip 3 024 Active Folic Acid 1 MG Oral TabletIndications: Type 2 diabetes mellitus with stage 3b chronic kidney disease, without long-term current use of insulin ([facility]),Anemia of chronic disease,Gastroesop hageal reflux disease with esophagitis without hemorrhage,Dyslipi demia, goal LDL below 100 TAKE 1 TABLET BY MOUTH IN THE MORNING AND BEFORE BEDTIME 180 Tablet 1 024 Active Carvedilol 6.25 MG Oral Tablet (Coreg)Indications :Type 2 diabetes mellitus with stage 3b chronic kidney disease, without long-term current use of insulin ([facility]),Anemia of chronic disease,Gastroesop hageal reflux disease with esophagitis without hemorrhage,Dyslipi demia, goal LDL below 100 TAKE 1 TABLET 2 TIMES A DAY WITH MORNING AND EVENING MEALS. 180 Tablet 1 024 Active Januvia 50 MG Oral TabletIndications: Type 2 diabetes mellitus with stage 3b chronic kidney disease, without long-term current use of insulin ([facility]),Anemia of chronic disease,Gastroesop hageal reflux disease with esophagitis without hemorrhage,Dyslipi demia, goal LDL below 100 Take one daily In the morning. 90 Tablet 1 024 Active Pantoprazole Sodium 40 MG Oral Tablet Delayed Release (Protonix)Indicati ons:Type 2 diabetes mellitus with stage 3b chronic kidney disease, without long-term current use of insulin ([facility]),Anemia of chronic disease,Gastroesop hageal reflux disease with esophagitis without hemorrhage,Dyslipi demia, goal LDL below 100 Take 1 Tablet by mouth in the morning. 90 Tablet 1 025 Active Prodigy Lancets 28G Use to test blood sugars once daily 100 Each 3 025 Active glipiZIDE ER 2.5 MG Oral Tablet Extended Release 24 Hour (Glucotrol XL)Indications:Typ e 2 diabetes mellitus with stage 3b chronic kidney disease, without long-term current use of insulin ([facility]),Anemia of chronic disease,Gastroesop hageal reflux disease with esophagitis without hemorrhage,Dyslipi demia, goal LDL below 100 TAKE 1 TABLET BY MOUTH IN THE MORNING. 30 MINS BEFORE A MEAL ADD TO 5 MG TAB TO EQUAL 7.5 MG DAILY 90 Tablet 025 Active metFORMIN HCl ER 500 MG Oral Tablet Extended Release 24 Hour (Glucophage XR)Indications:Typ e 2 diabetes mellitus with hemoglobin A1c goal of less than 8.0% ([facility]) TAKE 1 TABLET BY MOUTH EVERY DAY IN THE MORNING 90 Tablet 025 Active Famotidine 20 MG Oral Tablet (Pepcid)Indication s:Type 2 diabetes mellitus with stage 3b chronic kidney disease, without long-term current use of insulin ([facility]),Gastroesopha geal reflux disease with esophagitis without hemorrhage Take 1 Tablet by mouth every night at bedtime. 90 Tablet 025 Active Atorvastatin Calcium 40 MG Oral Tablet (Lipitor)Indicatio ns:Type 2 diabetes mellitus with stage 3b chronic kidney disease, without long-term current use of insulin ([facility]),Anemia of chronic disease,Gastroesop hageal reflux disease with esophagitis without hemorrhage,Dyslipi demia, goal LDL below 100 TAKE 1 TABLET BY MOUTH EVERYDAY AT BEDTIME 90 Tablet 025 Active amLODIPine Besylate 10 MG Oral Tablet (Norvasc)Indicatio ns:Type 2 diabetes mellitus with stage 3b chronic kidney disease, without long-term current use of insulin ([facility]),Anemia of chronic disease,Gastroesop hageal reflux disease with esophagitis without hemorrhage,Dyslipi demia, goal LDL below 100 TAKE 1 TABLET BY MOUTH EVERY DAY IN THE MORNING 90 Tablet 025 Active Cilostazol 50 MG Oral Tablet (Pletal) TAKE 1 TABLET BY MOUTH EVERY DAY IN THE MORNING 90 Tablet 025 Active glipiZIDE ER 5 MG Oral Tablet Extended Release 24 Hour (Glucotrol XL)Indications:Typ e 2 diabetes mellitus with stage 3b chronic kidney disease, without long-term current use of insulin ([facility]),Anemia of chronic disease,Gastroesop hageal reflux disease with esophagitis without hemorrhage,Dyslipi demia, goal LDL below 100 TAKE 1 TABLET BY MOUTH IN THE MORNING. 30 MINUTES BEFORE A MEAL.. 90 Tablet 025 Active glipiZIDE ER 5 MG Oral Tablet Extended Release 24 Hour (Glucotrol XL)Indications:Typ e 2 diabetes mellitus with stage 3b chronic kidney disease, without long-term current use of insulin ([facility]),Anemia of chronic disease,Gastroesop hageal reflux disease with esophagitis without hemorrhage,Dyslipi demia, goal LDL below 100 TAKE 1 TABLET BY MOUTH IN THE MORNING. 30 MINUTES BEFORE A MEAL.. 90 Tablet 1 024 2024 Discontinued Atorvastatin Calcium 40 MG Oral Tablet (Lipitor)Indicatio ns:Type 2 diabetes mellitus with stage 3b chronic kidney disease, without long-term current use of insulin ([facility]),Anemia of chronic disease,Gastroesop hageal reflux disease with esophagitis without hemorrhage,Dyslipi demia, goal LDL below 100 TAKE 1 TABLET BY MOUTH EVERYDAY AT BEDTIME 90 Tablet 1 024 2024 Discontinued Cilostazol 50 MG Oral Tablet (Pletal) Take 1 Tablet by mouth in the morning. 90 Tablet 1 024 2024 Discontinued amLODIPine Besylate 10 MG Oral Tablet (Norvasc)Indicatio ns:Type 2 diabetes mellitus with stage 3b chronic kidney disease, without long-term current use of insulin ([facility]),Anemia of chronic disease,Gastroesop hageal reflux disease with esophagitis without hemorrhage,Dyslipi demia, goal LDL below 100 TAKE 1 TABLET BY MOUTH EVERY DAY IN THE MORNING 90 Tablet 1 024 2024 Discontinued documented as of this encounter (statuses as of 07/11/2024) Active Problems Problem Noted Date Diagnosed Date S/P lumbar laminectomy 12/07/2022 Type 2 diabetes mellitus wit h stage 3a chronic kidney disease 10/07/2020 Overview: Per CKD protocol Hyperparathyroidism, secondary renal 09/01/2020 Carpal tunnel syndrome on right 03/19/2020 Urinary incontinence without sensory awareness 0 07/19/2019 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 [facility] AV. Gastroesophageal reflux dise ase with esophagitis without hemorrhage 11/18/2017 Hard of hearing 10/10/2012 Anemia of chronic disease 07/11/2012 Spinal stenosis 11/11/2011 Retinal tear 11/08/2011 Overview (11/09/2011): left eye, [facility] HTN, goal below 140/90 06/25/2009 Overview (06/25/2009): Modified per HTN Taxonomy. DYSLIPIDEMIA, GOAL LDL BELOW 100 05/06/2009 Overview (05/06/2009): Per Lipid Taxonomy. Type 2 diabetes mellitus wit h hemoglobin A1c goal of less than 8.0% 03/27/2009 Overview (09/23/2015): Per Diabetes Taxonomy. ICD-10 update of inactive term LOC PRIM OSTEOART-SHLDER 07/13/2006 Macular degeneration 12/29/2001 DIVERTICULOSIS OF COLON Glaucoma History of prostate cancer Testicular cyst documented as of this encounter (statuses as of 07/11/2024) Resolved Problems Problem Noted Date Diagnosed Date Resolved Date Chronic kidney disease, stage 3a 11/11/2020 09/17/2022 Overview: Per CKD protocol Type 2 diabetes mellitus wit h stage 3 chronic kidney disease and hypertension 05/04/2018 10/10/19 21 Overview: Per CKD protocol Globus sensation 09/06/2016 09/04/2018 KIDNEY DISEASE, CHRONIC, STA GE III (GFR 30-59 ML/MIN) 10/18/2011 05/12/2018 Overview (10/21/2011): Per CKD protocol #1 ACTIVE CASE MANAGEMENT- Callie Sargent RN [phone] 10/06/2009 03/16/2010 HTN, GOAL BELOW 140/90 04/04/200906/25 Overview (06/25/2009): Modified per HTN Taxonomy. ATHEROSCLEROSIS NEC 11/10/2006 03/26/20 15 ADVANCE DIRECTIVE INFORMATION 04/06/2005 04/02/2024 Overview (04/06/2005): Yes, Patient instructed to provide copy of advance directive for provider to review and to be scanned into Electronic Medical Record Thoracic and lumbosacral neuritis 08/26/2004 01/15/2019 Overview (10/06/2004): saw Liz for pain right leg, recieved epidurals (2) HTN, goal below 140/90 04/07/200404/04 Overview (04/04/2009): Modified per HTN Taxonomy. GENERAL OSTEOARTHROSIS 04/07/200411/18 ROTATOR CUFF SYND NOS 10/11/20032017 CHR BLOOD LOSS ANEMIA 2014 PURE HYPERCHOLESTEROLEM 12/2008 Overview (05/06/2009): Per Lipid Taxonomy. Type 2 diabetes mellitus wit h hemoglobin A1c goal of less than 7.0% 03/27/2009 Overview (09/23/2015): Per Diabetes Taxonomy. 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,[id number] body lesion probable heman documented as of this encounter (statuses as of 07/11/2024) Immunizations Name Administration Dates Next Due COVID-19 mRNA, LNP-s, No Pre serve, 2-Dose Series (Moderna) 07/08/2020,06/10/2020 COVID-19, mRNA, LNP-s, PF, B ooster, 100mcg/0.5mg (Moderna) 05/19/2021 Covid-19, Mrna, Lnp-s, Pf, B ivalent, 25 Mcg, IM,6-11 yrs (Moderna) 04/30/2021 Covid-19, Mrna, Lnp-s, Pf, B ivalent, 30 Mcg, IM, 12 yrs and above (Pfizer) 03/23/2022 Influenza, Whole Virus 03/10/1999 Pneumococcal Conjugate Vacc, 13 Valent (Prevnar) 09/26/2015 Pneumococcal Polysaccharide PPV23 (Pneumovax) 11/23/2007 Season Influenza, Quad, PF, Adjuvanted, 65+ Yrs, IM (FLUAD) 02/18/2020 Seasonal Influenza Vac., MDV , IM, 0.5 mL (Fluzone) 02/26/2014,02/20/2013,02/18/2012,04/06,06/10/2010,02/13/2009,03/28/2008 ,03/15/2007,04/16/2006 Seasonal Influenza, High Dos e, Trivalent, PF, IM (Fluzone HD) 03/08/2024,03/31/2018 Seasonal Influenza, PF, 6 M & above, IM , (FluLaval or Fluzone) 03/13/2019,06/28/2017 Seasonal Influenza, Quadriva lent Hd (Fluzone Hd) 04/26/2023,03/08/2022,03/03/2021 Seasonal Influenza, Quadriva lent, No Preserve, IM 03/31/2018,03/23/2016,03/26/2015 TDAP, Age 7 and older, IM (Adacel) 08/16/2011 Varicella Zoster Vaccine (Adult) 12/12/2011 documented as of this encounter Social History Tobacco Use Types Packs/Day Years Used Date Smoking Tobacco: Former Cigarettes 1 8 0 05/30/1954 - 05/30/1962 Smokeless Tobacco: Former Snuff Quit: 2019 Comments:62 years at 10/07 c hewing Alcohol Use Standard Drinks/Week Comments No 0 (1 standard drink = 0.6 oz pur e alcohol) PHQ-2 Answer Date Recorded PHQ Adult Total Score 0 05/29/2024 Hunger Vital Sign Answer Date Recorded Within the past 12 months, y ou worried that your food would run out before you got the money to buy more. Never true 05/29/20 24 Within the past 12 months, t he food you bought just didn't last and you didn't have money to get more. Never true 05/29/2024 Childcare Answer Date Recorded Do you feel overwhelmed with taking care of a child, family member or friend? No 05/29/2024 Does your family need help f inding childcare? (Household - for ages 0-17 years) Not on file 05/29/2024 Clothing Answer Date Recorded Have you been unable to get clothing when it was really needed? No 05/29/2024 Is your family able to get c lothes or diapers when needed? (Household - for ages 0-17 years) Not on file 05/29/2024 Personal Safety Answer Date Recorded Do you feel unsafe or have concerns for your saf ety? No 05/29/2024 Do you have concerns for you r family's safety? (Household - for ages 0-17 years) Not on file 05/29/2024 Utilities Answer Date Recorded Do you have trouble paying y our heating, water, or electric bill? No 05/29/2024 Is your family able to pay t he heat, water, or electric bill? (Household - for ages 0-17 years) Not on file 05/29/2024 Does your family have access to good internet? (Household - for ages 0-17 years) Not on file 05/29/2024 Employment Status Answer Date Recorded Are you unemployed or without regular income? No 05/29/2024 [facility] the [facility] have a [facility]? (Household - for ages 0-17 years) Not on file 05/29/2024 Social Connections Answer Date Recorded How often do you feel lonely or isolated from those around you? Sometimes 05/29/2024 Financial Resource Strain Answer Date R ecorded Do you have any trouble payi ng for your medications, or do you think you might in the future? No 05/29/2024 Does your family have troubl e paying for medicine? (Household - for ages 0-17 years) Not on file 05/29/2024 Transportation Needs Answer Date Record ed Do you have trouble getting a ride to medical visits or work? (Adult - for ages 18 years and over) Not on file 05/29/2024 Does your family have a hard time getting a ride to doctors visits? (Household - for ages 0-17 years) Not on file 05/29/2024 Has lack of transportation k ept you from medical appointments, meetings, work, or from getting things needed for daily living? Check all that apply. No 05/29/2024 Do you (or your family) have trouble finding or paying for a ride (transportation)? (Household - for ages 0-17 years) Not on file 05/29/2024 Housing Stability Answer Date Recorded Do you currently live in a s helter or have no steady place to sleep at night? No 05/29/2024 Do you think you are at risk of becoming homeless? (Adult - for ages 18 years and over) Not on file 05/29/2024 Does your family worry about paying for your home or becoming homeless? (Household - for ages 0-17 years) Not on file 1 Are you homeless or worried that you might be in the future? No 05/29/2024 Are you (or your family) viktoria eless or worried that you might be in the future? (Household - for ages 0-17 years) Not on file Food Insecurity Answer Date Recorded Do you need food for this week? No 05/29/2024 Are you able to get enough f ood for your family? (Household - for ages 0-17 years) Not on file 05/29/2024 Does your family need food t his week? (Household - for ages 0-17 years) Not on file 05/29/2024 Do you always have enough fo od for your family? (Household - for ages 0-17 years) Not on file 05/29/2024 Food Insecurity Answer Date Recorded Within the past 12 months, y ou worried that your food would run out before you got the money to buy more. Never true 05/29/20 24 Within the past 12 months, t he food you bought just didn't last and you didn't have money to get more. Never true 05/29/2024 Do you need food for this week? No 05/29/2024 Sex and Gender Information Value Date Recorded Sex Assigned at Male 01/17/2019 10:34 AM EDT Legal Sex Male 5:27 AM EST Gender Identity Male 01/17/2019 10:34 AM EDT Sexual Orientation Straight 05/19/2022 11 :42 AM EST documented as of this encounter Functional Status * Are you deaf or do you have serious difficulty hearing? Answer Date of Assessment Author No 11/26/2022 9:29 AM Ra claudia Rivera RN * Are you blind or do you have serious difficulty seeing, even when wearing glasses? Answer Date of Assessment Author No 11/26/2022 9:29 AM Ra claudia Rivera RN * Do you have serious difficulty walking or climbing stairs? (5 years old or older) Answer Date of Assessment Author No 11/26/2022 9:29 AM Ra claudia Rivera RN * Do you have difficulty dressing or bathing? (5 years old or older) Answer Date of Assessment Author No 11/26/2022 9:29 AM Ra claudia Rivera RN * Because of a physical, mental, or emotional condition, do you have difficulty doing errands alone such as visiting a doctors office or shopping? (15 years old or older) Answer Date of Assessment Author No 11/26/2022 9:29 AM Ra claudia Rivera RN documented as of this encounter Mental Status * Because of a physical, mental, or emotional condition, do you have serious difficulty concentrating, remembering, or making decisions? (5 years old or older) Answer Entry Date Author No 11/26/2022 9:29 AM Ra claudia Rivera RN documented in this encounter Miscellaneous Notes * Telephone Encounter - Tressa Tony RPh - 07/11/2024 11:26 AM EST RX authorized. Zero refills given until upcoming appt. 07/19/2024 Tressa Acosta PharmD Clinical Pharmacist [facility] ([facility] [phone] 07/11/2024,11:26 AM * Telephone Encounter - Tressa Tony RPh - 07/11/2024 11:26 AM EST Signed Prescriptions: Disp Refills Atorvastatin Calcium 40 MG Oral Tablet (Li*90 Tab*1 Sig: TAKE 1 TABLET BY MOUTH EVERYDAY AT BEDTIME Authorizing Provider: KEN CARSON Ordering User: TRESSA TONY amLODIPine Besylate 10 MG Oral Tablet (Nor*90 Tab*1 Sig: TAKE 1 TABLET BY MOUTH EVERY DAY IN THE MORNING Authorizing Provider: KEN CARSON Ord ering User: TRESSA TONY Cilostazol 50 MG Oral Tablet (Pletal) 90 Tab*0 Sig: TAKE 1 TABLET BY MOUTH EVERY DAY IN THE MORNING Authorizing Provider: KEN CARSON Ordering User: TRESSA TONY glipiZIDE ER 5 MG Oral Tablet Extended Rel*90 Tab*0 Sig: TAKE 1 TABLET BY MOUTH IN THE MORNING. 30 MINUTES BEFORE A MEAL.. Authorizing Provider: KEN CARSON Ordering User: TRESSA TONY documented in this encounter Plan of Treatment Upcoming Encounters Date Type Department Care Team (Late st Contact Info) Description 07/19/2024 3:00 PM EST Office Visit Family Medicine [address] [place] [phone] Kena Razo PA-C [address] [place] [address] [place] [id number] 08/02/2024 11:30 AM EST Office Visit Pharmacy, [address] [place] [phone] [place] [id number] 08/06/2024 2:00 PM EDT Cardiac Studies Cardiac Studies, [facility] [address] [place] [address] 09/07/2024 1:30 PM EDT Office Visit Cardiology, [facility] [address] [place] [address] [place], [address] [place] [address] 09/07/2024 3:00 PM EDT Office Visit Nephrology, [facility] [address] [place] [address] Betty Kasper MD [address] [place] [address] 10/30/2024 1:30 PM EDT Office Visit Ophthalmology, [facility] [address] [place] [address] [place] Yousif, [address] [place] [address] 02/11/2025 1:20 PM EDT Office Visit Family Medicine [address] [place] [phone] Ken Carson MD [address] [place] [address] [place] [phone] 05/31/2025 12:30 PM EST Nurse Only Ancillary [address] [place] [address] [place], Nurse Annual [address] [place] [id number] Health Maintenance Due Date Last Done Comments Zoster Vaccines (2 of 3) 02/06/2012 12/12/2011 DTap/Tdap Vaccines (2 - Td or Tdap) 08/15/2021 08/16/2011, 01/17/2002 COVID-19 Vaccine ( season) 2024 06/20/2023, 03/23/2022, 05/19/2021, Additional history exists Diabetic Eye Exam 07/11/2024 07/11/2023, , 09/01/2021, Additional history exists HbA1c 11/05/2024 05/07/2024, 12/29, 12/27/2023, Additional history exists Albumin/Creatinine Ratio 01/25/2025 024, 01/28/2023, 04/14/2022, Additional history exists CKD HGB USE SMARTSET 91248 01/25/202501/25, 01/26/2024, 10/05/2023, Additional history exists CKD PHOS USE SMARTSET 46829 01/25/202512/29, 09/09/2023, 04/14/2022, Additional history exists Adult Wellness Visit 05/29/2025 05/29/2024, 05/25/2023, 05/19/2022, Additional history exists Depression Screening 05/29/2025 05/29/2024 Diabetic Foot Exam 05/29/2025 05/29/2024, 1 , 07/19/2019, Additional history exists Pneumococcal Vaccine: 50+ Years Completed 09/26/2015, 11/23/2007 Influenza Vaccine (FLU shot) Completed 02/2024, 04/26/2023, 03/08/2022, Additional history exists HPV (Gardasil) Vaccine Aged Out No lo nger eligible based on patient's age to complete this topic Hepatitis B Vaccine Aged Out No longe r eligible based on patient's age to complete this topic MENINGOCOCCAL (MENACTRA/MENVEO) Aged Out No longer eligible based on patient's age to complete this topic documented as of this encounter Medical Devices Not on filedocumented as of this encounter Visit Diagnoses Diagnosis Type 2 diabetes mellitus with stage 3b chronic kidney disease, without long-term current use of insulin (HCC) Anemia of chronic disease Anemia of other chronic disease Gastroesophageal reflux disease with esophagitis without hemorrhage Dyslipidemia, goal LDL below 100 Other and unspecified hyperlipidemia documented in this encounter Advance Directives * Full Code (Latest Code Status on File) Date Activated Date Inactivated Comments 11/25/2022 11:10 AM 11/26/2022 7:21 PM This order reflects the patients wishes and were consensually agreed upon. Question Answer Comments Discussion of Advance Direct renato occurred with: Not Discussed due to patient's condition * Full Code Date Activated Date Inactivated Comments 11/25/2022 7:10 AM 11/25/2022 11:09 AM This order reflects the patients wishes and were consensually agreed upon. Question Answer Comments Discussion of Advance Direct renato occurred with: Not Discussed due to patient's condition Care Teams Cattle Dealer Relationship Specialty Start Date End Date Kena Razo PA-C [address] [place] [address] [place] [phone] PCP - General Physician Temporary Office Assistant 06/05/24 documented as of this encounter
--- OUTSIDE RECORDS SUMMARY | 2024-08-19 12:32 | External Medical Summary | Summary of Care ---
Author Name Unknown Organization [facility] Address [address] [place] [address] Phone [phone] Care Team Providers Care Deputy Coroner Name Role Phone Kena Razo PA-C Primary Care Provider [phone]- [phone] Reason for Visit * Reason Comments eRx-Medication Refill Encounter Details Date Type Department Care Team (Late st Contact Info) Description 06/24/2024 Refill Family Medicine [address] [phone] Ken Carson MD [address] [place] [address] [place] [address] Type 2 diabetes mellitus with stage 3b chronic kidney disease, without long-term current use of insulin ([facility]); Gastroesophageal reflux disease with esophagitis without hemorrhage Allergies No known active allergiesdocumented as of this encounter (statuses as of 06/25/2024) Medications Prodigy Control Solution High In Vitro Solution Use to calibrate glucometer 1 Each 021 Active Prodigy AutoCode Blood Glucose DeviceIndications: 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 Dx E11.9 1 Each 021 [...] disease, without long-term current use of insulin ([facility]),Anemia of chronic disease,Gastroesop hageal reflux disease with esophagitis without hemorrhage,Dyslipi demia, goal LDL below 100 Take 1 Tablet by mouth in the morning. 90 Tablet 1 023 Active Vitamin D 25 MCG (1000 UT) Oral TabletIndications: Type 2 diabetes mellitus with stage 3b chronic kidney disease, without long-term current use of insulin ([facility]),Anemia of chronic disease,Gastroesop hageal reflux disease with [...] disease, without long-term current use of insulin ([facility]),Anemia of chronic disease,Gastroesop hageal reflux disease with [...] both eyes in the morning. 024 Active glipiZIDE ER 5 MG Oral Tablet Extended Release 24 Hour (Glucotrol XL)Indications:Typ e 2 diabetes mellitus with stage 3b chronic kidney disease, without long-term current use of insulin ([facility]),Anemia of chronic disease,Gastroesop hageal reflux disease with esophagitis without hemorrhage,Dyslipi demia, goal LDL below 100 TAKE 1 TABLET BY MOUTH IN THE MORNING. 30 MINUTES BEFORE A MEAL.. 90 Tablet 1 024 Active Atorvastatin Calcium 40 MG Oral Tablet (Lipitor)Indicatio ns:Type 2 diabetes mellitus with stage 3b chronic kidney disease, without long-term current use of insulin ([facility]),Anemia of chronic disease,Gastroesop hageal reflux disease with esophagitis without hemorrhage,Dyslipi demia, goal LDL below 100 TAKE 1 TABLET BY MOUTH EVERYDAY AT BEDTIME 90 Tablet 1 024 Active Prodigy No Coding Blood Gluc In Vitro Strip (Glucose Blood)Indications: Type 2 diabetes mellitus with hemoglobin A1c goal of less than 8.0% ([facility]) test blood sugars once daily 100 Strip 3 024 Active Cilostazol 50 MG Oral Tablet (Pletal) Take 1 Tablet by mouth in the morning. 90 Tablet 1 024 Active Folic Acid 1 MG Oral TabletIndications: Type 2 diabetes mellitus with stage 3b chronic kidney disease, without long-term current use of insulin ([facility]),Anemia of chronic disease,Gastroesop hageal reflux disease with esophagitis without hemorrhage,Dyslipi demia, goal LDL below 100 TAKE 1 TABLET BY MOUTH IN THE MORNING AND BEFORE BEDTIME 180 Tablet 1 024 Active amLODIPine Besylate 10 MG Oral Tablet (Norvasc)Indicatio ns:Type 2 diabetes mellitus with stage 3b chronic kidney disease, without long-term current use of insulin ([facility]),Anemia of chronic disease,Gastroesop hageal reflux disease with esophagitis without hemorrhage,Dyslipi demia, goal LDL below 100 TAKE 1 TABLET BY MOUTH EVERY DAY IN THE MORNING 90 Tablet 1 024 Active Carvedilol 6.25 MG Oral Tablet (Coreg)Indications :Type 2 diabetes mellitus with stage 3b chronic kidney disease, without long-term current use of insulin ([facility]),Anemia of chronic disease,Gastroesop hageal reflux disease with esophagitis without hemorrhage,Dyslipi demia, goal LDL below 100 TAKE 1 TABLET 2 TIMES A DAY WITH MORNING AND EVENING MEALS. 180 Tablet 1 024 Active Januvia 50 MG Oral TabletIndications: Type 2 diabetes mellitus with stage 3b chronic kidney disease, without long-term current use of insulin ([facility]),Anemia of chronic disease,Gastroesop hageal reflux disease with esophagitis without hemorrhage,Dyslipi demia, goal LDL below 100 Take one daily In the morning. 90 Tablet 1 024 Active Pantoprazole Sodium 40 MG Oral Tablet Delayed Release (Protonix)Indicati ons:Type 2 diabetes mellitus with stage 3b chronic kidney disease, without long-term current use of insulin ([facility]),Anemia of chronic disease,Gastroesop hageal reflux disease with esophagitis without hemorrhage,Dyslipi demia, goal LDL below 100 Take 1 Tablet by mouth in the morning. 90 Tablet 1 025 Active Prodigy Lancets 28G Use to test blood sugars once daily 100 Each 3 025 Active metFORMIN HCl ER 500 MG Oral Tablet Extended Release 24 Hour (Glucophage XR)Indications:Typ e 2 diabetes mellitus with hemoglobin A1c goal of less than 8.0% ([facility]) Take 1 Tablet by mouth in the morning. 90 Tablet 3 024 2024 Discontinued Famotidine 20 MG Oral Tablet (Pepcid)Indication s:Type 2 diabetes mellitus with stage 3b chronic kidney disease, without long-term current use of insulin ([facility]),Gastroesopha geal reflux disease with esophagitis without hemorrhage Take 1 Tablet by mouth every night at bedtime. 90 Tablet 1 024 2024 Discontinued( Refill) glipiZIDE ER 2.5 MG Oral Tablet Extended Release 24 Hour (glipiZIDE XL)Indications:Typ e 2 diabetes mellitus with stage 3b chronic kidney disease, without long-term current use of insulin ([facility]),Anemia of chronic disease,Gastroesop hageal reflux disease with esophagitis without hemorrhage,Dyslipi demia, goal LDL below 100 Take 1 Tablet by mouth in the morning. 30 minutes before a meal. Add to 5 mg tablet to equal 7.5 mg daily.. 90 Tablet 1 024 2024 Discontinued documented as of this encounter (statuses as of 06/25/2024) Active Problems Problem Noted Date Diagnosed Date [...] as of this encounter (statuses as of 06/25/2024) Resolved Problems Problem Noted Date Diagnosed Date Resolved Date Chronic kidney disease, stage 3a 11/11/2020 09/17/2022 Overview: Per CKD protocol Type 2 diabetes mellitus wit h stage 3 chronic kidney disease and hypertension 05/04/2018 10/10/19 Overview: Per CKD protocol Globus sensation 09/06/2016 09/04/2018 KIDNEY DISEASE, CHRONIC, STA GE III (GFR 30-59 ML/MIN) 10/18/2011 05/12/2018 Overview (10/21/2011): Per CKD protocol #1 ACTIVE CASE MANAGEMENT- Callie Sargent RN [phone] 10/06/2009 03/16/2010 HTN, GOAL BELOW 140/90 04/04/200906/25 [...] CHR BLOOD LOSS ANEMIA 2014 PURE HYPERCHOLESTEROLEM 12/0 12/2008 Overview (05/06/2009): Per Lipid Taxonomy. Type 2 diabetes mellitus wit h hemoglobin A1c goal of less than 7.0% 03/27/2009 Overview (09/23/2015): Per Diabetes Taxonomy. 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,[id number] body lesion probable heman documented as of this encounter (statuses as of 06/25/2024) Immunizations Name Administration Dates Next Due COVID-19 [...] No 05/29/2024 Does the household have a re gular source of income? (Household - for ages [...] ages 0-17 years) Not on file 05/29/2024 Sex and Gender Information Value Date [...] encounter Miscellaneous Notes * Telephone Encounter - Chetna High RPh - 06/25/2024 11:33 AM EST Refused Prescriptions: Disp Refills Famotidine 20 MG Oral Tablet (Pepcid) 90 Tab*1 Sig: TAKE 1 TABLET BY MOUTH EVERYDAY AT BEDTIMERefused By: CHETNA HIGH for Refusal: Duplicate Request- documented in this encounter Plan of Treatment Upcoming Encounters Date Type Department Care Team (Late st Contact Info) Description 07/19/2024 3:00 PM EST Office Visit Family Medicine [address] [place] [phone] Kena Razo PA-C [address] [place] [address] [place] [id number] 08/02/2024 11:30 AM EST Office Visit Pharmacy, [address] [place] [address] [place] [address] 08/06/2024 2:00 PM EDT Cardiac Studies Cardiac Studies, [facility] [address] [place] [address] 09/07/2024 1:30 PM EDT Office Visit Cardiology, [facility] [address] [place] [address] Chong Woods, DO [address] [place] [address] 09/07/2024 3:00 PM EDT Office Visit Nephrology, [address] [place] [address] Betty Kasper MD [address] [place] [address] [place] [address] 10/30/2024 1:30 PM EDT Office Visit Ophthalmology, [facility] [address] [place] [address] Kirby Yousif, DO [address] [place] [address] 02/11/2025 1:20 PM EDT Office Visit Family Medicine [address] [place] [phone] Ken Carson MD [address] [place] [address] [place] [address] 05/31/2025 12:30 PM EST Nurse Only Ancillary [address] [place] [address] Gamal, Nurse Annual Wellness [address] [place] [address] [place] [address] Health Maintenance Due Date Last Done Comments Zoster Vaccines (2 of 3) 02/06/2012 12/12/2011 DTap/Tdap Vaccines (2 - Td or Tdap) 08/15/2021 08/16/2011, 01/17/2002 COVID-19 Vaccine (6 - season) 2024 06/20/2023, 03/23/2022, 05/19/2021, Additional history exists Diabetic Eye Exam 07/11/2024 07/11/2023, , 09/01/2021, Additional history exists HbA1c 11/05/2024 05/07/2024, 12/29, 12/27/2023, Additional history exists Albumin/Creatinine Ratio 01/25/2025 024, 01/28/2023, 04/14/2022, Additional history exists CKD HGB USE SMARTSET 81049 01/25/202501/25, 01/26/2024, 10/05/2023, Additional history exists CKD PHOS USE SMARTSET 86052 01/25/202512/29, 09/09/2023, 04/14/2022, Additional history exists Adult [...] without long-term current use of insulin (HCC) Gastroesophageal reflux disease with esophagitis without hemorrhage documented in this encounter Advance Directives * [...] Discussed due to patient's condition Care Teams Deputy Coroner Relationship Specialty Start Date End Date Kena Razo PA-C [address] [place] [address] [place] [id number] PCP - General Physician Sink Maker 06/05/24 documented as of this encounter
--- OUTSIDE RECORDS SUMMARY | 2024-08-19 12:32 | External Medical Summary | Summary of Care ---
Author Name Unknown Organization [facility] Address [address] [place] [address] Phone [phone] Care Team Providers Care Stereotyper Apprentice Name Role Phone Kena Razo PA-C Primary Care Provider [phone]- [phone] Reason for Visit * Reason Onset Date Comments Information 06/13/2024 Re Dementia supp ort group [facility]. Encounter Details Date Type Department Care Team (Late st Contact Info) Description 06/13/[address] [phone] Kena Razo PA-C [address] [place] [address] [place] [address] Information (Re Dementia support group [facility]... Allergies No known active allergiesdocumented as of this encounter (statuses as of 06/13/2024) Medications Prodigy Control Solution High In Vitro Solution Use to calibrate glucometer 1 Each 10/30/19 21 Active Prodigy AutoCode Blood Glucose DeviceIndications:T ype 2 diabetes mellitus with stage 3a chronic kidney disease and hypertension ([facility]CC),Type 2 diabetes mellitus with hemoglobin A1c goal of less than 8.0% (HCC) Use daily. Dx E11.9 1 Each 12/17/19 21 Active Acetaminophen ER 650 MG Oral Tablet Extended Release Pt is taking 650mg tylenol extra strength one pill twice daily if needed for pain. Pt is not to exceed >6 in a 24hr period 05/20/20 21 Active Carboxymethylcellul ose Sodium 0.5 % Ophthalmic Solution Instill 1 Drop into eye 4 times a day as needed for Dry eyes. Active Hydrocortisone Acetate 25 MG Rectal Suppository (Anusol-HC)Indicati ons:Hemorrhoids Administer into the rectum 2 times a day in the morning and at bedtime as needed for Hemorrhoids. Up to 2 weeks. 24 Suppository 1 10/16/19 23 Active Polyethylene Glycol 3350 17 GM Oral Packet (MiraLax) Take 1 Packet by mouth in the morning. 14 Each 1 12/18/19 23 Active Cyanocobalamin 1000 MCG Oral Tablet (Cyanocobalamin)Ind ications:Type 2 diabetes mellitus with stage 3b chronic kidney disease, without long-term current use of insulin ([facility]),Anemia of chronic disease,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 90 Tablet 1 03/22/20 23 Active Vitamin D 25 MCG (1000 UT) Oral TabletIndications:T ype 2 diabetes mellitus with stage 3b chronic kidney disease, without long-term current use of insulin ([facility]),Anemia of chronic disease,Gastroesoph ageal reflux disease with esophagitis without hemorrhage,Dyslipid emia, goal LDL below 100 Take 1 tablet every other day 90 Tablet 1 03/22/20 23 Active metFORMIN HCl ER 500 MG Oral Tablet Extended Release 24 Hour (Glucophage XR)Indications:Type 2 diabetes mellitus with hemoglobin A1c goal of less than 8.0% ([facility]) Take 1 Tablet by mouth in the morning. 90 Tablet 3 06/20/19 24 Active Vitamin C 500 MG Oral Capsule Take 2 Tablets by mouth in the morning. 06/30/19 23 Active Aspirin 81 MG Oral Tablet ChewableIndications :Type 2 diabetes mellitus with stage 3b chronic kidney disease, without long-term current use of insulin ([facility]),Anemia of chronic disease,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 with food.. 100 Tablet 2 07/09/19 24 Active Famotidine 20 MG Oral Tablet (Pepcid)Indications :Type 2 diabetes mellitus with stage 3b chronic kidney disease, without long-term current use of insulin ([facility]),Gastroesophag eal reflux disease with esophagitis without hemorrhage Take 1 Tablet by mouth every night at bedtime. 90 Tablet 1 09/13/19 24 Active Prodigy Lancing Device Use as directed to test blood sugars once daily 1 Each 09/20/19 24 Active Fluticasone Propionate 50 MCG/ACT Nasal Suspension (Flonase)Indication s:Non-seasonal allergic rhinitis due to other allergic trigger SPRAY 2 SPRAYS INTO EACH NOSTRIL IN THE MORNING 16 mL 5 09/26/19 24 Active Timolol Maleate 0.5 % Ophthalmic Solution (Timoptic)Indicatio ns:HTN, goal below 140/90,Nonrheumatic aortic valve stenosis,Dyslipidem ia, goal LDL below 100,Ascending aorta dilatation (HCC),Fatigue, unspecified type Instill 1 Drop into both eyes in the morning. 08/26/19 24 Active glipiZIDE ER 5 MG Oral Tablet Extended Release 24 Hour (Glucotrol XL)Indications:Type 2 diabetes mellitus with stage 3b chronic kidney disease, without long-term current use of insulin ([facility]),Anemia of chronic disease,Gastroesoph ageal reflux disease with esophagitis without hemorrhage,Dyslipid emia, goal LDL below 100 TAKE 1 TABLET BY MOUTH IN THE MORNING. 30 MINUTES BEFORE A MEAL.. 90 Tablet 1 01/25/20 24 Active Atorvastatin Calcium 40 MG Oral Tablet (Lipitor)Indication s:Type 2 diabetes mellitus with stage 3b chronic kidney disease, without long-term current use of insulin ([facility]),Anemia of chronic disease,Gastroesoph ageal reflux disease with esophagitis without hemorrhage,Dyslipid emia, goal LDL below 100 TAKE 1 TABLET BY MOUTH EVERYDAY AT BEDTIME 90 Tablet 1 02/28/20 24 Active Prodigy No Coding Blood Gluc In Vitro Strip (Glucose Blood)Indications:T ype 2 diabetes mellitus with hemoglobin A1c goal of less than 8.0% ([facility]) test blood sugars once daily 100 Strip 3 03/05/20 24 Active Cilostazol 50 MG Oral Tablet (Pletal) Take 1 Tablet by mouth in the morning. 90 Tablet 1 03/19/20 24 Active Folic Acid 1 MG Oral TabletIndications:T ype 2 diabetes mellitus with stage 3b chronic kidney disease, without long-term current use of insulin ([facility]),Anemia of chronic disease,Gastroesoph ageal reflux disease with esophagitis without hemorrhage,Dyslipid emia, goal LDL below 100 TAKE 1 TABLET BY MOUTH IN THE MORNING AND BEFORE BEDTIME 180 Tablet 1 03/28/20 24 Active amLODIPine Besylate 10 MG Oral Tablet (Norvasc)Indication s:Type 2 diabetes mellitus with stage 3b chronic kidney disease, without long-term current use of insulin (HCC),Anemia of chronic disease,Gastroesoph ageal reflux disease with esophagitis without hemorrhage,Dyslipid emia, goal LDL below 100 TAKE 1 TABLET BY MOUTH EVERY DAY IN THE MORNING 90 Tablet 1 04/10/20 24 Active Carvedilol 6.25 MG Oral Tablet (Coreg)Indications: Type 2 diabetes mellitus with stage 3b chronic kidney disease, without long-term current use of insulin ([facility]CC),Anemia of chronic disease,Gastroesoph ageal reflux disease with esophagitis without hemorrhage,Dyslipid emia, goal LDL below 100 TAKE 1 TABLET 2 TIMES A DAY WITH MORNING AND EVENING MEALS. 180 Tablet 1 04/10/20 24 Active glipiZIDE ER 2.5 MG Oral Tablet Extended Release 24 Hour (glipiZIDE XL)Indications:Type 2 diabetes mellitus with stage 3b chronic kidney disease, without long-term current use of insulin ([facility]),Anemia of chronic disease,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 30 minutes before a meal. Add to 5 mg tablet to equal 7.5 mg daily.. 90 Tablet 1 04/12/20 24 Active Januvia 50 MG Oral TabletIndications:T ype 2 diabetes mellitus with stage 3b chronic kidney disease, without long-term current use of insulin ([facility]),Anemia of chronic disease,Gastroesoph ageal reflux disease with esophagitis without hemorrhage,Dyslipid emia, goal LDL below 100 Take one daily In the morning. 90 Tablet 1 05/07/20 24 Active Pantoprazole Sodium 40 MG Oral Tablet Delayed Release (Protonix)Indicatio ns:Type 2 diabetes mellitus with stage 3b chronic kidney disease, without long-term current use of insulin ([facility]),Anemia of chronic disease,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 90 Tablet 1 06/04/19 25 Active Prodigy Lancets 28G Use to test blood sugars once daily 100 Each 3 06/07/19 25 Active documented as of this encounter (statuses as of 06/13/2024) Active Problems Problem Noted Date Diagnosed Date [...] as of this encounter (statuses as of 06/13/2024) Resolved Problems Problem Noted Date Diagnosed Date [...] #1 ACTIVE CASE MANAGEMENT- Callie Sargent RN [phone] 10/06/2009 03/16/2010 HTN, GOAL BELOW 140/90 04/04/200906/25 [...] 11/18/2017 Overview (11/02/1999): l5-s1 disc extrusion,severe stenosis l4-5,[id number] body lesion probable heman documented as of this encounter (statuses as of 06/13/2024) Immunizations Name Administration Dates Next Due COVID-19 [...] Date Author No 11/26/2022 9:29 AM Ra clauida Rivera RN documented in this encounter Miscellaneous Notes * Telephone Encounter - Shaila Beck RN - 06/13/2024 11:48 AM EST Shaan called with more information on the other Dementia support group at [facility] Tuesday of the month at 4pm, I called [phone] and Zach Allen is out of the office on leave but they will resume class in Jun. Reason for Call: Information (Re Dementia support group [facility].) Contact: Telephone Call Contact Type: Information Provider In-Basket: Yes Outcome: see note Face to face time spent with Patient (minutes): 0 Total Time including non face to face (minutes): 20 documented in this encounter Plan of Treatment Upcoming Encounters Date Type Department Care Team (Late st Contact Info) Description 07/19/2024 3:00 PM EST Office Visit Family Medicine [address] [place] [phone] Kena Razo PA-C [address] [place] [address] [place] [address] 08/02/2024 11:30 AM EST Office Visit Pharmacy, [address] [place] [address] [place] [address] 08/06/2024 2:00 PM EDT Cardiac Studies Cardiac Studies, [facility] [address] [place] [address] 09/07/2024 1:30 PM EDT Office Visit Cardiology, [facility] [address] [place] [address] Chong Woods, DO [address] [place] [address] 09/07/2024 3:00 PM EDT Office [address] [address] Betyt Kasper MD [address] [place] [address] [place] [address] 10/30/2024 1:30 PM EDT Office Visit Ophthalmology, [facility] [address] [place] [address] Kirby Yousif, DO [address] [place] [address] 02/11/2025 1:20 PM EDT Office Visit Family Medicine [address] [place] [phone] Ken Carson MD [address] [place] [address] [place] [address] 05/31/2025 12:30 PM EST Nurse Only Ancillary Nerissa Blake[address] [place] [address] Gamal, Nurse Annual Wellness [address] [place] [address] [place] [address] Health Maintenance Due Date Last Done Comments Zoster Vaccines (2 of 3) 02/06/2012 12/12/2011 DTap/Tdap Vaccines (2 - Td or Tdap) 08/15/2021 08/16/2011, 01/17/2002 COVID-19 Vaccine ( - season) 2024 06/20/2023, 03/23/2022, 05/19/2021, Additional history exists Diabetic Eye Exam 07/11/2024 07/11/2023, , 09/01/2021, Additional history exists HbA1c 11/05/2024 05/07/2024, 12/29, 12/27/2023, Additional history exists Albumin/Creatinine Ratio 01/25/2025 024, 01/28/2023, 04/14/2022, Additional history exists CKD HGB USE SMARTSET 90875 01/25/202501/25, 01/26/2024, 10/05/2023, Additional history exists CKD PHOS USE SMARTSET 97990 01/25/202512/29, 09/09/2023, 04/14/2022, Additional history exists Adult [...] Not on filedocumented as of this encounter Advance Directives * Full Code [...] Discussed due to patient's condition Care Teams Stereotyper Apprentice Relationship Specialty Start Date End Date Kena Razo PA-C [address] [place] [address] [place] [address] PCP - General Physician Chief Mate 06/05/24 documented as of this encounter
--- OUTSIDE RECORDS SUMMARY | 2024-08-19 12:32 | External Medical Summary | Summary of Care ---
Author Name Unknown Organization [facility] Address [address] [place] [address] Phone [phone] Care Team Providers Care Direct Marketing Executive Name Role Phone Ken Carson MD Primary Care Provide r Reason for Visit * Reason Onset Date Comments Medication Refill 06/04/2024 Encounter Details Date Type Department Care Team (Late st Contact Info) Description 06/04/2024 Refill Family Medicine [address] [phone] Ken Carson MD [address] [place] [address] [place] [address] Type 2 diabetes mellitus with stage 3b chronic kidney disease, without long-term current use of insulin (HCC); Anemia of chronic disease; Gastroesophageal reflux disease with esophagitis without hemorrhage; Dyslipidemia, goal LDL below 100 Allergies No known active allergiesdocumented as of this encounter (statuses as of 06/04/2024) Medications Prodigy Control Solution High In Vitro [...] disease, without long-term current use of insulin ([facility]),Anemia of chronic disease,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 90 Tablet 1 03/22/20 23 Active Vitamin D 25 MCG (1000 UT) Oral TabletIndications:T ype 2 diabetes mellitus with stage 3b chronic kidney disease, without long-term current use of insulin ([facility]),Anemia of chronic disease,Gastroesoph ageal reflux disease with esophagitis without hemorrhage,Dyslipid emia, goal LDL below 100 Take 1 tablet every other day 90 Tablet 1 03/22/20 23 Active metFORMIN HCl ER 500 MG Oral Tablet Extended Release 24 Hour (Glucophage XR)Indications:Type 2 diabetes mellitus with hemoglobin A1c goal of less than 8.0% ([facility]) Take 1 Tablet by mouth in the morning. 90 Tablet 3 06/20/19 24 Active Vitamin C 500 MG Oral Capsule Take 2 Tablets by mouth in the morning. 06/30/19 23 Active Aspirin 81 MG Oral Tablet ChewableIndications :Type 2 diabetes mellitus with stage 3b chronic kidney disease, without long-term current use of insulin ([facility]),Anemia of chronic disease,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 with food.. 100 Tablet 2 07/09/19 24 Active Famotidine 20 MG Oral Tablet (Pepcid)Indications :Type 2 diabetes mellitus with stage 3b chronic kidney disease, without long-term current use of insulin ([facility]),Gastroesophag eal reflux disease with esophagitis without hemorrhage [...] disease, without long-term current use of insulin ([facility]),Anemia of chronic disease,Gastroesoph ageal reflux disease with esophagitis without hemorrhage,Dyslipid emia, goal LDL below 100 TAKE 1 TABLET BY MOUTH IN THE MORNING. 30 MINUTES BEFORE A MEAL.. 90 Tablet 1 01/25/20 24 Active Atorvastatin Calcium 40 MG Oral Tablet (Lipitor)Indication s:Type 2 diabetes mellitus with stage 3b chronic kidney disease, without long-term current use of insulin ([facility]),Anemia of chronic disease,Gastroesoph ageal reflux disease with esophagitis without hemorrhage,Dyslipid emia, goal LDL below 100 TAKE 1 TABLET BY MOUTH EVERYDAY AT BEDTIME 90 Tablet 1 02/28/20 24 Active Prodigy Lancets 28G Use to test blood sugars once daily 100 Each 3 03/05/20 24 Active Prodigy No Coding Blood Gluc In Vitro Strip (Glucose Blood)Indications:T ype 2 diabetes mellitus with hemoglobin A1c goal of less than 8.0% ([facility]) test blood sugars once daily 100 Strip [...] disease, without long-term current use of insulin ([facility]),Anemia of chronic disease,Gastroesoph ageal reflux disease with esophagitis without hemorrhage,Dyslipid emia, goal LDL below 100 TAKE 1 TABLET 2 TIMES A DAY WITH MORNING AND EVENING MEALS. 180 Tablet 1 04/10/20 24 Active glipiZIDE ER 2.5 MG Oral Tablet Extended Release 24 Hour (glipiZIDE XL)Indications:Type 2 diabetes mellitus with stage 3b chronic kidney disease, without long-term current use of insulin ([facility]),Anemia of chronic disease,Gastroesoph ageal reflux disease with [...] disease, without long-term current use of insulin ([facility]),Anemia of chronic disease,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 90 Tablet 1 06/04/19 25 Active Pantoprazole Sodium 40 MG Oral Tablet Delayed Release (Protonix)Indicatio ns:Type 2 diabetes mellitus with stage 3b chronic kidney disease, without long-term current use of insulin (HCC),Anemia of chronic disease,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 Authorizing Provider: AASHISH, DORIANN ARIAS * Telephone Encounter - Batool Lynch RN - 06/04/2024 1:51 PM ESTPending Prescriptions: Disp Refills Pantoprazole Sodium 40 MG Oral Tablet Lashawn*90 Tab*1 Sig: Take 1 Tablet by mouth in the morning. * Telephone Encounter - Vanesa Galan OSA - 06/04/2024 1:33 PM EST Did you pend patient's preferred pharmacy and medication before forwarding?yes Pharmacy: [id number] Pending Prescriptions: Disp Refills Pantoprazole Sodium 40 MG Oral Tablet Del*30 Tab*5 Sig: Take 1 Tablet by mouth in the morning. Last Visit: 05/08/2024 (in office), Visit date not found (telemedicine) Next Visit: 07/19/2024 If no future appointments scheduled, and last appointment is greater than a year ago, please schedule patient for a follow-up appointment Last date the medication was ordered: 05/08/2024 Is this request for a controlled substance?No Urine Drug Screen:No results found. However, due to the size of the patient record, not all encounters were searched. Please check Results Review for a complete set of results. Patient Phone Numbers Labs: Lab Results Component Value Date/Time CREAT 1.4 (H) 01/26/2024 01:35 PM CREAT 1.4 (H) 11/20/2019 08:13 AM POTASSIUM 5.2 (H) 01/26/2024 01:35 PM POTASSIUM 4.6 11/20/2019 08:13 AM TSH 2.92 10/05/2023 12:12 PM TSH 1.36 08/03/2019 02:32 PM LDL 76 01/26/2024 01:35 PM LDL 63 02/18/2020 01:14 PM LDL NOT APPLICABLE 02/18/2020 01:14 PM LDLCALC 42.80 09/09/2017 12:00 AM ALT 18 10/05/2023 12:12 PM ALT 20 11/20/2019 08:13 AM HGBA1C 8.3 (H) 05/07/2024 11:55 AM HGBA1C 8.4 (H) 12/27/2023 01:09 PM HGBA1C 8.0 (H) 02/18/2020 01:14 PM documented in this encounter Plan of Treatment Upcoming Encounters Date Type Department Care Team (Late st Contact Info) Description 06/07/2024 11:30 AM EST Office Visit Pharmacy, [address] [place] [phone] [place] [address] 07/19/2024 3:00 PM EST Office Visit Family Medicine [address] [place] [phone] Kena Razo PA-C [address] [place] [address] [place] [address] 08/06/2024 2:00 PM EDT Cardiac Studies Cardiac Studies, [facility] [address] [place] [address] 09/07/2024 1:30 PM EDT Office Visit Cardiology, [facility] [address] [place] [address] [place], [address] [facility] [place] [address] 09/07/2024 3:00 PM EDT Office Visit Nephrology, [facility] [place] [address] Betty Kasper MD [address] [place] [address] 10/30/2024 1:30 PM EDT Office Visit Ophthalmology, [facility] [address] [place] [address] [place] Yousif, [address] [place] [address] 02/11/2025 1:20 PM EDT Office Visit Family Medicine [address] [place] [phone] Ken Carson MD [address] [place] [address] [place] [address] 05/31/2025 12:30 PM EST Nurse Only Ancillary [address] [place] [address] [place], Nurse Annual [address] [place] [address] Health Maintenance Due Date Last Done Comments Zoster Vaccines (2 of 3) 02/06/2012 12/12/2011 DTap/Tdap Vaccines (2 - Td or Tdap) 08/15/2021 08/16/2011, 01/17/2002 COVID-19 Vaccine ( season) 2024 06/20/2023, 03/23/2022, 05/19/2021, Additional history exists Diabetic Eye Exam 07/11/2024 07/11/2023, , 09/01/2021, Additional history exists HbA1c 11/05/2024 05/07/2024, 0801/2024, 12/27/2023, Additional history exists Albumin/Creatinine Ratio 01/25/2025 024, 01/28/2023, 04/14/2022, Additional history exists CKD HGB USE SMARTSET 31863 01/25/202501/25, 01/26/2024, 10/05/2023, Additional history exists CKD PHOS USE SMARTSET 42895 01/25/2025 0801/2024, 09/09/2023, 04/14/2022, Additional history exists Adult Wellness [...] Discussed due to patient's condition Care Teams Direct Marketing Executive Relationship Specialty Start Date End Date Ken Carson MD [address] [place] [address] [place] [phone] PCP - General Family Medicine 04/18/12 documented as of this encounter
--- OUTSIDE RECORDS SUMMARY | 2024-08-19 12:32 | External Medical Summary | Summary of Care ---
Author Name Unknown Organization [facility] Address [address] [place] [address] Phone [phone] Care Team Providers Care Theatrical Scenic Designer Name Role Phone Leigh Ann Razo PA-C Primary Care Provider [phone] Reason for Visit * Reason Comments eRx-Medication Refill Encounter Details Date Type Department Care Team (Late st Contact Info) Description 06/25/2024 Refill Family Medicine [address] [phone] Ken Carson MD [address] [place] [address] [place] [address] Type 2 diabetes mellitus with stage 3b chronic kidney disease, without long-term current use of insulin ([facility]); Anemia of chronic disease; Gastroesophageal reflux disease with esophagitis without hemorrhage; Dyslipidemia, goal LDL below 100; Type 2 diabetes mellitus with hemoglobin A1c goal of less than 8.0% ([facility]) Allergies No known active allergiesdocumented as of this encounter (statuses as of 06/25/2024) Medications Prodigy Control Solution High In Vitro Solution Use to calibrate glucometer 1 Each 021 Active Prodigy AutoCode Blood Glucose DeviceIndications: Type 2 diabetes mellitus with stage 3a chronic kidney disease and hypertension (HCC),Type 2 diabetes mellitus with hemoglobin A1c goal of less than 8.0% ([facility]) Use daily. Dx E11.9 1 Each [...] disease, without long-term current use of insulin ([facility]),Anemia of chronic disease,Gastroesop hageal reflux disease with esophagitis without hemorrhage,Dyslipi demia, goal LDL below 100 Take 1 Tablet by mouth in the morning. 90 Tablet 1 023 Active Vitamin D 25 MCG (1000 UT) Oral TabletIndications: Type 2 diabetes mellitus with stage 3b chronic kidney disease, without long-term current use of insulin ([facility]),Anemia of chronic disease,Gastroesop hageal reflux disease [...] disease, without long-term current use of insulin ([facility]),Anemia of chronic disease,Gastroesop hageal reflux disease [...] disease, without long-term current use of insulin ([facility]),Anemia of chronic disease,Gastroesop hageal reflux disease with esophagitis without hemorrhage,Dyslipi demia, goal LDL below 100 TAKE 1 TABLET BY MOUTH IN THE MORNING. 30 MINUTES BEFORE A MEAL.. 90 Tablet 1 024 Active Atorvastatin Calcium 40 MG Oral Tablet (Lipitor)Indicatio ns:Type 2 diabetes mellitus with stage 3b chronic kidney disease, without long-term current use of insulin ([facility]),Anemia of chronic disease,Gastroesop hageal reflux disease with esophagitis without hemorrhage,Dyslipi demia, goal LDL below 100 TAKE 1 TABLET BY MOUTH EVERYDAY AT BEDTIME 90 Tablet 1 024 Active Prodigy No Coding Blood Gluc In Vitro Strip (Glucose Blood)Indications: Type 2 diabetes mellitus with hemoglobin A1c goal of less than 8.0% ([facility]) test blood sugars once daily 100 Strip 3 024 Active Cilostazol 50 MG Oral Tablet (Pletal) Take 1 Tablet by mouth in the morning. 90 Tablet 1 024 Active Folic Acid 1 MG Oral TabletIndications: Type 2 diabetes mellitus with stage 3b chronic kidney disease, without long-term current use of insulin ([facility]),Anemia of chronic disease,Gastroesop hageal reflux disease with esophagitis without hemorrhage,Dyslipi demia, goal LDL below 100 TAKE 1 TABLET BY MOUTH IN THE MORNING AND BEFORE BEDTIME 180 Tablet 1 024 Active amLODIPine Besylate 10 MG Oral Tablet (Norvasc)Indicatio ns:Type 2 diabetes mellitus with stage 3b chronic kidney disease, without long-term current use of insulin ([facility]),Anemia of chronic disease,Gastroesop hageal reflux disease with esophagitis without hemorrhage,Dyslipi demia, goal LDL below 100 TAKE 1 TABLET BY MOUTH EVERY DAY IN THE MORNING 90 Tablet 1 024 Active Carvedilol 6.25 MG Oral Tablet (Coreg)Indications :Type 2 diabetes mellitus with stage 3b chronic kidney disease, without long-term current use of insulin ([facility]),Anemia of chronic disease,Gastroesop hageal reflux disease with esophagitis without hemorrhage,Dyslipi demia, goal LDL below 100 TAKE 1 TABLET 2 TIMES A DAY WITH MORNING AND EVENING MEALS. 180 Tablet 1 024 Active Januvia 50 MG Oral TabletIndications: Type 2 diabetes mellitus with stage 3b chronic kidney disease, without long-term current use of insulin ([facility]),Anemia of chronic disease,Gastroesop hageal reflux disease with esophagitis without hemorrhage,Dyslipi demia, goal LDL below 100 Take one daily In the morning. 90 Tablet 1 024 Active Pantoprazole Sodium 40 MG Oral Tablet Delayed Release (Protonix)Indicati ons:Type 2 diabetes mellitus with stage 3b chronic kidney disease, without long-term current use of insulin ([facility]),Anemia of chronic disease,Gastroesop hageal reflux disease [...] disease, without long-term current use of insulin ([facility]),Anemia of chronic disease,Gastroesop hageal reflux disease [...] hemoglobin A1c goal of less than 8.0% ([facility]) TAKE 1 TABLET BY MOUTH EVERY DAY IN THE MORNING 90 Tablet 025 Active Famotidine 20 MG Oral Tablet (Pepcid)Indication s:Type 2 diabetes mellitus with stage 3b chronic kidney disease, without long-term current use of insulin ([facility]),Gastroesopha geal reflux disease with esophagitis without hemorrhage Take 1 Tablet by mouth every night at bedtime. 90 Tablet 1 025 Active metFORMIN HCl ER 500 MG Oral Tablet Extended Release 24 Hour (Glucophage XR)Indications:Typ e 2 diabetes mellitus with hemoglobin A1c goal of less than 8.0% ([facility]) Take 1 Tablet by mouth in the morning. 90 Tablet 3 024 2024 Discontinued Famotidine 20 MG Oral Tablet (Pepcid)Indication s:Type 2 diabetes mellitus with stage 3b chronic kidney disease, without long-term current use of insulin ([facility]),Gastroesopha geal reflux disease with esophagitis without hemorrhage Take 1 Tablet by mouth every night at bedtime. 90 Tablet 1 024 2024 Discontinued( Refill) glipiZIDE ER 2.5 MG Oral Tablet Extended Release 24 Hour (glipiZIDE XL)Indications:Typ e 2 diabetes mellitus with stage 3b chronic kidney disease, without long-term current use of insulin (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 30 MINS BEFORE A MEAL ADD TO 5 MG TAB TO EQUAL 7.5 MG DAILY Authorizing Provider: LEIGH ANN RAZO Ordering User: CHETNA HIGH metFORMIN HCl ER 500 MG Oral Tablet Extend*90 Tab*1 Sig: TAKE 1 TABLET BY MOUTH EVERY DAY IN THE [facility] Authorizing Provider: LEIGH ANN RAZO Ordering User: CHETNA HIGH Famotidine 20 MG Oral Tablet (Pepcid) 90 Tab*1 Sig: Take 1 Tablet by mouth every night at bedtime. Authorizing Provider: LEIGH ANN RAZO Ordering User: CHETNA HIGH * Telephone Encounter - Chetna High RP - 06/25/2024 11:34 AM EST Signed Prescriptions: Disp Refills glipiZIDE ER 2.5 MG Oral Tablet Extended R*90 Tab*1 Sig: TAKE 1 TABLET BY MOUTH IN THE MORNING. 30 MINS BEFORE A MEAL ADD TO 5 MG TAB TO EQUAL 7.5 MG DAILY Authorizing Provider: LEIGH ANN RAZO Ordering User: CHETNA HIGH metFORMIN HCl ER 500 MG Oral Tablet Extend*90 Tab*1 Sig: TAKE 1 TABLET BY MOUTH EVERY DAY IN THE [facility] Authorizing Provider: LEIGH ANN RAZO Ordering User: CHETNA HIGH Famotidine 20 MG Oral Tablet (Pepcid) 90 Tab*1 Sig: Take 1 Tablet by mouth every night at bedtime. Authorizing Provider: LEIGH ANN RAZO Ordering User: CHETNA HIGH * Telephone Encounter - Ale Guajardo CPhT - 06/25/2024 10:51 AM EST Pt needs high priority, he is out of Metformin. Pharmacy request came yesterday Did you pend patient's preferred pharmacy and medication before forwarding?yes Pharmacy: [facility] [id number] Pending Prescriptions: Disp Refills glipiZIDE ER 2.5 MG Oral Tablet Extended *90 Tab*1 Sig: TAKE 1 TABLET BY MOUTH IN THE MORNING. 30 MINS BEFORE A MEAL ADD TO 5 MG TAB TO EQUAL 7.5 MG DAILY metFORMIN HCl ER 500 MG Oral Tablet Exten*90 Tab*3 Sig: TAKE 1 TABLET BY MOUTH EVERY DAY IN THE MORNING Famotidine 20 MG Oral Tablet (Pepcid) 90 Tab*1 Sig: Take 1 Tablet by mouth every night at bedtime. Last Visit: 05/08/2024 (in office), Visit date not found (telemedicine) Next Visit: 07/19/2024 If no future appointments scheduled, and last appointment is greater than a year ago, please schedule patient for a follow-up appointment Last date the medication was ordered: 06/20/2023 Is this request for a controlled substance?No [...] 3:00 PM EST Office Visit Family Medicine [address] [place] [phone] Leigh Ann Razo PA-C [address] [place] [address] [place] [address] 08/02/2024 11:30 AM EST Office Visit Pharmacy, [address] [place] [address] [place] [address] 08/06/2024 2:00 PM EDT Cardiac Studies Cardiac Studies, [address] [place] [address] 09/07/2024 1:30 PM EDT Office Visit Cardiology, [facility] [address] [facility] [place] [address] [place], DO [address] [place] [address] 09/07/2024 3:00 PM EDT Office Visit Nephrology, [facility] [address] [place] [address] [facility] [address] [facility] [address] 10/30/2024 1:30 PM EDT Office Visit Ophthalmology, [facility] [address] [place] [address] Kirby Yousif DO [address] [place] [address] 02/11/2025 1:20 PM EDT Office Visit Family Medicine [address] [place] [phone] Ken Carson MD [address] [place] [address] [place] [address] 05/31/2025 12:30 PM EST Nurse Only Ancillary [address] [place] [address] [place], Nurse Annual Wellness [address] [place] [address] [place] [address] Health Maintenance Due Date Last Done Comments [...] Additional history exists CKD HGB USE SMARTSET 27605 01/25/202501/25, 01/26/2024, 10/05/2023, Additional history exists CKD PHOS USE SMARTSET 62613 01/25/202512/29, 09/09/2023, 04/14/2022, Additional history exists Adult [...] LDL below 100 Other and unspecified hyperlipidemia Type 2 diabetes mellitus with hemoglobin A1c goal of less than 8.0% (HCC) documented in this encounter Advance Directives * [...] Discussed due to patient's condition Care Teams Theatrical Scenic Designer Relationship Specialty Start Date End Date Leigh Ann Razo PA-C [address] [place] [address] [place] [address] PCP - General Physician Patient Financial Rep 06/05/24 documented as of this encounter
--- OUTSIDE RECORDS SUMMARY | 2024-08-19 12:32 | External Medical Summary | Summary of Care ---
Author Name Unknown Organization [facility] Address [address] [place] [address] Phone [phone] Care Team Providers Care Fish Agent Name Role Phone Unavailable Primary Care Provider Unavailabl e Reason for Visit * Reason Comments Re-Check Encounter Details Date Type Department Care Team (Late st Contact Info) Description 07/19/2024 3:20 PM EST Office Visit Family Medicine [address] [phone] Kena Razo PA-C [address] [place] [address] [place] [id number] Type 2 diabetes mellitus with hemoglobin A1c goal of less than 8.0% ([facility])*; Type 2 diabetes mellitus with stage 3b chronic kidney disease, without long-term current use of insulin ([facility]); Anemia of chronic disease; Gastroesophageal reflux disease with esophagitis without hemorrhage; Dyslipidemia, goal LDL below 100; Type 2 diabetes mellitus with stage 3a chronic kidney disease, without long-term current use of insulin ([facility]); History of prostate cancer; HTN, goal below 140/90; Rheumatic aortic stenosis; Hyperparathyroidism, secondary renal ([facility]); S/P lumbar laminectomy Allergies No known active allergiesdocumented as of this encounter (statuses as of 07/19/2024) Medications Prodigy Control Solution High In Vitro Solution Use to calibrate glucometer 1 Each 10/30/19 21 Active Prodigy AutoCode Blood Glucose DeviceIndications:T ype 2 diabetes mellitus with stage 3a chronic kidney disease and hypertension ([facility]),Type 2 diabetes mellitus with hemoglobin A1c goal of less than 8.0% ([facility]) Use daily. Dx E11.9 1 Each 12/17/19 [...] long-term current use of insulin ([facility]),Anemia of chronic disease,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 90 Tablet 1 03/22/20 23 Active Vitamin D 25 MCG (1000 UT) Oral TabletIndications:T ype 2 diabetes mellitus with stage 3b chronic kidney disease, without long-term current use of insulin ([facility]),Anemia of chronic disease,Gastroesoph ageal reflux disease with esophagitis without hemorrhage,Dyslipid emia, goal LDL below 100 Take 1 tablet every other day 90 Tablet 1 03/22/20 23 Active Vitamin C 500 MG Oral Capsule Take 2 Tablets by mouth in the morning. 06/30/19 23 Active Aspirin 81 MG Oral Tablet ChewableIndications :Type 2 diabetes mellitus with stage 3b chronic kidney disease, without long-term current use of insulin ([facility]),Anemia of chronic disease,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 with food.. 100 Tablet 2 07/09/19 24 Active Prodigy Lancing Device Use as [...] eyes in the morning. 08/26/19 24 Active Prodigy No Coding Blood Gluc In Vitro Strip (Glucose Blood)Indications:T ype 2 diabetes mellitus with hemoglobin A1c goal of less than 8.0% ([facility]) test blood sugars once daily 100 Strip 3 03/05/20 24 Active Folic Acid 1 MG Oral TabletIndications:T ype 2 diabetes mellitus with stage 3b chronic kidney disease, without long-term current use of insulin (HCC),Anemia of chronic disease,Gastroesoph ageal reflux disease with esophagitis without hemorrhage,Dyslipid emia, goal LDL below 100 TAKE 1 TABLET BY MOUTH IN THE MORNING AND BEFORE BEDTIME 180 Tablet 1 03/28/20 24 Active Carvedilol 6.25 MG Oral Tablet (Coreg)Indications: Type 2 diabetes mellitus with stage 3b chronic kidney disease, without long-term current use of insulin (HCC),Anemia of chronic disease,Gastroesoph ageal reflux disease with esophagitis without hemorrhage,Dyslipid emia, goal LDL below 100 TAKE 1 TABLET 2 TIMES A DAY WITH MORNING AND EVENING MEALS. 180 Tablet 1 04/10/20 24 Active Januvia 50 MG Oral TabletIndications:T [...] daily 100 Each 3 06/07/19 25 Active glipiZIDE ER 2.5 MG Oral Tablet Extended Release 24 Hour (Glucotrol XL)Indications:Type 2 diabetes mellitus with stage 3b chronic kidney disease, without long-term current use of insulin ([facility]),Anemia of chronic disease,Gastroesoph ageal reflux disease with esophagitis without hemorrhage,Dyslipid emia, goal LDL below 100 TAKE 1 TABLET BY MOUTH IN THE MORNING. 30 MINS BEFORE A MEAL ADD TO 5 MG TAB TO EQUAL 7.5 MG DAILY 90 Tablet 06/25/19 25 Active metFORMIN HCl ER 500 MG Oral Tablet Extended Release 24 Hour (Glucophage XR)Indications:Type 2 diabetes mellitus with hemoglobin A1c goal of less than 8.0% ([facility]) TAKE 1 TABLET BY MOUTH EVERY DAY IN THE MORNING 90 Tablet 06/25/19 25 Active Famotidine 20 MG Oral Tablet (Pepcid)Indications :Type 2 diabetes mellitus with stage 3b chronic kidney disease, without long-term current use of insulin ([facility]),Gastroesophag eal reflux disease with esophagitis without hemorrhage Take 1 Tablet by mouth every night at bedtime. 90 Tablet 06/25/19 25 Active Atorvastatin Calcium 40 MG Oral Tablet (Lipitor)Indication s:Type 2 diabetes mellitus with stage 3b chronic kidney disease, without long-term current use of insulin ([facility]),Anemia of chronic disease,Gastroesoph ageal reflux disease with esophagitis without hemorrhage,Dyslipid emia, goal LDL below 100 TAKE 1 TABLET BY MOUTH EVERYDAY AT BEDTIME 90 Tablet 07/11/19 25 Active amLODIPine Besylate 10 MG Oral Tablet (Norvasc)Indication s:Type 2 diabetes mellitus with stage 3b chronic kidney disease, without long-term current use of insulin ([facility]),Anemia of chronic disease,Gastroesoph ageal reflux disease with esophagitis without hemorrhage,Dyslipid emia, goal LDL below 100 TAKE 1 TABLET BY MOUTH EVERY DAY IN THE MORNING 90 Tablet 07/11/19 25 Active Cilostazol 50 MG Oral Tablet (Pletal) TAKE 1 TABLET BY MOUTH EVERY DAY IN THE MORNING 90 Tablet 07/11/19 25 Active glipiZIDE ER 5 MG Oral Tablet Extended Release 24 Hour (Glucotrol XL)Indications:Type 2 diabetes mellitus with stage 3b chronic kidney disease, without long-term current use of insulin (HCC),Anemia of chronic disease,Gastroesoph ageal reflux disease with esophagitis without hemorrhage,Dyslipid emia, goal LDL below 100 Take 2 Tablets by mouth in the morning. 30 minutes before a meal.. 180 Tablet 1 07/19/19 Active glipiZIDE ER 5 MG Oral Tablet Extended Release 24 Hour (Glucotrol XL)Indications:Type 2 diabetes mellitus with stage 3b chronic kidney disease, without long-term current use of insulin (HCC),Anemia of chronic disease,Gastroesoph ageal reflux disease with esophagitis without hemorrhage,Dyslipid emia, goal LDL below 100 TAKE 1 TABLET BY MOUTH IN THE MORNING. 30 MINUTES BEFORE A MEAL.. 90 Tablet 07/11/19 25 2024 Disconti nued(Ref ill) documented as of this encounter (statuses as of 07/19/2024) Active Problems Problem Noted Date Diagnosed Date [...] as of this encounter (statuses as of 07/19/2024) Resolved Problems Problem Noted Date Diagnosed Date [...] #1 ACTIVE CASE MANAGEMENT- Callie Sargent RN [phone] 10/06/2009 03/16/2010 HTN, GOAL BELOW 140/90 04/04/200906/25 [...] 11/18/2017 Overview (11/02/1999): l5-s1 disc extrusion,severe stenosis l4-5,[id number] body lesion probable heman documented as of this encounter (statuses as of 07/19/2024) Immunizations Name Administration Dates Next Due COVID-19 [...] - 05/30/1962 Smokeless Tobacco: Former Snuff Quit: 2018 Comments:62 years at 03/05 c hewing Alcohol [...] AM EST documented as of this encounter Last Filed Vital Signs Vital Sign Reading Time Taken Comments Blood Pressure 122/68 07/19/2024 2:54 PM EST Pulse 77 07/19/2024 2:54 PM EST Temperature 36.1 C (97 F) 07/19/2024 2:54 PM EST Respiratory Rate - - Oxygen Saturation - - Inhaled Oxygen Concentration - - Weight 81.2 kg (179 lb) 07/19/2024 2:54 PM EST Height - - Body Mass Index 27.22 05/08/2024 12:56 PM EST documented in this encounter Functional Status * Are you [...] claudia Rivera RN documented in this encounter Progress Notes * Kena Razo PA-C - 07/19/2024 2:52 PM EST Nursing Notes: Genie Myles LPN 07/19/24 1456 Sign at exiting of workspace 6 month return Discuss A1C from Dec Blood sugars are running high in evenings Pt here today for recheck. Pt with PMH of DM, dyslipidemia, anemia, GERD, glaucoma, hx of prostate ca, HTN, hyperparathyroid, OA, CKD, , mac degen. Pt wants to discuss his A1C. It is stable at 8.3.it has improved from 9.0. Pt states that his sugars are running high in the evenings. In the low 200's. Pt is taking all of his meds as directed. He does follow with MTM for his sugars. He has an appt with MTM in about 2 weeks. Pt has no other issues at this time. Review of patient's allergies indicates: No Known Allergies Current Outpatient Medications Medication Sig Dispense Refill Prodigy Control Solution High In Vitro Solution Use to calibrate glucometer 1 Each 0 Prodigy AutoCode Blood Glucose Device Use daily. Dx E11.9 1 Each 0 Acetaminophen ER 650 MG Oral Tablet Extended Release Pt is taking 650mg tylenol extra strength one pill twice daily if needed for pain. Pt is not to exceed >6 in a 24hr period Carboxymethylcellulose Sodium 0.5 % Ophthalmic Solution Instill 1 Drop into eye 4 times a day as needed for Dry eyes. Hydrocortisone Acetate 25 MG Rectal Suppository (Anusol-HC) Administer into the rectum 2 times a day in the morning and at bedtime as needed for Hemorrhoids. Up to 2 weeks. 24 Suppository 1 Polyethylene Glycol 3350 17 GM Oral Packet (MiraLax) Take 1 Packet by mouth in the morning. 14 Each1 Cyanocobalamin 1000 MCG Oral Tablet (Cyanocobalamin) Take 1 Tablet by mouth in the morning. 90 Tablet 1 Vitamin D 25 MCG (1000 UT) Oral Tablet Take 1 tablet every other day 90 Tablet 1 Vitamin C 500 MG Oral Capsule Take 2 Tablets by mouth in the morning. Aspirin 81 MG Oral Tablet Chewable Take 1 Tablet by mouth in the morning. with food.. 100 Tablet 2 Prodigy Lancing Device Use as directed to test blood sugars once daily 1 Each 0 Fluticasone Propionate 50 MCG/ACT Nasal Suspension (Flonase) SPRAY 2 SPRAYS INTO EACH NOSTRIL IN THE MORNING 16 mL 5 Timolol Maleate 0.5 % Ophthalmic Solution (Timoptic) Instill 1 Drop into both eyes in the morning. Prodigy No Coding Blood Gluc In Vitro Strip (Glucose Blood) test blood sugars once daily 100 Strip 3 Folic Acid 1 MG Oral Tablet TAKE 1 TABLET BY MOUTH IN THE MORNING AND BEFORE BEDTIME 180 Tablet 1 Carvedilol 6.25 MG Oral Tablet (Coreg) TAKE 1 TABLET 2 TIMES A DAY WITH MORNING AND EVENING MEALS. 180 Tablet 1 Januvia 50 MG Oral Tablet Take one daily In the morning. 90 Tablet 1 Pantoprazole Sodium 40 MG Oral Tablet Delayed Release (Protonix) Take 1 Tablet by mouth in the morning. 90 Tablet 1 Prodigy Lancets 28G Use to test blood sugars once daily 100 Each 3 glipiZIDE ER 2.5 MG Oral Tablet Extended Release 24 Hour (Glucotrol XL) TAKE 1 TABLET BY MOUTH IN THE MORNING. 30 MINS BEFORE A MEAL ADD TO 5 MG TAB TO EQUAL 7.5 MG DAILY 90 Tablet 1 metFORMIN HCl ER 500 MG Oral Tablet Extended Release 24 Hour (Glucophage XR) TAKE 1 TABLET BY MOUTHEVERY DAY IN THE MORNING 90 Tablet 1 Famotidine 20 MG Oral Tablet (Pepcid) Take 1 Tablet by mouth every night at bedtime. 90 Tablet 1 Atorvastatin Calcium 40 MG Oral Tablet (Lipitor) TAKE 1 TABLET BY MOUTH EVERYDAY AT BEDTIME 90 Tablet 1 amLODIPine Besylate 10 MG Oral Tablet (Norvasc) TAKE 1 TABLET BY MOUTH EVERY DAY IN THE MORNING 90 Tablet 1 Cilostazol 50 MG Oral Tablet (Pletal) TAKE 1 TABLET BY MOUTH EVERY DAY IN THE MORNING 90 Tablet 0 glipiZIDE ER 5 MG Oral Tablet Extended Release 24 Hour (Glucotrol XL) TAKE 1 TABLET BY MOUTH IN THEMORNING. 30 MINUTES BEFORE A MEAL.. 90 Tablet 0 No current facility-administered medications for this visit. Past Medical History: Diagnosis Date Anemia due to chronic blood loss Anemia, Chronic ATHEROSCLEROSIS NEC 11/10/2006 Benign essential hypertension with target blood pressure below 140/90 Disorder of rectum and anus Diverticulosis of colon Diverticulosis DM type 2, goal A1c below 7 05/30/1997 Diabetes Type II, Controlled DM type 2, goal A1c below 7 06/28/2001 glucose 128, hgba1c 7.1 DM type 2, goal A1c below 7 06/07/2002 hgba1c 7.0 DM type 2, goal A1c below 7 12/06/2005 hgba1c 6.6 Dyslipidemia, goal LDL below 100 05/06/2009 Dyslipidemia, goal LDL below 160 06/08/2002 chol 170, trig 78, HDL 78, LDL 112, VLDL 16 LFT's normal Dyslipidemia, goal LDL below 160 06/28/2001 chol 188, hdl 39.5, ldl 125, vldl 24, trig 119 Generalized osteoarthritis Glaucoma Glaucoma INFORMATION 06/15/2002 pbcl=zx=598,k+=5.2,cl=99,co2=32.8,lepyjlz=762,bun=30,creatinine=1.1, hgb=12.5,hct=37.6 Kidney disease, chronic, stage III (GFR 30-59 ml/min) ([facility]) 10/18/2011 LOC [facility] 07/13/2006 Lumbago Macular degeneration 12/26/2001 Told by [facility] to take A,C,E, zinc and copper Malignant neoplasm of prostate ([facility]) 05/30/1997 Prostate Malignant neoplasm of prostate ([facility]) 08/29/2001 Dr. 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 Testicular cyst Thoracic and lumbosacral neuritis 08/26/2004 saw Liz for pain right leg, recieved epidurals (2) Vitamin D deficiency 09/04/2009 Vitamin D 26.4 Social History Socioeconomic History Marital status: Spouse name: Not on file Number of children: Not on file Years of education: Not on file Highest education level: Not on file Occupational History Not on file Tobacco Use Smoking status: Former Current packs/day: 0.00 Average packs/day: 1 pack/day for 8.0 years (8.0 ttl pk-yrs) Types: Cigarettes Start date: 05/30/1954 Quit date: 05/30/1962 Years since quittin.1 Smokeless tobacco: Former Types: Snuff Quit date: 2018 Tobacco comments: 60 years at 03/05 chewing Vaping Use Vaping status: Never Used Substance and Sexual Activity Alcohol use: No Drug use: No Sexual activity: Not on file Other Topics Concern Not on file Social History Narrative 66 years as of 05/29/2024 Social Needs Financial Resource Strain: Low Risk (05/29/2024) Financial Resource Strain Do you have any trouble paying for your medications, or do you think you might in the future? (Adult - for ages 18 years and over): No Does your family have trouble paying for medicine? (Household - for ages 0-17 years): Not on file Food Insecurity: No Food Insecurity (05/29/2024) Food Insecurity Worried About Running Out of Food in the Last Year: Never true Ran Out of Food in the Last Year: Never true Do you need food for this week? (Adult - for ages 18 years and over): No Transportation Needs: No Transportation Needs (05/29/2024) Transportation Needs Do you have trouble getting a ride to medical visits or work? (Adult - for ages 18 years and over):Not on file Does your family have a hard time getting a ride to doctors visits? (Household - for ages 0-17 years): Not on file Has lack of transportation kept you from medical appointments, meetings, work, or from getting things needed for daily living? Check all that apply. (Adult - for ages 18 years and over): No Do you (or your family) have trouble finding or paying for a ride (transportation)? (Household - for ages 0-17 years): Not on file Social Connections: Socially Integrated (05/29/2024) Social Connections How often do you feel lonely or isolated from those around you? (Adult - for ages 18 years and over): Sometimes Housing Stability: Low Risk (05/29/2024) Housing Stability Do you currently live in a detention or have no steady place to sleep at night? (Adult - for ages 18 years and over): No Do you think you are at risk of becoming homeless? (Adult - for ages 18 years and over): Not on file Does your family worry about paying for your home or becoming homeless? (Household - for ages 0-17 years): Not on file Are you homeless or worried that you might be in the future? (Adult - for ages 18 years and over): No Are you (or your family) homeless or worried that you might be in the future? (Household - for ages0-17 years): Not on file O:Blood pressure 122/68, pulse 77, temperature 97 F (36.1 C), temperature source Tympanic, weight 179 lb (81.2 kg). GENERAL: alert, healthy, and no distress NECK: supple, no adenopathy, no bruits, thyroid normal size, non-tender, without nodularity EYES: PERRLA, conjunctiva are pink and non-injected, sclera clear EARS: External ears normal, Canals clear, TM's Normal NOSE: no mucosal erythema, no mucosal edema, no purulent discharge OROPHARYNX: no exudate, no erythema, lips, buccal mucosa, and tongue normal, and mucous membranes are moist HEART: regular rate & rhythm, no murmur, and no gallops LUNGS: chest symmetric with normal AP diameter, no chest deformities noted, no chest wall tenderness, lungs clear to auscultation ABDOMEN: abdomen soft, non-tender, normal bowel sounds, and no masses or organomegaly A:Type 2 diabetes mellitus with hemoglobin A1c goal of less than 8.0% ([facility]) (Primary) Type 2 diabetes mellitus with stage 3b chronic kidney disease, without long-term current use of insulin ([facility]) - glipiZIDE ER 5 MG Oral Tablet Extended Release 24 Hour (Glucotrol XL); Take 2 Tablets by mouth inthe morning. 30 minutes before a meal.. Anemia of chronic disease - glipiZIDE ER 5 MG Oral Tablet Extended Release 24 Hour (Glucotrol XL); Take 2 Tablets by mouth inthe morning. 30 minutes before a meal.. Gastroesophageal reflux disease with esophagitis without hemorrhage - glipiZIDE ER 5 MG Oral Tablet Extended Release 24 Hour (Glucotrol XL); Take 2 Tablets by mouth inthe morning. 30 minutes before a meal.. Dyslipidemia, goal LDL below 100 - glipiZIDE ER 5 MG Oral Tablet Extended Release 24 Hour (Glucotrol XL); Take 2 Tablets by mouth inthe morning. 30 minutes before a meal.. Type 2 diabetes mellitus with stage 3a chronic kidney disease, without long-term current use of insulin ([facility]) History of prostate cancer HTN, goal below 140/90 Rheumatic aortic stenosis Hyperparathyroidism, secondary renal (HCC) S/P lumbar laminectomy Continue current meds. Will increase glipizide from 7.5 mg daily to 10 mg daily. Any questions/problems, please call. Keep [facility]TM appt. Any questions/problems, please call. If anything changes, worsens,develops new sx, please call [facility]. Follow Up: Return if symptoms worsen or fail to improve. Kena Razo PA-C documented in this encounter Nursing Notes * Genie Myles LPN - 07/19/2024 2:56 PM EST 6 month return Discuss A1C from [facility] Blood sugars are running high in evenings documented in this encounter Plan of Treatment Upcoming Encounters Date Type Department Care Team (Late st Contact Info) Description 08/02/2024 11:30 AM EST Office Visit Pharmacy, [address] [place] [phone] [place] [id number] 08/06/2024 2:00 PM EDT Cardiac Studies Cardiac Studies, [facility] [address] [facility] [place] [address] 09/07/2024 1:30 PM EDT Office Visit Cardiology, [facility] [address] [facility] [place] [address] [place]ong [place], DO [address] [place] [address] 09/07/2024 3:00 PM EDT Office Visit Nephrology, [address] [place] [address] Betty Kasper MD [address] [place], [place] [address] rodrí[place] [id number] 10/30/2024 1:30 PM EDT Office Visit Ophthalmology, [facility] [address] [facility] [place] [address] Kirby Yousif, DO [facility] [place] [address] 02/11/2025 1:20 PM EDT Office Visit Family Medicine [address] [place] [phone] Ken Carson MD [address] [place] [address] [place] [id number] 05/31/2025 12:30 PM EST Nurse Only Ancillary [address] [place] [address] [place], Nurse Annual Wellness [address] [place] [address] [place] [id number] Health Maintenance Due Date Last Done Comments [...] Additional history exists CKD HGB USE SMARTSET [id number] 01/25/202501/25, 01/26/2024, 10/05/2023, Additional history exists CKD PHOS USE SMARTSET [id number] 01/25/202512/29, 09/09/2023, 04/14/2022, Additional history exists Depression Screening 05/29/2025 05/29/2024 [...] on patient's age to complete this topic Meningitis B Vaccine (Bexsero/Trumemba) Aged Out No longer eligible based on patient's age to complete this topic documented as of this encounter Medical Devices Not on filedocumented as of this encounter Visit Diagnoses Diagnosis Type 2 diabetes mellitus with hemoglobin A1c goal of less than 8.0% (HCC)- Primary Type 2 diabetes mellitus with stage 3b chronic kidney disease, without long-term current use of insulin (HCC) Anemia of chronic disease Anemia of other chronic disease Gastroesophageal reflux disease with esophagitis without hemorrhage Dyslipidemia, goal LDL below 100 Other and unspecified hyperlipidemia Type 2 diabetes mellitus with stage 3a chronic kidney disease, without long-term current use of insulin (HCC) History of prostate cancer Personal history of malignant neoplasm of prostate HTN, goal below 140/90 Unspecified essential hypertension Rheumatic aortic stenosis Hyperparathyroidism, secondary renal (HCC) Secondary hyperparathyroidism (of renal origin) S/P lumbar laminectomy Other postprocedural status documented in this encounter Advance Directives * [...]
--- OUTSIDE RECORDS SUMMARY | 2024-08-19 12:32 | External Medical Summary | Summary of Care ---
Author Name Unknown Organization [facility] Address [address] [facility] [place] [place] [address] Phone [phone] Care Team Providers Care Retread Technician Name Role Phone Kena Razo PA-C Primary Care Provider [phone]- [phone] Reason for Visit * Reason Comments Dosage Adjustment In Person (Anticoag Cl inic) Diabetes Follow-Up Encounter Details Date Type Department Care Team (Late st Contact Info) Description 06/07/2024 11:30 AM EST Office Visit Pharmacy, [address] [place] [phone] [place] [address] Type 2 diabetes mellitus with stage 3b chronic kidney disease, without long-term current use of insulin ([facility])* Allergies No known active allergiesdocumented as of this encounter (statuses as of 06/07/2024) Medications Prodigy Control Solution High In Vitro Solution Use to calibrate glucometer 1 Each 10/30/19 21 Active Prodigy AutoCode Blood Glucose DeviceIndications:T ype 2 diabetes mellitus with stage 3a chronic kidney disease and hypertension ([facility]),Type 2 diabetes mellitus with hemoglobin A1c goal of less than 8.0% ([facility]) Use daily. Dx E11.9 1 Each 12/17/19 [...] disease, without long-term current use of insulin ([facility]),Anemia of chronic disease,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 90 Tablet 1 03/22/20 23 Active Vitamin D 25 MCG (1000 UT) Oral TabletIndications:T ype 2 diabetes mellitus with stage 3b chronic kidney disease, without long-term current use of insulin ([facility]),Anemia of chronic disease,Gastroesoph ageal reflux disease with esophagitis without hemorrhage,Dyslipid emia, goal LDL below 100 Take 1 tablet every other day 90 Tablet 1 03/22/20 23 Active metFORMIN HCl ER 500 MG Oral Tablet Extended Release 24 Hour (Glucophage XR)Indications:Type 2 diabetes mellitus with hemoglobin A1c goal of less than 8.0% ([facility]) Take 1 Tablet by mouth in the morning. 90 Tablet 3 06/20/19 24 Active Vitamin C 500 MG Oral Capsule Take 2 Tablets by mouth in the morning. 06/30/19 23 Active Aspirin 81 MG Oral Tablet ChewableIndications :Type 2 diabetes mellitus with stage 3b chronic kidney disease, without long-term current use of insulin ([facility]),Anemia of chronic disease,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 with food.. 100 Tablet 2 07/09/19 24 Active Famotidine 20 MG Oral Tablet (Pepcid)Indications :Type 2 diabetes mellitus with stage 3b chronic kidney disease, without long-term current use of insulin (HCC),Gastroesophag eal reflux disease with esophagitis without hemorrhage [...] disease, without long-term current use of insulin ([facility]),Anemia of chronic disease,Gastroesoph ageal reflux disease with esophagitis without hemorrhage,Dyslipid emia, goal LDL below 100 TAKE 1 TABLET BY MOUTH IN THE MORNING. 30 MINUTES BEFORE A MEAL.. 90 Tablet 1 01/25/20 24 Active Atorvastatin Calcium 40 MG Oral Tablet (Lipitor)Indication s:Type 2 diabetes mellitus with stage 3b chronic kidney disease, without long-term current use of insulin ([facility]),Anemia of chronic disease,Gastroesoph ageal reflux disease with esophagitis without hemorrhage,Dyslipid emia, goal LDL below 100 TAKE 1 TABLET BY MOUTH EVERYDAY AT BEDTIME 90 Tablet 1 02/28/20 24 Active Prodigy No Coding Blood Gluc In Vitro Strip (Glucose Blood)Indications:T ype 2 diabetes mellitus with hemoglobin A1c goal of less than 8.0% ([facility]) test blood sugars once daily 100 Strip 3 03/05/20 24 Active Cilostazol 50 MG Oral Tablet (Pletal) Take 1 Tablet by mouth in the morning. 90 Tablet 1 03/19/20 24 Active Folic Acid 1 MG Oral TabletIndications:T ype 2 diabetes mellitus with stage 3b chronic kidney disease, without long-term current use of insulin ([facility]),Anemia of chronic disease,Gastroesoph ageal reflux disease with [...] disease, without long-term current use of insulin ([facility]),Anemia of chronic disease,Gastroesoph ageal reflux disease with [...] disease, without long-term current use of insulin ([facility]),Anemia of chronic disease,Gastroesoph ageal reflux disease with esophagitis without hemorrhage,Dyslipid emia, goal LDL below 100 Take one daily In the morning. 90 Tablet 1 05/07/20 24 Active Pantoprazole Sodium 40 MG Oral Tablet Delayed Release (Protonix)Indicatio ns:Type 2 diabetes mellitus with stage 3b chronic kidney disease, without long-term current use of insulin ([facility]),Anemia of chronic disease,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 90 Tablet 1 06/04/19 25 Active Prodigy Lancets 28G Use to test blood sugars once daily 100 Each 3 06/07/19 25 Active Prodigy Lancets 28G Use to test blood sugars once daily 100 Each 3 03/05/20 24 2024 Disconti nued(Ref ill) documented as of this encounter (statuses as of 06/07/2024) Active Problems Problem Noted Date Diagnosed Date [...] as of this encounter (statuses as of 06/07/2024) Resolved Problems Problem Noted Date Diagnosed Date [...] #1 ACTIVE CASE MANAGEMENT- Callie Sargent RN [phone] 10/06/2009 03/16/2010 HTN, GOAL BELOW 140/90 04/04/200906/25 [...] 11/18/2017 Overview (11/02/1999): l5-s1 disc extrusion,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 Patient presents for return diabetic visit. DIABETES: Current diabetic medications: Glipizide 7.5 mg daily (5mg + 2.5mg tablets) RESTART Januvia 50mg daily Metformin ER 500mg daily eGFR 49 as of 01/26/24 Medication Injection Site: N/A Lifestyle: Diet: unchanged Glucose Review/SMBG: Not available Hypoglycemia: Does your blood sugar go below 70 mg/dL? Denies Hyperglycemia symptoms present: none Recent Labs Units 05/07/24 1155 01/26/24 1335 12/27/23 1309 HEMOGLOBIN A1C - [facility] % 8.3* 9.0* -- HEMOGLOBIN A1C POCT - [facility] % -- -- 8.4* Recent Labs Units 01/26/24 1335 10/05/23 1212 09/13/23 0843 ESTIMATED GLOMERULAR FILTRATION RATE - [facility] mL/min 49* 51* 47* CREATININE - [facility] mg/dL 1.4* 1.4* 1.5* HYPERTENSION: Patient on ACEi/ARB: no, deferred BP Readings from Last 3 Encounters: 05/29/24 124/70 05/08/24 128/60 03/08/24 129/74 Blood pressure at goal: yes HYPERLIPIDEMIA: Recent Labs Units 01/26/24 1335 09/09/23 1536 LDL CHOLESTEROL (CALCULATED) - [facility] mg/dL 76 56 Does patient have clinical ASCVD? No, is patient LDL less than 70mg/dL? No: No changes at this time HEALTH MAINTENANCE REVIEW: Health Maintenance Due Topic Date Due Zoster Vaccines (2 of 3) 02/06/2012 DTap/Tdap Vaccines (2 - Td or Tdap) 08/15/2021 COVID-19 Vaccine ( season) 2024 ASSESSMENT & PLAN: ICD-10-CM 1. Type 2 diabetes mellitus with stage 3b chronic kidney disease, without long- term current use of insulin ([facility]) E11.22 N18.32 Considerations: PACE - still concerned with cost Back surgery November 2022, Metformin stopped at that time d/t ROSANNA Renal fx returned to baseline Jardiance --> genital infection requiring treatment, avoid SGLT2 use Trulicity --> stomach upset/ADEs x1 dose; caution with GLP-1s BG Readings - Blood sugars not available. Patient forgot his BG logs. Notes that readings are remaining well controlled in the AM, then rising throughout the day. Of note, last A1c showed improvement. Further reviewed with patient. Medications - Reviewed current regimen, patient is adherent to regimen. Tolerating well. Notes thathis stomach has still not been the same since Trulicity trial. He is inquiring on retrying this. Advised I do not recommend at this time due to ADEs. We discussed trial of Ozempic, however concerns with with ADEs due to similar MOA. Diet, Exercise, Lifestyle - Patient notes that he feels readings are rising due to his breakfast. Continuing to eat oatmeal, cereal, and milk for breakfast. We further discussed CHO content of this meal and brainstormed protein options to replace this with. Encouraged to utilize BG readings at lunch as a guide. Patient expressed understanding and was agreeable. Patient is agreeable to SMBG 1 time(s) daily on rotation Patient aware to contact clinic if any hypoglycemia before next visit. MEDICATION CHANGES: no change Diabetic Medications: Glipizide 7.5 mg daily (5mg + 2.5mg tablets) Januvia 50mg daily Metformin ER 500mg daily eGFR 49 as of 01/26/24 HEALTH MAINTENANCE INTERVENTIONS: Labs: Up to Date Immunizations: Due for tdap, covid, shingles Foot Exam: Up to Date Eye Exam: Up to Date Annual Wellness Visit: Up to Date FOLLOW UP: Return to clinic in 8 weeks 08/02/2024 I spent a total of 30-39 minutes (exact time 35 mins) on the date of service in preparation, delivery, and documentation of the care provided to Shaan Pugh excluding any time spent in the performance of separately billed services. Cheryl Barrow RP Clinical Pharmacist - [facility] 06/07/2024, 11:23 AM documented in this encounter Plan of Treatment Upcoming Encounters Date Type Department Care Team (Late st Contact Info) Description 07/19/2024 3:00 PM EST Office Visit Family Medicine [address] [place] [phone] Kena Razo PA-C [address] [place] [address] [place] [id number] 08/02/2024 11:30 AM EST Office Visit Pharmacy, [address] [place] [phone] [place] [address] 08/06/2024 2:00 PM EDT Cardiac Studies Cardiac Studies, [facility] [address] [facility] [place] [address] 09/07/2024 1:30 PM EDT Office Visit Cardiology, [facility] [address] [facility] [place] [address] Chong Woods, DO [address] [place] [address] 09/07/2024 3:00 PM EDT Office Visit Nephrology, [address] [place] [address] Betty Kasper MD [address] [place] [address] [place] [address] 10/30/2024 1:30 PM EDT Office Visit Ophthalmology, [facility] [address] [facility] [place] [address] Kirby Yousif, DO [address] [facility] [place] [address] 02/11/2025 1:20 PM EDT Office Visit Family Medicine [address] [place] [phone] Ken Carson MD [address] [place] [address] [place] [address] 05/31/2025 12:30 PM EST Nurse Only Ancillary [address] [place] [address] Gam[place], Nurse Annual [address] [place] [address] Health Maintenance Due Date Last Done Comments [...] Additional history exists CKD HGB USE SMARTSET 09244 01/25/202501/25, 01/26/2024, 10/05/2023, Additional history exists CKD PHOS USE SMARTSET 19095 01/25/202512/29, 09/09/2023, 04/14/2022, Additional history exists Adult [...] disease, without long-term current use of insulin (HCC)- Primary documented in this encounter Advance Directives * [...] Discussed due to patient's condition Care Teams Retread Technician Relationship Specialty Start Date End Date Kena Razo PA-C [address] [place] [address] [place] [phone] PCP - General Physician Tile Layer Helper 06/05/24 documented as of this encounter
--- OUTSIDE RECORDS SUMMARY | 2024-08-19 12:32 | External Medical Summary | Summary of Care ---
Author Name Unknown Organization [facility] Address [address] [place] [address] Phone [phone] Care Team Providers Care Charge Master Analyst Name Role Phone Kena Razo PA-C Primary Care Provider [phone]- [phone] Reason for Visit * Reason Onset Date Comments Information 06/13/2024 Re Dementia supp ort group [facility]. Encounter Details Date Type Department Care Team (Late st Contact Info) Description 06/13/[address] [phone] Kena Razo PA-C [address] [place] [address] [place] [address] Information (Re Dementia support group Col... [...] disease, without long-term current use of insulin ([facility]),Anemia of chronic disease,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 90 Tablet 1 03/22/20 23 Active Vitamin D 25 MCG (1000 UT) Oral TabletIndications:T ype 2 diabetes mellitus with stage 3b chronic kidney disease, without long-term current use of insulin ([facility]),Anemia of chronic disease,Gastroesoph ageal reflux disease with esophagitis without hemorrhage,Dyslipid emia, goal LDL below 100 Take 1 tablet every other day 90 Tablet 1 03/22/20 23 Active metFORMIN HCl ER 500 MG Oral Tablet Extended Release 24 Hour (Glucophage XR)Indications:Type 2 diabetes mellitus with hemoglobin A1c goal of less than 8.0% ([facility]) Take 1 Tablet by mouth in the morning. 90 Tablet 3 06/20/19 24 Active Vitamin C 500 MG Oral Capsule Take 2 Tablets by mouth in the morning. 06/30/19 23 Active Aspirin 81 MG Oral Tablet ChewableIndications :Type 2 diabetes mellitus with stage 3b chronic kidney disease, without long-term current use of insulin ([facility]),Anemia of chronic disease,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 with food.. 100 Tablet 2 07/09/19 24 Active Famotidine 20 MG Oral Tablet (Pepcid)Indications :Type 2 diabetes mellitus with stage 3b chronic kidney disease, without long-term current use of insulin ([facility]),Gastroesophag eal reflux disease with esophagitis without hemorrhage [...] disease, without long-term current use of insulin ([facility]),Anemia of chronic disease,Gastroesoph ageal reflux disease with esophagitis without hemorrhage,Dyslipid emia, goal LDL below 100 TAKE 1 TABLET BY MOUTH IN THE MORNING. 30 MINUTES BEFORE A MEAL.. 90 Tablet 1 01/25/20 24 Active Atorvastatin Calcium 40 MG Oral Tablet (Lipitor)Indication s:Type 2 diabetes mellitus with stage 3b chronic kidney disease, without long-term current use of insulin ([facility]),Anemia of chronic disease,Gastroesoph ageal reflux disease with esophagitis without hemorrhage,Dyslipid emia, goal LDL below 100 TAKE 1 TABLET BY MOUTH EVERYDAY AT BEDTIME 90 Tablet 1 02/28/20 24 Active Prodigy No Coding Blood Gluc In Vitro Strip (Glucose Blood)Indications:T ype 2 diabetes mellitus with hemoglobin A1c goal of less than 8.0% ([facility]) test blood sugars once daily 100 Strip 3 03/05/20 24 Active Cilostazol 50 MG Oral Tablet (Pletal) Take 1 Tablet by mouth in the morning. 90 Tablet 1 03/19/20 24 Active Folic Acid 1 MG Oral TabletIndications:T ype 2 diabetes mellitus with stage 3b chronic kidney disease, without long-term current use of insulin ([facility]),Anemia of chronic disease,Gastroesoph ageal reflux disease with [...] disease, without long-term current use of insulin ([facility]),Anemia of chronic disease,Gastroesoph ageal reflux disease with [...] disease, without long-term current use of insulin ([facility]),Anemia of chronic disease,Gastroesoph ageal reflux disease with esophagitis without hemorrhage,Dyslipid emia, goal LDL below 100 Take one daily In the morning. 90 Tablet 1 05/07/20 24 Active Pantoprazole Sodium 40 MG Oral Tablet Delayed Release (Protonix)Indicatio ns:Type 2 diabetes mellitus with stage 3b chronic kidney disease, without long-term current use of insulin ([facility]),Anemia of chronic disease,Gastroesoph ageal reflux disease with [...] #1 ACTIVE CASE MANAGEMENT- Callie Sargent RN [phone] 10/06/2009 03/16/2010 HTN, GOAL BELOW 140/90 04/04/200906/25 [...] 11/18/2017 Overview (11/02/1999): l5-s1 disc extrusion,severe stenosis l4-5,[id number] body lesion probable heman documented as of [...] above (Pfizer) 03/23/2022 Influenza, Whole Virus 03/10/1999 PPD 11/09/2004 Pneumococcal Conjugate Vacc, 13 Valent (Prevnar) 09/26/2015 Pneumococcal Conjugate Vacci ne, 7 Valent 01/17/2002 Pneumococcal Polysaccharide PPV23 (Pneumovax) 11/23/2007 Season Influenza, Quad, PF, Adjuvanted, 65+ Yrs, IM (FLUAD) 02/18/2020 Seasonal Influenza Vac., MDV , IM, 0.5 mL (Fluzone) 02/26/2014,02/20/2013,02/18/2012,04/06,06/10/2010,02/13/2009,03/28/2008 ,03/15/2007,04/16/2006,04/06/2005 Seasonal Influenza, High Dos e, Trivalent, PF, IM (Fluzone HD) 03/08/2024,03/31/2018 Seasonal Influenza, PF, 6 M & above, IM , (FluLaval or Fluzone) 03/13/2019,06/28/2017 Seasonal Influenza, Quadriva lent Hd (Fluzone Hd) 04/26/2023,03/08/2022,03/03/2021 Seasonal Influenza, Quadriva lent, No Preserve, IM 03/31/2018,03/23/2016,03/26/2015 TD - Tetanus/Diptheria (ADULT) 01/17/2002 TDAP, Age 7 and older, IM (Adacel) [...] on the other Dementia support group at [facility] Tuesday of the month at 4pm, I called [phone] and Zach Allen is out of the office on leave but they will resume class in Jun. Reason for Call: Information (Re Dementia support group [facility].) Contact: Telephone Call Contact Type: Information Provider In-Basket: Yes Outcome: see note Face to face time spent with Patient (minutes): 0 Total Time including non face to face (minutes): 20 documented in this encounter Plan of Treatment Upcoming Encounters Date Type Department Care Team (Late st Contact Info) Description 07/19/2024 3:00 PM EST Office Visit Family Medicine [address] [place] [phone] Kena Razo PA-C [address] [place] [address] [place] [address] 08/02/2024 11:30 AM EST Office Visit Pharmacy, [address] [place] [address] [place] [address] 08/06/2024 2:00 PM EDT Cardiac Studies Cardiac Studies, [facility] [address] [place] [address] 09/07/2024 1:30 PM EDT [facility] [place] [address] Chong Woods, DO [address] [place] [address] 09/07/2024 3:00 PM EDT Office Visit Nephrology, [address] [place] [address] Betty Kasper MD [address] [place] [address] [place] [address] 10/30/2024 1:30 PM EDT Office Visit Ophthalmology, [facility] [address] [place] [address] Kirby Yousif, DO [address] [place] [address] 02/11/2025 1:20 PM EDT Office Visit Family Medicine [address] [place] [phone] Ken Carson MD [address] [place] [address] [place] [address] 05/31/2025 12:30 PM EST Nurse Only Ancillary [address] [place] [address] [place], Nurse Annual Wellness [address] [place] [address] [place] [address] Health Maintenance Due Date Last Done Comments [...] Additional history exists CKD HGB USE SMARTSET 80050 01/25/202501/25, 01/26/2024, 10/05/2023, Additional history exists CKD PHOS USE SMARTSET 10733 01/25/202512/29, 09/09/2023, 04/14/2022, Additional history exists Adult [...] Discussed due to patient's condition Care Teams Charge Master Analyst Relationship Specialty Start Date End Date Kena Razo PA-C [address] [place] [address] [place] [address] PCP - General Physician Systems Support Specialist 06/05/24 documented as of this encounter
--- OUTSIDE RECORDS SUMMARY | 2024-08-19 12:32 | External Medical Summary | Summary of Care ---
Author Name Unknown Organization [facility] Address [address] [place] [address] Phone [phone] Care Team Providers Care Propulsion Engineer Name Role Phone Kena Razo PA-C Primary Care Provider [phone] Reason for Visit * Reason Onset Date Comments Advice 06/07/2024 Send dementia morales pport class info Encounter Details Date Type Department Care Team (Late st Contact Info) Description 06/07/2024 Telephone Family Medicine [address] [phone] Kena Razo PA-C [address] [place], [place] [address] [phone] Advice (Send dementia support class info) Allergies No known active allergiesdocumented as of this encounter (statuses as of 06/08/2024) Medications Prodigy Control Solution High In Vitro Solution Use to calibrate glucometer 1 Each 10/30/19 21 Active Prodigy AutoCode Blood Glucose DeviceIndications: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 Dx E11.9 1 Each 12/17/19 [...] disease, without long-term current use of insulin ([facility]),Anemia of chronic disease,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 90 Tablet 3 06/20/19 24 Active Vitamin C 500 MG Oral Capsule Take 2 Tablets by mouth in the morning. 06/30/19 23 Active Aspirin 81 MG Oral Tablet ChewableIndications :Type 2 diabetes mellitus with stage 3b chronic kidney disease, without long-term current use of insulin ([facility]),Anemia of chronic disease,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 with food.. 100 Tablet 2 07/09/19 24 Active Famotidine 20 MG Oral Tablet (Pepcid)Indications :Type 2 diabetes mellitus with stage 3b chronic kidney disease, without long-term current use of insulin ([facility]),Gastroesophag eal reflux disease with esophagitis without [...] disease, without long-term current use of insulin ([facility]),Anemia of chronic disease,Gastroesoph ageal reflux disease with esophagitis without hemorrhage,Dyslipid emia, goal LDL below 100 TAKE 1 TABLET BY MOUTH IN THE MORNING. 30 MINUTES BEFORE A MEAL.. 90 Tablet 1 01/25/20 24 Active Atorvastatin Calcium 40 MG Oral Tablet (Lipitor)Indication s:Type 2 diabetes mellitus with stage 3b chronic kidney disease, without long-term current use of insulin ([facility]),Anemia of chronic disease,Gastroesoph ageal reflux disease with esophagitis without hemorrhage,Dyslipid emia, goal LDL below 100 TAKE 1 TABLET BY MOUTH EVERYDAY AT BEDTIME 90 Tablet 1 02/28/20 24 Active Prodigy No Coding Blood Gluc In Vitro Strip (Glucose Blood)Indications:T ype 2 diabetes mellitus with hemoglobin A1c goal of less than 8.0% ([facility]) test blood sugars once daily 100 Strip 3 03/05/20 24 Active Cilostazol 50 MG Oral Tablet (Pletal) Take 1 Tablet by mouth in the morning. 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 90 Tablet 1 05/07/20 24 Active Pantoprazole Sodium 40 MG Oral Tablet Delayed Release (Protonix)Indicatio ns:Type 2 diabetes mellitus with stage 3b chronic kidney disease, without long-term current use of insulin ([facility]),Anemia of chronic disease,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 90 Tablet 1 06/04/19 25 Active Prodigy Lancets 28G Use to test blood sugars once daily 100 Each 3 06/07/19 25 Active documented as of this encounter (statuses as of 06/08/2024) Active Problems Problem Noted Date Diagnosed Date [...] as of this encounter (statuses as of 06/08/2024) Resolved Problems Problem Noted Date Diagnosed Date [...] #1 ACTIVE CASE MANAGEMENT- Callie Sargent RN [phone] 10/06/2009 03/16/2010 HTN, GOAL BELOW 140/90 04/04/200906/25 [...] 11/18/2017 Overview (11/02/1999): l5-s1 disc extrusion,severe stenosis l4-5,[id number] body lesion probable heman documented as of this encounter (statuses as of 06/08/2024) Immunizations Name Administration Dates Next Due COVID-19 [...] Former Snuff Quit: 2019 Comments:62 years at /07 c hewing Alcohol Use Standard Drinks/Week Comments [...] Telephone Encounter - Shaila Beck RN - 06/08/2024 11:54 AM EST Flyer for support groups mailed to patient. * Telephone Encounter - Shaila Beck RN - 06/08/2024 9:06 AM EST I spoke to patient and I did give him Barbi Moran's information from [facility] dementia support group at the [facility] in [facility] the first Tue of the month at 11 . I will send flyer information in the mail when I receive it. * Telephone Encounter - Shaila Beck RN - 06/07/2024 12:02 PM EST Patient here for [facility] visit and asked if I was aware of any dementia support classes, his does have dementia and he thought he read in the progress that there were meetings held at [facility] Tuesday at 4pm. I called [place] and they are not aware of any classes. I called and left a message for [facility] at [facility], to call me back. Contact: Telephone Call Contact Type: Information Provider In-Basket: Yes Outcome: see note Face to face time spent with Patient (minutes): 0 Total Time including non face to face (minutes): 20 documented in this encounter Plan of Treatment Upcoming Encounters Date Type Department Care Team (Late st Contact Info) Description 07/19/2024 3:00 PM EST Office Visit Family Medicine [address] [place] [phone] Kena Razo PA-C [address] [place] [address] [place] [id number] 08/02/2024 11:30 AM EST Office Visit Pharmacy, [address] [place] [phone] [place] [address] 08/06/2024 2:00 PM EDT Cardiac Studies Cardiac Studies, [facility] [address] [place] [address] 09/07/2024 1:30 PM EDT Office Visit Cardiology, [facility] [address] [place] [address] Chong Woods DO [address] [place] [address] 09/07/2024 3:00 PM EDT Office Visit Nephrology, [address] [place] [address] Betty Kasper MD [address] [place] [phone] 10/30/2024 1:30 PM EDT Office Visit Ophthalmology, [facility] [address] [place] [address] Kirby Yousif, [address] [place] [address] 02/11/2025 1:20 PM EDT Office Visit Family Medicine [address] [place] [phone] Ken Carson MD [address] [place] [address] [place] [id number] 05/31/2025 12:30 PM EST Nurse Only Ancillary [address] [place] [address] [place], Nurse Annual Wellness [address] [place] [address] [place] [id number] Health Maintenance Due Date Last Done Comments [...] Additional history exists CKD HGB USE SMARTSET 06401 01/25/202501/25, 01/26/2024, 10/05/2023, Additional history exists CKD PHOS USE SMARTSET 54647 01/25/2025/01/2024, 09/09/2023, 04/14/2022, Additional history exists Adult Wellness [...] Discussed due to patient's condition Care Teams Propulsion Engineer Relationship Specialty Start Date End Date Kena Razo PA-C [address] [place] [address] [place] [id number] PCP - General Physician Supervisor Kennel 06/05/24 documented as of this encounter
--- OUTSIDE RECORDS SUMMARY | 2024-08-19 12:33 | External Medical Summary | Summary of Care ---
Author Name Unknown Organization [facility] Address [address] [place] [address] Phone [phone] Care Team Providers Care Commercial Banker Name Role Phone Ken Carson MD Primary Care Provide r Reason for Visit * Reason Onset Date Comments Medication Refill 04/16/2024 Encounter Details Date Type Department Care Team (Late st Contact Info) Description 04/16/2024 Refill Pharmacy, [address] [place] [phone] [facility] [address] [facility] [place] [id number] Type 2 diabetes mellitus with stage 3b chronic kidney disease, without long-term current use of insulin (HCC); Anemia of chronic disease; Gastroesophageal reflux disease with esophagitis without hemorrhage; Dyslipidemia, goal LDL below 100 Allergies No known active allergiesdocumented as of this encounter (statuses as of 04/16/2024) Medications zoster vac recomb adjuvanted (SHINGRIX) 50 MCG/0.5ML injection Inject 0.5 mL into a large muscle now and repeat dose in 60 to 180 days. Please fax date this was given to our office. 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 Dx E11.9 1 Each 021 Active Acetaminophen ER 650 MG Oral Tablet Extended Release Pt is taking 650mg tylenol extra strength one pill twice daily if needed for pain. Pt is not to exceed >6 in a 24hr period 021 Active Carboxymethylcellul ose Sodium 0.5 % Ophthalmic [...] 023 Active Cyanocobalamin 1000 MCG Oral Tablet (Cyanocobalamin)Ind ications:Type 2 diabetes mellitus with stage 3b chronic kidney disease, without long-term current use of insulin ([facility]),Anemia of chronic disease,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 90 Tablet 3 024 Active Vitamin C 500 MG Oral Capsule Take 2 Tablets by mouth in the morning. 023 Active Aspirin 81 MG Oral Tablet ChewableIndications :Type 2 diabetes mellitus with stage 3b chronic kidney disease, without long-term current use of insulin ([facility]),Anemia of chronic disease,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 with food.. 100 Tablet 2 Active Famotidine 20 MG Oral Tablet (Pepcid)Indications :Type 2 diabetes mellitus with stage 3b chronic kidney disease, without long-term current use of insulin ([facility]),Gastroesophag eal reflux disease with esophagitis without hemorrhage Take 1 Tablet by mouth every night at bedtime. 90 Tablet 1 024 Active Prodigy Lancing Device Use as directed to test blood sugars once daily 1 Each Active Fluticasone Propionate 50 MCG/ACT Nasal Suspension (Flonase)Indication s:Non-seasonal allergic rhinitis due to other allergic trigger SPRAY 2 SPRAYS INTO EACH NOSTRIL IN THE MORNING 16 mL 5 Active Timolol Maleate 0.5 % Ophthalmic Solution (Timoptic)Indicatio ns:HTN, goal below 140/90,Nonrheumatic aortic valve stenosis,Dyslipidem ia, goal LDL below 100,Ascending aorta dilatation (HCC),Fatigue, unspecified type Active glipiZIDE ER 5 MG Oral Tablet Extended Release 24 Hour (Glucotrol XL)Indications:Type 2 diabetes mellitus with stage 3b chronic kidney disease, without long-term current use of insulin ([facility]),Anemia of chronic disease,Gastroesoph ageal reflux disease with esophagitis without hemorrhage,Dyslipid emia, goal LDL below 100 TAKE 1 TABLET BY MOUTH IN THE MORNING. 30 MINUTES BEFORE A MEAL.. 90 Tablet 1 Active Atorvastatin Calcium 40 MG Oral Tablet (Lipitor)Indication s:Type 2 diabetes mellitus with stage 3b chronic kidney disease, without long-term current use of insulin ([facility]),Anemia of chronic disease,Gastroesoph ageal reflux disease with esophagitis without hemorrhage,Dyslipid emia, goal LDL below 100 TAKE 1 TABLET BY MOUTH EVERYDAY AT BEDTIME 90 Tablet 1 024 Active Prodigy Lancets 28G Use to test blood sugars once daily 100 Each 3 024 Active Prodigy No Coding Blood Gluc In Vitro Strip (Glucose Blood)Indications:T ype 2 diabetes mellitus with hemoglobin A1c goal of less than 8.0% ([facility]) test blood sugars once daily 100 Strip 3 024 Active Cilostazol 50 MG Oral Tablet (Pletal) Take 1 Tablet by mouth in the morning. 90 Tablet 1 024 Active Folic Acid 1 MG Oral TabletIndications:T ype 2 diabetes mellitus with stage 3b chronic kidney disease, without long-term current use of insulin ([facility]),Anemia of chronic disease,Gastroesoph ageal reflux disease with esophagitis without hemorrhage,Dyslipid emia, goal LDL below 100 TAKE 1 TABLET BY MOUTH IN THE MORNING AND BEFORE BEDTIME 180 Tablet 1 024 Active amLODIPine Besylate 10 MG Oral Tablet (Norvasc)Indication s:Type 2 diabetes mellitus with stage 3b chronic kidney disease, without long-term current use of insulin ([facility]),Anemia of chronic disease,Gastroesoph ageal reflux disease with esophagitis without hemorrhage,Dyslipid emia, goal LDL below 100 TAKE 1 TABLET BY MOUTH EVERY DAY IN THE MORNING 90 Tablet 1 024 Active Carvedilol 6.25 MG Oral Tablet (Coreg)Indications: Type 2 diabetes mellitus with stage 3b chronic kidney disease, without long-term current use of insulin ([facility]),Anemia of chronic disease,Gastroesoph ageal reflux disease with esophagitis without hemorrhage,Dyslipid emia, goal LDL below 100 TAKE 1 TABLET 2 TIMES A DAY WITH MORNING AND EVENING MEALS. 180 Tablet 1 024 Active glipiZIDE ER 2.5 MG Oral Tablet Extended Release 24 Hour (glipiZIDE XL)Indications:Type 2 diabetes mellitus with stage 3b chronic kidney disease, without long-term current use of insulin ([facility]),Anemia of chronic disease,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 30 minutes before a meal. Add to 5 mg tablet to equal 7.5 mg daily.. 90 Tablet 1 024 Active Trulicity 0.75 MG/0.5ML Subcutaneous Solution Auto-injector (Dulaglutide) Inject 0.75 mg under the skin once a week. DxE11.9 2 mL 3 024 Active Pantoprazole Sodium 20 MG Oral Tablet Delayed Release (Protonix)Indicatio ns:Type 2 diabetes mellitus with stage 3b chronic kidney disease, without long-term current use of insulin (HCC),Anemia of chronic disease,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 30 minutes before the first meal of the day. Do not crush, split or chew the tablet. 90 Tablet 1 024 Active Pantoprazole Sodium 20 MG Oral Tablet Delayed Release (Protonix)Indicatio ns:Type 2 diabetes mellitus with stage 3b chronic kidney disease, without long-term current use of insulin (HCC),Anemia of chronic disease,Gastroesoph ageal reflux disease with esophagitis without hemorrhage,Dyslipid emia, goal LDL below 100 TAKE 1 TABLET BY MOUTH IN THE MORNING. 30 MINUTES BEFORE THE FIRST MEAL OF THE DAY. DO NOT CRUSH, SPLIT OR CHEW THE TABLET. 90 Tablet 1 024 2023 Disconti nued(Ref ill) documented as of this encounter (statuses as of 04/16/2024) Active Problems Problem Noted Date Diagnosed Date [...] as of this encounter (statuses as of 04/16/2024) Resolved Problems Problem Noted Date Diagnosed Date [...] #1 ACTIVE CASE MANAGEMENT- Callie Sargent RN [phone] 10/06/2009 03/16/2010 HTN, GOAL BELOW 140/90 04/04/200906/25 [...] CHR BLOOD LOSS ANEMIA 2014 PURE HYPERCHOLESTEROLEM 12/12/2008 Overview (05/06/2009): Per Lipid Taxonomy. Type 2 diabetes mellitus wit h hemoglobin A1c goal of less than 7.0% 03/27/2009 Overview (09/23/2015): Per Diabetes Taxonomy. 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,R2axjmlpmrd body lesion probable heman documented as of this encounter (statuses as of 04/16/2024) Immunizations Name Administration Dates Next Due COVID-19 [...] Snuff Quit: 2019 Comments:62 years at 03/05 s moking Alcohol Use Standard Drinks/Week Comments No 0 (1 standard drink = 0.6 oz pur e alcohol) PHQ-2 Answer Date Recorded PHQ Adult Total Score 0 05/25/2023 Hunger Vital Sign Answer Date Recorded Within the past 12 months, y ou worried that your food would run out before you got the money to buy more. Never true 05/25/20 23 Within the past 12 months, t he food you bought just didn't last and you didn't have money to get more. Never true 05/25/2023 Childcare Answer Date Recorded Do you feel overwhelmed with taking care of a child, family member or friend? No 05/25/2023 Does your family need help f inding childcare? (Household - for ages 0-17 years) Not on file 05/25/2023 Clothing Answer Date Recorded Have you been unable to get clothing when it was really needed? No 05/25/2023 Is your family able to get c lothes or diapers when needed? (Household - for ages 0-17 years) Not on file 05/25/2023 Personal Safety Answer Date Recorded Do you feel unsafe or have concerns for your saf ety? No 05/25/2023 Do you have concerns for you r family's safety? (Household - for ages 0-17 years) Not on file 05/25/2023 Utilities Answer Date Recorded Do you have trouble paying y our heating, water, or electric bill? No 05/25/2023 Is your family able to pay t he heat, water, or electric bill? (Household - for ages 0-17 years) Not on file 05/25/2023 Does your family have access to good internet? (Household - for ages 0-17 years) Not on file 05/25/2023 Employment Status Answer Date Recorded Are you unemployed or without regular income? No 05/25/2023 Does the household have a re gular source of income? (Household - for ages 0-17 years) Not on file 05/25/2023 Social Connections Answer Date Recorded How often do you feel lonely or isolated from th ose around you? Never 05/25/2023 Financial Resource Strain Answer Date R ecorded Do you have any trouble payi ng for your medications, or do you think you might in the future? No 05/25/2023 Does your family have troubl e paying for medicine? (Household - for ages 0-17 years) Not on file 05/25/2023 Transportation Needs Answer Date Record ed READ ONLY Do you have troubl e getting a ride to medical visits or work? Never True 05/25/2023 Does your family have a hard time getting a ride to doctors visits? (Household - for ages 0-17 years) Not on file 05/25/2023 Has lack of transportation k ept you from medical appointments, meetings, work, or from getting things needed for daily living? Check all that apply. (Adult - for ages 18 years and over) Not on file 05/25/2023 Do you (or your family) have trouble finding or paying for a ride (transportation)? (Household - for ages 0-17 years) Not on file 05/25/2023 Housing Stability Answer Date Recorded Do you currently live in a s helter or have no steady place to sleep at night? No 05/25/2023 READ ONLY Do you think you a re at risk of becoming homeless? No 05/25/2023 Does your family worry about paying for your home or becoming homeless? (Household - for ages 0-17 years) Not on file 1 07/26/2022 Are you homeless or worried that you might be in the future? (Adult - for ages 18 years and over) Not on file Are you (or your family) viktoria eless or worried that you might be in the future? (Household - for ages 0-17 years) Not on file Food Insecurity Answer Date Recorded Do you need food for this week? No 05/25/2023 Are you able to get enough f ood for your family? (Household - for ages 0-17 years) Not on file 05/25/2023 Does your family need food t his week? (Household - for ages 0-17 years) Not on file 05/25/2023 Do you always have enough fo od for your family? (Household - for ages 0-17 years) Not on file 05/25/2023 Sex and Gender Information Value Date Recorded [...] Telephone Encounter - Ken Carson MD - 04/16/2024 2:55 PM EST Signed Prescriptions: Disp Refills Pantoprazole Sodium 20 MG Oral Tablet Lashawn*90 Tab*1 Sig: Take 1 Tablet by mouth in the morning. 30 minutes before the first meal of the day. Do not crush, split or chew the tablet.Authorizing Provider: KEN CARSON * Telephone Encounter - Cheryl Barrow RPh - 04/16/2024 2:43 PM EST Patient requesting refill of Pantoprazole. Pended for approval. Thanks! Cheryl Barrow RPh, PharmD Clinical Pharmacist - Finishing Area Supervisor Medication Therapy [facility] 04/16/2024, 2:53 PM [phone] documented in this encounter Plan of Treatment Upcoming Encounters Date Type Department Care Team (Late st Contact Info) Description 05/01/2024 2:00 PM EST Office Visit Ophthalmology, [facility] [address] [facility] [place] [id number] [place], [address] [place] [id number] 05/07/2024 11:30 AM EST Office Visit Pharmacy, [address] [place] [phone] [place] [phone] 05/29/2024 11:00 AM EST Nurse Only Ancillary [address] [place] [phone] [place], Nurse [address] [place] [id number] 07/19/2024 3:00 PM EST Office Visit [address] [place] [phone] Kena Razo PA-C [address] [place] [address] [place] [phone] 08/06/2024 2:00 PM EDT Cardiac Studies Cardiac Studies, [facility] [address] [facility] [place] [address] 09/07/2024 1:30 PM EDT Office Visit Cardiology, [facility] [address] [place] [address] [place], [address] [facility] [place] [address] 09/07/2024 3:00 PM EDT Office Visit Nephrology, [address] [place] [address] Betty Kasper MD [address] [place] [address] [place] [address] 02/11/2025 1:20 PM EDT Office Visit [address] [place] [phone] Ken Carson MD [address] [place] [address] [place] [id number] Health Maintenance Due Date Last Done Comments Zoster Vaccines (2 of 3) 02/06/2012 12/12/2011 DTap/Tdap Vaccines (2 - Td or Tdap) 08/15/2021 08/16/2011, 01/17/2002 Diabetic Foot Exam 03/08/2023 03/08/2022, 0 07/19/2019, 09/04/2018, Additional history exists COVID-19 Vaccine ( season) 2024 06/20/2023, 03/23/2022, 05/19/2021, Additional history exists Adult Wellness Visit 05/25/2024 05/25/2023, 05/19/2022, 05/19/2021 Depression Screening 05/25/2024 05/25/2023 Diabetic Eye Exam 07/11/2024 07/11/2023, , 09/01/2021, Additional history exists HbA1c 07/27/2024 01/26/2024, 11/29, 09/13/2023, Additional history exists Albumin/Creatinine Ratio 01/25/2025 024, 01/28/2023, 04/14/2022, Additional history exists CKD HGB USE SMARTSET 45243 01/25/202501/25, 01/26/2024, 10/05/2023, Additional history exists CKD PHOS USE SMARTSET 23602 01/25/2025 082 01/2024, 09/09/2023, 04/14/2022, Additional history exists Pneumococcal Vaccine: 65+ Years Completed 09/26/2015, 11/23/2007 Influenza Vaccine (FLU [...] Discussed due to patient's condition Care Teams Commercial Banker Relationship Specialty Start Date End Date Ken Carson MD [address] [place] [address] [place] [phone] PCP - General Family Medicine 04/18/12 documented as of this encounter
--- OUTSIDE RECORDS SUMMARY | 2024-08-19 12:33 | External Medical Summary | Summary of Care ---
Author Name Unknown Organization [facility] Address [address] [place] [address] Phone [phone] Care Team Providers Care Binding Printer Name Role Phone Ken Carson MD Primary Care Provide r Reason for Visit * Reason Comments Dosage Adjustment In Person (Anticoag Cl inic) Diabetes Follow-Up Encounter Details Date Type Department Care Team (Late st Contact Info) Description 05/07/2024 11:30 AM EST Office Visit Pharmacy, [address] [place] [phone] [place] [address] Type 2 diabetes mellitus with stage 3b chronic kidney disease, without long-term current use of insulin (HCC)*; Anemia of chronic disease; Gastroesophageal reflux disease with esophagitis without hemorrhage; Dyslipidemia, goal LDL below 100 Allergies No known active allergiesdocumented as of this encounter (statuses as of 05/07/2024) Medications zoster vac recomb adjuvanted (SHINGRIX) 50 MCG/0.5ML injection Inject 0.5 mL into a large muscle now and repeat dose in 60 to 180 days. Please fax date this was given to our office. 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 Dx E11.9 1 Each 021 [...] disease, without long-term current use of insulin ([facility]),Anemia of chronic disease,Gastroesop hageal reflux disease with esophagitis without hemorrhage,Dyslipi demia, goal LDL below 100 Take 1 Tablet by mouth in the morning. 90 Tablet 1 023 Active Vitamin D 25 MCG (1000 UT) Oral TabletIndications: Type 2 diabetes mellitus with stage 3b chronic kidney disease, without long-term current use of insulin ([facility]),Anemia of chronic disease,Gastroesop hageal reflux disease with esophagitis without hemorrhage,Dyslipi demia, goal LDL below 100 Take 1 tablet every other day 90 Tablet 1 023 Active metFORMIN HCl ER 500 MG Oral Tablet Extended Release 24 Hour (Glucophage XR)Indications:Typ e 2 diabetes mellitus with hemoglobin A1c goal of less than 8.0% ([facility]) Take 1 Tablet by mouth in the morning. 90 Tablet 3 024 Active Vitamin C 500 MG Oral Capsule Take 2 Tablets by mouth in the morning. 023 Active Aspirin 81 MG Oral Tablet ChewableIndication s:Type 2 diabetes mellitus with stage 3b chronic kidney disease, without long-term current use of insulin (HCC),Anemia of chronic disease,Gastroesop hageal reflux disease with esophagitis without hemorrhage,Dyslipi demia, goal LDL below 100 Take 1 Tablet by mouth in the morning. with food.. 100 Tablet 2 Active Famotidine 20 MG Oral Tablet (Pepcid)Indication s:Type 2 diabetes mellitus with stage 3b chronic kidney disease, without long-term current use of insulin ([facility]),Gastroesopha geal reflux disease with esophagitis without hemorrhage [...] Drop into both eyes in the morning. Active glipiZIDE ER 5 MG Oral Tablet Extended Release 24 Hour (Glucotrol XL)Indications:Typ e 2 diabetes mellitus with stage 3b chronic kidney disease, without long-term current use of insulin ([facility]),Anemia of chronic disease,Gastroesop hageal reflux disease with esophagitis without hemorrhage,Dyslipi demia, goal LDL below 100 TAKE 1 TABLET BY MOUTH IN THE MORNING. 30 MINUTES BEFORE A MEAL.. 90 Tablet 1 024 Active Atorvastatin Calcium 40 MG Oral Tablet (Lipitor)Indicatio ns:Type 2 diabetes mellitus with stage 3b chronic kidney disease, without long-term current use of insulin ([facility]),Anemia of chronic disease,Gastroesop hageal reflux disease with [...] A1c goal of less than 8.0% (HCC) test blood sugars once daily 100 Strip 3 024 Active Cilostazol 50 MG Oral Tablet (Pletal) Take 1 Tablet by mouth in the morning. 90 Tablet 1 024 Active Folic Acid 1 MG Oral TabletIndications: Type 2 diabetes mellitus with stage 3b chronic kidney disease, without long-term current use of insulin (HCC),Anemia of chronic disease,Gastroesop hageal reflux disease with esophagitis without hemorrhage,Dyslipi demia, goal LDL below 100 TAKE 1 TABLET BY MOUTH IN THE MORNING AND BEFORE BEDTIME 180 Tablet 1 024 Active amLODIPine Besylate 10 MG Oral Tablet (Norvasc)Indicatio ns:Type 2 diabetes mellitus with stage 3b chronic kidney disease, without long-term current use of insulin ([facility]),Anemia of chronic disease,Gastroesop hageal reflux disease with esophagitis without hemorrhage,Dyslipi demia, goal LDL below 100 TAKE 1 TABLET BY MOUTH EVERY DAY IN THE MORNING 90 Tablet 1 024 Active Carvedilol 6.25 MG Oral Tablet (Coreg)Indications :Type 2 diabetes mellitus with stage 3b chronic kidney disease, without long-term current use of insulin ([facility]),Anemia of chronic disease,Gastroesop hageal reflux disease with esophagitis without hemorrhage,Dyslipi demia, goal LDL below 100 TAKE 1 TABLET 2 TIMES A DAY WITH MORNING AND EVENING MEALS. 180 Tablet 1 024 Active glipiZIDE ER 2.5 MG Oral Tablet Extended Release 24 Hour (glipiZIDE XL)Indications:Typ e 2 diabetes mellitus with stage 3b chronic kidney disease, without long-term current use of insulin ([facility]),Anemia of chronic disease,Gastroesop hageal reflux disease with esophagitis without hemorrhage,Dyslipi demia, goal LDL below 100 Take 1 Tablet by mouth in the morning. 30 minutes before a meal. Add to 5 mg tablet to equal 7.5 mg daily.. 90 Tablet 1 024 Active Pantoprazole Sodium 20 MG Oral Tablet Delayed Release (Protonix)Indicati ons:Type 2 diabetes mellitus with stage 3b chronic kidney disease, without long-term current use of insulin (HCC),Anemia of chronic disease,Gastroesop hageal reflux disease with esophagitis without hemorrhage,Dyslipi demia, goal LDL below 100 Take 1 Tablet by mouth in the morning. 30 minutes before the first meal of the day. Do not crush, split or chew the tablet. 90 Tablet 1 024 Active Januvia 50 MG Oral TabletIndications: Type 2 diabetes mellitus with stage 3b chronic kidney disease, without long-term current use of insulin (HCC),Anemia of chronic disease,Gastroesop hageal reflux disease with esophagitis without hemorrhage,Dyslipi demia, goal LDL below 100 Take one daily In the morning. 90 Tablet 1 024 Active Trulicity 0.75 MG/0.5ML Subcutaneous Solution Auto-injector (Dulaglutide) Inject 0.75 mg under the skin once a week. 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,[id number] body lesion probable heman documented as of this encounter (statuses as of 05/07/2024) Immunizations Name Administration Dates Next Due COVID-19 mRNA, LNP-s, No Pre serve, 2-Dose Series (Moderna) 07/08/2020,06/10/2020 COVID-19, mRNA, LNP-s, PF, B ooster, 100mcg/0.5mg (Moderna) 05/19/2021 Covid-19, Mrna, Lnp-s, Pf, B ivalent, 25 Mcg, IM,6-11 yrs (Moderna) 04/30/2021 Covid-19, Mrna, Lnp-s, Pf, B ivalent, 30 Mcg, IM, 12 yrs and above (Droplet) 03/23/2022 Influenza, Whole Virus 03/10/1999 Pneumococcal Conjugate [...] in this encounter Progress Notes * Cheryl Barrow [facility] - 05/07/2024 11:33 AM EST Medication Therapy Disease Management [facility] - Diabetes Management Progress Note Shaan Pugh, identified by name and date of , is a 88 year old male being seen for diabetes management/education. Patient presents for return diabetic visit. DIABETES: Current diabetic medications: Glipizide 7.5 mg daily (5mg + 2.5mg tablets) STOP Januvia 50mg daily (restarted) START Trulicity 0.75mg once weekly (stopped taking) Metformin ER 500mg daily eGFR 49 as of 01/26/24 Medication Injection Site: Abdomen Lifestyle: Diet: unchanged Glucose Review/SMBG: Readings obtained from patient documented BG logbook Pre am Pre Lunch Pre pm HS 129 222 137 164 123 181 170 145 160 184 163 186 147 204 220 149 107 171 122 188 136 198 100 125 151 177 111 171 Average 130 185 156 166 Hi 160 222 220 188 Lo [address] 128.5 184.86258 153.8 166.333 Range 53 71 120 43 Hypoglycemia: Does your blood sugar go below 70 mg/dL? No Hyperglycemia symptoms present: none Recent Labs Units 01/26/24 1335 12/27/23 1309 09/13/23 0843 HEMOGLOBIN A1C - [facility] % 9.0* -- 8.4* HEMOGLOBIN A1C POCT - [facility] % -- 8.4* -- Recent Labs Units 01/26/24 1335 10/05/23 1212 09/13/23 0843 ESTIMATED GLOMERULAR FILTRATION RATE - [facility] mL/min 49* 51* 47* CREATININE - [facility] mg/dL 1.4* 1.4* 1.5* HYPERTENSION: Patient on ACEi/ARB: no, deferred BP Readings from Last 3 Encounters: 03/08/24 129/74 01/17/24 138/78 10/05/23 142/82 Blood pressure at goal: yes HYPERLIPIDEMIA: Recent Labs Units 01/26/24 1335 09/09/23 1536 LDL CHOLESTEROL (CALCULATED) - [facility] mg/dL 76 56 Does patient have clinical ASCVD? No, is patient LDL less than 70mg/dL? No: No changes at this time HEALTH MAINTENANCE REVIEW: Health Maintenance Due Topic Date Due Zoster Vaccines (2 of 3) 02/06/2012 DTap/Tdap Vaccines (2 - Td or Tdap) 08/15/2021 Diabetic Foot Exam 03/08/2023 COVID-19 Vaccine ( season) 2024 Depression Screening 05/25/2024 Adult Wellness Visit 05/25/2024 ASSESSMENT & PLAN: ICD-10-CM 1. Type 2 diabetes mellitus with stage 3b chronic kidney disease, without long- term current use of insulin (HCC) E11.22 N18.32 Considerations: PACE - still concerned with cost Back surgery November 2022, Metformin stopped at that time d/t ROSANNA Renal fx returned to baseline Jardiance --> genital infection requiring treatment, avoid SGLT2 use BG Readings - Blood sugars reviewed. Due for updated A1c to assess, ordered for patient to obtain. Medications - Reviewed current regimen. Patient reports he felt very poorly after Trulicity injection. This wore off after about a week but still notes to feeling fatigued, some stomach upset. He didreport he "over indulged" on brownies this past weekend which made him very sick. Patient only tookx1 dose of Trulicity, discussed this should have been out of his system after about a week. Inquiring on if he has a stomach bug in addition to this, agreeable to schedule sooner assessment with provider. Patient inquiring on additional once weekly injectable options. We discussed that due to similar MOA, likely to have same KWADWO. However, would not recommend to trial these until patient has returned to baseline. Patient expressed understanding. Diet, Exercise, Lifestyle - No significant lifestyle changes since last visit. Patient is agreeable to SMBG 1 time(s) daily on rotation Patient aware to contact clinic if any hypoglycemia before next visit. MEDICATION CHANGES: See below Diabetic Medications: Glipizide 7.5 mg daily (5mg + 2.5mg tablets) RESTART Januvia 50mg daily Metformin ER 500mg daily eGFR 49 as of 01/26/24 HEALTH MAINTENANCE INTERVENTIONS: Labs: Up to Date Immunizations: Due for tdap, covid Foot Exam: Due Eye Exam: Up to Date Annual Wellness Visit: Up to Date FOLLOW UP: Return to clinic in 4 weeks 06/07/2024 I spent a total of 30-39 minutes (exact time 35 mins) on the date of service in preparation, delivery, and documentation of the care provided to Shaan Henry Pugh excluding any time spent in the performance of separately billed services. Cheryl Barrow [facility] Clinical Pharmacist - [facility]k Spreader Medication Therapy Management Clinic 05/07/2024, 11:33 AM documented in this encounter Plan of Treatment Upcoming Encounters Date Type Department Care Team (Late st Contact Info) Description 05/08/2024 1:00 PM EST Office Visit Family [address] [place] [phone] Kena Razo PA-C [address] [place] [address] [place] [phone] 05/29/2024 11:00 AM EST Nurse Only Ancillary [address] [place] [address] [place], Nurse [address] [place] [address] 06/07/2024 11:30 AM EST Office Visit Pharmacy, [address] [place] [phone] [place] [address] 07/19/2024 3:00 PM EST Office Visit [address] [place] [phone] Kena Razo PA-C [address] [place] [address] [place] [phone] 08/06/2024 2:00 PM EDT Cardiac Studies Cardiac Studies, [facility] [address] [place] [address] 09/07/2024 1:30 PM EDT Office Visit Cardiology, [facility] [address] [place] [address] [place]ong [place], DO [address] [place] [address] 09/07/2024 3:00 PM EDT Office Visit Nephrology, [facility] [address] [place] [address] Betty Kasper MD [address] [place] [address] 10/30/2024 1:30 PM EDT Office Visit Ophthalmology, [facility] [address] [place] [address] Kirby Yousif DO [address] [place] [address] 02/11/2025 1:20 PM EDT Office Visit Family Medicine [address] [place] [phone] Ken Carson MD [address] [place] [address] [place] [phone] Pending Results Name Type Priority Associated Diagnoses Date /Time HEMOGLOBIN A1C Lab Routine Type 2 diabetes mellitus with stage 3b chronic kidney disease, without long-term current use of insulin (HCC) 05/07/2024 11:55 AM EST Scheduled Orders Name Type Priority Associated Diagnoses Orde r Schedule HEMOGLOBIN A1C Lab Routine Type 2 diabetes mellitus with stage 3b chronic kidney disease, without long-term current use of insulin (HCC) Expected: 05/07/2024 (Approximate), Expires: 05/07/2025 Health Maintenance Due Date Last Done Comments [...] 09/01/2021, Additional history exists HbA1c 07/27/2024 01/26/2024, 07/, 09/13/2023, Additional history exists Albumin/Creatinine Ratio 01/25/2025 024, 01/28/2023, 04/14/2022, Additional history exists CKD HGB USE SMARTSET 85960 01/25/202501/25, 01/26/2024, 10/05/2023, Additional history exists CKD PHOS USE SMARTSET 79669 01/25/2025 082 01/2024, 09/09/2023, 04/14/2022, Additional history [...] long-term current use of insulin (HCC)- Primary Anemia of chronic disease Anemia of other [...] Discussed due to patient's condition Care Teams Binding Printer Relationship Specialty Start Date End Date Ken Carson MD [address] [place] [address] [place] [phone] PCP - General Family Medicine 04/18/12 documented as of this encounter
--- OUTSIDE RECORDS SUMMARY | 2024-08-19 12:33 | External Medical Summary | Summary of Care ---
Author Name Unknown Organization [facility] Address [address] [address] Phone [phone] Care Team Providers Care Outcome Analyst Name Role Phone Ken Carson MD Primary Care Provide r Reason for Visit * Reason Comments Follow Up Encounter Details Date Type Department Care Team (Late st Contact Info) Description 05/01/2024 2:00 PM EST Office Visit Ophthalmology, [facility] [address] [place] [address] Kirby Yousif, DO [address] [place] [address] Rhegmatogenous retinal detachment of left eye* Allergies No known active allergiesdocumented as of this encounter (statuses as of 05/01/2024) Medications zoster vac recomb adjuvanted (SHINGRIX) 50 MCG/0.5ML injection Inject 0.5 mL into a large muscle now and repeat dose in 60 to 180 days. Please fax date this was given to our office. 1 Each 1 07/19/19 20 Active Additional Information Patient not taking.Reported on [...] without long-term current use of insulin ([facility]),Anemia of chronic disease,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 90 Tablet 3 06/20/19 24 Active Vitamin C 500 MG Oral Capsule Take 2 Tablets by mouth in the morning. 06/30/19 23 Active Aspirin 81 MG Oral Tablet ChewableIndications :Type 2 diabetes mellitus with stage 3b chronic kidney disease, without long-term current use of insulin ([facility]),Anemia of chronic disease,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 with food.. 100 Tablet 2 07/09/19 24 Active Famotidine 20 MG Oral Tablet (Pepcid)Indications :Type 2 diabetes mellitus with stage 3b chronic kidney disease, without long-term current use of insulin ([facility]),Gastroesophag eal reflux disease with esophagitis without hemorrhage [...] ia, goal LDL below 100,Ascending aorta dilatation ([facility]),Fatigue, unspecified type Instill 1 Drop into both eyes in the morning. 08/26/19 24 Active glipiZIDE ER 5 MG Oral Tablet Extended Release 24 Hour (Glucotrol XL)Indications:Type 2 diabetes mellitus with stage 3b chronic kidney disease, without long-term current use of insulin ([facility]),Anemia of chronic disease,Gastroesoph ageal reflux disease with esophagitis without hemorrhage,Dyslipid emia, goal LDL below 100 TAKE 1 TABLET BY MOUTH IN THE MORNING. 30 MINUTES BEFORE A MEAL.. 90 Tablet 1 01/25/20 24 Active Atorvastatin Calcium 40 MG Oral Tablet (Lipitor)Indication s:Type 2 diabetes mellitus with stage 3b chronic kidney disease, without long-term current use of insulin ([facility]),Anemia of chronic disease,Gastroesoph ageal reflux disease with [...] A1c goal of less than 8.0% ([facility]) test blood sugars once daily 100 [...] without long-term current use of insulin ([facility]),Anemia of chronic disease,Gastroesoph ageal reflux disease with esophagitis without hemorrhage,Dyslipid emia, goal LDL below 100 TAKE 1 TABLET 2 TIMES A DAY WITH MORNING AND EVENING MEALS. 180 Tablet 1 04/10/20 24 Active glipiZIDE ER 2.5 MG Oral Tablet Extended Release 24 Hour (glipiZIDE XL)Indications:Type 2 diabetes mellitus with stage 3b chronic kidney disease, without long-term current use of insulin ([facility]),Anemia of chronic disease,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 30 minutes before a meal. Add to 5 mg tablet to equal 7.5 mg daily.. 90 Tablet 1 04/12/20 24 Active Trulicity 0.75 MG/0.5ML Subcutaneous Solution Auto-injector (Dulaglutide) Inject 0.75 mg under the skin once a week. 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 30 minutes before the first meal of the day. Do not crush, split or chew the tablet. 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 Last Office Visit: 07/11/2023 (in office), Visit date not found (telemedicine) Patient currently states "something going on with my left eye for a couple months" Are you diabetic? Yes. Do you check your blood sugars daily? YES. Fasting BS this mornin mg/dl. Last Hemoglobin A1C: Lab Results Component Value Date/Time HGBA1C 9.0 (H) 01/26/2024 01:35 PM HGBA1C 8.4 (H) 12/27/2023 01:09 PM HGBA1C 8.4 (H) 09/13/2023 08:43 AM HGBA1C 9.6 (H) 06/28/2023 11:46 AM HGBA1C 9.8 (H) 05/27/2023 09:59 AM HGBA1C 8.0 (H) 02/18/2020 01:14 PM HGBA1C 7.6 (H) 04/30/2019 09:00 AM HGBA1C 7.5 (H) 10/26/2018 08:[address]? yes OCT image(s) of both eyes acquired and filed/scanned into chart. Base Eye Exam Visual Acuity (Snellen - Linear) Right Left Dist cc 20/25 20/60 -2 Dist ph cc NI Correction: Glasses Tonometry (Tonopen, 2:07 PM) Right Left Pressure 16 16 Pupils Shape React APD Right Round Brisk None Left Round Minimal None Visual Owusu (Counting fingers) Right Left Full Restrictions Total inferior nasal deficiency Extraocular Movement Right Left Full, Ortho Full, Ortho Neuro/Psych Oriented x3: Yes Mood/Affect: Normal Dilation Both eyes: 0.5% Proparacaine @ 2:05 PM Dilation #2 Both eyes: 1.0% Mydriacyl, 2.5% Phenylephrine @ 2:07 PM Dilation #3 Both eyes: 1.0% Mydriacyl, 2.5% Phenylephrine @ 2:09 PM Dilation Comments Patient cautioned that effects of dilation may last 2-7 hours dependant upon individual reaction. It was discussed that driving while dilated is not recommended. EXTERNAL: The ocular adnexae are unremarkable. SLE: Lids/Lashes: wnl OU Conjunctiva/Sclera: quiet OU Cornea: clear OU Anterior Chamber: deep and quiet OU Iris: normal OU; no NVI OU Lens: PCIOL OU Dilated fundus exam OD: vitreous: pvd optic nerve: myopic, no edema/pallor/NVD macula: wnl vessels: wnl periphery: no RT/RD Dilated fundus exam OS: vitreous: clear optic nerve: myopic, w/ some pallor no edema/NVD macula: wnl vessels: wnl periphery: laser extending from 2 o'clock-7 o'clock, [RD from 2-6:30 o'clock -no new breaks found; 2 retinal holes [address] from 5-6:30 w/ some demarcation changes at temporal and nasal edge] OCT Interpretation: OD: trace ERM, +myopic, no CME/SRFluid - stable OS: trace ERM, no cme/srfluid--stable A/P: 1. H/o Schisis/RD (macula off) OS -S/P 23G PPV/EL/C3F8 14%/SubTenon's Triesence 20mg -surgery date: 06/18/2019 -stable 2. H/o High Myopia OU -no retinopathy 3. DM2 -no retinopathy -recommend HgbA1C <7, BP and lipid control. 4. Glaucoma OD<OS -followed by [facility]/Dr. Jimenez -uses timolol OU 5. Pseudophakia OU -stable F/u 6 months per pt pref or sooner if problems - dilate OU x 2 and OCT OU Kirby Yousif DO CC: Neftali Jimenez, OD PCP: Ken Carson MD documented in this encounter Nursing Notes * Luba Klein TECH - 05/01/2024 1:59 PM EST Shaan Pugh is a 88 year old year old male who presents for h/o schisis/RD OS. Last Office Visit: 07/11/2023 (in office), Visit date not found (telemedicine) Patient currently states "something going on with my left eye for a couple months" Are you diabetic? Yes. Do you check your blood sugars daily? YES. Fasting BS this mornin mg/dl. Last Hemoglobin A1C: Lab Results Component Value Date/Time HGBA1C 9.0 (H) 01/26/2024 01:35 PM HGBA1C 8.4 (H) 12/27/2023 01:09 PM HGBA1C 8.4 (H) 09/13/2023 08:43 AM HGBA1C 9.6 (H) 06/28/2023 11:46 AM HGBA1C 9.8 (H) 05/27/2023 09:59 AM HGBA1C 8.0 (H) 02/18/2020 01:14 PM HGBA1C 7.6 (H) 04/30/2019 09:00 AM HGBA1C 7.5 (H) 10/26/2018 08:[address]? yes OCT image(s) of both eyes acquired and filed/scanned into chart. documented in this encounter Plan of Treatment Upcoming Encounters Date Type Department Care Team (Late st Contact Info) Description 05/07/2024 11:30 AM EST Office Visit Pharmacy, [address] [place] [phone] [place] [phone] 05/29/2024 11:00 AM EST Nurse Only Ancillary [address] [place] [address] [place], Nurse [address] [place] [phone] 07/19/2024 3:00 PM EST Office Visit Family Medicine [address] [phone] Kena Razo PA-C [address] [place] [address] [place] [phone] 08/06/2024 2:00 PM EDT Cardiac Studies Cardiac Studies, [facility] [address] [facility] [place] [address] 09/07/2024 1:30 PM EDT Office Visit Cardiology, [facility] [address] [facility] [place] [address] [place]ong [place], DO [facility] [place] [address] 09/07/2024 3:00 PM EDT Office [address] [address] Betty Kasper MD [address] [place] [address] [place] [address] 10/30/2024 1:30 PM EDT Office Visit Ophthalmology, [facility] [address] [facility] [place], [place] [address] Kirby Yousif, DO [address] [facility] [place] [address] 02/11/2025 1:20 PM EDT Office Visit Family Medicine [address] [place] [phone] Ken Carson MD [address] [place] [address] [place] [id number] Scheduled Orders Name Type Priority Associated Diagnoses Orde r Schedule RETINA SCAN DIAGNOSTIC IMAGE, POSTERIOR Procedures Routine Rhegmatogenous retinal detachment of left eye Ordered: 05/01/2024 FUNDUS PHOTOGRAPHY Procedures Routine Rhegmatogenous retinal detachment of left eye Ordered: 05/01/2024 Health Maintenance Due Date Last Done Comments [...] 09/01/2021, Additional history exists HbA1c 07/27/2024 01/26/2024, 07/3 , 09/13/2023, Additional history exists Albumin/Creatinine Ratio 01/25/2025 024, 01/28/2023, 04/14/2022, Additional history exists CKD HGB USE SMARTSET 07226 01/25/202501/25, 01/26/2024, 10/05/2023, Additional history exists CKD PHOS USE SMARTSET 99826 01/25/202512/29, 09/09/2023, 04/14/2022, Additional history exists Pneumococcal Vaccine: [...] as of this encounter Visit Diagnoses Diagnosis Rhegmatogenous retinal detachment of left eye- Primary Retinal detachment with retinal defect, unspecified documented in this encounter Advance Directives * [...] Discussed due to patient's condition Care Teams Outcome Analyst Relationship Specialty Start Date End Date Ken Carson MD [address] [place] [address] [place] [phone] PCP - General Family Medicine 04/18/12 documented as of this encounter
--- OUTSIDE RECORDS SUMMARY | 2024-08-19 12:33 | External Medical Summary ---
Author Name Unknown Address Unknown Organization [id number]:[facility] - [address] [facility] [address] Laboratory Report Ordering Provider Test Date Status MARJAN MURILLO 05/07/2024 11:55:02 Final Observation Date Value Abnormality Reference (Units ) Status HbA1C 05/07/2024 11:55:02 8.3 Above high normal 4. 0-5.6 (%) Final The use of HbA1c to monitor glycemic status is based on normal hemoglobin and HbA composition. This test should not be used in patients with abnormal hemoglobin that affects the half life of the red blood cell or the in vivo glycation rates. Glucose, estimated average 05/07/2024 11:55:02 192 Above high normal <126 (mg/dL) Vinicio al Performing Location [facility] - [address] [facility] [address]
--- OUTSIDE RECORDS SUMMARY | 2024-08-19 12:33 | External Medical Summary | Summary of Care ---
Author Name Unknown Organization [facility] Address [address] [place] [address] Phone [phone] Care Team Providers Care Senior Program Analyst Name Role Phone Ken Carson MD Primary Care Provide r Reason for Visit * Reason Comments Acute Encounter Details Date Type Department Care Team (Latest Contact Info) Description 05/08/2024 1:00 PM EST Office Visit Family Medicine [address] [phone] Kena Razo PA-C [address] [place] [address] [place] [phone] Gastroesophageal reflux disease with esophagitis without hemorrhage*; Type 2 diabetes mellitus with stage 3b chronic kidney disease, without long-term current use of insulin (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) Use daily. Dx E11.9 1 Each 021 [...] disease, without long-term current use of insulin ([facility]),Anemia of chronic disease,Gastroesop hageal reflux disease with esophagitis without hemorrhage,Dyslipi demia, goal LDL below 100 Take 1 Tablet by mouth in the morning. 90 Tablet 1 023 Active Vitamin D 25 MCG (1000 UT) Oral TabletIndications: Type 2 diabetes mellitus with stage 3b chronic kidney disease, without long-term current use of insulin ([facility]),Anemia of chronic disease,Gastroesop hageal reflux disease with esophagitis without hemorrhage,Dyslipi demia, goal LDL below 100 Take 1 tablet every other day 90 Tablet 1 023 Active metFORMIN HCl ER 500 MG Oral Tablet Extended Release 24 Hour (Glucophage XR)Indications:Typ e 2 diabetes mellitus with hemoglobin A1c goal of less than 8.0% ([facility]) Take 1 Tablet by mouth in the morning. 90 Tablet 3 024 Active Vitamin C 500 MG Oral Capsule Take 2 Tablets by mouth in the morning. 023 Active Aspirin 81 MG Oral Tablet ChewableIndication s:Type 2 diabetes mellitus with stage 3b chronic kidney disease, without long-term current use of insulin ([facility]),Anemia of chronic disease,Gastroesop hageal reflux disease with esophagitis without hemorrhage,Dyslipi demia, goal LDL below 100 Take 1 Tablet by mouth in the morning. with food.. 100 Tablet 2 024 Active Famotidine 20 MG Oral Tablet (Pepcid)Indication s:Type 2 diabetes mellitus with stage 3b chronic kidney disease, without long-term current use of insulin ([facility]),Gastroesopha geal reflux disease with esophagitis without hemorrhage Take 1 Tablet by mouth every night at bedtime. 90 Tablet 1 Active Prodigy Lancing Device Use as directed [...] disease, without long-term current use of insulin ([facility]),Anemia of chronic disease,Gastroesop hageal reflux disease with esophagitis without hemorrhage,Dyslipi demia, goal LDL below 100 TAKE 1 TABLET BY MOUTH IN THE MORNING. 30 MINUTES BEFORE A MEAL.. 90 Tablet 1 024 Active Atorvastatin Calcium 40 MG Oral Tablet (Lipitor)Indicatio ns:Type 2 diabetes mellitus with stage 3b chronic kidney disease, without long-term current use of insulin ([facility]),Anemia of chronic disease,Gastroesop hageal reflux disease with [...] hemoglobin A1c goal of less than 8.0% ([facility]) test blood sugars once daily 100 Strip 3 Active Cilostazol 50 MG Oral Tablet (Pletal) [...] disease, without long-term current use of insulin ([facility]),Anemia of chronic disease,Gastroesop hageal reflux disease with esophagitis without hemorrhage,Dyslipi demia, goal LDL below 100 TAKE 1 TABLET 2 TIMES A DAY WITH MORNING AND EVENING MEALS. 180 Tablet 1 024 Active glipiZIDE ER 2.5 MG Oral Tablet Extended Release 24 Hour (glipiZIDE XL)Indications:Typ e 2 diabetes mellitus with stage 3b chronic kidney disease, without long-term current use of insulin ([facility]),Anemia of chronic disease,Gastroesop hageal reflux disease with esophagitis without hemorrhage,Dyslipi demia, goal LDL below 100 Take 1 Tablet by mouth in the morning. 30 minutes before a meal. Add to 5 mg tablet to equal 7.5 mg daily.. 90 Tablet 1 024 Active Januvia 50 [...] mouth in the morning. 30 Tablet 5 024 Active zoster vac recomb adjuvanted (SHINGRIX) 50 MCG/0.5ML injection Inject 0.5 mL into a large muscle now and repeat dose in 60 to 180 days. Please fax date this was given to our office. 1 Each 1 020 2023 Discontinued( Patient preference/di scontinuation ) Pantoprazole Sodium 20 MG Oral Tablet Delayed [...] chew the tablet. 90 Tablet 1 024 2023 Discontinued( Refill) Famotidine 20 MG Oral Tablet (Pepcid)Indication s:Gastroesophageal reflux disease with esophagitis without hemorrhage Take 1 Tablet by mouth in the morning and 1 Tablet before bedtime. 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,B7opgadhmps body lesion probable heman documented as of this encounter (statuses as of 05/08/2024) Immunizations Name Administration Dates Next Due COVID-19 [...] Sign Reading Time Taken Comments Blood Pressure 128/60 05/08/2024 12:56 PM EST Pulse 86 05/08/2024 12:56 PM EST Temperature 36 C (96.8 F) 05/08/2024 12:56 PM EST Respiratory Rate 16 05/08/2024 12:56 PM EST Oxygen Saturation 95% 05/08/2024 12:56 PM EST Inhaled Oxygen Concentration - - Weight 80.3 kg (177 lb) 05/08/2024 12:56 PM EST Height 172.7 cm (5' 8") 05/08/2024 12:56 PM EST Body Mass Index 26.91 05/08/2024 12:56 PM EST documented in this [...] Progress Notes * Kena Razo PA-C - 05/08/2024 1:01 PM EST Nursing Notes: Batool Lynch RN 05/08/24 1307 Sign at exiting of workspace Acute visit. Pt is not feeling well. Has a lot of indigestion, getting lightheaded x several days, starting to feel better today. Pt states he has a history of a peptic ulcer, would like this checked He also has decreased urination in the morning, hands have been stiff. He started to drink more fluids and urine output is better and that also helped his hands Pt here today with heartburn, belching, bloating for the past month. It started after he took his first trulicity shot. He stopped it immediately after this. Pt states that his sx have improved. He did eat a brownie the other day and had some belching, heartburn. Pt is taking his pepcid and protonix. Pt denies abdominal pain, fever, chills, nausea, vomiting, diarrhea, blood in stool, black stool,mucus in stool, chest pain, SOB, cough. Pt did increase his fluids and that did help some of his sx. Review of patient's allergies indicates: No Known [...] tablet every other day 90 Tablet 1 metFORMIN HCl ER 500 MG Oral Tablet Extended Release 24 Hour (Glucophage XR) Take 1 Tablet by mouthin the morning. 90 Tablet 3 Vitamin C 500 MG Oral Capsule Take 2 Tablets by mouth in the morning. Aspirin 81 MG Oral Tablet Chewable Take 1 Tablet by mouth in the morning. with food.. 100 Tablet 2 Famotidine 20 MG Oral Tablet (Pepcid) Take 1 Tablet by mouth every night at bedtime. 90 Tablet 1 Prodigy Lancing Device Use as directed to test blood sugars once daily 1 Each 0 Fluticasone Propionate 50 MCG/ACT Nasal Suspension (Flonase) SPRAY 2 SPRAYS INTO EACH NOSTRIL IN THE MORNING 16 mL 5 Timolol Maleate 0.5 % Ophthalmic Solution (Timoptic) Instill 1 Drop into both eyes in the morning. glipiZIDE ER 5 MG Oral Tablet Extended Release 24 Hour (Glucotrol XL) TAKE 1 TABLET BY MOUTH IN THEMORNING. 30 MINUTES BEFORE A MEAL.. 90 Tablet 1 Atorvastatin Calcium 40 MG Oral Tablet (Lipitor) TAKE 1 TABLET BY MOUTH EVERYDAY AT BEDTIME 90 Tablet 1 Prodigy Lancets 28G Use to test blood sugars once daily 100 Each 3 Prodigy No Coding Blood Gluc In Vitro Strip (Glucose Blood) test blood sugars once daily 100 Strip 3 Cilostazol 50 MG Oral Tablet (Pletal) Take 1 Tablet by mouth in the morning. 90 Tablet 1 Folic Acid 1 MG Oral Tablet TAKE 1 TABLET BY MOUTH IN THE MORNING AND BEFORE BEDTIME 180 Tablet 1 amLODIPine Besylate 10 MG Oral Tablet (Norvasc) TAKE 1 TABLET BY MOUTH EVERY DAY IN THE MORNING 90 Tablet 1 Carvedilol 6.25 MG Oral Tablet (Coreg) TAKE 1 TABLET 2 TIMES A DAY WITH MORNING AND EVENING MEALS. 180 Tablet 1 glipiZIDE ER 2.5 MG Oral Tablet Extended Release 24 Hour (glipiZIDE XL) Take 1 Tablet by mouth in the morning. 30 minutes before a meal. Add to 5 mg tablet to equal 7.5 mg daily.. 90 Tablet 1 Pantoprazole Sodium 20 MG Oral Tablet Delayed Release (Protonix) Take 1 Tablet by mouth in the morning. 30 minutes before the first meal of the day. Do not crush, split or chew the tablet. 90 Tablet 1 Januvia 50 MG Oral Tablet Take one daily In the morning. 90 Tablet 1 No current facility-administered medications for this visit. [...] 119 Generalized osteoarthritis Glaucoma Glaucoma INFORMATION 06/15/2002 nwij=ps=989,k+=5.2,cl=99,co2=32.8,qzjeuje=061,bun=30,creatinine=1.1, hgb=12.5,hct=37.6 Kidney disease, chronic, stage III (GFR 30-59 ml/min) ([facility]) 10/18/2011 LOC [facility] 07/13/2006 Lumbago Macular degeneration 12/26/2001 Told by [facility] to take A,C,E, zinc and copper Malignant neoplasm of prostate (HCC) 05/30/1997 Prostate Malignant neoplasm of prostate (HCC) 08/29/2001 Dr. Gary--PSA level was 0.2ng/ml Mixed dyslipidemia 07/01/2005 chol 191, hdl 41, ldl 123, trig 136 Mixed dyslipidemia 12/06/2005 chol 197, hdl 45, ldl 135, trig 82 Optic neuropathy, ischemic Other specified anemias 12/30/2003 [place] 11.6/34.8 6100 WBC Other specified anemias 12/06/2005 10.8/32.5 Pneumonia, organism unspecified(486) 09/30/2009 Admitted to [facility] with bilateral infiltrates Retinal tear 11/08/2011 left [...] date: 05/30/1952 Quit date: 05/30/1962 Years since quittin.9 Smokeless tobacco: Former Types: Snuff Quit date: 2018 Tobacco comments: 60 years at 03/05 smoking Vaping Use Vaping status: Never Used Substance and Sexual Activity Alcohol use: No Drug use: No Sexual activity: Not on file Other Topics Concern Not on file Social History Narrative 65 years as of 05/25/2023 Social Needs Financial Resource Strain: Low Risk (05/25/2023) Financial Resource Strain Do you have any trouble paying for your medications, or do you think you might in the future? (Adult - for ages 18 years and over): No Does your family have trouble paying for medicine? (Household - for ages 0-17 years): Not on file Food Insecurity: No Food Insecurity (05/25/2023) Food Insecurity Do you need food for this week? (Adult - for ages 18 years and over): No Are you able to get enough food for your family? (Household - for ages 0-17 years): Not on file Does your family need food this week? (Household - for ages 0-17 years): Not on file Do you always have enough food for your family? (Household - for ages 0-17 years): Not on file Transportation Needs: No Transportation Needs (05/25/2023) Transportation Needs Do you have trouble getting a ride to medical visits or work? (Adult - for ages 18 years and over):Never True Does your family have a hard time getting a ride to doctors visits? (Household - for ages 0-17 years): Not on file Has lack of transportation kept you from medical appointments, meetings, work, or from getting things needed for daily living? Check all that apply. (Adult - for ages 18 years and over): Not on file Do you (or your family) have trouble finding or paying for a ride (transportation)? (Household - for ages 0-17 years): Not on file Social Connections: Socially Integrated (05/25/2023) Social Connections How often do you feel lonely or isolated from those around you? (Adult - for ages 18 years and over): Never Housing Stability: Low Risk (05/25/2023) Housing Stability Do you currently live in a intermediate or have no steady place to sleep at night? (Adult - for ages 18 years and over): No Do you think you are at risk of becoming homeless? (Adult - for ages 18 years and over): No Does your family worry about paying for your home or becoming homeless? (Household - for ages 0-17 years): Not on file Are you homeless or worried that you might be in the future? (Adult - for ages 18 years and over): Not on file Are you (or your family) homeless or worried that you might be in the future? (Household - for ages0-17 years): Not on file O:Blood pressure 128/60, pulse 86, temperature 96.8 F (36 C), resp. rate 16, height 5' 8" (1.727 m), weight 177 lb (80.3 kg), SpO2 95%. GENERAL: alert, healthy, and no distress HEART: regular rate & rhythm, no murmur, and no gallops LUNGS: chest symmetric with normal AP diameter, no chest deformities noted, no chest wall tenderness, lungs clear to auscultation ABDOMEN: abdomen soft, non-tender, normal bowel sounds, and no masses or organomegaly A:Gastroesophageal reflux disease with esophagitis without hemorrhage (Primary) - Pantoprazole Sodium 40 MG Oral Tablet Delayed Release (Protonix); Take 1 Tablet by mouth in the morning. Type 2 diabetes mellitus with stage 3b chronic kidney disease, without long-term current use of insulin (HCC) - Pantoprazole Sodium 40 MG Oral Tablet Delayed Release (Protonix); Take 1 Tablet by mouth in the morning. Anemia of chronic disease - Pantoprazole Sodium 40 MG Oral Tablet Delayed Release (Protonix); Take 1 Tablet by mouth in the morning. Dyslipidemia, goal LDL below 100 - Pantoprazole Sodium 40 MG Oral Tablet Delayed Release (Protonix); Take 1 Tablet by mouth in the morning. Increase protonix from 20 mg daily to 40 mg daily. Any questions/problems, please call. If anythingchanges, worsens, develops new sx, please call [facility]. Follow Up: Return if symptoms worsen or fail to improve. Kena Razo PA-C documented in this encounter Nursing Notes * Batool Lynch RN - 05/08/2024 1:04 PM EST Acute visit. Pt is not feeling well. Has a lot of indigestion, getting lightheaded x several days, starting to feel better today. Pt states he has a history of a peptic ulcer, would like this checked He also has decreased urination in the morning, hands have been stiff. He started to drink more fluids and urine output is better and that also helped his hands documented in this encounter Plan of Treatment Upcoming Encounters Date Type Department Care Team (Late st Contact Info) Description 05/29/2024 11:00 AM EST Nurse Only Ancillary [address] [place] [id number] [place], Nurse Annual [address] [place] [phone] 06/07/2024 11:30 AM EST Office Visit Pharmacy, [address] [place] [phone] [place] [phone] 07/19/2024 3:00 PM EST Office Visit Family Medicine [address] [place] [phone] Kena Razo PA-C [address] [place] [address] [place] [id number] 08/06/2024 2:00 PM EDT Cardiac Studies Cardiac Studies, [facility] [address] [place] [phone] 09/07/2024 1:30 PM EDT Office Visit Cardiology, [facility] [address] [place] [address] Chong Woods, DO [address] [place] [address] 09/07/2024 3:00 PM EDT Office Visit Nephrology, [address] [place] [address] Betty Kasper MD [address] [place] [address] [place] [id number] 10/30/2024 1:30 PM EDT Office Visit Ophthalmology, [facility] [address] [place] [address] Kirby Yousif, DO [address] [place] [phone] 02/11/2025 1:20 PM EDT Office Visit Family Medicine [address] [place] [phone] Ken Carson MD [address] [place] [address] [place] [phone] Health Maintenance Due Date Last Done Comments [...] Additional history exists CKD HGB USE SMARTSET 41784 01/25/202501/25, 01/26/2024, 10/05/2023, Additional history exists CKD PHOS USE SMARTSET 43201 01/25/202512/29, 09/09/2023, 04/14/2022, Additional history exists Pneumococcal [...] as of this encounter Visit Diagnoses Diagnosis Gastroesophageal reflux disease with esophagitis without hemorrhage- Primary Type 2 diabetes mellitus with stage 3b chronic kidney disease, without long-term current use of insulin (HCC) Anemia of chronic disease Anemia of other chronic disease Dyslipidemia, goal LDL below 100 Other and [...] Discussed due to patient's condition Care Teams Senior Program Analyst Relationship Specialty Start Date End Date Ken Carson MD [address] [place] [address] [place] [id number] PCP - General Family Medicine 04/18/12 documented as of this encounter
--- OUTSIDE RECORDS SUMMARY | 2024-08-19 12:33 | External Medical Summary | Summary of Care ---
Author Name Unknown Organization [facility] Address [address] [address] Phone [phone] Care Team Providers Care Bomb Squad Officer Name Role Phone Ken Carson MD Primary Care Provide r Reason for Visit * Reason Comments Dosage Adjustment In Person (Anticoag Cl inic) Diabetes Follow-Up Encounter Details Date Type Department Care Team (Late st Contact Info) Description 04/16/2024 2:30 PM EST Office Visit Pharmacy, [address] [place] [phone] [place] [address] Type 2 diabetes mellitus with hemoglobin A1c goal of less than 8.0% ([facility])* Allergies No known active allergiesdocumented as of [...] to calibrate glucometer 1 Each 021 Active ThoughtLeadrigy AutoCode Blood Glucose DeviceIndications: 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 Dx E11.9 1 Each 021 [...] disease, without long-term current use of insulin ([facility]),Anemia of chronic disease,Gastroesop hageal reflux disease with esophagitis without hemorrhage,Dyslipi demia, goal LDL below 100 Take 1 Tablet by mouth in the morning. 90 Tablet 1 023 Active Vitamin D 25 MCG (1000 UT) Oral TabletIndications: Type 2 diabetes mellitus with stage 3b chronic kidney disease, without long-term current use of insulin ([facility]),Anemia of chronic disease,Gastroesop hageal reflux disease with esophagitis without hemorrhage,Dyslipi demia, goal LDL below 100 Take 1 tablet every other day 90 Tablet 1 023 Active metFORMIN HCl ER 500 MG Oral Tablet Extended Release 24 Hour (Glucophage XR)Indications:Typ e 2 diabetes mellitus with hemoglobin A1c goal of less than 8.0% ([facility]) Take 1 Tablet by mouth in the morning. 90 Tablet 3 024 Active Vitamin C 500 MG Oral Capsule Take 2 Tablets by mouth in the morning. 023 Active Aspirin 81 MG Oral Tablet ChewableIndication s:Type 2 diabetes mellitus with stage 3b chronic kidney disease, without long-term current use of insulin ([facility]),Anemia of chronic disease,Gastroesop hageal reflux disease with esophagitis without hemorrhage,Dyslipi demia, goal LDL below 100 Take 1 Tablet by mouth in the morning. with food.. 100 Tablet 2 Active Famotidine 20 MG Oral Tablet (Pepcid)Indication s:Type 2 diabetes mellitus with stage 3b chronic kidney disease, without long-term current use of insulin ([facility]),Gastroesopha geal reflux disease with esophagitis without hemorrhage [...] nehal, goal LDL below 100,Ascending aorta dilatation ([facility]),Fatigue, unspecified type Active glipiZIDE ER 5 MG Oral Tablet Extended Release 24 Hour (Glucotrol XL)Indications:Typ e 2 diabetes mellitus with stage 3b chronic kidney disease, without long-term current use of insulin ([facility]),Anemia of chronic disease,Gastroesop hageal reflux disease with esophagitis without hemorrhage,Dyslipi demia, goal LDL below 100 TAKE 1 TABLET BY MOUTH IN THE MORNING. 30 MINUTES BEFORE A MEAL.. 90 Tablet 1 Active Atorvastatin Calcium 40 MG Oral Tablet (Lipitor)Indicatio ns:Type 2 diabetes mellitus with stage 3b chronic kidney disease, without long-term current use of insulin ([facility]),Anemia of chronic disease,Gastroesop hageal reflux disease with [...] hemoglobin A1c goal of less than 8.0% ([facility]) test blood sugars once daily [...] disease, without long-term current use of insulin ([facility]),Anemia of chronic disease,Gastroesop hageal reflux disease with esophagitis without hemorrhage,Dyslipi demia, goal LDL below 100 TAKE 1 TABLET BY MOUTH EVERY DAY IN THE MORNING 90 Tablet 1 024 Active Carvedilol 6.25 MG Oral Tablet (Coreg)Indications :Type 2 diabetes mellitus with stage 3b chronic kidney disease, without long-term current use of insulin ([facility]),Anemia of chronic disease,Gastroesop hageal reflux disease with esophagitis without hemorrhage,Dyslipi demia, goal LDL below 100 TAKE 1 TABLET 2 TIMES A DAY WITH MORNING AND EVENING MEALS. 180 Tablet 1 024 Active glipiZIDE ER 2.5 MG Oral Tablet Extended Release 24 Hour (glipiZIDE XL)Indications:Typ e 2 diabetes mellitus with stage 3b chronic kidney disease, without long-term current use of insulin ([facility]),Anemia of chronic disease,Gastroesop hageal reflux disease with [...] disease, without long-term current use of insulin ([facility]),Anemia of chronic disease,Gastroesop hageal reflux disease with esophagitis without hemorrhage,Dyslipi demia, goal LDL below 100 TAKE 1 TABLET BY MOUTH IN THE MORNING. 30 MINUTES BEFORE THE FIRST MEAL OF THE DAY. DO NOT CRUSH, SPLIT OR CHEW THE TABLET. 90 Tablet 1 024 04/16 Discontinued( Refill) Januvia 50 MG Oral TabletIndications: Type 2 diabetes mellitus with stage 3b chronic kidney disease, without long-term current use of insulin (HCC),Anemia of chronic disease,Gastroesop hageal reflux disease with esophagitis without hemorrhage,Dyslipi demia, goal LDL below 100 Take one daily In the morning. 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,[id number] body lesion probable heman documented as of [...] this encounter Progress Notes * Cheryl Barrow, [facility] - 04/16/2024 2:19 PM EST Medication Therapy Disease Management Clinic - [...] Site: N/A Lifestyle: Diet: unchanged Glucose Review/SMBG: Readings obtained from patient documented BG logbook Pre am Pre Lunch Pre pm HS 129 222 164 123 181 170 169 160 184 183 137 182 130 194 138 163 153 Average 142 193 170 172 Hi 163 222 170 183 Lo [address] 141.1667 186.92023 170 169 Range 40 41 0 19 Hypoglycemia: Does your blood sugar go below [...] Exam 03/08/2023 COVID-19 Vaccine ( season) 2024 Adult Wellness Visit 05/25/2024 ASSESSMENT & PLAN: ICD-10-CM 1. Type 2 diabetes mellitus with hemoglobin A1c goal of less than 8.0% ([facility]) E11.9 Considerations: PACE - still concerned with cost Back surgery November 2022, Metformin stopped at that time d/t ROSANNA Renal fx returned to baseline Jardiance --> genital infection requiring treatment, avoid SGLT2 use BG Readings - Blood sugars reviewed. Overall improvement noted. Reviewed BG goal with patient. Medications - Reviewed current regimen, patient is adherent to regimen. Per 03/09, nephrology recommending GLP-1 start. PCP agreeable. Further discussed with patient today. Discussed GLP-1. Patient denies hx of pancreatitis and denies personal or family history of thyroid cancer. Discussed cardiac benefit. Discussed MOA and AEs. After discussion, patient would like to try Trulicity due to simplicity of auto injector. Taught patient how to use Truilicity pen. Reviewed with patient individual steps to do to prepare Trulicity prior to use: washing hands; remove hi end; place end against stomach, outer thigh or back of arm; dial pen from locked (red) to unlocked (green); press green button; wait for pen to injectand needle to snap back, then remove and throw away. Reviewed proper injection technique. Patient verbalized understanding and displayed successful technique. Instructed to STOP Januvia upon starting Trulicity. Diet, Exercise, Lifestyle - No significant lifestyle changes since last visit. Patient is agreeable to SMBG 1 time(s) daily. Patient aware to contact clinic if any hypoglycemia before next visit. MEDICATION CHANGES: yes, see below; preferred pharmacy: [facility] Diabetic Medications: Glipizide 7.5 mg daily (5mg + 2.5mg tablets) STOP Januvia 50mg daily START Trulicity 0.75mg once weekly Metformin ER 500mg daily eGFR 49 as of 01/26/24 HEALTH MAINTENANCE INTERVENTIONS: Labs: Up to Date Immunizations: Due for covid, tdap Foot Exam: Due Eye Exam: Up to Date Annual Wellness Visit: Up to Date FOLLOW UP: Return to clinic in 3 weeks 05/07/2024 I spent a total of 30-39 minutes (exact time 35 mins) on the date of service in preparation, delivery, and documentation of the care provided to Shaan Pugh excluding any time spent in the performance of separately billed services. Cheryl Barrow [facility] Clinical Pharmacist - Lead Pourer Medication Therapy Management Clinic 04/16/2024, 2:19 PM documented in this encounter Plan of Treatment Upcoming Encounters Date Type Department Care Team (Late st Contact Info) Description 05/01/2024 2:00 PM EST Office Visit Ophthalmology, [facility] [address] [place] [address] Kirby Yousif, DO [address] [place] [address] 05/07/2024 11:30 AM EST Office Visit Pharmacy, [address] [place] [phone] [place] [address] 05/29/2024 11:00 AM EST Nurse Only Ancillary [address] [place] [address] [place], Nurse Annual [address] [place] [address] 07/19/2024 3:00 PM EST Office Visit Family Medicine [address] [place] [phone] Kena Razo, PA-C [address] [place] [address] [place] [address] 08/06/2024 2:00 PM EDT Cardiac Studies Cardiac Studies, [facility] [address] [place] [address] 09/07/2024 1:30 PM EDT Office Visit Cardiology, [facility] [address] [place] [address] [place], DO [address] [place] [address] 09/07/2024 3:00 PM EDT Office Visit Nephrology, [facility] [address] [facility] [place] [address] [facility] [address] [facility] [address] 02/11/2025 1:20 PM EDT Office Visit Family Medicine [address] [place] [phone] Ken Carson MD [address] [place] [address] [place] [address] Health Maintenance Due Date Last Done Comments [...] Additional history exists CKD HGB USE SMARTSET 53736 01/25/202501/25, 01/26/2024, 10/05/2023, Additional history exists CKD PHOS USE SMARTSET 35990 01/25/2025 082 01/2024, 09/09/2023, 04/14/2022, Additional history [...] hemoglobin A1c goal of less than 8.0% ([facility])- Primary documented in this encounter Advance Directives [...] Discussed due to patient's condition Care Teams Bomb Squad Officer Relationship Specialty Start Date End Date Ken Carson MD [address] [place] [address] [place] [address] PCP - General Family Medicine 04/18/12 documented as of this encounter
--- OUTSIDE RECORDS SUMMARY | 2024-08-19 12:33 | External Medical Summary | Summary of Care ---
Author Name Unknown Organization [facility] Address [address] , [place] Care Team Providers Care Pbx Wire Chief Name Role Phone Ken Carson MD Primary Care Provide r Reason for Visit * Reason Onset Date Comments Advice 04/30/2024 Encounter Details Date Type Department Care Team (Late st Contact Info) Description 04/30/2024 Telephone Pharmacy, [facility] [address] [facility] [place] [address] [place] [address] Advice Allergies No known active allergiesdocumented as of this encounter (statuses as of 04/30/2024) Medications zoster vac recomb adjuvanted (SHINGRIX) 50 [...] without long-term current use of insulin ([facility]),Anemia of chronic disease,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 90 Tablet 1 03/22/20 23 Active Vitamin D 25 MCG (1000 UT) Oral TabletIndications:T ype 2 diabetes mellitus with stage 3b chronic kidney disease, without long-term current use of insulin ([facility]),Anemia of chronic disease,Gastroesoph ageal reflux disease with esophagitis without hemorrhage,Dyslipid emia, goal LDL below 100 Take 1 tablet every other day 90 Tablet 1 03/22/20 23 Active metFORMIN HCl ER 500 MG Oral Tablet Extended Release 24 Hour (Glucophage XR)Indications:Type 2 diabetes mellitus with hemoglobin A1c goal of less than 8.0% ([facility]) Take 1 Tablet by mouth in the morning. 90 Tablet 3 06/20/19 24 Active Vitamin C 500 MG Oral Capsule Take 2 Tablets by mouth in the morning. 06/30/19 23 Active Aspirin 81 MG Oral Tablet ChewableIndications :Type 2 diabetes mellitus with stage 3b chronic kidney disease, without long-term current use of insulin ([facility]),Anemia of chronic disease,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 with food.. 100 Tablet 2 07/09/19 24 Active Famotidine 20 MG Oral Tablet (Pepcid)Indications :Type 2 diabetes mellitus with stage 3b chronic kidney disease, without long-term current use of insulin ([facility]),Gastroesophag eal reflux disease with [...] below 100,Ascending aorta dilatation (HCC),Fatigue, unspecified type 08/26/19 24 Active glipiZIDE ER 5 MG Oral Tablet Extended Release 24 Hour (Glucotrol XL)Indications:Type 2 diabetes mellitus with stage 3b chronic kidney disease, without long-term current use of insulin ([facility]),Anemia of chronic disease,Gastroesoph ageal reflux disease with esophagitis without hemorrhage,Dyslipid emia, goal LDL below 100 TAKE 1 TABLET BY MOUTH IN THE MORNING. 30 MINUTES BEFORE A MEAL.. 90 Tablet 1 01/25/20 24 Active Atorvastatin Calcium 40 MG Oral Tablet (Lipitor)Indication s:Type 2 diabetes mellitus with stage 3b chronic kidney disease, without long-term current use of insulin ([facility]),Anemia of chronic disease,Gastroesoph ageal [...] A1c goal of less than 8.0% ([facility]) test blood sugars once [...] without long-term current use of insulin ([facility]),Anemia of chronic disease,Gastroesoph ageal [...] without long-term current use of insulin ([facility]),Anemia of chronic disease,Gastroesoph ageal [...] without long-term current use of insulin ([facility]),Anemia of chronic disease,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 30 minutes before the first meal of the day. Do not crush, split or chew the tablet. 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 Reviewed information discussed in 04/27 TE. Patient inquiring on additional once weekly injections. Discussed similar MOA and similar ADEs. Will continue off of it at this time and will further discuss at previously scheduled appointment x1 week. Cheryl Barrow RPh, PharmD Clinical Pharmacist - [place] Medication Therapy Disease Management [facility] 04/30/2024, 4:20 PM [phone] * Telephone Encounter - Erika Rosenthal CPhT - 04/30/2024 2:21 PM EST Caller's name: Shaan Navarro call back number(OFFICE NUMBER FOR ): [phone] Reason for call: requesting a call from Cherly stating he took the first dose of Trulicity last week and he had some dizziness, he would like to discuss this with you. Erika Rosenthal CPhT, [place] [employer] [facility] ([facility]) [phone] [facility] [phone] [place] [address] ext [phone] documented in this encounter Plan of Treatment Upcoming Encounters Date Type Department Care Team (Late st Contact Info) Description 05/01/2024 2:00 PM EST Office Visit Ophthalmology, [facility] [address] [place] [address] Kirby Yousif DO [address] [place] [address] 05/07/2024 11:30 AM EST Office Visit Pharmacy, [address] [place] [address] [place] [address] 05/29/2024 11:00 AM EST Nurse Only Ancillary [address] [place] [address] [place], Nurse Annual Wellness [address] [place] [address] [place] [address] 07/19/2024 3:00 PM EST Office Visit Family Medicine [address] [place] [phone] Kena Razo PA-C [address] [place] [address] [place] [address] 08/06/2024 2:00 PM EDT Cardiac Studies Cardiac Studies, [facility] [address] [facility] [place] [address] 09/07/2024 1:30 PM EDT Office Visit Cardiology, [facility] [address] [facility] [place] [address] [place], 132 [facility] [place] [address] 09/07/2024 3:00 PM EDT Office Visit Nephrology, [address] [place] [address] Betty Kasper MD [address] [place] [address] 02/11/2025 1:20 PM EDT Office Visit Family Medicine [address] [phone] Ken Carson MD [address] [place] [address] [place] [address] Health Maintenance Due Date Last Done Comments [...] 09/01/2021, Additional history exists HbA1c 07/27/2024 01/26/2024, 07, 09/13/2023, Additional history exists Albumin/Creatinine Ratio 01/25/2025 024, 01/28/2023, 04/14/2022, Additional history exists CKD HGB USE SMARTSET 87926 01/25/202501/25, 01/26/2024, 10/05/2023, Additional history exists CKD PHOS USE SMARTSET 08099 01/25/2025 0801/2024, 09/09/2023, 04/14/2022, Additional history exists Pneumococcal Vaccine: [...] Discussed due to patient's condition Care Teams Pbx Wire Chief Relationship Specialty Start Date End Date Ken Carson MD [address] [place] [address] [place] [phone] PCP - General Family Medicine 04/18/12 documented as of this encounter
--- OUTSIDE RECORDS SUMMARY | 2024-08-19 12:33 | External Medical Summary | Summary of Care ---
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 Name Role Phone Ken Carson MD Primary Care Provide r Reason for Visit * Reason Comments Adult Annual Wellness Visit, Subsequent Visit Encounter Details Date Type Department Care Team (Late st Contact Info) Description 05/29/2024 11:00 AM EST Nurse Only Ancillary [address] [place] [phone] [place], Nurse [address] [place] [id number] Adult Annual Wellness Visit, Subsequent Visit Allergies No known active allergiesdocumented as of this encounter (statuses as of 05/29/2024) Medications Prodigy Control Solution High In Vitro Solution Use to calibrate glucometer 1 Each 10/30/19 21 Active Prodigy AutoCode Blood Glucose DeviceIndications: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 Dx E11.9 1 Each 12/17/19 [...] disease, without long-term current use of insulin ([facility]),Anemia of chronic disease,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 90 Tablet 3 06/20/19 24 Active Vitamin C 500 MG Oral Capsule Take 2 Tablets by mouth in the morning. 06/30/19 23 Active Aspirin 81 MG Oral Tablet ChewableIndications :Type 2 diabetes mellitus with stage 3b chronic kidney disease, without long-term current use of insulin ([facility]),Anemia of chronic disease,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 with food.. 100 Tablet 2 07/09/19 24 Active Famotidine 20 MG Oral Tablet (Pepcid)Indications :Type 2 diabetes mellitus with stage 3b chronic kidney disease, without long-term current use of insulin ([facility]),Gastroesophag eal reflux disease with esophagitis [...] disease, without long-term current use of insulin ([facility]),Anemia of chronic disease,Gastroesoph ageal reflux disease with esophagitis without hemorrhage,Dyslipid emia, goal LDL below 100 TAKE 1 TABLET BY MOUTH IN THE MORNING. 30 MINUTES BEFORE A MEAL.. 90 Tablet 1 01/25/20 24 Active Atorvastatin Calcium 40 MG Oral Tablet (Lipitor)Indication s:Type 2 diabetes mellitus with stage 3b chronic kidney disease, without long-term current use of insulin ([facility]),Anemia of chronic disease,Gastroesoph ageal reflux [...] hemoglobin A1c goal of less than 8.0% ([facility]) test blood sugars once daily 100 Strip 3 03/05/20 24 Active Cilostazol 50 MG Oral Tablet (Pletal) Take 1 Tablet by mouth in the morning. 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 90 Tablet 1 05/07/20 24 Active Pantoprazole Sodium 40 MG Oral Tablet Delayed Release (Protonix)Indicatio ns:Type 2 diabetes mellitus with stage 3b chronic kidney disease, without long-term current use of insulin ([facility]),Anemia of chronic disease,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,O1ghcfudsvy body lesion probable heman documented as of this encounter (statuses as of 05/29/2024) Immunizations Name Administration Dates Next Due COVID-19 [...] 05/30/1960 Smokeless Tobacco: Former Snuff Quit: 2019 Tobacco Cessation:Counseling Given: Not Answered Comments:62 years at 07 chewing Alcohol Use Standard Drinks/Week Comments No 0 [...] Sign Reading Time Taken Comments Blood Pressure 124/70 05/29/2024 11:37 AM EST Pulse 76 05/29/2024 11:37 AM EST Temperature 36.1 C (96.9 F) 05/29/2024 11:[address] Respiratory Rate - - Oxygen Saturation 93% 05/29/2024 11:37 AM EST Inhaled Oxygen Concentration - - Weight 80.7 kg (178 lb) 05/29/2024 11:37 AM EST Height - - Body Mass Index 27.06 05/08/2024 12:56 PM EST documented in this [...] claudia Rivera RN documented in this encounter Patient Instructions * Patient Instructions* Shaila Beck RN - 05/29/2024 11:36 AM EST Patient Instructions - Fall Prevention (This education is for all patients over 65 regardless of symptoms) Remember to take your current medications as prescribed. In order to prevent falls, you are encouraged to: Exercise Utilize assistive/adaptive devices Avoid multifocal lenses when walking Avoid hazards in home Maintain a regular toileting schedule Any questions please contact our office. Preventing Falls in the Home (This education is for all patients over 65 regardless of symptoms) As you get older, falls are more likely. Thats because your reaction time slows. Your muscles and joints may also get stiffer, making them less flexible. Illness, medications, and vision changes can also affect your balance. A fall could leave you unable to live on your own. To make your home safer, follow these tips: Floors Put nonskid pads under area rugs Remove throw rugs Replace worn floor coverings Tack carpets firmly to each step on carpeted stairs. Put nonskid strips on the edges of uncarpeted stairs Keep floors and stairs free of clutter and cords Arrange furniture so there are clear pathways Clean up any spills right away Bathrooms Install grab bars in the tub or shower Apply nonskid strips or put a nonskid rubber mat in the tub or shower Sit on a bath chair to bathe Use bathmats with nonskid backing Lighting Keep a flashlight in each room Put a nightlight along the pathway between the bedroom and the bathroom [employer] Patient Education Copyright 2008 - 2010 Sarahi except where otherwise noted Preventing Falls: Exercises to Improve Balance, Flexibility, Strength, and Staying Power (This education is for all patients over 65 regardless of symptoms) Certain types of exercises may help make you less likely to fall. Try the ones below. Or do other exercises that your healthcare provider suggests. Depending on your health, you may need to start slowly. Dont let that stop you. Even small amounts of exercise can help you. Be sure to talk to yourhealthcare provider before starting any exercise program. Improve Balance Many types of exercise can help improve balance. Bang chi and yoga are good examples. Heres another one to try. You can do it anytime and almost anywhere. Stand next to a counter or solid support. Push yourself up onto your tiptoes. Hold for 5 seconds. If you start to lose your balance, hold on to the counter. Rest and repeat 5 times. Work up to holding for 20 to 30 seconds, if you can. Increase Flexibility Being more flexible makes it easier for you to move around safely. Try exercises like the seated hamstring stretch. Sit in a chair and put one foot on a stool. Straighten your leg and reach with both hands down either side of your leg. Reach as far down your leg as you can. Hold for about 20 seconds. Go back to the starting position. Then repeat 5 times. Switch legs. Build Strength Resistance exercises help build strength. You can do them without equipment. Or you can use weights, elastic bands, or special machines. One such exercise is called the biceps curl. You can hold a 1 pound weight or even a can of soup. Do this exercise at least 3 times a week. Strive for everyday. Sit up straight in a chair. Keep your elbow close to your body and your wrist straight. Bend your arm, moving your hand up to your shoulder. Then slowly lower your arm. Repeat 5 times. Switch to the other arm. Build Your Staying Power Aerobic exercises make your heart and lungs stronger so you can keep moving longer. Walking and swimming are two of the best types of exercises you can do. Using a stationary bike is great, too. Find an aerobic exercise that you enjoy. Start slowly and build up. Even 5 minutes is helpful. Aimfor a goal of 30 minutes, at least 3 times a week. You dont have to do 30 minutes in one session. Break it up and walk a little throughout the day. More Helpful Tips Start easy. Slowly work up to doing more. Talk with your healthcare provider about the best exercises for you. Call senior centers or health clubs about exercise programs. If needed, have a family member watch you walk every so often to check your stability. Exercise with a friend. Choose an activity you both enjoy. Try exercises that you can do anytime, anywhere. Here are two examples. Have someone with you when you first try these: Practice walking by placing one foot right in front of the other. Stand up and sit down 10 times. Repeat this throughout the day. [employer] Patient Education Copyright 2009 - 2010 Sarahi except where otherwise noted. Preventing Falls: Moving Safely Using a Cane or Walker (This education is for all patients over 65 regardless of symptoms) Keep the cane away from your feet so you dont trip. A walking aid, such as a cane or walker, can help you stay more independent and avoid falls. Remember to keep your walking aid within easy reach when youre in a chair or in bed. And learn how to use it safely so you dont injure yourself. Using a Cane If you have a stronger side, hold the cane on that side. Get your balance. Move the cane and your weaker leg forward. Support your weight on both the cane and your weaker side. Step with your stronger leg. Start again from step 1. If youre using a folding walker, be sure you know how to lock it open. Check that its locked open before each use. Using a Walker Roll the walker (or lift it, if youre using one without wheels) forward about 12 inches. Step forward with your weaker leg first. Use the walker to help keep your balance. Bring your other foot forward to the center of the walker. Start again from step 1. Helpful Tips Check with your healthcare provider about the right walking aid to use. Ask about a walker with a seat attached. Check the tips of your cane or walker to make sure they have nonskid covers. Move slowly from room to room. Dont dalal. Sit down to get dressed. Use a joanne pack or backpack to keep your hands free. Get help for jobs that mean climbing, even on a stepstool. [employer] Patient Education Copyright 2008 - 2010 Sarahi except where otherwise noted. Treating Urinary Incontinence in Men (This education is for all patients over 65 regardless of symptoms) You can't always control the release of urine. You may leak urine. Or you may not be able to hold your urine until you can get to a bathroom. This is called urinary incontinence. The problem can be managed. Talk to your doctor about your treatment options. Taking Medications Prescription medications may help you. They may: Help the sphincter to work better. (This is the muscle that closes to keep urine from leaking out of the bladder.) Help stop the bladder from oli too often to push urine out. Help the bladder muscles contract with more force. Help relax the sphincter muscle and allow urine to flow more freely. Making Changes to Your Routine Certain changes in your daily routine may help. These include: Avoiding caffeine and alcohol. Using timed voiding. This is following a schedule for drinking fluids and urinating. Doing Kegel exercises daily. These exercises involve tightening the muscles in your sphincter and around your bladder to help strengthen them. Your doctor can explain how to do them. Using a Catheter A catheter is a narrow tube that is inserted through the urethra into the bladder. It drains urine.A condom catheter covers the penis. It channels urine into a collection bag. It is worn most of thetime. Intermittent catheterization means inserting a catheter to drain the bladder, then removing it. This is done on a regular schedule. Having Surgery If other options don't work, surgery may be recommended. If surgery is an option, your healthcare provider can discuss it with you and explain its risks and benefits. Healing After Prostate Surgery Surgery on the prostate gland can cause incontinence. Most often, the incontinence is only for a short time. It clears up when healing is complete. Very rarely, prostate surgery can result in permanent incontinence. Hi Mr. Pugh, As your primary care physician, I know that regular visits with my patients who have several chronic conditions can go a long way in helping you stay healthy. Many times, the clinic team and I are in touch with you and/or other care team members between office visits to adjust medications, discuss any changes in your health, and review our care plan to make sure it is still meeting your needs. I am dedicated to helping you take a more active role in your overall care. It is important that there are resources available to you, so I created a personalized plan of care with a Health Calendar for you, which is included on the next page of this letter. Below is a list that summarizes your electronic health record: Health Maintenance Due: Health Maintenance Due Topic Date Due Zoster Vaccines (2 of 3) 02/06/2012 DTap/Tdap Vaccines (2 - Td or Tdap) 08/15/2021 Diabetic Foot Exam 03/08/2023 COVID-19 Vaccine ( season) 2024 Current Medication List: (as of Visit date not found (in office), Visit date not found (telemedicine) ) Current Outpatient Medications Medication Sig Dispense Refill Acetaminophen ER 650 MG Oral Tablet Extended [...] mouth in the morning. 14 Each 1 Cyanocobalamin 1000 MCG Oral Tablet (Cyanocobalamin) Take 1 Tablet by mouth in the morning. 90 Tablet 1 Vitamin D 25 MCG (1000 UT) Oral Tablet Take 1 tablet every other day 90 Tablet 1 metFORMIN HCl ER 500 MG Oral Tablet Extended Release 24 Hour (Glucophage XR) Take 1 Tablet by mouth in the morning. 90 Tablet 3 Vitamin C 500 MG Oral Capsule Take 2 Tablets by mouth in the morning. Aspirin 81 MG Oral Tablet Chewable Take 1 Tablet by mouth in the morning. with food.. 100 Tablet 2 Famotidine 20 MG Oral Tablet (Pepcid) Take 1 Tablet by mouth every night at bedtime. 90 Tablet 1 Fluticasone Propionate 50 MCG/ACT Nasal Suspension (Flonase) SPRAY 2 SPRAYS INTO EACH NOSTRIL IN THE MORNING 16 mL 5 Timolol Maleate 0.5 % Ophthalmic Solution (Timoptic) Instill 1 Drop into both eyes in the morning. glipiZIDE ER 5 MG Oral Tablet Extended Release 24 Hour (Glucotrol XL) TAKE 1 TABLET BY MOUTH INTHE MORNING. 30 MINUTES BEFORE A MEAL.. 90 Tablet 1 Atorvastatin Calcium 40 MG Oral Tablet (Lipitor) TAKE 1 TABLET BY MOUTH EVERYDAY AT BEDTIME 90 Tablet 1 Cilostazol 50 MG Oral Tablet (Pletal) Take 1 Tablet by mouth in the morning. 90 Tablet 1 Folic Acid 1 MG Oral Tablet TAKE 1 TABLET BY MOUTH IN THE MORNING AND BEFORE BEDTIME 180 Tablet1 amLODIPine Besylate 10 MG Oral Tablet (Norvasc) TAKE 1 TABLET BY MOUTH EVERY DAY IN THE [id number] Tablet 1 Carvedilol 6.25 MG Oral Tablet (Coreg) TAKE 1 TABLET 2 TIMES A DAY WITH MORNING AND EVENING MEALS. 180 Tablet 1 glipiZIDE ER 2.5 MG Oral Tablet Extended Release 24 Hour (glipiZIDE XL) Take 1 Tablet by mouth in the morning. 30 minutes before a meal. Add to 5 mg tablet to equal 7.5 mg daily.. 90 Tablet 1 Januvia 50 MG Oral Tablet Take one daily In the morning. 90 Tablet 1 Pantoprazole Sodium 40 MG Oral Tablet Delayed Release (Protonix) Take 1 Tablet by mouth in the morning. 30 Tablet 5 Prodigy Control Solution High In Vitro Solution Use to calibrate glucometer 1 Each 0 Prodigy AutoCode Blood Glucose Device Use daily. Dx E11.9 1 Each 0 Prodigy Lancing Device Use as directed to test blood sugars once daily 1 Each 0 Prodigy Lancets 28G Use to test blood sugars once daily 100 Each 3 Prodigy No Coding Blood Gluc In Vitro Strip (Glucose Blood) test blood sugars once daily 100 Strip 3 No current facility-administered medications for this visit. Current List of Allergies: (as of Visit date not found (in office), Visit date not found (telemedicine) ) Review of patient's allergies indicates: No Known Allergies Most Recent Lab Results: Results for orders placed or performed in visit on 05/07/24 HEMOGLOBIN A1C Result Value Ref Range Hemoglobin A1C 8.3 (H) 4.0 - 5.6 % Estimated Average Glucose 192 (H) <126 mg/dL *Note: Due to a large number of results and/or encounters for the requested time period, some results have not been displayed. A complete set of results can be found in Results Review. Sincerely, Ken Carson MD 05/29/2024 [facility] Calendar (as of Visit date not found (in office), Visit date not found (telemedicine) ) Care needs Care needs Last completed Due next Zoster (Shingles) Vaccine (2 of 3) 12/12/2011 02/06/2012 Diphtheria, tetanus & pertussis vaccines (2 - Td or Tdap) 08/16/2011 08/15/2021 Diabetic Foot Exam 03/08/2022 03/08/2023 COVID-19 Vaccine ( season) 2023 01/29/2024 Diabetic Eye Exam 07/11/2023 07/11/2024 A1C blood sugar test 05/07/2024 11/05/2024 Urine albumin/creatinine test 01/26/2024 01/25/2025 Adult Wellness Visit 05/29/2024 05/29/2025 As you look over the recommended services, be sure to check with your insurance company to determine what's covered. [employer] is a great tool that helps you review your medical record online, including test results, doctor notes and your health summary. You can also schedule appointments with me and other members of your care team, request prescription refills and ask for advice related to your medical conditions at [email or web address]. Diabetes: Keeping Feet Healthy Inspect your feet every day for signs of a problem. Diabetes can damage nerves in your feet and cause neuropathy. This condition makes it hard for you to feel injuries or sore spots. Diabetes can also change blood flow, making it harder for small problems, like a blister, to heal properly. In fact, minor injuries can quickly become serious infections that send you to the hospital. Practice self-care to protect your feet and keep them healthy. Take Special Care Inspect your feet daily for problems such as redness, blisters, cracks, dry skin, or numbness. Use a mirror to see the bottoms of your feet. Or, ask for help. Manage your diabetes. Monitor and control your blood sugar. Take all your medications as prescribed. Avoid walking barefoot, even indoors. Wash your feet with warm water and mild soap. Dry well, especially between toes. Dont treat corns or calluses yourself. Talk to your doctor or patient registration manager (a doctor who specializes in foot care) if you need assistance trimming your toenails. Use moisturizing cream or lotion if you have dry skin, but dont use it between toes. Dont use heating pads on your feet. If you have neuropathy, you could get a burn and not feel it. Stop smoking. Smoking restricts blood flow and can make it harder for wounds to heal. Have Regular Checkups Foot problems can develop quickly. So be sure to follow your healthcare teams schedule for regular checkups. During office visits, take off your shoes and socks as soon as you get in the exam room. Ask your healthcare provider to examine your feet for problems. This will make it easier to find and treat small skin irritations before they get worse. Regular checkups can also help keep track of the blood flow and feeling in your feet. If you have neuropathy, you may need to have checkups more often. Wear Proper Footwear Wearing proper footwear is very important. If areas of your feet have been damaged by too much pressure, your healthcare provider may recommend changing your footwear. In some cases, avoiding high heels or tight work boots may be all thats needed. Or, your healthcare provider may recommend special shoes or custom inserts. These help protect your feet and keep existing irritations from getting worse. If you need special footwear, ask your healthcare provider if you qualify for [facility] diabetic shoe program. Make Sure Shoes and Socks Fit Any pair of shoes--new or old--should feel comfortable as soon as you put them on. There shouldnt be any rubbing when you walk. Wear the right shoe for any activity. For instance, a running shoe is designed to keep your feet injury-free while jogging. Buy shoes at the end of the day, when your feet are larger. Make sure they provide support without feeling too loose. Make sure your socks fit, t oo. Wear soft, seamless, well-padded socks for activity. Cotton or microfiber socks are best to help to absorb sweat. To protect your feet, avoid shoes that are open-toed or open-heeled. If you have questions about what kinds of shoes and socks are best, talk to your healthcare team. Get Regular Exercise Regular exercise improves blood flow in your feet. It also increases foot strength and flexibility.Gentle exercises, like walking or riding a stationary bicycle, are best. You can also do special foot exercises. Just be sure to talk with your healthcare provider before starting any exercise program. Also mention if any exercise causes pain, redness, or other signs of foot problems. Note: If you have any kind of break in the skin of your foot or ankle, keep the area clean. Then call your doctor--especially if the area doesnt appear to be healing. [id number] [employer], [address] [place] [address]. All rights reserved. This information is not intended as a substitute for professional medical care. Always follow your healthcare professional's instructions. documented in this encounter Progress Notes * Shaila Beck RN - 05/29/2024 11:28 AM EST AD8 Dementia Screening Interview Person answering questions: patient Remember, "Yes, a change" indicates that there has been a change in the last several years caused by cognitive (thinking and memory) problems 1. Problems with judgement (eg: problems making decisions, bad financial decisions, problems with thinking). No (0) 2. Less interest in hobbies/activities. No (0) 3. Repeats the same things over and over (questions, stories, or statements). No (0) 4. Trouble learning how to use a tool, appliance, or gadget (eg: VCR, computer, microwave, remote control). No (0) 5. Forgets correct month or year. No (0) 6. Trouble handling complicated financial affairs (eg: balancing checkbook, income taxes, paying bills). No (0) 7. Trouble remembering appointments. No (0) 8. Daily problems with thinking and/or memory. No (0) TOTAL AD8: 1 - AD8 Dementia Screening Score The final score is a sum of the number items marked "Yes, A Change". 0 - 1: Normal cognition; 2 or greater: Cognitive impairments is likely to be present - further testing required Adult Annual Wellness Visit: Shaan Pugh is a 88 year old male who presents for an Adult Annual Wellness Visit. Depression Screening: Did the patient complete the screening questionnaire for Depression? Yes Is the patient's total score for Depression 15 or greater? No, no further intervention needed, unless requested by patient. Did the patient answer positively to the suicide question? No, no further intervention needed, unless requested by patient. In general, compared to other people your age, what would you say that your health is? Good Ht Readings from Last 1 Encounters: 05/08/24 5' 8" (1.727 m) Wt Readings from Last 1 Encounters: 05/29/24 178 lb (80.7 kg) Body Mass Index: BMI Less than 30 Body mass index is 27.06 kg/m. BP Readings from Last 1 Encounters: 05/29/24 124/70 Medical/Surgical/Family History Reviewed: Yes Past Medical History: Diagnosis Date Anemia due [...] 119 Generalized osteoarthritis Glaucoma Glaucoma INFORMATION 06/15/2002 zcaz=bh=897,k+=5.2,cl=99,co2=32.8,hbupxfr=160,bun=30,creatinine=1.1, hgb=12.5,hct=37.6 Kidney disease, chronic, stage III (GFR 30-59 ml/min) ([facility]) 10/18/2011 LOC PRIM OSTEOART-SHLDER 07/13/2006 Lumbago Macular degeneration 12/26/2001 Told by [facility] to take A,C,E, zinc and copper Malignant neoplasm of prostate ([facility]) 05/30/1997 Prostate Malignant neoplasm of prostate ([facility]) 08/29/2001 Dr. Gary--PSA level was 0.2ng/ml Mixed dyslipidemia 07/01/2005 chol 191, hdl 41, ldl 123, trig 136 Mixed dyslipidemia 12/06/2005 chol 197, hdl 45, ldl 135, trig 82 Optic neuropathy, ischemic Other specified anemias 12/30/2003 [place] 11.6/34.8 6100 WBC Other specified anemias 12/06/2005 10.8/32.5 Pneumonia, organism unspecified(486) 09/30/2009 Admitted to [facility] with bilateral infiltrates Retinal tear 11/08/2011 left eye, [facility] Spinal stenosis of lumbar region at multiple levels 11/11/2011 Spinal stenosis of lumbar region at multiple levels Testicular cyst Thoracic and lumbosacral neuritis 08/26/2004 saw [facility] for pain right leg, recieved epidurals (2) Vitamin D deficiency 09/04/2009 Vitamin D 26.4 Past Surgical History: Procedure Laterality Date CARPAL TUNNEL SURGERY Right 04/02/2020 NEUROPLASTY MEDIAN NERVE AT CARPAL TUNNEL performed by Hiram Garner MD at OR [facility] COLONOSCOPY 06/30/05 [facility], Dr. Delgadillo, normal COLONOSCOPY 04/05/2013 diverticulosis; internal hemorrhoids CT HEAD/BRAIN WO CONTRAST 10/01/09 left maxillary sinusitis, mold age-related changes CTA CHEST NON-CORONARY W CONTRAST 09/30/09 No PE, bilateral lower lobe opacification most consistent with pneumonia CXR 2 VIEWS AP/PA & LATERAL 05/31/05 [place], normal chest CYSTOSCOPY 12/27/2017 Dr. Mao- in office EGD, FLEXIBLE, DIAGNOSTIC 04/05/2013 normal EGD, FLEXIBLE, DIAGNOSTIC 05/17/2017 reflux esophagitis/ESOPHAGOGASTRODUODENOSCOPY (EGD), FLEXIBLE, TRANSORAL, DIAGNOSTIC performed by Heladio Estes MD at ENDOSCOPY [facility] ENDO DECOMPRESS SPINAL CORD W/LAMINOTOMY, THORACIC N/A 11/25/2022 LAMINECTOMY DECOMPRESSION SPINAL CORD POSTERIOR THORACIC performed by Selwyn Meng III, MD [place] [facility] [place] LUMBAR/SACRAL 11/21/2013 INJECTION SPINE LUMBAR OR SACRAL performed by Amadou Mcwilliams DO at OR [facility] INJECTION LUMBAR/SACRAL 12/10/2013 INJECTION SPINE LUMBAR OR SACRAL performed by Denton Fletcher Mcwilliams DO at OR [facility] IOF US SCROTUM/TESTES 02/12/15 There is a small and benign appearing cyst within each testicle. Followup LAMINECTOMY/LAMINOTOMY, LUMBAR, GUIDE 05/17/14 L3-S1 laminectomy, [place] MISCELLANEOUS ORDER ([facility] ONLY) 06/2012 right partial shoulder replacement--U MISCELLANEOUS ORDER ([facility] ONLY) ACT 112 SIGNED, Dr. Yousif (12-21-2018) MRI L SPINE WO CONTRAST 11/11/11 severe spinal stenosis, abimael L4-5 NM BONE WHOLE BODY 05/14/03 PAH-nno evidence of bone metastatic disease,increased radioactivity in bilateral shoulders including acromioclavicular joints from degenerative osteoarthritis RADICAL PROSTATE REMOVAL 1997 Prostatectomy Radical RADICAL REMOVAL OF PROSTATE 1999 [place] REMOVAL OF PROSTATE, FIRST STAGE 1997 TURP REMOVE CATARACT, INSERT LENS PROSTH left eye, Dr Batres REMOVE CATARACT, INSERT LENS PROSTH 07/10/2007 OD-Dr. Street REMOVE CATARACT, INSERT LENS PROSTH years ago OS-has had laser after REMOVE LUMBAR SPINE LAMINA, 3+ SEGS N/A 11/25/2022 LAMINECTOMY DECOMPRESSION SPINAL CORD POSTERIOR LUMBAR performed by Selwyn Meng III, [place] [facility] REPAIR DETACHED RETINA, VITRECTOMY Left 06/18/2019 23G PPV/EL/C3F8 14%/SubTenon's Triesence 20mg for Schisis/RD OS, Dr. Yousif REPAIR INITIAL INGUINAL HERNIA REDUCIBLE AGE 5 OR MORE 06/01 [place] SHOULDER MANIPUL W/ANESTH/FIXATION 09/04/[address] fabiola meade US AORTA 04/24/09 1.6 cm, normal US RENAL 07/14/11 normal kidneys, right renal aortic ration 2.6, left 0.9 VASC ANKLE BRACHIAL INDEX 12/12/06 OLEG 1.3, right, and 1.2 left, normal VASC ANKLE BRACHIAL INDICES WITHOUT PPG (PAD) 04/24/09 right 1.1, left 1.09, normal VASC DUPLEX CAROTID BILAT 04/24/09 0-19% bilat Family History Problem Relation Name Age of Onset Diabetes Mother at age 78 Cancer Father prostate, at age 84 Heart Disorder Brother at age 62 with mi Cancer Sister Diabetes Sister Diabetes Brother Diabetes Sister Diabetes Sister Diabetes Sister Hypertension Other family hx Thyroid Disorder None Eye Problems Sister Inocencia Jung RD-spontaneous Eye Problems Sister Christie Maza RD-spontaneous Eye Problems Brother West Pugh RD-spontaneous Eye Problems Grandfather (Maternal) severe loss of vision as he aged ?blindness Has patient ever had cancer? History of cancer, type: prostate, and radiation treatment. Social History Tobacco Use Smoking status: Former Current packs/day: 0.00 Average packs/day: 1 pack/day for 8.0 years (8.0 ttl pk-yrs) Types: Cigarettes Start date: 05/30/1954 Quit date: 05/30/1962 Years since quittin.0 Smokeless tobacco: Former Types: Snuff Quit date: 2018 Tobacco comments: 60 years at 03/05 chewing Substance Use Topics Alcohol use: No Vaping/E-Cigarette Use Vaping/E-Cigarette Use Never User Vaping/E-Cigarette Substances Vaping/E-Cigarette Devices Tobacco/Alcohol screening completed today? Yes Hospital Care: Admissions (within the last year): Not Applicable ER within 30 days: No Does the patient have an Advance Directives/Living Will? Yes Last Physical Exam: Last physical exam: 04/2024 Does patient see primary provider regularly? Yes Does patient see other providers? No Patient Care Team updated? Yes Review of patient's allergies indicates: No Known Allergies Immunization History Administered Date(s) Administered COVID-19 mRNA, LNP-s, No Preserve, 2-Dose Series (Moderna) 06/10/2020, 07/08/2020 COVID-19, mRNA, LNP-s, PF, Booster, 100mcg/0.5mg (Moderna) 05/19/2021 Covid-19, Mrna, Lnp-s, Pf, Bivalent, 25 Mcg, IM,6-11 yrs (Moderna) 04/30/2021 Covid-19, Mrna, Lnp-s, Pf, Bivalent, 30 Mcg, IM, 12 yrs and above (Pfizer) 03/23/2022 Influenza, Whole Virus 03/10/1999 PPD 11/09/2004 Pneumococcal Conjugate Vacc, 13 Valent (Prevnar) 09/26/2015 Pneumococcal Conjugate Vaccine, 7 Valent 01/17/2002 Pneumococcal Polysaccharide PPV23 (Pneumovax) 11/23/2007 Season Influenza, Quad, PF, Adjuvanted, 65+ Yrs, IM (FLUAD) 02/18/2020 Seasonal Influenza Vac., MDV, IM, 0.5 mL (Fluzone) 04/06/2005, 04/16/2006, 03/15/2007, 03/28/2008, 02/13/2009, 06/10/2010, 04/06/2011, 02/18/2012, 02/20/2013, 02/26/2014 Seasonal Influenza, High Dose, Trivalent, PF, IM (Fluzone HD) 03/31/2018, 03/08/2024 Seasonal Influenza, PF, 6 M & above, IM , (FluLaval or Fluzone) 06/28/2017, 03/13/2019 Seasonal Influenza, Quadrivalent Hd (Fluzone Hd) 03/03/2021, 03/08/2022, 04/26/2023 Seasonal Influenza, Quadrivalent, No Preserve, IM 03/26/2015, 03/23/2016, 03/31/2018 TD - Tetanus/Diptheria (ADULT) 01/17/2002 TDAP, Age 7 and older, IM (Adacel) 08/16/2011 Varicella Zoster Vaccine (Adult) 12/12/2011 Current Outpatient Medications Medication Sig Dispense Refill Acetaminophen ER 650 MG Oral Tablet Extended [...] every night at bedtime. 90 Tablet 1 Fluticasone Propionate 50 MCG/ACT Nasal Suspension (Flonase) [...] MOUTH EVERYDAY AT BEDTIME 90 Tablet 1 Cilostazol 50 MG Oral Tablet (Pletal) Take [...] equal 7.5 mg daily.. 90 Tablet 1 Januvia 50 MG Oral Tablet Take one daily In the morning. 90 Tablet 1 Pantoprazole Sodium 40 MG Oral Tablet Delayed Release (Protonix) Take 1 Tablet by mouth in the morning. 30 Tablet 5 Prodigy Control Solution High In Vitro Solution Use to calibrate glucometer 1 Each 0 Prodigy AutoCode Blood Glucose Device Use daily. Dx E11.9 1 Each 0 Prodigy Lancing Device Use as directed to test blood sugars once daily 1 Each 0 Prodigy Lancets 28G Use to test blood sugars once daily 100 Each 3 Prodigy No Coding Blood Gluc In Vitro Strip (Glucose Blood) test blood sugars once daily 100 Strip 3 No current facility-administered medications for this visit. 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 Yes Patient takes medications as prescribed? Yes Patient manages own medications: Yes Patient uses a pill box? Yes, refill(s) completed by self Dental Exam: Yes: Every 6 Months Eye Screening: Yes: Every year Are you having trouble with hearing? Yes Do you use an assistive device to help your hearing? bilateral Exercise Screening: exercises 1-2 times per week, bicycle on the bed and shoulders Nutrition Assessment: Eats three meals a day Pain Screening: Are you having any pain? Yes. Pain Scale: arthritis Sleep Screening Tool 'STOP': Do you snore? No Do you feel fatigued during the day? Yes Do you wake up feeling like you haven't slept? No Have you been told you stop breathing at night? No Do you gasp for air or choke while sleeping? No Have you been told you have Sleep Apnea? No, patient may have had a home study Do you have high blood pressure or are on medication(s) to control high blood pressure? Yes SCORE: If you check YES to two or more questions, make a referral for Obstructive Sleep Apnea Discuss with Dr. Woods Patient and Caregiver Support System: Patient lives with a spouse Means of Transportation: Drives. Concerns identified are: night or distance Patient lives in One Story - with basement stairs: 8 with railings Community Resources: Not Applicable Functional Status and ADL Skills: Has patient ever had an amputation? No Functional Assessment: 100- Normal, no complaints, no evidence of disease Ambulation: Patient ambulates with assistive device. Cane Dressing: Gets clothes and dresses without any assistance: Independent Able to move freely in chair or bed including turning over: Independent Repositioning (bed or chair): Not applicable Transfers: Independent Toileting: Goes to bathroom, uses toilet, arranges clothes and returns without any assistance: Independent Toileting: continent of bowel and incontinent of bladder Feeding: Self Bathing: Self; tub and shower encouraged grab bars Requires none assistance with ADLs. Instrumental ADL's: Shopping: Independent Housekeeping: Minimal Assistance Handling Finances: Independent DME Vendor Name: Not Applicable Fall Risk Assessment: Can the patient demonstrate that he can stand from a sitting position? Yes Has the patient had a fall within the last 6 months? No Does the patient have a problem with his gait or balance? Yes Does the patient take 4 or more prescription medicines? Yes Does the patient use sedatives or narcotics? No Fall Risk Factors Present: Uses more than 4 medications Uses assistive devices Balance or gait disturbances Lower extremity weakness Visually impaired Older than age 70 Ncy-Yi-ths-Go Test: Time began at 1100. Patient stood from sitting position and walked approximately 10 feet, returned and sat down. Total time for mtn-lv-ybw-go test was 10 seconds. Wrp-Of-gri-Go Test completed? Yes Gender Specific Preventative Plan: Health Maintenance Topic Date Due Zoster Vaccines (2 of 3) 02/06/2012 DTap/Tdap Vaccines (2 - Td or Tdap) 08/15/2021 COVID-19 Vaccine ( season) 2024 Diabetic Eye Exam 07/11/2024 HbA1c 11/05/2024 Albumin/Creatinine Ratio 01/25/2025 CKD HGB USE SMARTSET 59693 01/25/2025 CKD PHOS USE SMARTSET 48964 01/25/2025 Diabetic Foot Exam 05/29/2025 Depression Screening 05/29/2025 Adult Wellness Visit 05/29/2025 Influenza Vaccine (FLU shot) Completed Pneumococcal Vaccine: 50+ Years Completed Hepatitis B Vaccine Aged Out MENINGOCOCCAL (MENACTRA/MENVEO) Aged Out HPV (Gardasil) Vaccine Aged Out Follow Up/ Referrals/Handouts: Depression screening - completed Functional assessment - doing well, primary caregivever for Falls Risk screening - discussed, encouraged cane Exercise screening -encouraged to stay active and walk more Nutrition assessment -. Discussed, patient to follow up with [facility] 06/07/24 Pain screening - discussed Incontinence screening - yes, and wears depends. Patient encouraged to still increase his fluids Patient has been verbally educated on the need or importance of Cholesterol, Diabetic Eye Exam, Diabetic Foot Exam, GFR, Glucose, Hemoglobin A1c, COVID, Flu Vaccine, and Shingles Vaccine Pt has completed the covid vaccines: No Routine general medical examination at a health care facility (Primary) Risk and functional assessment Type 2 diabetes mellitus with hemoglobin A1c goal of less than 7.0% (HCC) - DIABETES FOOT EXAM DYSLIPIDEMIA, GOAL LDL BELOW 100 - Med reconciliation completed and compliance discussed. - pt to continue present medications. Lab Results Component Value Date/Time LDL (CALCULATED)-OUTSIDE LAB 42.80 09/09/2017 12:00 AM LDL (DIRECT MEASURE)-OUTSIDE LAB 76 06/01/2018 12:00 AM LDL CHOLESTEROL (CALCULATED) - [facility] 76 01/26/2024 01:35 PM LDL CHOLESTEROL (CALCULATED) - [facility] 63 02/18/2020 01:14 PM LDL CHOLESTEROL (DIRECT MEASURE) - [facility] NOT APPLICABLE 02/18/2020 01:14 PM LDL CHOLESTEROL (DIRECT MEASURE) - [facility] 149 (H) 07/13/2006 10:42 AM Gastroesophageal reflux disease with esophagitis without hemorrhage - Med reconciliation completed and compliance discussed. - pt to continue present medications. Glaucoma - Med reconciliation completed and compliance discussed. - pt to continue present medications. HTN, goal below 140/90 - Med reconciliation completed and compliance discussed. - pt to continue present medications. BP Readings from Last 3 Encounters: 05/29/24 124/70 05/08/24 128/60 03/08/24 129/74 Macular degeneration Patient does follow up with eye doctor and specialist both, 2 x a yr Type 2 diabetes mellitus with hemoglobin A1c goal of less than 8.0% ([facility]) Type 2 diabetes mellitus with stage 3a chronic kidney disease ([facility]) - Med reconciliation completed and compliance discussed. - pt to continue present medications. Hemoglobin AIC Results: Lab Results Component Value Date/Time HEMOGLOBIN A1C - [facility] 8.3 (H) 05/07/2024 11:55 AM HEMOGLOBIN A1C - [facility] 9.0 (H) 01/26/2024 01:35 PM HEMOGLOBIN A1C - [facility] 8.4 (H) 09/13/2023 08:43 AM HEMOGLOBIN A1C - [facility] 8.0 (H) 02/18/2020 01:14 PM HEMOGLOBIN A1C - [facility] 7.6 (H) 04/30/2019 09:00 AM HEMOGLOBIN A1C - [facility] 7.5 (H) 10/26/2018 08:37 AM HEMOGLOBIN A1C POCT - [facility] 8.4 (H) 12/27/2023 01:09 PM HEMOGLOBIN A1C POCT - [facility] 9.8 (H) 05/27/2023 09:59 AM Urinary incontinence without sensory awareness Patient does wear depends Follow Up: Return in 1 year (on 05/29/2025) for 12 month Subsequent Adult Wellness Visit. | For: 12month Subsequent Adult Wellness Visit | Check-out note: 12 month Subsequent Adult Wellness Visit Would patient like to schedule next AWV visit? Yes Shaila Beck RN Socks and Shoes Removed for Annual Diabetic Foot Screening RIGHT FOOT: No Reddened, Cracking, Or Open Areas Noted. RIGHT Dorsalis Pedis Pulse: Palpable RIGHT Posterior Tibial Pulse: Palpable RIGHT Monofilament:Patient reports feeling monofilament pressure on plantar surface of foot LEFT FOOT: No Reddened, Cracking or Open Areas Noted. LEFT Dorsalis Pedis Pulse: Palpable LEFT Posterior Tibial Pulse: Palpable LEFT Monofilament:Patient reports feeling monofilament pressure on plantar surface of foot Do you need diabetic shoes: No Patient does follow up with podiatry in [place] documented in this encounter Plan of Treatment Upcoming Encounters Date Type Department Care Team (Late st Contact Info) Description 06/07/2024 11:30 AM EST Office Visit Pharmacy, [address] [place] [phone] [place] [phone] 07/19/2024 3:00 PM EST Office Visit Family Medicine [address] [place] [phone] Kena Razo PA-C [address] [place] [address] [place] [phone] 08/06/2024 2:00 PM EDT [facility] [address] [facility] [place] [phone] 09/07/2024 1:30 PM EDT Office Visit Cardiology, [facility] [address] [facility] [place] [phone] Chong Woods DO [address] [facility] [place] [phone] 09/07/2024 3:00 PM EDT Office [address] [address] Betty Kasper MD [address] [place] [address] [place] [phone] 10/30/2024 1:30 PM EDT Office Visit Ophthalmology, [facility] [address] [place] [address] Kirby Yousif, [address] [place] [phone] 02/11/2025 1:20 PM EDT Office Visit Family Medicine [address] [place] [phone] Ken Carson MD [address] [place] [address] [place] [phone] 05/31/2025 12:30 PM EST Nurse Only Ancillary [address] [place] [phone] [place], Nurse Annual [address] [place] [phone] Health Maintenance Due Date Last Done Comments [...] Additional history exists CKD HGB USE SMARTSET 29171 01/25/202501/25, 01/26/2024, 10/05/2023, Additional history exists CKD PHOS USE SMARTSET 68922 01/25/202512/29, 09/09/2023, 04/14/2022, Additional history exists Adult [...] as of this encounter Visit Diagnoses Diagnosis Routine general medical examination at a health care facility- Primary Risk and functional assessment Screening for unspecified condition Type 2 diabetes mellitus with hemoglobin A1c goal of less than 7.0% (HCC) DYSLIPIDEMIA, GOAL LDL BELOW 100 Other and unspecified hyperlipidemia Gastroesophageal reflux disease with esophagitis without hemorrhage Glaucoma Unspecified glaucoma HTN, goal below 140/90 Unspecified essential hypertension Macular degeneration Macular degeneration (senile) of retina, unspecified Type 2 diabetes mellitus with hemoglobin A1c goal of less than 8.0% (HCC) Urinary incontinence without sensory awareness Incontinence without sensory awareness documented in this encounter Advance Directives * [...] Discussed due to patient's condition Care Teams Liner Installer Relationship Specialty Start Date End Date Ken Carson MD [address] [place] [address] [place] [id number] PCP - General Family Medicine 04/18/12 documented as of this encounter
--- OUTSIDE RECORDS SUMMARY | 2024-08-19 12:33 | External Medical Summary | Summary of Care ---
Author Name Unknown Organization [facility] [address] [facility] [address] Phone [phone] Care Team Providers Care Associate Professor Of Geography Name Role Phone Ken Carson MD Primary Care Provide r Reason for Visit * Reason Comments Outpatient Testing Encounter Details Date Type Department Care Team (Late st Contact Info) Description 05/07/2024 12:00 PM EST Laboratory Laboratory [address] [place] [phone] [place] [address] Type 2 diabetes mellitus with stage 3b chronic kidney disease, without long-term current use of insulin ([facility]) Allergies No known active allergiesdocumented as of [...] of insulin ([facility]),Anemia of chronic disease,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 90 Tablet 1 03/22/20 23 Active Vitamin D 25 MCG (1000 UT) Oral TabletIndications:T ype 2 diabetes mellitus with stage 3b chronic kidney disease, without long-term current use of insulin ([facility]),Anemia of chronic disease,Gastroesoph ageal reflux disease with esophagitis without hemorrhage,Dyslipid emia, goal LDL below 100 Take 1 tablet every other day 90 Tablet 1 03/22/20 23 Active metFORMIN HCl ER 500 MG Oral Tablet Extended Release 24 Hour (Glucophage XR)Indications:Type 2 diabetes mellitus with hemoglobin A1c goal of less than 8.0% ([facility]) Take 1 Tablet by mouth in the morning. 90 Tablet 3 06/20/19 24 Active Vitamin C 500 MG Oral Capsule Take 2 Tablets by mouth in the morning. 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 with food.. 100 Tablet 2 07/09/19 24 Active Famotidine 20 MG Oral Tablet (Pepcid)Indications :Type 2 diabetes mellitus with stage 3b chronic kidney disease, without long-term current use of insulin ([facility]),Gastroesophag eal reflux disease with esophagitis without hemorrhage [...] ia, goal LDL below 100,Ascending aorta dilatation ([facility]),Fatigue, unspecified type Instill 1 Drop into both eyes in the morning. 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 30 MINUTES BEFORE A MEAL.. 90 Tablet 1 01/25/20 24 Active Atorvastatin Calcium 40 MG Oral Tablet (Lipitor)Indication s:Type 2 diabetes mellitus with stage 3b chronic kidney disease, without long-term current use of insulin ([facility]),Anemia of chronic disease,Gastroesoph ageal reflux disease with [...] than 8.0% ([facility]) test blood sugars once daily 100 [...] of insulin ([facility]),Anemia of chronic disease,Gastroesoph ageal reflux disease with [...] of insulin ([facility]),Anemia of chronic disease,Gastroesoph ageal reflux disease with [...] of insulin ([facility]),Anemia of chronic disease,Gastroesoph ageal reflux disease with [...] #1 ACTIVE CASE MANAGEMENT- Callie Sargent RN [phone] 10/06/2009 03/16/2010 HTN, GOAL BELOW 140/90 04/04/200906/25 [...] CHR BLOOD LOSS ANEMIA 2014 PURE HYPERCHOLESTEROLEM /12/2008 Overview (05/06/2009): Per Lipid Taxonomy. Type 2 diabetes mellitus wit h hemoglobin A1c goal of less than 7.0% 03/27/2009 Overview (09/23/2015): Per Diabetes Taxonomy. 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,D0wlliqeyax body lesion probable heman documented as of [...] claudia Rivera RN documented in this encounter Plan of Treatment Upcoming Encounters Date Type Department Care Team (Late st Contact Info) Description 05/08/2024 1:00 PM EST Office Visit Family Medicine [address] [place] [phone] Kena Razo PA-C [address] [place] [address] [place] [id number] 05/29/2024 11:00 AM EST Nurse Only Ancillary [address] [place] [address] Melissaalley, Nurse [address] [place] [address] 06/07/2024 11:30 AM EST Office Visit Pharmacy, [address] [place] [address] [place] [address] 07/19/2024 3:00 PM EST Office Visit Family [address] [place] [phone] Kena Razo PA-C [address] [place] [address] [place] [address] 08/06/2024 2:00 PM EDT Cardiac Studies Cardiac Studies, [facility] [address] [place] [address] 09/07/2024 1:30 PM EDT Office Visit Cardiology, [facility] [address] [place] [address] [place]ong [place], DO [address] [place] [address] 09/07/2024 3:00 PM EDT Office Visit Nephrology, [address] [place] [address] Betty Kasper MD [address] [place], [place] [address] [address] 10/30/2024 1:30 PM EDT Office Visit Ophthalmology, [facility] [address] [place] [address] Kirby Yousif, DO [address] [place] [address] 02/11/2025 1:20 PM EDT Office Visit Family Medicine [address] [place] [phone] Ken Carson MD [address] [place] [address] [place] [phone] Pending Results Name Type Priority Associated Diagnoses Date /Time HEMOGLOBIN A1C Lab Routine Type 2 diabetes mellitus with stage 3b chronic kidney disease, without long-term current use of insulin ([facility]) 05/07/2024 11:55 AM EST Health Maintenance Due Date Last Done Comments [...] Additional history exists CKD HGB USE SMARTSET 27074 01/25/202501/25, 01/26/2024, 10/05/2023, Additional history exists CKD PHOS USE SMARTSET 29487 01/25/2025 0801/2024, 09/09/2023, 04/14/2022, Additional history exists [...] without long-term current use of insulin ([facility]) documented in this encounter Advance Directives [...] Discussed due to patient's condition Care Teams Associate Professor Of Geography Relationship Specialty Start Date End Date Ken Carson MD [address] [place] [address] [place] [phone] PCP - General Family Medicine 04/18/12 documented as of this encounter
--- OUTSIDE RECORDS SUMMARY | 2024-08-19 12:33 | External Medical Summary | Summary of Care ---
Author Name Unknown Organization [facility] Address [address] [facility] [place] [address] Phone [phone] Care Team Providers Care Vp Software Support Name Role Phone Ken Carson MD Primary Care Provide r Encounter Details Date Type Department Care Team (Late st Contact Info) Description 04/27/2024 Telephone Pharmacy, [address] [place] [phone] [place] [address] Allergies No known active allergiesdocumented as of this encounter (statuses as of 04/27/2024) Medications zoster vac recomb adjuvanted (SHINGRIX) 50 MCG/0.5ML injection Inject 0.5 mL into a large muscle now and repeat dose in 60 to 180 days. Please fax date this was given to our office. 1 Each 1 07/19/19 20 Active Additional Information Patient not taking.Reported on 10/05/2023 [employer] Control Solution High In Vitro Solution Use to calibrate glucometer 1 Each 10/30/19 21 Active [employer]igy AutoCode Blood Glucose DeviceIndications:T ype 2 diabetes [...] disease, without long-term current use of insulin ([facility]),Anemia of chronic disease,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 90 Tablet 1 03/22/20 23 Active Vitamin D 25 MCG (1000 UT) Oral TabletIndications:T ype 2 diabetes mellitus with stage 3b chronic kidney disease, without long-term current use of insulin ([facility]),Anemia of chronic disease,Gastroesoph ageal reflux disease with esophagitis without hemorrhage,Dyslipid emia, goal LDL below 100 Take 1 tablet every other day 90 Tablet 1 03/22/20 23 Active metFORMIN HCl ER 500 MG Oral Tablet Extended Release 24 Hour (Glucophage XR)Indications:Type 2 diabetes mellitus with hemoglobin A1c goal of less than 8.0% ([facility]) Take 1 Tablet by mouth in the morning. 90 Tablet 3 06/20/19 24 Active Vitamin C 500 MG Oral Capsule Take 2 Tablets by mouth in the morning. 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 with food.. 100 Tablet 2 07/09/19 24 Active Famotidine 20 MG Oral Tablet (Pepcid)Indications :Type 2 diabetes mellitus with stage 3b chronic kidney disease, without long-term current use of insulin ([facility]),Gastroesophag eal reflux disease with esophagitis without hemorrhage [...] disease, without long-term current use of insulin ([facility]),Anemia of chronic disease,Gastroesoph ageal reflux disease with esophagitis without hemorrhage,Dyslipid emia, goal LDL below 100 TAKE 1 TABLET BY MOUTH IN THE MORNING. 30 MINUTES BEFORE A MEAL.. 90 Tablet 1 01/25/20 24 Active Atorvastatin Calcium 40 MG Oral Tablet (Lipitor)Indication s:Type 2 diabetes mellitus with stage 3b chronic kidney disease, without long-term current use of insulin ([facility]),Anemia of chronic disease,Gastroesoph ageal reflux disease with [...] hemoglobin A1c goal of less than 8.0% ([facility]) test blood sugars once daily 100 Strip [...] disease, without long-term current use of insulin ([facility]),Anemia of chronic disease,Gastroesoph ageal reflux disease with esophagitis without hemorrhage,Dyslipid emia, goal LDL below 100 TAKE 1 TABLET 2 TIMES A DAY WITH MORNING AND EVENING MEALS. 180 Tablet 1 04/10/20 24 Active glipiZIDE ER 2.5 MG Oral Tablet Extended Release 24 Hour (glipiZIDE XL)Indications:Type 2 diabetes mellitus with stage 3b chronic kidney disease, without long-term current use of insulin ([facility]),Anemia of chronic disease,Gastroesoph ageal reflux disease with [...] disease, without long-term current use of insulin ([facility]),Anemia of chronic disease,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 30 minutes before the first meal of the day. Do not crush, split or chew the tablet. 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 Patient notes that he was lightheaded, had worse dry mouth and indigestion. Patient states he will skip the next dose and then determine if he would like to retry it. Willfollow up at next MTM appointment to determine what he would like to do. Shirley Trevino, Pharm D, BCACP Clinical Pharmacist 04/27/2024, 11:53 AM * Telephone Encounter - Jessie Toscano PHARM Tech - 04/27/2024 11:44 AM EST Caller's name: Shaan Preferred call back number(OFFICE NUMBER FOR ): [phone] Reason for call: pt calling in stating he started taking trulicity and ever since he took the firstdose he hasn't felt very well. He stated he has had indigestion and has been lightheaded. Pt statedhe would like a call back to advise and will be skipping his next dose because of this. Thank you, Jessie Toscano Commissary Production Supervisor [facility] 04/27/2024 11:44 AM documented in this encounter Plan of Treatment Upcoming Encounters Date Type Department Care Team (Late st Contact Info) Description 05/01/2024 2:00 PM EST Office Visit Ophthalmology, [facility] [address] [place] [address] Kirby Yousif DO [address] [place] [address] 05/07/2024 11:30 AM EST Office Visit Pharmacy, [address] [place] [address] [place] [address] 05/29/2024 11:00 AM EST Nurse Only Ancillary [address] [place] [address] [place], Nurse Annual [address] [place] [address] 07/19/2024 3:00 PM EST Office Visit Family Medicine [address] [place] [phone] Kena Razo PA-C [address] [place] [address] [place] [address] 08/06/2024 2:00 PM EDT Cardiac Studies Cardiac Studies, [facility] [address] [place] [address] 09/07/2024 1:30 PM EDT Office Visit Cardiology, [facility] [address] [place] [address] [place], [address] [place] [address] 09/07/2024 3:00 PM EDT Office Visit Nephrology, [facility] [address] [facility] [place] [address] Betty Kasper MD [address] [facility] [place] [address] 02/11/2025 1:20 PM EDT Office Visit Family Medicine [address] [phone] Ken Carson MD [address] [place] [address] [place] [address] Health Maintenance Due Date Last Done Comments [...] Additional history exists CKD HGB USE SMARTSET 67353 01/25/202501/25, 01/26/2024, 10/05/2023, Additional history exists CKD PHOS USE SMARTSET 65668 01/25/202512/29, 09/09/2023, 04/14/2022, Additional history exists Pneumococcal [...] Discussed due to patient's condition Care Teams Vp Software Support Relationship Specialty Start Date End Date Ken Carson MD [address] [place] [address] [place] [address] PCP - General Family Medicine 04/18/12 documented as of this encounter
--- OUTSIDE RECORDS SUMMARY | 2024-08-19 12:34 | External Medical Summary | Summary of Care ---
Author Name Unknown Organization [facility] Address [address] [place] [address] Phone [phone] Care Team Providers Care Manager Of Software Development Name Role Phone Ken Carson MD Primary Care Provide r Reason for Visit * Reason Onset Date Comments Medication Refill 04/10/2024 Encounter Details Date Type Department Care Team (Late st Contact Info) Description 04/10/2024 Refill Family Medicine [address] [phone] Ken Carson MD [address] [place] [address] [place] [id number] Type 2 diabetes mellitus with stage 3b chronic kidney disease, without long-term current use of insulin (HCC); Anemia of chronic disease; Gastroesophageal reflux disease with esophagitis without hemorrhage; Dyslipidemia, goal LDL below 100 Allergies No known active allergiesdocumented as of this encounter (statuses as of 04/10/2024) Medications zoster vac recomb adjuvanted (SHINGRIX) 50 MCG/0.5ML injection Inject 0.5 mL into a large muscle now and repeat dose in 60 to 180 days. Please fax date this was given to our office. 1 Each 1 020 Active Additional Information Patient not taking.Reported on 10/05/2023 [employer] Control Solution High In Vitro Solution Use to calibrate glucometer 1 Each 021 Active [employer] AutoCode Blood Glucose DeviceIndications:T ype 2 diabetes mellitus with stage 3a chronic kidney disease and hypertension ([facility]),Type 2 diabetes mellitus with hemoglobin A1c goal of less than 8.0% ([facility]) Use daily. Dx E11.9 1 Each [...] disease, without long-term current use of insulin ([facility]),Anemia of chronic disease,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 90 Tablet 1 023 Active Vitamin D 25 MCG (1000 UT) Oral TabletIndications:T ype 2 diabetes mellitus with stage 3b chronic kidney disease, without long-term current use of insulin ([facility]),Anemia of chronic disease,Gastroesoph ageal reflux disease with esophagitis without hemorrhage,Dyslipid emia, goal LDL below 100 Take 1 tablet every other day 90 Tablet 1 023 Active metFORMIN HCl ER 500 MG Oral Tablet Extended Release 24 Hour (Glucophage XR)Indications:Type 2 diabetes mellitus with hemoglobin A1c goal of less than 8.0% ([facility]) Take 1 Tablet by mouth in [...] disease, without long-term current use of insulin ([facility]),Gastroesophag eal reflux disease with esophagitis without [...] disease, without long-term current use of insulin ([facility]),Anemia of chronic disease,Gastroesoph ageal reflux disease with esophagitis without hemorrhage,Dyslipid emia, goal LDL below 100 TAKE 1 TABLET BY MOUTH IN THE MORNING. 30 MINUTES BEFORE A MEAL.. 90 Tablet 1 024 Active Pantoprazole Sodium 20 MG Oral Tablet Delayed Release (Protonix)Indicatio ns:Type 2 diabetes mellitus with stage 3b chronic kidney disease, without long-term current use of insulin ([facility]),Anemia of chronic disease,Gastroesoph ageal reflux disease with esophagitis without hemorrhage,Dyslipid emia, goal LDL below 100 TAKE 1 TABLET BY MOUTH IN THE MORNING. 30 MINUTES BEFORE THE FIRST MEAL OF THE DAY. DO NOT CRUSH, SPLIT OR CHEW THE TABLET. 90 Tablet 1 024 Active Atorvastatin Calcium [...] hemoglobin A1c goal of less than 8.0% ([facility]) test blood sugars once daily 100 Strip 3 024 Active Cilostazol 50 MG Oral Tablet (Pletal) Take 1 Tablet by mouth in the morning. 90 Tablet 1 024 Active Folic Acid 1 MG Oral TabletIndications:T ype 2 diabetes mellitus with stage 3b chronic kidney disease, without long-term current use of insulin ([facility]),Anemia of chronic disease,Gastroesoph ageal reflux disease with esophagitis without hemorrhage,Dyslipid emia, goal LDL below 100 TAKE 1 TABLET BY MOUTH IN THE MORNING AND BEFORE BEDTIME 180 Tablet 1 024 Active amLODIPine Besylate 10 MG Oral Tablet (Norvasc)Indication s:Type 2 diabetes mellitus with stage 3b chronic kidney disease, without long-term current use of insulin ([facility]),Anemia of chronic disease,Gastroesoph ageal reflux disease with esophagitis without hemorrhage,Dyslipid emia, goal LDL below 100 TAKE 1 TABLET BY MOUTH EVERY DAY IN THE MORNING 90 Tablet 1 024 Active Carvedilol 6.25 MG Oral Tablet (Coreg)Indications: Type 2 diabetes mellitus with stage 3b chronic kidney disease, without long-term current use of insulin ([facility]),Anemia of chronic disease,Gastroesoph ageal reflux disease with esophagitis without hemorrhage,Dyslipid emia, goal LDL below 100 TAKE 1 TABLET 2 TIMES A DAY WITH MORNING AND EVENING MEALS. 180 Tablet 1 024 Active glipiZIDE ER 2.5 MG Oral Tablet Extended Release 24 Hour (glipiZIDE XL)Indications:Type 2 diabetes mellitus with stage 3b chronic kidney disease, without long-term current use of insulin ([facility]),Anemia of chronic disease,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 30 minutes before a meal. Add to 5 mg tablet to equal 7.5 mg daily.. 90 Tablet 1 Active Januvia 50 MG Oral TabletIndications:T ype 2 diabetes mellitus with stage 3b chronic kidney disease, without long-term current use of insulin (HCC),Anemia of chronic disease,Gastroesoph ageal reflux disease with esophagitis without hemorrhage,Dyslipid emia, goal LDL below 100 Take one daily In the morning. 90 Tablet 1 Active glipiZIDE ER 2.5 MG Oral Tablet Extended Release 24 Hour (glipiZIDE XL)Indications:Type 2 diabetes mellitus with stage 3b chronic kidney disease, without long-term current use of insulin ([facility]),Anemia of chronic disease,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 30 minutes before a meal. Add to 5 mg tablet to equal 7.5 mg daily.. 90 Tablet 1 024 2023 Disconti nued(Ref ill) Carvedilol 6.25 MG Oral Tablet (Coreg)Indications: Type 2 diabetes mellitus with stage 3b chronic kidney disease, without long-term current use of insulin ([facility]),Anemia of chronic disease,Gastroesoph ageal reflux disease with esophagitis without hemorrhage,Dyslipid emia, goal LDL below 100 TAKE 1 TABLET 2 TIMES A DAY WITH MORNING AND EVENING MEALS. 180 Tablet 1 024 2023 Disconti nued(Ref ill) amLODIPine Besylate 10 MG Oral Tablet (Norvasc)Indication s:Type 2 diabetes mellitus with stage 3b chronic kidney disease, without long-term current use of insulin (HCC),Anemia of chronic disease,Gastroesoph ageal reflux disease with esophagitis without hemorrhage,Dyslipid emia, goal LDL below 100 TAKE 1 TABLET BY MOUTH EVERY DAY IN THE MORNING 90 Tablet 1 024 2023 Disconti nued(Ref ill) Januvia 50 MG Oral TabletIndications:T ype 2 diabetes mellitus with stage 3b chronic kidney disease, without long-term current use of insulin (HCC),Anemia of chronic disease,Gastroesoph ageal reflux disease with esophagitis without hemorrhage,Dyslipid emia, goal LDL below 100 TAKE 1 TABLET BY MOUTH IN THE MORNING. 90 Tablet 1 024 2023 Disconti nued(Ref ill) documented as of this encounter (statuses as of 04/10/2024) Active Problems Problem Noted Date Diagnosed Date [...] as of this encounter (statuses as of 04/10/2024) Resolved Problems Problem Noted Date Diagnosed Date Resolved Date Chronic kidney disease, stage 3a 11/11/2020 09/17/2022 Overview: Per CKD protocol Type 2 diabetes mellitus wit h stage 3 chronic kidney disease and hypertension 05/04/2018 05/13/20 21 Overview: Per CKD protocol Globus sensation 09/06/2016 09/04/2018 KIDNEY DISEASE, CHRONIC, STA GE III (GFR 30-59 ML/MIN) 10/18/2011 05/12/2018 Overview (10/21/2011): Per CKD protocol #1 ACTIVE CASE MANAGEMENT- Callie Sargent RN [phone] 10/06/2009 03/16/2010 HTN, GOAL BELOW 140/90 04/04/200906/25 [...] 11/18/2017 Overview (11/02/1999): l5-s1 disc extrusion,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 Authorizing Provider: KEN CASRON glipiZIDE ER 2.5 MG Oral Tablet Extended R*90 Tab*1 Sig: Take 1 Tablet by mouth in the morning. 30 minutes before a meal. Add to 5 mg tablet to equal 7.5 mg daily.. Authorizing Provider: KEN CARSON Januvia 50 MG Oral Tablet 90 Tab*1 Sig: Take one daily In the morning. Authorizing Provider: KEN CARSON * Telephone Encounter - Batool Lynch RN - 04/10/2024 4:49 PM ESTPending Prescriptions: Disp Refills amLODIPine Besylate 10 MG Oral Tablet (Nor*90 Tab*1 Sig: TAKE 1 TABLET BY MOUTH EVERY DAY IN THE MORNING Carvedilol 6.25 MG Oral Tablet (Coreg) 180 Ta*1 Sig: TAKE 1 TABLET 2 TIMES A DAY WITH MORNING AND EVENING MEALS. glipiZIDE ER 2.5 MG Oral Tablet Extended R*90 Tab*1 Sig: Take 1 Tablet by mouth in the morning. 30 minut es before a meal. Add to 5 mg tablet to equal 7.5 mg daily.. Januvia 50 MG Oral Tablet 90 Tab*1 Sig: Take one daily In the morning. * Telephone Encounter - Ewa Nash OSA - 04/10/2024 4:25 PM EST Did you pend patient's preferred pharmacy and medication before forwarding?yes [facility] Pending Prescriptions: Disp Refills amLODIPine Besylate 10 MG Oral Tablet (No*90 Tab*1 Carvedilol 6.25 MG Oral Tablet (Coreg) 180 Ta*1 Sig: TAKE 1 TABLET 2 TIMES A DAY WITH MORNING AND EVENING MEALS. glipiZIDE ER 2.5 MG Oral Tablet Extended *90 Tab*1 Sig: Take 1 Tablet by mouth in the morning. 30 minutes before a meal. Add to 5 mg tablet to equal 7.5 mg daily.. Januvia 50 MG Oral Tablet 90 Tab*1 Sig: Take 1 Tablet by mouth. In the morning. Last Visit: 01/17/2024 (in office), Visit date not found (telemedicine) Next Visit: 07/19/2024 If no future appointments scheduled, and last appointment is greater than a year ago, please schedule patient for a follow-up appointment Last date the medication was ordered: 12.19.23 Is this request for a controlled substance?No [...] PM ALT 20 11/20/2019 08:13 AM HGBA1C 9.0 (H) 01/26/2024 01:35 PM HGBA1C 8.4 (H) 12/27/2023 01:09 PM HGBA1C 8.0 (H) 02/18/2020 01:14 PM documented in this encounter Plan of Treatment Upcoming Encounters Date Type Department Care Team (Late st Contact Info) Description 04/16/2024 2:30 PM EST Office Visit Pharmacy, [address] [place] [phone] [place] [phone] 05/01/2024 2:00 PM EST Office Visit Ophthalmology, [facility] [address] [place] [address] Kirby Yousif, DO [address] [place] [phone] 05/29/2024 11:00 AM EST Nurse Only Ancillary [address] [place] [phone] [place], Nurse Annual [address] [place] [phone] 07/19/2024 3:00 PM EST Office Visit Family Medicine [address] [place] [phone] Kena Razo PA-C [address] [place] [address] [place] [id number] 08/06/2024 2:00 PM EDT Cardiac Studies Cardiac Studies, [facility] [address] [place] [address] 09/07/2024 1:30 PM EDT Office Visit Cardiology, [facility] [address] [place] [address] Chong Woods, DO [address] [place] [phone] 09/07/2024 3:00 PM EDT Office Visit Nephrology, [address] [place] [address] Betty Kasper MD [address] [place] [address] [place] [phone] 02/11/2025 1:20 PM EDT Office Visit Family Medicine [address] [place] [phone] Ken Carson MD [address] [place] [address] [place] [phone] Health Maintenance Due Date Last Done Comments [...] Additional history exists CKD HGB USE SMARTSET 69457 01/25/202501/25, 01/26/2024, 10/05/2023, Additional history exists CKD PHOS USE SMARTSET 70916 01/25/202512/29, 09/09/2023, 04/14/2022, Additional history exists Pneumococcal [...] Discussed due to patient's condition Care Teams Manager Of Software Development Relationship Specialty Start Date End Date Ken Carson MD [address] [place] [address] [place] [phone] PCP - General Family Medicine 04/18/12 documented as of this encounter
--- OUTSIDE RECORDS SUMMARY | 2024-08-19 12:34 | External Medical Summary | Summary of Care ---
Author Name Unknown Organization [facility] Address [address] [place] [address] Phone [phone] Care Team Providers Care Curtain Mender Name Role Phone Ken Carson MD Primary Care Provide r Encounter Details Date Type Department Care Team (Late st Contact Info) Description 03/09/2024 Telephone Pharmacy, [address] [place] [id number] [facility] [address] [place] [address] Allergies No known active allergiesdocumented as of this encounter (statuses as of 03/12/2024) Medications Medication Sig Dispensed Refills Start Date End Date Status cilostazol (PLETAL) 50 MG Tablet Take 1 Tablet by mouth in the morning. 5 Active zoster vac recomb adjuvanted (SHINGRIX) 50 MCG/0.5ML injection Inject 0.5 mL into a large muscle now and repeat dose in 60 to 180 days. Please fax date this was given to our office. 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 Dx E11.9 1 Each 1 Active Acetaminophen ER 650 MG Oral Tablet Extended Release Pt is taking 650mg tylenol extra strength one pill twice daily if needed for pain. Pt is not to exceed >6 in a 24hr period 1 Active Carboxymethylcellulos e Sodium 0.5 % Ophthalmic Solution Instill 1 Drop into eye 4 times a day as needed for Dry eyes. Active Hydrocortisone Acetate 25 MG Rectal Suppository (Anusol-HC)Indication s:Hemorrhoids Administer into the rectum 2 times a day in the morning and at bedtime as needed for Hemorrhoids. Up to 2 weeks. 24 Suppository 1 3 Active Polyethylene Glycol 3350 17 GM Oral Packet (MiraLax) Take 1 Packet by mouth in the morning. 14 Each 1 3 Active Cyanocobalamin 1000 MCG Oral Tablet (Cyanocobalamin)Indic ations:Type 2 diabetes mellitus with stage 3b chronic kidney disease, without long-term current use of insulin ([facility]),Anemia of chronic disease,Gastroesophag eal reflux disease with esophagitis without hemorrhage,Dyslipidem ia, goal LDL below 100 Take 1 Tablet by mouth in the morning. 90 Tablet 1 3 Active Vitamin D 25 MCG (1000 UT) Oral TabletIndications:Typ e 2 diabetes mellitus with stage 3b chronic kidney disease, without long-term current use of insulin ([facility]),Anemia of chronic disease,Gastroesophag eal reflux disease with esophagitis without hemorrhage,Dyslipidem ia, goal LDL below 100 Take 1 tablet every other day 90 Tablet 1 3 Active metFORMIN HCl ER 500 MG Oral Tablet Extended Release 24 Hour (Glucophage XR)Indications:Type 2 diabetes mellitus with hemoglobin A1c goal of less than 8.0% ([facility]) Take 1 Tablet by mouth in the morning. 90 Tablet 3 4 Active Vitamin C 500 MG Oral Capsule Take 2 Tablets by mouth in the morning. 3 Active Aspirin 81 MG Oral Tablet ChewableIndications:T ype 2 diabetes mellitus with stage 3b chronic kidney disease, without long-term current use of insulin ([facility]),Anemia of chronic disease,Gastroesophag eal reflux disease with esophagitis without hemorrhage,Dyslipidem ia, goal LDL below 100 Take 1 Tablet by mouth in the morning. with food.. 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, without long-term current use of insulin ([facility]),Anemia of chronic disease,Gastroesophag eal reflux disease with esophagitis without hemorrhage,Dyslipidem ia, goal LDL below 100 TAKE 1 TABLET BY MOUTH IN THE MORNING AND BEFORE BEDTIME 180 Tablet 1 4 Active Famotidine 20 MG Oral Tablet (Pepcid)Indications:T ype 2 diabetes mellitus with stage 3b chronic kidney disease, without long-term current use of insulin ([facility]),Gastroesophagea l reflux disease with esophagitis without hemorrhage Take 1 Tablet by mouth every night at bedtime. 90 Tablet 1 4 Active Prodigy Lancing Device Use as directed to test blood sugars once daily 1 Each 4 Active Fluticasone Propionate 50 MCG/ACT Nasal Suspension (Flonase)Indications: Non-seasonal allergic rhinitis due to other allergic trigger SPRAY 2 SPRAYS INTO EACH NOSTRIL IN THE MORNING 16 mL 5 4 Active Timolol Maleate 0.5 % Ophthalmic Solution (Timoptic)Indications :HTN, goal below 140/90,Nonrheumatic aortic valve stenosis,Dyslipidemia , goal LDL below 100,Ascending aorta dilatation (HCC),Fatigue, unspecified type 4 Active glipiZIDE ER 2.5 MG Oral Tablet Extended Release 24 Hour (glipiZIDE XL)Indications:Type 2 diabetes mellitus with stage 3b chronic kidney disease, without long-term current use of insulin ([facility]),Anemia of chronic disease,Gastroesophag eal reflux disease with esophagitis without hemorrhage,Dyslipidem ia, goal LDL below 100 Take 1 Tablet by mouth in the morning. 30 minutes before a meal. Add to 5 mg tablet to equal 7.5 mg daily.. 90 Tablet 1 4 Active glipiZIDE ER 5 MG Oral Tablet Extended Release 24 Hour (Glucotrol XL)Indications:Type 2 diabetes mellitus with stage 3b chronic kidney disease, without long-term current use of insulin ([facility]),Anemia of chronic disease,Gastroesophag eal reflux disease with esophagitis without hemorrhage,Dyslipidem ia, goal LDL below 100 TAKE 1 TABLET BY MOUTH IN THE MORNING. 30 MINUTES BEFORE A MEAL.. 90 Tablet 1 4 Active Carvedilol 6.25 MG Oral Tablet (Coreg)Indications:Ty pe 2 diabetes mellitus with stage 3b chronic kidney disease, without long-term current use of insulin ([facility]),Anemia of chronic disease,Gastroesophag eal reflux disease with esophagitis without hemorrhage,Dyslipidem ia, goal LDL below 100 TAKE 1 TABLET 2 TIMES A DAY WITH MORNING AND EVENING MEALS. 180 Tablet 1 4 Active amLODIPine Besylate 10 MG Oral Tablet (Norvasc)Indications: Type 2 diabetes mellitus with stage 3b chronic kidney disease, without long-term current use of insulin ([facility]),Anemia of chronic disease,Gastroesophag eal reflux disease with esophagitis without hemorrhage,Dyslipidem ia, goal LDL below 100 TAKE 1 TABLET BY MOUTH EVERY DAY IN THE MORNING 90 Tablet 1 4 Active Januvia 50 MG Oral TabletIndications:Typ e 2 diabetes mellitus with stage 3b chronic kidney disease, without long-term current use of insulin ([facility]),Anemia of chronic disease,Gastroesophag eal reflux disease with esophagitis without hemorrhage,Dyslipidem ia, goal LDL below 100 TAKE 1 TABLET BY MOUTH IN THE MORNING. 90 Tablet 1 4 Active Pantoprazole Sodium 20 MG Oral Tablet Delayed Release (Protonix)Indications :Type 2 diabetes mellitus with stage 3b chronic kidney disease, without long-term current use of insulin ([facility]),Anemia of chronic disease,Gastroesophag eal reflux disease with esophagitis without hemorrhage,Dyslipidem ia, goal LDL below 100 TAKE 1 TABLET BY MOUTH IN THE MORNING. 30 MINUTES BEFORE THE FIRST MEAL OF THE DAY. DO NOT CRUSH, SPLIT OR CHEW THE TABLET. 90 Tablet 1 4 Active Atorvastatin Calcium 40 MG Oral Tablet (Lipitor)Indications: Type 2 diabetes mellitus with stage 3b chronic kidney disease, without long-term current use of insulin ([facility]),Anemia of chronic disease,Gastroesophag eal reflux disease with esophagitis without hemorrhage,Dyslipidem ia, goal LDL below 100 TAKE 1 TABLET BY MOUTH EVERYDAY AT BEDTIME 90 Tablet 1 4 Active Prodigy Lancets 28G Use to test blood sugars once daily 100 Each 3 4 Active Prodigy No Coding Blood Gluc In Vitro Strip (Glucose Blood)Indications:Typ e 2 diabetes mellitus with hemoglobin A1c goal of less than 8.0% ([facility]) test blood sugars once daily 100 Strip 3 4 Active documented as of this encounter (statuses as of 03/12/2024) Active Problems Problem Noted Date Diagnosed Date S/P lumbar laminectomy 12/07/2022 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 [facility]. Gastroesophageal reflux dise ase with esophagitis without hemorrhage 11/18/2017 Hard of hearing 10/10/2012 Anemia of chronic disease 07/11/2012 Spinal stenosis 11/11/2011 Retinal tear 11/08/2011 Overview: left eye, [facility] HTN, goal below 140/90 06/25/2009 Overview: Modified per HTN Taxonomy. DYSLIPIDEMIA, GOAL LDL BELOW 100 05/06/2009 Overview: Per Lipid Taxonomy. Type 2 diabetes mellitus wit h hemoglobin A1c goal of less than 8.0% 03/27/2009 Overview: Per Diabetes Taxonomy. ICD-10 update of inactive term LOC PRIM OSTEOART-SHLDER 07/13/2006 ADVANCE DIRECTIVE INFORMATION 04/06/2005 Overview: Yes, Patient instructed to provide copy of advance directive for provider to review and to be scanned into Electronic Medical Record Macular degeneration 12/29/2001 DIVERTICULOSIS OF COLON Glaucoma History of prostate cancer Testicular cyst documented as of this encounter (statuses as of 03/12/2024) Resolved Problems Problem Noted Date Diagnosed Date Resolved Date Chronic kidney disease, stage 3a 11/11/2020 09/17/2022 Overview: Per CKD protocol Type 2 diabetes mellitus wit h stage 3 chronic kidney disease and hypertension 05/04/2018 10/10/19 Overview: Per CKD protocol Globus sensation 09/06/2016 09/04/2018 KIDNEY DISEASE, CHRONIC, STA GE III (GFR 30-59 ML/MIN) 10/18/2011 05/12/2018 Overview: Per CKD protocol #1 ACTIVE CASE MANAGEMENT- Callie Sargent RN [phone] 10/06/2009 03/16/2010 HTN, GOAL BELOW 140/90 04/04/200906/25 Overview: Modified per HTN Taxonomy. 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/2004 01/15/2019 Overview: saw Liz for pain right leg, recieved epidurals (2) HTN, goal below 140/90 04/07/200404/04 Overview: Modified per HTN Taxonomy. GENERAL OSTEOARTHROSIS 04/07/200411/18 ROTATOR CUFF SYND NOS 10/11/20032017 CHR BLOOD LOSS ANEMIA 2014 PURE HYPERCHOLESTEROLEM 12/2008 Overview: Per Lipid Taxonomy. Type 2 diabetes mellitus wit h hemoglobin A1c goal of less than 7.0% 03/27/2009 Overview: Per Diabetes Taxonomy. ICD-10 update of inactive term LUMBAGO 11/18/2017 Overview: l5-s1 disc extrusion,severe stenosis l4-5,[id number] body lesion probable heman documented as of this encounter (statuses as of 03/12/2024) Immunizations Name Administration Dates Next Due COVID-19 [...] Date Recorded PHQ Adult Total Score 0 05/19/2022 Hunger Vital Sign Answer Date Recorded Within the past 12 months, y ou worried that your food would run out before you got the money to buy more. Never true 05/19/20 22 Within the past 12 months, t he food you bought just didn't last and you didn't have money to get more. Never true 05/19/2022 Sex and Gender Information Value Date Recorded Sex Assigned at Male 01/17/2019 10:34 AM EDT Gender Identity Male 01/17/2019 10:34 AM EDT Sexual Orientation Straight 05/19/2022 11 :42 AM EST Job Start Date Occupation Industry Not on file Not on file Not on file documented as of this encounter Functional Status Functional Status Response Date of Assess ment Are you deaf or do you have serious difficulty h earing? No 11/26/2022 Are you blind or do you have serious difficulty seeing, even when wearing glasses? No 11/26/2022 Do you have serious difficul ty walking or climbing stairs? (5 years old or older) No 11/26/2022 Do you have difficulty dress ing or bathing? (5 years old or older) No 11/26/2022 Because of a physical, menta l, or emotional condition, do you have difficulty doing errands alone such as visiting a doctor s office or shopping? (15 years old or older) No 11/27/19 Cognitive Status Response Date of Assessm ent Because of a physical, menta l, or emotional condition, do you have serious difficulty concentrating, remembering, or making decisions? (5 years old or older) No 11/26/2022 documented as of this encounter Miscellaneous Notes * Telephone Encounter - Ken Carson MD - 03/12/2024 10:50 AM EDT I would fine with Ozempic. * Telephone Encounter - Cheryl Barrow RPh - 03/09/2024 2:[address] Carson - What are your thoughts on starting patient on Ozempic? A1c continuing to rise. Would plan to stop Januvia and start Ozempic if agreeable. Thanks! Cheryl Barrow RP, PharmD Clinical Pharmacist - [facility] 03/09/2024, 2:53 PM .[phone] * Telephone Encounter - Cheryl Barrow RPh - 03/09/2024 2:52 PM EDT ----- Message from Betty Kasper MD sent at 03/08/2024 2:13 PM EDT ----- Regarding: Ozempic [place], I saw mutual patient. He is A1c is 9. I suggest starting him on Ozempic. I briefly discussed it with him and is open to it. Please reach out to him if okay with you. Dr. Betty Kasper MD documented in this encounter Plan of Treatment Upcoming Encounters Date Type Department Care Team (Late st Contact Info) Description 04/04/2024 1:30 PM EST Office Visit Interventional Pain Center, [facility] [address] [facility] [place] [address] Hortensia Hobbs MD [address] [place] [address] [place] [id number] 04/16/2024 2:30 PM EST Office Visit Pharmacy, [address] [place] [phone] [place] [id number] 05/01/2024 2:00 PM EST Office Visit Ophthalmology, [facility] [address] [facility] [place] [address] Kirby Yousif DO [address] [facility] [place] [id number] 05/29/2024 11:00 AM EST Nurse Only Ancillary [address] [place] [address] [place], Nurse Annual [address] [place] [id number] 07/19/2024 3:00 PM EST Office Visit [address] [place] [phone] Kena Razo PA-C [address] [place] [address] [place] [id number] 08/06/2024 2:00 PM EDT Cardiac Studies Cardiac Studies, [facility] [address] [facility] [place] [id number] 09/07/2024 1:30 PM EDT Office Visit Cardiology, [facility] [address] [facility] [place] [address] [place], [address] [facility] [place] [address] 09/07/2024 3:00 PM EDT Office Visit Nephrology, [address] [place] [address] Betty Kasper MD [address] [place], [place] [address] [place] [id number] 02/11/2025 1:20 PM EDT Office Visit [address] [place] [phone] Kne Carson MD [address] [place] [address] [place] [id number] Health Maintenance Due Date Last Done Comments [...] Additional history exists CKD HGB USE SMARTSET 60050 01/25/202501/25, 01/26/2024, 10/05/2023, Additional history exists CKD PHOS USE SMARTSET 47789 01/25/2025 08/01/2024, 09/09/2023, 04/14/2022, Additional history exists Pneumococcal Vaccine: [...] Discussed due to patient's condition Care Teams Curtain Mender Relationship Specialty Start Date End Date Ken Carson MD [address] [place] [address] [place] [id number] PCP - General Family Medicine 04/18/12 documented as of this encounter
--- OUTSIDE RECORDS SUMMARY | 2024-08-19 12:34 | External Medical Summary | Summary of Care ---
Author Name Unknown Organization [facility] Address [address] [place] [address] Phone [phone] Care Team Providers Care Nail Maker Name Role Phone Ken Carsno MD Primary Care Provide r Reason for Visit * Reason Onset Date Comments Medication Refill 04/12/2024 Encounter Details Date Type Department Care Team (Late st Contact Info) Description 04/12/2024 Refill Family Medicine [address] [phone] Ken Carson MD [address] [place] [address] [place] [address] Type 2 diabetes mellitus with stage 3b chronic kidney disease, without long-term current use of insulin (HCC); Anemia of chronic disease; Gastroesophageal reflux disease with esophagitis without hemorrhage; Dyslipidemia, goal LDL below 100 Allergies No known active allergiesdocumented as of this encounter (statuses as of 04/12/2024) Medications zoster vac recomb adjuvanted (SHINGRIX) 50 MCG/0.5ML injection Inject 0.5 mL into a large muscle now and repeat dose in 60 to 180 days. Please fax date this was given to our office. 1 Each 1 020 Active Additional Information Patient not taking.Reported on 10/05/2023 Voxwarey Control Solution High In Vitro Solution Use to calibrate glucometer 1 Each 021 Active Voxwarey AutoCode Blood Glucose DeviceIndications:T ype 2 diabetes mellitus with stage 3a chronic kidney disease and hypertension ([facility]),Type 2 diabetes mellitus with hemoglobin A1c goal of less than 8.0% ([facility]) Use daily. Dx E11.9 1 [...] disease, without long-term current use of insulin ([facility]),Anemia of chronic disease,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 90 Tablet 1 023 Active Vitamin D 25 MCG (1000 UT) Oral TabletIndications:T ype 2 diabetes mellitus with stage 3b chronic kidney disease, without long-term current use of insulin ([facility]),Anemia of chronic disease,Gastroesoph ageal reflux disease with esophagitis without hemorrhage,Dyslipid emia, goal LDL below 100 Take 1 tablet every other day 90 Tablet 1 023 Active metFORMIN HCl ER 500 MG Oral Tablet Extended Release 24 Hour (Glucophage XR)Indications:Type 2 diabetes mellitus with hemoglobin A1c goal of less than 8.0% ([facility]) Take 1 Tablet by mouth [...] disease, without long-term current use of insulin ([facility]),Gastroesophag eal reflux disease with esophagitis [...] disease, without long-term current use of insulin ([facility]),Anemia of chronic disease,Gastroesoph ageal reflux disease with esophagitis without hemorrhage,Dyslipid emia, goal LDL below 100 TAKE 1 TABLET BY MOUTH IN THE MORNING. 30 MINUTES BEFORE A MEAL.. 90 Tablet 1 024 Active Pantoprazole Sodium 20 MG Oral Tablet Delayed Release (Protonix)Indicatio ns:Type 2 diabetes mellitus with stage 3b chronic kidney disease, without long-term current use of insulin ([facility]),Anemia of chronic disease,Gastroesoph ageal reflux [...] hemoglobin A1c goal of less than 8.0% ([facility]) test blood sugars once daily 100 Strip 3 024 Active Cilostazol 50 MG Oral Tablet (Pletal) Take 1 Tablet by mouth in the morning. 90 Tablet 1 024 Active Folic Acid 1 MG Oral TabletIndications:T ype 2 diabetes mellitus with stage 3b chronic kidney disease, without long-term current use of insulin ([facility]),Anemia of chronic disease,Gastroesoph ageal reflux disease with esophagitis without hemorrhage,Dyslipid emia, goal LDL below 100 TAKE 1 TABLET BY MOUTH IN THE MORNING AND BEFORE BEDTIME 180 Tablet 1 024 Active amLODIPine Besylate 10 MG Oral Tablet (Norvasc)Indication s:Type 2 diabetes mellitus with stage 3b chronic kidney disease, without long-term current use of insulin ([facility]),Anemia of chronic disease,Gastroesoph ageal reflux disease with esophagitis without hemorrhage,Dyslipid emia, goal LDL below 100 TAKE 1 TABLET BY MOUTH EVERY DAY IN THE MORNING 90 Tablet 1 024 Active Carvedilol 6.25 MG Oral Tablet (Coreg)Indications: Type 2 diabetes mellitus with stage 3b chronic kidney disease, without long-term current use of insulin ([facility]),Anemia of chronic disease,Gastroesoph ageal reflux disease with esophagitis without hemorrhage,Dyslipid emia, goal LDL below 100 TAKE 1 TABLET 2 TIMES A DAY WITH MORNING AND EVENING MEALS. 180 Tablet 1 024 Active Januvia 50 MG Oral TabletIndications:T ype 2 diabetes mellitus with stage 3b chronic kidney disease, without long-term current use of insulin ([facility]),Anemia of chronic disease,Gastroesoph ageal reflux disease with esophagitis without hemorrhage,Dyslipid emia, goal LDL below 100 Take one daily In the morning. 90 Tablet 1 024 Active glipiZIDE ER 2.5 [...] mg daily.. 90 Tablet 1 024 Active glipiZIDE ER 2.5 [...] as of this encounter (statuses as of 04/12/2024) Active Problems Problem Noted Date Diagnosed Date [...] as of this encounter (statuses as of 04/12/2024) Resolved Problems Problem Noted Date Diagnosed Date [...] #1 ACTIVE CASE MANAGEMENT- Callie Sargent RN [phone] 10/06/2009 03/16/2010 HTN, GOAL BELOW 140/90 04/04/200906/25 [...] 11/18/2017 Overview (11/02/1999): l5-s1 disc extrusion,severe stenosis l4-5,[id number] body lesion probable heman documented as of this encounter (statuses as of 04/12/2024) Immunizations Name Administration Dates Next Due COVID-19 mRNA, LNP-s, No Pre serve, 2-Dose Series (Moderna) 07/08/2020,06/10/2020 COVID-19, mRNA, LNP-s, PF, B ooster, 100mcg/0.5mg (Moderna) 05/19/2021 Covid-19, Mrna, Lnp-s, Pf, B ivalent, 25 Mcg, IM,6-11 yrs (Moderna) 04/30/2021 Covid-19, Mrna, Lnp-s, Pf, B ivalent, 30 Mcg, IM, 12 yrs and above (Drinks4-you) 03/23/2022 Influenza, Whole Virus 03/10/1999 Pneumococcal Conjugate [...] Snuff Quit: 2018 Comments:62 years at 03/05 s moking Alcohol [...] 18 years and over) Not on file 3 Are you (or your family) viktoria eless [...] Telephone Encounter - Ken Carson MD - 04/12/2024 12:25 PM EST Signed Prescriptions: Disp Refills glipiZIDE ER 2.5 MG Oral Tablet Extended R*90 Tab*1 Sig: Take 1 Tablet by mouth in the morning. 30 minutes before a meal. Add to 5 mg tablet to equal 7.5 mg daily.. Authorizing Provider: KEN CARSON * Telephone Encounter - Juany Antoine CMA - 04/12/2024 12:22 PM ESTPending Prescriptions: Disp Refills glipiZIDE ER 2.5 MG Oral Tablet Extended R*90 Tab*1 Sig: Take 1 Tablet by mouth in the morning. 30 minutes before a meal. Add to 5 mg tablet to equal 7.5 mg daily.. * Telephone Encounter - Vanesa Galan OSA - 04/12/2024 8:57 AM EST Did you pend patient's preferred pharmacy and medication before forwarding?yes [id number] Pending Prescriptions: Disp Refills glipiZIDE ER 2.5 MG Oral Tablet Extended *90 Tab*1 Sig: Take 1 Tablet by mouth in the morning. 30 minutes before a meal. Add to 5 mg tablet to equal 7.5 mg daily.. Last Visit: 01/17/2024 (in office), Visit date not found (telemedicine) Next Visit: 07/19/2024 If no future appointments scheduled, and last appointment is greater than a year ago, please schedule patient for a follow-up appointment Last date the medication was ordered: 04.10.24 Is this request for a controlled substance?No [...] 04/16/2024 2:30 PM EST Office Visit Pharmacy, [address] [place] [address] [place] [address] 05/01/2024 2:00 PM EST Office Visit Op[facility], [facility] [place] [address] Kirby Yousif, DO [address] [place] [address] 05/29/2024 11:00 AM EST Nurse Only Ancillary [address] [place] [address] [place], Nurse Annual [address] [place] [address] 07/19/2024 3:00 PM EST Office Visit Family Medicine [address] [place] [phone] Kena Razo PA-C [address] [place] [address] [place] [address] 08/06/2024 2:00 PM EDT Cardiac Studies Cardiac Studies, [facility] [address] [facility] [place] [address] 09/07/2024 1:30 PM EDT Office Visit Cardiology, [facility] [address] [facility] [place] [address] Chong [place], DO 132 [facility] [place] [address] 09/07/2024 3:00 PM EDT Office Visit Nephrology, [address] [place] [address] Betty Kasper MD [address] [place] [address] [place] [address] 02/11/2025 1:20 PM EDT Office Visit [address] Medicine [address] [phone] Ken Carson MD [address] [place] [address] [place] [address] Health Maintenance Due Date Last Done Comments [...] Additional history exists CKD HGB USE SMARTSET 27956 01/25/202501/25, 01/26/2024, 10/05/2023, Additional history exists CKD PHOS USE SMARTSET 76057 01/25/202512/29, 09/09/2023, 04/14/2022, Additional history exists Pneumococcal [...] Discussed due to patient's condition Care Teams Nail Maker Relationship Specialty Start Date End Date Ken Carson MD [address] [place] [address] [place] [address] PCP - General Family Medicine 04/18/12 documented as of this encounter
--- OUTSIDE RECORDS SUMMARY | 2024-08-19 12:34 | External Medical Summary | Summary of Care ---
Author Name Unknown Organization [facility] Address [address] [place] [address] Phone [phone] Care Team Providers Care Onion Topper Name Role Phone Ken Carson MD Primary Care Provide r Reason for Visit * Reason Onset Date Comments Med Request 03/16/2024 Encounter Details Date Type Department Care Team (Late st Contact Info) Description 03/16/2024 Telephone Family Medicine [address] [phone] Ken Carson MD [address] [place], [place] [address] [address] Med Request Allergies No known active allergiesdocumented as of this encounter (statuses as of 03/19/2024) Medications Medication Sig Dispensed Refills Start Date End Date Status zoster vac recomb adjuvanted (SHINGRIX) 50 MCG/0.5ML injection Inject 0.5 mL into a large muscle now and repeat dose in 60 to 180 days. Please fax date this was given to our office. 1 Each 1 0 Active Additional Information Patient not taking.Reported on 10/05/2023 Prodigy Control Solution High In Vitro Solution Use to calibrate glucometer 1 Each 1 Active Certeony AutoCode Blood Glucose DeviceIndications:Ty pe 2 diabetes mellitus with stage 3a chronic [...] >6 in a 24hr period 1 Active Carboxymethylcellulo se Sodium 0.5 % Ophthalmic Solution Instill 1 Drop into eye 4 times a day as needed for Dry eyes. Active Hydrocortisone Acetate 25 MG Rectal Suppository (Anusol-HC)Indicatio ns:Hemorrhoids Administer into the rectum 2 times a day in the morning and at bedtime as needed for Hemorrhoids. Up to 2 weeks. 24 Suppository 1 3 Active Polyethylene Glycol 3350 17 GM Oral Packet (MiraLax) Take 1 Packet by mouth in the morning. 14 Each 1 3 Active Cyanocobalamin 1000 MCG Oral Tablet (Cyanocobalamin)Calli cations:Type 2 diabetes mellitus with stage 3b chronic kidney disease, without long-term current use of insulin ([facility]),Anemia of chronic disease,Gastroesopha geal reflux disease with esophagitis without hemorrhage,Dyslipide nehal, goal LDL below 100 Take 1 Tablet by mouth in the morning. 90 Tablet 1 3 Active Vitamin D 25 MCG (1000 UT) Oral TabletIndications:Ty pe 2 diabetes mellitus with stage 3b chronic kidney disease, without long-term current use of insulin ([facility]),Anemia of chronic disease,Gastroesopha geal reflux disease with esophagitis without hemorrhage,Dyslipide nehal, goal LDL below 100 Take 1 tablet every other day 90 Tablet 1 3 Active metFORMIN HCl ER 500 MG Oral Tablet Extended Release 24 Hour (Glucophage XR)Indications:Type 2 diabetes mellitus with hemoglobin A1c goal of less than 8.0% ([facility]) Take 1 Tablet by mouth in the morning. 90 Tablet 3 4 Active Vitamin C 500 MG Oral Capsule Take 2 Tablets by mouth in the morning. 3 Active Aspirin 81 MG Oral Tablet ChewableIndications: Type 2 diabetes mellitus with stage 3b chronic kidney disease, without long-term current use of insulin ([facility]),Anemia of chronic disease,Gastroesopha geal reflux disease with esophagitis without hemorrhage,Dyslipide nehal, goal LDL below 100 Take 1 Tablet by mouth in the morning. with food.. 100 Tablet 2 4 Active Folic Acid 1 MG Oral TabletIndications:Ty pe 2 diabetes mellitus with stage 3b chronic kidney disease, without long-term current use of insulin ([facility]),Anemia of chronic disease,Gastroesopha geal reflux disease with esophagitis without hemorrhage,Dyslipide nehal, goal LDL below 100 TAKE 1 TABLET BY MOUTH IN THE MORNING AND BEFORE BEDTIME 180 Tablet 1 4 Active Famotidine 20 MG Oral Tablet (Pepcid)Indications: Type 2 diabetes mellitus with stage 3b chronic kidney disease, without long-term current use of insulin ([facility]),Gastroesophage al reflux disease with esophagitis without hemorrhage Take 1 Tablet by mouth every night at bedtime. 90 Tablet 1 4 Active Prodigy Lancing Device Use as directed to test blood sugars once daily 1 Each 4 Active Fluticasone Propionate 50 MCG/ACT Nasal Suspension (Flonase)Indications :Non-seasonal allergic rhinitis due to other allergic trigger SPRAY 2 SPRAYS INTO EACH NOSTRIL IN THE MORNING 16 mL 5 4 Active Timolol Maleate 0.5 % Ophthalmic Solution (Timoptic)Indication s:HTN, goal below 140/90,Nonrheumatic aortic valve stenosis,Dyslipidemi a, goal LDL below 100,Ascending aorta dilatation (HCC),Fatigue, unspecified type 4 Active glipiZIDE ER 2.5 MG Oral Tablet Extended Release 24 Hour (glipiZIDE XL)Indications:Type 2 diabetes mellitus with stage 3b chronic kidney disease, without long-term current use of insulin ([facility]),Anemia of chronic disease,Gastroesopha geal reflux disease with esophagitis without hemorrhage,Dyslipide nehal, goal LDL below 100 Take 1 Tablet by mouth in the morning. 30 minutes before a meal. Add to 5 mg tablet to equal 7.5 mg daily.. 90 Tablet 1 4 Active glipiZIDE ER 5 MG Oral Tablet Extended Release 24 Hour (Glucotrol XL)Indications:Type 2 diabetes mellitus with stage 3b chronic kidney disease, without long-term current use of insulin ([facility]),Anemia of chronic disease,Gastroesopha geal reflux disease with esophagitis without hemorrhage,Dyslipide nehal, goal LDL below 100 TAKE 1 TABLET BY MOUTH IN THE MORNING. 30 MINUTES BEFORE A MEAL.. 90 Tablet 1 4 Active Carvedilol 6.25 MG Oral Tablet (Coreg)Indications:T ype 2 diabetes mellitus with stage 3b chronic kidney disease, without long-term current use of insulin (HCC),Anemia of chronic disease,Gastroesopha geal reflux disease with esophagitis without hemorrhage,Dyslipide nehal, goal LDL below 100 TAKE 1 TABLET 2 TIMES A DAY WITH MORNING AND EVENING MEALS. 180 Tablet 1 4 Active amLODIPine Besylate 10 MG Oral Tablet (Norvasc)Indications :Type 2 diabetes mellitus with stage 3b chronic kidney disease, without long-term current use of insulin ([facility]),Anemia of chronic disease,Gastroesopha geal reflux disease with esophagitis without hemorrhage,Dyslipide nehal, goal LDL below 100 TAKE 1 TABLET BY MOUTH EVERY DAY IN THE MORNING 90 Tablet 1 4 Active Januvia 50 MG Oral TabletIndications:Ty pe 2 diabetes mellitus with stage 3b chronic kidney disease, without long-term current use of insulin ([facility]),Anemia of chronic disease,Gastroesopha geal reflux disease with esophagitis without hemorrhage,Dyslipide nehal, goal LDL below 100 TAKE 1 TABLET BY MOUTH IN THE MORNING. 90 Tablet 1 4 Active Pantoprazole Sodium 20 MG Oral Tablet Delayed Release (Protonix)Indication s:Type 2 diabetes mellitus with stage 3b chronic kidney disease, without long-term current use of insulin ([facility]),Anemia of chronic disease,Gastroesopha geal reflux disease with esophagitis without hemorrhage,Dyslipide nehal, goal LDL below 100 TAKE 1 TABLET BY MOUTH IN THE MORNING. 30 MINUTES BEFORE THE FIRST MEAL OF THE DAY. DO NOT CRUSH, SPLIT OR CHEW THE TABLET. 90 Tablet 1 4 Active Atorvastatin Calcium 40 MG Oral Tablet (Lipitor)Indications :Type 2 diabetes mellitus with stage 3b chronic kidney disease, without long-term current use of insulin ([facility]),Anemia of chronic disease,Gastroesopha geal reflux disease with esophagitis without hemorrhage,Dyslipide nehal, goal LDL below 100 TAKE 1 TABLET BY MOUTH EVERYDAY AT BEDTIME 90 Tablet 1 4 Active Prodigy Lancets 28G Use to test blood sugars once daily 100 Each 3 4 Active Prodigy No Coding Blood Gluc In Vitro Strip (Glucose Blood)Indications:Ty pe 2 diabetes mellitus with hemoglobin A1c goal of less than 8.0% ([facility]) test blood sugars once daily 100 Strip 3 4 Active Cilostazol 50 MG Oral Tablet (Pletal) Take 1 Tablet by mouth in the morning. 90 Tablet 1 4 Active cilostazol (PLETAL) 50 MG Tablet Take 1 Tablet by mouth in the morning. 5 03/19/20 24 Discontinu ed(Refill) documented as of this encounter (statuses as of 03/19/2024) Active Problems Problem Noted Date Diagnosed Date [...] as of this encounter (statuses as of 03/19/2024) Resolved Problems Problem Noted Date Diagnosed Date [...] #1 ACTIVE CASE MANAGEMENT- Callie Sargent RN [phone] 10/06/2009 03/16/2010 HTN, GOAL BELOW 140/90 04/04/200906/25 Overview: Modified per HTN Taxonomy. ATHEROSCLEROSIS NEC 11/10/2006 03/26/20 Thoracic and lumbosacral neuritis 08/26/2004 01/15/2019 Overview: saw Liz for pain right leg, recieved epidurals (2) HTN, goal below 140/90 04/07/200404/04 Overview: Modified per HTN Taxonomy. GENERAL OSTEOARTHROSIS 04/07/200411/18 ROTATOR CUFF SYND NOS 10/11/20032017 CHR BLOOD LOSS ANEMIA 2014 PURE HYPERCHOLESTEROLEM 12/0 12/2008 Overview: Per Lipid Taxonomy. Type 2 diabetes mellitus wit h hemoglobin A1c goal of less than 7.0% 03/27/2009 Overview: Per Diabetes Taxonomy. ICD-10 update of inactive term LUMBAGO 11/18/2017 Overview: l5-s1 disc extrusion,severe stenosis l4-5,[id number] body lesion probable heman documented as of this encounter (statuses as of 03/19/2024) Immunizations Name Administration Dates Next Due COVID-19 [...] Telephone Encounter - Ken Carson MD - 03/19/2024 3:52 PM EDT Sent to pharm * Telephone Encounter - Batool Lynch RN - 03/19/2024 10:54 AM EDT Will you fill this? * Telephone Encounter - Moriah Pond PHARM Tech - 03/16/2024 1:47 PM EDT pt calling requesting the following medication below that is listed as "Historical". The following information was provided: Medication Name: cilostazol Strength: 50 mg Directions: take 1 tab by mouth daily Preferred Quantity: 90 Previous Prescriber: Calin Oreilly, Ramon Pharmacy: [facility]/pharmacy #[id number] [address] [place] [address] Please review and approve if appropriate. Thank you, Moriah Pond,[facility] Activity Specialist II [facility] 03/16/2024, 1:47 PM documented in this encounter Plan of Treatment Upcoming Encounters Date Type Department Care Team (Late st Contact Info) Description 04/04/2024 1:30 PM EST Office Visit Interventional Pain Center, [facility] [address] [facility] [place] [address] Hortensia Hobbs MD [address] [place] [address] 04/16/2024 2:30 PM EST Office Visit Pharmacy, [address] [place] [address] [place] [address] 05/01/2024 2:00 PM EST Office Visit Ophthalmology, [facility] [address] [facility] [place] [address] Kirby Yousif DO [address] [facility] [place] [address] 05/29/2024 11:00 AM EST Nurse Only Ancillary [address] [place] [address] [place], Nurse [address] [place] [address] 07/19/2024 3:00 PM EST Office Visit [address] [place] [phone] Kena Razo PA-C [address] [place] [address] [place] [address] 08/06/2024 2:00 PM EDT Cardiac Studies [facility], [facility] [address] 09/07/2024 1:30 PM EDT Office Visit Cardiology, [facility] 132 [place] [address] [place], 132 [facility] [place] [address] 09/07/2024 3:00 PM EDT Office Visit Nephrology, [address] [place] [address] Betty Kasper MD [address] [place], [place] [address] [place] [address] 02/11/2025 1:20 PM EDT Office Visit [address] [place] [phone] Ken Carson MD [address] [place] [address] [place] [phone] Health Maintenance Due Date Last Done Comments [...] Additional history exists CKD HGB USE SMARTSET 91097 01/25/202501/25, 01/26/2024, 10/05/2023, Additional history exists CKD PHOS USE SMARTSET 11499 01/25/2025 08/2 01/2024, 09/09/2023, 04/14/2022, Additional history exists Pneumococcal [...] Discussed due to patient's condition Care Teams Onion Topper Relationship Specialty Start Date End Date Ken Carson MD [address] [place] [address] [place] [phone] PCP - General Family Medicine 04/18/12 documented as of this encounter
--- OUTSIDE RECORDS SUMMARY | 2024-08-19 12:34 | External Medical Summary | Summary of Care ---
Author Name Unknown Organization [facility] Address [address] [place] [address] Phone [phone] Care Team Providers Care Contract Coordinator Name Role Phone Ken Carson MD Primary Care Provide r Reason for Visit * Reason Onset Date Comments Med Request 03/16/2024 Encounter Details Date Type Department Care Team (Late st Contact Info) Description 03/16/2024 Telephone Family Medicine [address] [phone] Ken Carson MD [address] [place], [place] [address] [address] Med Request Allergies No known active [...] to calibrate glucometer 1 Each 1 Active Motiloy AutoCode Blood Glucose DeviceIndications:Ty pe 2 diabetes [...] disease, without long-term current use of insulin ([facility]),Anemia of chronic disease,Gastroesopha geal reflux disease with esophagitis without hemorrhage,Dyslipide nehal, goal LDL below 100 Take 1 Tablet by mouth in the morning. 90 Tablet 1 3 Active Vitamin D 25 MCG (1000 UT) Oral TabletIndications:Ty pe 2 diabetes mellitus with stage 3b chronic kidney disease, without long-term current use of insulin ([facility]),Anemia of chronic disease,Gastroesopha geal reflux disease with esophagitis without hemorrhage,Dyslipide nehal, goal LDL below 100 Take 1 tablet every other day 90 Tablet 1 3 Active metFORMIN HCl ER 500 MG Oral Tablet Extended Release 24 Hour (Glucophage XR)Indications:Type 2 diabetes mellitus with hemoglobin A1c goal of less than 8.0% ([facility]) Take 1 Tablet by mouth in the morning. 90 Tablet 3 4 Active Vitamin C 500 MG Oral Capsule Take 2 Tablets by mouth in the morning. 3 Active Aspirin 81 MG Oral Tablet ChewableIndications: Type 2 diabetes mellitus with stage 3b chronic kidney disease, without long-term current use of insulin ([facility]),Anemia of chronic disease,Gastroesopha geal reflux disease with esophagitis without hemorrhage,Dyslipide nehal, goal LDL below 100 Take 1 Tablet by mouth in the morning. with food.. 100 Tablet 2 4 Active Folic Acid 1 MG Oral TabletIndications:Ty pe 2 diabetes mellitus with stage 3b chronic kidney disease, without long-term current use of insulin ([facility]),Anemia of chronic disease,Gastroesopha geal reflux disease with esophagitis without hemorrhage,Dyslipide nehal, goal LDL below 100 TAKE 1 TABLET BY MOUTH IN THE MORNING AND BEFORE BEDTIME 180 Tablet 1 4 Active Famotidine 20 MG Oral Tablet (Pepcid)Indications: Type 2 diabetes mellitus with stage 3b chronic kidney disease, without long-term current use of insulin ([facility]),Gastroesophage al reflux disease with esophagitis without [...] disease, without long-term current use of insulin ([facility]),Anemia of chronic disease,Gastroesopha geal reflux disease [...] disease, without long-term current use of insulin ([facility]),Anemia of chronic disease,Gastroesopha geal reflux disease [...] disease, without long-term current use of insulin ([facility]),Anemia of chronic disease,Gastroesopha geal reflux disease with esophagitis without hemorrhage,Dyslipide nehal, goal LDL below 100 TAKE 1 TABLET BY MOUTH EVERY DAY IN THE MORNING 90 Tablet 1 4 Active Januvia 50 MG Oral TabletIndications:Ty pe 2 diabetes mellitus with stage 3b chronic kidney disease, without long-term current use of insulin ([facility]),Anemia of chronic disease,Gastroesopha geal reflux disease with esophagitis without hemorrhage,Dyslipide nehal, goal LDL below 100 TAKE 1 TABLET BY MOUTH IN THE MORNING. 90 Tablet 1 4 Active Pantoprazole Sodium 20 MG Oral Tablet Delayed Release (Protonix)Indication s:Type 2 diabetes mellitus with stage 3b chronic kidney disease, without long-term current use of insulin ([facility]),Anemia of chronic disease,Gastroesopha geal reflux disease [...] disease, without long-term current use of insulin ([facility]),Anemia of chronic disease,Gastroesopha geal reflux disease [...] hemoglobin A1c goal of less than 8.0% ([facility]) test blood sugars once daily 100 [...] #1 ACTIVE CASE MANAGEMENT- Callie Sargent RN [phone] 10/06/2009 03/16/2010 HTN, GOAL BELOW 140/90 04/04/200906/25 [...] LUMBAGO 11/18/2017 Overview: l5-s1 disc extrusion,severe stenosis l4-5,H5jagglqtil body lesion probable heman documented as of [...] 90 Previous Prescriber: Calin Oreilly, Ramon Pharmacy: [facility]/pharmacy #[id number] [address] [place] [address] Please review and approve if appropriate. Thank you, Moriah Pond,[facility] [employer] [facility] 03/16/2024, 1:47 PM documented in this encounter Plan of Treatment Upcoming Encounters Date Type Department Care Team (Late st Contact Info) Description 04/04/2024 1:30 PM EST Office Visit Interventional Pain Center, [facility] [address] [facility] [place] [address] Hortensia Hobbs MD [address] [place] [address] 04/16/2024 2:30 PM EST Office Visit Pharmacy, [address] [place] [address] [place] [address] 05/01/2024 2:00 PM EST Office Visit Ophthalmology, [facility] [address] [facility] [place] [address] Kirby Yousif DO 132 [facility] [place] [address] 05/29/2024 11:00 AM EST Nurse Only Ancillary [address] [place] [address] [place], Nurse [address] [place] [address] 07/19/2024 3:00 PM EST Office Visit [address] [place] [phone] Kena Razo PA-C [address] [place] [address] [place] [address] 08/06/2024 2:00 PM EDT Cardiac Studies Card[facility] Studies, [facility] [address] 09/07/2024 1:30 PM EDT Office Visit Cardiology, [facility] 132 [place] [address] [place], [address] [facility] [place] [address] 09/07/2024 3:00 PM EDT Office Visit Nephrology, [address] [place] [address] Betty Kasper MD [address] [place], [place] [address] [place] [address] 02/11/2025 1:20 PM EDT Office Visit [address] [place] [phone] Ken Carson MD [address] [place] [address] [place] [phone] Health Maintenance Due Date Last Done Comments [...] Additional history exists CKD HGB USE SMARTSET 46062 01/25/202501/25, 01/26/2024, 10/05/2023, Additional history exists CKD PHOS USE SMARTSET 73882 01/25/2025 08/2 01/2024, 09/09/2023, 04/14/2022, Additional history [...] Discussed due to patient's condition Care Teams Contract Coordinator Relationship Specialty Start Date End Date Ken Carson MD [address] [place] [address] [place] [phone] PCP - General Family Medicine 04/18/12 documented as of this encounter
--- OUTSIDE RECORDS SUMMARY | 2024-08-19 12:34 | External Medical Summary | Summary of Care ---
Author Name Unknown Organization [facility] Address [address] [place] [address] Phone [phone] Care Team Providers Care Advanced Solutions Architect Name Role Phone Ken Carson MD Primary Care Provide r Reason for Visit * Reason Comments Dosage Adjustment In Person (Anticoag Cl inic) Diabetes Follow-Up Encounter Details Date Type Department Care Team (Late st Contact Info) Description 03/05/2024 2:10 PM EDT Office Visit Pharmacy, [address] [place] [address] [place] [address] Type 2 diabetes mellitus with hemoglobin A1c goal of less than 8.0% ([facility])* Allergies No known active allergiesdocumented as of this encounter (statuses as of 03/05/2024) Medications Medication Sig Dispensed Refills Start Date End Date Status cilostazol (PLETAL) 50 MG Tablet Take 1 Tablet by mouth in the morning. 03/24/20 15 Active zoster vac recomb adjuvanted (SHINGRIX) 50 MCG/0.5ML injection Inject 0.5 mL into a large muscle now and repeat dose in 60 to 180 days. Please fax date this was given to our office. 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 Dx E11.9 1 Each 12/17/19 [...] of insulin ([facility]),Anemia of chronic disease,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 90 Tablet 3 06/20/19 24 Active Vitamin C 500 MG Oral Capsule Take 2 Tablets by mouth in the morning. 06/30/19 23 Active Aspirin 81 MG Oral Tablet ChewableIndications :Type 2 diabetes mellitus with stage 3b chronic kidney disease, without long-term current use of insulin ([facility]),Anemia of chronic disease,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 with food.. 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, without long-term current use of insulin ([facility]),Anemia of chronic disease,Gastroesoph ageal reflux disease with esophagitis without hemorrhage,Dyslipid emia, goal LDL below 100 TAKE 1 TABLET BY MOUTH IN THE MORNING AND BEFORE BEDTIME 180 Tablet 1 09/02/19 24 Active Famotidine 20 MG Oral Tablet (Pepcid)Indications :Type 2 diabetes mellitus with stage 3b chronic kidney disease, without long-term current use of insulin ([facility]),Gastroesophag eal reflux disease with esophagitis without hemorrhage [...] unspecified type 08/26/19 24 Active glipiZIDE ER 2.5 MG Oral Tablet Extended Release 24 Hour (glipiZIDE XL)Indications:Type 2 diabetes mellitus with stage 3b chronic kidney disease, without long-term current use of insulin ([facility]),Anemia of chronic disease,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 30 minutes before a meal. Add to 5 mg tablet to equal 7.5 mg daily.. 90 Tablet 1 12/19/19 24 Active glipiZIDE ER 5 MG Oral [...] MEAL.. 90 Tablet 1 01/25/20 24 Active Carvedilol 6.25 MG Oral Tablet (Coreg)Indications: Type 2 diabetes mellitus with stage 3b chronic kidney disease, without long-term current use of insulin ([facility]),Anemia of chronic disease,Gastroesoph ageal reflux disease with esophagitis without hemorrhage,Dyslipid emia, goal LDL below 100 TAKE 1 TABLET 2 TIMES A DAY WITH MORNING AND EVENING MEALS. 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 90 Tablet 1 02/28/20 24 Active Pantoprazole Sodium 20 MG Oral Tablet Delayed Release (Protonix)Indicatio ns:Type 2 diabetes mellitus with stage 3b chronic kidney disease, without long-term current use of insulin ([facility]),Anemia of chronic disease,Gastroesoph ageal reflux disease with esophagitis without hemorrhage,Dyslipid emia, goal LDL below 100 TAKE 1 TABLET BY MOUTH IN THE MORNING. 30 MINUTES BEFORE THE FIRST MEAL OF THE DAY. DO NOT CRUSH, SPLIT OR CHEW THE TABLET. 90 Tablet 1 02/28/20 24 Active Atorvastatin Calcium 40 MG Oral Tablet (Lipitor)Indication s:Type 2 diabetes mellitus with stage 3b chronic kidney disease, without long-term current use of insulin ([facility]),Anemia of chronic disease,Gastroesoph ageal reflux disease with [...] daily 100 Strip 3 03/05/20 24 Active Prodigy No Coding Blood Gluc In Vitro Strip (Glucose Blood)Indications:T ype 2 diabetes mellitus with hemoglobin A1c goal of less than 8.0% (HCC) test blood sugars once daily 100 Strip 3 02/16/20 23 024 Discontinued(Re fill) Prodigy No Coding Blood Gluc In Vitro Strip (Glucose Blood)Indications:T ype 2 diabetes mellitus with hemoglobin A1c goal of less than 8.0% (HCC) test blood sugars once daily 100 Strip 3 03/05/20 24 024 Discontinued documented as of this encounter (statuses as of 03/05/2024) Active Problems Problem Noted Date Diagnosed Date [...] as of this encounter (statuses as of 03/05/2024) Resolved Problems Problem Noted Date Diagnosed Date [...] #1 ACTIVE CASE MANAGEMENT- Callie Sargent RN [phone] 10/06/2009 03/16/2010 HTN, GOAL BELOW 140/90 04/04/200906/25 [...] LUMBAGO 11/18/2017 Overview: l5-s1 disc extrusion,severe stenosis l4-5,O3wgdpeumkr body lesion probable heman documented as of this encounter (statuses as of 03/05/2024) Immunizations Name Administration Dates Next Due COVID-19 [...] Dos e, Trivalent, PF, IM (Fluzone HD) 03/31/2018 Seasonal Influenza, PF, 6 M & above, [...] No 11/26/2022 documented as of this encounter Progress Notes * Cheryl Barrow, [facility] - 03/05/2024 2:13 PM EDT Medication Therapy Disease Management Clinic - Diabetes Management Progress Note Shaan Pugh, identified by name and date of , is a 88 year old male being seen for diabetes management/education. Patient presents for return diabetic visit. DIABETES: Current diabetic medications: Glipizide 7.5 mg daily (5mg + 2.5mg tablets) Januvia 50mg daily Metformin ER 500mg daily eGFR 51 as of 06/28/23 Medication Injection Site: N/A Lifestyle: Diet: Discussed below Glucose Review/SMBG: Readings obtained from patient documented BG logbook AM PM 158 254 172 256 166 264 171 157 175 167 169 184 184 171 181 160 173 162 167 183 177 170 Average 171 258 Hi 184 264 Lo [address] 170.9412 256 Range 27 10 Hypoglycemia: Does your blood sugar go below [...] deferred BP Readings from Last 3 Encounters: 01/17/24 138/78 10/05/23 142/82 09/13/23 138/80 Blood pressure at goal: yes HYPERLIPIDEMIA: Recent Labs Units 01/26/24 1335 09/09/23 1536 04/14/22 0910 LDL CHOLESTEROL (CALCULATED) - [facility] mg/dL 76 56 74 Does patient have clinical ASCVD? No, is patient LDL less than 70mg/dL? No: Address statin adherence, ensure f/u labs HEALTH MAINTENANCE REVIEW: Health Maintenance Due Topic Date Due Zoster Vaccines (2 of 3) 02/06/2012 DTap/Tdap Vaccines (2 - Td or Tdap) 08/15/2021 Diabetic Foot Exam 03/08/2023 Influenza Vaccine (FLU shot) (1) 01/29/2024 COVID-19 Vaccine ( season) 2024 ASSESSMENT & PLAN: ICD-10-CM 1. Type 2 diabetes mellitus with hemoglobin A1c goal of less than 8.0% ([facility]) E11.9 Considerations: PACE - still concerned with cost Back surgery November 2022, Metformin stopped at that time d/t ROSANNA Renal fx returned to baseline Jardiance --> genital infection requiring treatment, avoid SGLT2 use BG Readings - Blood sugars uncontrolled. A1c further increased above goal. Reviewed with patient. Few readings available later in the day. Provided with rotating BG log and encouraged to utilize. Patient agreeable. Medications - Reviewed current regimen, patient is adherent to regimen. Tolerating well. Would not like to utilize insulin at this time. Open to GLP-1 if needed, states he has several family members on these. Diet, Exercise, Lifestyle - Further discussed diet. Patient still eating high CHO breakfast, likelyspiking BG readings significantly. Reports oats, cheerios, and milk each morning. Discussed the goal of limiting CHOs and increasing protein. Patient agreeable. Patient is agreeable to SMBG 1 time(s) daily on rotation Patient aware to contact clinic if any hypoglycemia before next visit. MEDICATION CHANGES: no change Diabetic Medications: Glipizide 7.5 mg daily (5mg + 2.5mg tablets) Januvia 50mg daily Metformin ER 500mg daily eGFR 49 as of 01/26/24 HEALTH MAINTENANCE INTERVENTIONS: Labs: Up to Date Immunizations: Due for flu, covid, tdap Foot Exam: Due Eye Exam: Up to Date Annual Wellness Visit: Up to Date FOLLOW UP: Return to clinic in 6 weeks 04/16/2024 I spent a total of 30-39 minutes (exact time 35 mins) on the date of service in preparation, delivery, and documentation of the care provided to Shaan Pugh excluding any time spent in the performance of separately billed services. Cheryl Barrow RPh Clinical Pharmacist - [employer]in [employer]er Medication Therapy Management Clinic 03/05/2024, 2:13 PM documented in this encounter Plan of Treatment Upcoming Encounters Date Type Department Care Team (Late st Contact Info) Description 03/08/2024 1:40 PM EDT Office Visit Nephrology, Violeta Delgado [facility] Violeta [place], [place] [address] Betty Kasper MD [address] [place] [address] 03/19/2024 1:00 PM EDT Cardiac Studies Cardiac Studies, [address] [place] [address] 04/04/2024 1:30 PM EST Office Visit Interventional Pain Center, [address] [place] [address] Hortensia Hobbs [facility] [address] 04/16/2024 2:30 PM EST Office Visit Pharmacy, [address] [place] [address] [place] [address] 05/01/2024 2:00 PM EST Office Visit Ophthalmology, [facility] [place] [address] Kirby Yousif, [address] [facility] [place] [address] 05/29/2024 11:00 AM EST Nurse Only Ancillary [address] [place] [address] [place], Nurse Annual [address] [place] [address] 07/19/2024 3:00 PM EST Office Visit Family Medicine [address] [place] [phone] Kena Razo PA-C [address] [place] [address] [place] [address] 02/11/2025 1:20 PM EDT Office Visit Family Medicine [address] [place] [phone] Ken Carson MD [address] [place] [address] [place] [address] Health Maintenance Due Date Last Done Comments Zoster Vaccines (2 of 3) 02/06/2012 12/12/2011 DTap/Tdap Vaccines (2 - Td or Tdap) 08/15/2021 08/16/2011, 01/17/2002 Diabetic Foot Exam 03/08/2023 03/08/2022, 0 07/19/2019, 09/04/2018, Additional history exists COVID-19 Vaccine ( season) 2024 06/20/2023, 03/23/2022, 05/19/2021, Additional history exists Influenza Vaccine (FLU shot) (#1) 2024 04/26/2023, 03/08/2022, 03/03/2021, Additional history exists Adult Wellness Visit 05/25/2024 05/25/2023, 05/19/2022, 05/19/2021 Depression Screening 05/25/2024 05/25/2023 Diabetic Eye Exam 07/11/2024 07/11/2023, , 09/01/2021, Additional history exists HbA1c 07/27/2024 01/26/2024, 07/3 , 09/13/2023, Additional history exists Albumin/Creatinine Ratio 01/25/2025 024, 01/28/2023, 04/14/2022, Additional history exists CKD HGB USE SMARTSET 73973 01/25/202501/25, 01/26/2024, 10/05/2023, Additional history exists CKD PHOS USE SMARTSET 11905 01/25/2025 08/2 01/2024, 09/09/2023, 04/14/2022, Additional history exists Pneumococcal Vaccine: 65+ Years Completed 09/26/2015, 11/23/2007 HPV (Gardasil) Vaccine Aged Out No lo [...] goal of less than 8.0% (HCC)- Primary documented in this encounter Advance [...] Discussed due to patient's condition Care Teams Advanced Solutions Architect Relationship Specialty Start Date End Date Ken Carson MD [address] [place] [address] [place] [address] PCP - General Family Medicine 04/18/12 documented as of this encounter
--- OUTSIDE RECORDS SUMMARY | 2024-08-19 12:34 | External Medical Summary | Summary of Care ---
Author Name Unknown Organization [facility] Address [address] [place] [address] Phone [phone] Care Team Providers Care Third Cook Name Role Phone Ken Carson MD Primary Care Provide r Reason for Visit * Reason Onset Date Comments Chronic Kidney Disease (CKD) Medication Administration 03/08/2024 Flu an d/or Pneumo Inj Encounter Details Date Type Department Care Team (Late st Contact Info) Description 03/08/2024 1:40 PM EDT Office Visit Nephrology, [address] [address] Betty Kasper MD [address] [place] [address] Need for prophylactic vaccination and inoculation against influenza*; Stage 3a chronic kidney disease (HCC); HTN, goal below 140/90; Type 2 diabetes mellitus with hemoglobin A1c goal of less than 7.0% ([facility]) Allergies No known active allergiesdocumented as of this encounter (statuses as of 03/08/2024) Medications Medication Sig Dispensed Refills Start Date [...] Additional Information Patient not taking.Reported on 10/05/2023 Trusera Control Solution High In Vitro Solution Use to calibrate glucometer 1 Each 1 Active Trusera AutoCode Blood Glucose DeviceIndications:Typ e 2 diabetes mellitus with stage 3a chronic kidney disease and hypertension ([facility]),Type 2 diabetes mellitus with hemoglobin A1c goal of less than 8.0% ([facility]) Use daily. Dx E11.9 1 Each 1 [...] disease, without long-term current use of insulin ([facility]),Anemia of chronic disease,Gastroesophag eal reflux disease with esophagitis without hemorrhage,Dyslipidem ia, goal LDL below 100 Take 1 Tablet by mouth in the morning. 90 Tablet 1 3 Active Vitamin D 25 MCG (1000 UT) Oral TabletIndications:Typ e 2 diabetes mellitus with stage 3b chronic kidney disease, without long-term current use of insulin ([facility]),Anemia of chronic disease,Gastroesophag eal reflux disease with esophagitis without hemorrhage,Dyslipidem ia, goal LDL below 100 Take 1 tablet every other day 90 Tablet 1 3 Active metFORMIN HCl ER 500 MG Oral Tablet Extended Release 24 Hour (Glucophage XR)Indications:Type 2 diabetes mellitus with hemoglobin A1c goal of less than 8.0% ([facility]) Take 1 Tablet by mouth in the morning. 90 Tablet 3 4 Active Vitamin C 500 MG Oral Capsule Take 2 Tablets by mouth in the morning. 3 Active Aspirin 81 MG Oral Tablet ChewableIndications:T ype 2 diabetes mellitus with stage 3b chronic kidney disease, without long-term current use of insulin ([facility]),Anemia of chronic disease,Gastroesophag eal reflux disease with esophagitis without hemorrhage,Dyslipidem ia, goal LDL below 100 Take 1 Tablet by mouth in the morning. with food.. 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, without long-term current use of insulin ([facility]),Anemia of chronic disease,Gastroesophag eal reflux disease with esophagitis without hemorrhage,Dyslipidem ia, goal LDL below 100 TAKE 1 TABLET BY MOUTH IN THE MORNING AND BEFORE BEDTIME 180 Tablet 1 4 Active Famotidine 20 MG Oral Tablet (Pepcid)Indications:T ype 2 diabetes mellitus with stage 3b chronic kidney disease, without long-term current use of insulin ([facility]),Gastroesophagea l reflux disease with esophagitis without hemorrhage [...] disease, without long-term current use of insulin ([facility]),Anemia of chronic disease,Gastroesophag eal reflux disease with [...] current use of insulin (HCC),Anemia of chronic disease,Gastroesophag eal reflux disease with esophagitis without hemorrhage,Dyslipidem ia, goal LDL below 100 TAKE 1 TABLET BY MOUTH IN THE MORNING. 30 MINUTES BEFORE A MEAL.. 90 Tablet 1 4 Active Carvedilol 6.25 MG Oral Tablet (Coreg)Indications:Ty pe 2 diabetes mellitus with stage 3b chronic kidney disease, without long-term current use of insulin (HCC),Anemia of chronic disease,Gastroesophag eal reflux disease with esophagitis without hemorrhage,Dyslipidem ia, goal LDL below 100 TAKE 1 TABLET 2 TIMES A DAY WITH MORNING AND EVENING MEALS. 180 Tablet 1 4 Active amLODIPine Besylate 10 MG Oral Tablet (Norvasc)Indications: Type 2 diabetes mellitus with stage 3b chronic kidney disease, without long-term current use of insulin ([facility]),Anemia of chronic disease,Gastroesophag eal reflux disease with esophagitis without hemorrhage,Dyslipidem ia, goal LDL below 100 TAKE 1 TABLET BY MOUTH EVERY DAY IN THE MORNING 90 Tablet 1 4 Active Januvia 50 MG Oral TabletIndications:Typ e 2 diabetes mellitus with stage 3b chronic kidney disease, without long-term current use of insulin ([facility]),Anemia of chronic disease,Gastroesophag eal reflux disease with esophagitis without hemorrhage,Dyslipidem ia, goal LDL below 100 TAKE 1 TABLET BY MOUTH IN THE MORNING. 90 Tablet 1 4 Active Pantoprazole Sodium 20 MG Oral Tablet Delayed Release (Protonix)Indications :Type 2 diabetes mellitus with stage 3b chronic kidney disease, without long-term current use of insulin ([facility]),Anemia of chronic disease,Gastroesophag eal reflux disease with [...] disease, without long-term current use of insulin ([facility]),Anemia of chronic disease,Gastroesophag eal reflux disease with [...] hemoglobin A1c goal of less than 8.0% ([facility]) test blood sugars once daily 100 Strip 3 4 Active documented as of this encounter (statuses as of 03/08/2024) Active Problems Problem Noted Date Diagnosed Date [...] as of this encounter (statuses as of 03/08/2024) Resolved Problems Problem Noted Date Diagnosed Date [...] #1 ACTIVE CASE MANAGEMENT- Callie Sargent RN [phone] 10/06/2009 03/16/2010 HTN, GOAL BELOW 140/90 04/04/200906/25 [...] LUMBAGO 11/18/2017 Overview: l5-s1 disc extrusion,severe stenosis l4-5,[id number] body lesion probable heman documented as of this encounter (statuses as of 03/08/2024) Immunizations Name Administration Dates Next Due COVID-19 [...] Cessation:Counseling Given: Not Answered Comments:62 years at 03/05 smoking Alcohol Use Standard Drinks/Week Comments No 0 [...] on file documented as of this encounter Last Filed Vital Signs Vital Sign Reading Time Taken Comments Blood Pressure 129/74 03/08/2024 1:35 PM EDT Pulse 78 03/08/2024 1:35 PM EDT Temperature 36.7 C (98 F) 03/08/2024 1:35 PM EDT Respiratory Rate 18 03/08/2024 1:35 PM EDT Oxygen Saturation 97% 03/08/2024 1:35 PM EDT Inhaled Oxygen Concentration - - Weight 82.6 kg (182 lb) 03/08/2024 1:35 PM EDT Height - - Body Mass Index 27.67 01/17/2024 4:06 PM EDT documented in this encounter Functional Status Functional Status Response [...] No 11/26/2022 documented as of this encounter Patient Instructions * Patient Instructions* Yu Navarrete RN - 03/08/2024 1:33 PM EDT ~~PATIENT INSTRUCTIONS FOR FLU SHOT~~ Possible side effects of influenza vaccine, (flu shot), are usually mild and include: 1. Soreness or redness at injection site 2. Low grade fever 3. Body aches You may use Tylenol/Acetaminophen as needed for these symptoms. LET YOUR DOCTOR KNOW IMMEDIATELY IF YOU HAVE DIFFICULTY BREATHING OR SWALLOWING, EXPERIENCE ITCHINGOF FEET OR HANDS, HAVE SWELLING OF EYES, FACE OR INSIDE OF NOSE. ~~PATIENT INSTRUCTIONS FOR FLU SHOT~~ Possible side effects of influenza vaccine, (flu shot), are usually mild and include: 1. Soreness or redness at injection site 2. Low grade fever 3. Body aches You may use Tylenol/Acetaminophen as needed for these symptoms. LET YOUR DOCTOR KNOW IMMEDIATELY IF YOU HAVE DIFFICULTY BREATHING OR SWALLOWING, EXPERIENCE ITCHINGOF FEET OR HANDS, HAVE SWELLING OF EYES, FACE OR INSIDE OF NOSE. documented in this encounter Progress Notes * Betty Kasper MD - 03/08/2024 1:47 PM EDT REASON FOR VISIT: CKD HPI: Shaan Pugh is a 88 year old male seen in follow-up. Past medical history of hypertension, hyperlipidemia, type 2 diabetes, peripheral vascular disease, ex-smoker, CKD stage 3 baseline creatinine of 1.6, prostate cancer status post prostatectomy complicated by chronic stress incontinence previously followed by Urology but declined to undergo placement of artificial urinary sphincter and lumbar laminectomy in October 2022. Patient was admitted at [facility] on 11/27/2022 with the acute kidney injury which was thought to be due to ischemic ATN. Creatinine peaked at 4.5 from baseline of 1.6. Last visit was May 2023. He feels well denies any shortness of breath or leg swelling. No urinary symptoms such as dysuria, hematuria or frequency. Recent labs reviewed and discussed notable for hyperkalemia of 5.2 and creatinine of 1.4. Blood sugar was also high of 224 mg/dL and A1c of 9. Accompanied by son for today's visit. Past Medical History: Diagnosis Date Anemia [...] 119 Generalized osteoarthritis Glaucoma Glaucoma INFORMATION 06/15/2002 wilv=hq=844,k+=5.2,cl=99,co2=32.8,sklqypf=469,bun=30,creatinine=1.1, hgb=12.5,hct=37.6 Kidney disease, chronic, stage III (GFR 30-59 ml/min) ([facility]) 10/18/2011 LOC [facility] 07/13/2006 Lumbago Macular degeneration 12/26/2001 Told by Jessi Shelton to take A,C,E, zinc and copper Malignant neoplasm of prostate ([facility]) 05/30/1997 Prostate Malignant neoplasm of prostate ([facility]) 08/29/2001 Dr. Gary--PSA level was 0.2ng/ml Mixed dyslipidemia 07/01/2005 chol 191, hdl 41, ldl 123, trig 136 Mixed dyslipidemia 12/06/2005 chol 197, hdl 45, ldl 135, trig 82 Optic neuropathy, ischemic Other specified anemias 12/30/2003 [place] 11.6/34.8 6100 WBC Other specified anemias 12/06/2005 10.8/32.5 Pneumonia, organism unspecified(486) 09/30/2009 Admitted to [facility] with bilateral infiltrates Retinal tear 11/08/2011 left eye, [facility] Spinal stenosis of lumbar region at multiple levels 11/11/2011 Spinal stenosis of lumbar region at multiple levels Testicular cyst Thoracic and lumbosacral neuritis 08/26/2004 saw Liz for pain right leg, recieved epidurals (2) Vitamin D deficiency 09/04/2009 Vitamin D 26.4 Review of Systems: General ROS: negative for - chills or fever Psychological ROS: negative for - mood swings ENT ROS: negative for - nasal congestion or nasal discharge Endocrine ROS: negative Respiratory ROS: no cough, shortness of breath, or wheezing Cardiovascular ROS: no chest pain or dyspnea on exertion Gastrointestinal ROS: no abdominal pain, change in bowel habits, or black or bloody stools Genito-Urinary ROS: no dysuria, trouble voiding, or hematuria Musculoskeletal ROS: negative for - muscle pain Neurological ROS: no TIA or stroke symptoms Dermatological ROS: negative for rash Family History Problem Relation Name Age of [...] loss of vision as he aged ?blindness Social History Socioeconomic History Marital status: Spouse name: Not on file Number of children: Not on file Years of education: Not on file Highest education level: Not on file Occupational History Not on file Tobacco Use Smoking status: Former Current packs/day: 0.00 Average packs/day: 1 pack/day for 8.0 years (8.0 ttl pk-yrs) Types: Cigarettes Start date: 05/30/1954 Quit date: 05/30/1962 Years since quittin.8 Smokeless tobacco: Former Types: Snuff Quit date: 2018 Tobacco comments: 62 years at 03/05 smoking Vaping Use Vaping status: Never Used Substance and Sexual Activity Alcohol use: No Drug use: No Sexual activity: Not on file Other Topics Concern Not on file Social History Narrative 65 years as of 05/25/2023 Social Determinants of Health Financial Resource Strain: Low Risk (05/25/2023) Financial [...] - for ages0-17 years): Not on file Current Outpatient Medications Medication Sig Dispense Refill cilostazol (PLETAL) 50 MG Tablet Take 1 Tablet by mouth in the morning. Acetaminophen ER 650 MG Oral Tablet Extended Release Pt is taking 650mg tylenol extra strength one pill twice daily if needed for pain. Pt is not to exceed >6 in a 24hr period Carboxymethylcellulose Sodium 0.5 % Ophthalmic Solution Instill 1 Drop into eye 4 times a day as needed for Dry eyes. Polyethylene Glycol 3350 17 GM Oral Packet (MiraLax) Take 1 Packet by mouth in the morning. 14 Each1 Cyanocobalamin 1000 MCG Oral Tablet (Cyanocobalamin) Take 1 Tablet by mouth in the morning. 90 Tablet 1 Vitamin D 25 MCG (1000 UT) Oral Tablet Take 1 tablet every other day 90 Tablet 1 Aspirin 81 MG Oral Tablet Chewable Take 1 Tablet by mouth in the morning. with food.. 100 Tablet 2 Folic Acid 1 MG Oral Tablet TAKE 1 TABLET BY MOUTH IN THE MORNING AND BEFORE BEDTIME 180 Tablet 1 Famotidine 20 MG Oral Tablet (Pepcid) Take 1 Tablet by mouth every night at bedtime. 90 Tablet 1 Fluticasone Propionate 50 MCG/ACT Nasal Suspension (Flonase) SPRAY 2 SPRAYS INTO EACH NOSTRIL IN THE MORNING 16 mL 5 Timolol Maleate 0.5 % Ophthalmic Solution (Timoptic) glipiZIDE ER 5 MG Oral Tablet Extended Release 24 Hour (Glucotrol XL) TAKE 1 TABLET BY MOUTH IN THEMORNING. 30 MINUTES BEFORE A MEAL.. 90 Tablet 1 Carvedilol 6.25 MG Oral Tablet (Coreg) TAKE 1 TABLET 2 TIMES A DAY WITH MORNING AND EVENING MEALS. 180 Tablet 1 amLODIPine Besylate 10 MG Oral Tablet (Norvasc) TAKE 1 TABLET BY MOUTH EVERY DAY IN THE MORNING 90 Tablet 1 Januvia 50 MG Oral Tablet TAKE 1 TABLET BY MOUTH IN THE MORNING. 90 Tablet 1 Pantoprazole Sodium 20 MG Oral Tablet Delayed Release (Protonix) TAKE 1 TABLET BY MOUTH IN THE MORNING. 30 MINUTES BEFORE THE FIRST MEAL OF THE DAY. DO NOT CRUSH, SPLIT OR CHEW THE TABLET. 90 Tablet 1 Atorvastatin Calcium 40 MG Oral Tablet (Lipitor) TAKE 1 TABLET BY MOUTH EVERYDAY AT BEDTIME 90 Tablet 1 zoster vac recomb adjuvanted (SHINGRIX) 50 MCG/0.5ML injection Inject 0.5 mL into a large muscle now and repeat dose in 60 to 180 days. Please fax date this was given to our office. (Patient not taking: Reported on 10/05/2023) 1 Each 1 Prodigy Control Solution High In Vitro Solution Use to calibrate glucometer 1 Each 0 Prodigy AutoCode Blood Glucose Device Use daily. Dx E11.9 1 Each 0 Hydrocortisone Acetate 25 MG Rectal Suppository (Anusol-HC) Administer into the rectum 2 times a day in the morning and at bedtime as needed for Hemorrhoids. Up to 2 weeks. 24 Suppository 1 metFORMIN HCl ER 500 MG Oral Tablet Extended Release 24 Hour (Glucophage XR) Take 1 Tablet by mouthin the morning. 90 Tablet 3 Vitamin C 500 MG Oral Capsule Take 2 Tablets by mouth in the morning. Prodigy Lancing Device Use as directed to test blood sugars once daily 1 Each 0 glipiZIDE ER 2.5 MG Oral Tablet Extended Release 24 Hour (glipiZIDE XL) Take 1 Tablet by mouth in the morning. 30 minutes before a meal. Add to 5 mg tablet to equal 7.5 mg daily.. 90 Tablet 1 Prodigy Lancets 28G Use to test blood sugars once daily 100 Each 3 Prodigy No Coding Blood Gluc In Vitro Strip (Glucose Blood) test blood sugars once daily 100 Strip 3 No current facility-administered medications for this visit. Filed Vitals: 03/08/24 1335 BP: 129/74 Pulse: 78 Resp: 18 Temp: 36.7 C (98 F) SpO2: 97% Weight: 82.6 kg (182 lb) PHYSICAL EXAM: GENERAL: Alert, in no acute distress. EYES: PERRL, conjunctivae anicteric. ENT: Mucous membranes moist, oropharynx clear. NECK: Supple, no JVD. LYMPH: No cervical or supraclavicular lymphadenopathy. LUNGS: Clear to auscultation bilaterally, no respiratory distress. CARDIAC: Regular rate and rhythm, normal S1/S2, no murmurs, rubs, or gallops. ABDOMEN: Soft, non-tender, non-distended, bowel sounds present. EXT/MSK: No clubbing, cyanosis, or edema. SKIN: No rash, no jaundice. NEURO: No tremor, no asterixis. LABS/STUDIES: Recent Labs Units 01/26/24 1335 10/05/23 1212 09/13/23 0843 06/28/23 1146 SODIUM - [facility] mmol/L 142 138 141 141 POTASSIUM - [facility] mmol/L 5.2* 4.7 4.3 4.6 CHLORIDE - [facility] mmol/L 106 103 105 104 CO2 - [facility] mmol/L 19* 23 22 25 BUN - [facility] mg/dL 27* 30* 30* 28* CREATININE - [facility] mg/dL 1.4* 1.4* 1.5* 1.4* Recent Labs Units 01/26/24 1335 10/05/23 1212 01/28/23 1444 WBC K/uL 7.97 8.21 7.70 HGB g/dL 12.0* 11.7* 11.8* PLT K/uL 261 314 309 Recent Labs Units 01/26/24 1335 10/05/23 1212 09/13/23 0843 09/09/23 1536 06/28/23 1146 09/09/22 1601 04/14/22 0910 CALCIUM - [facility] mg/dL 9.3 9.4 9.4 -- 9.4 < > 9.3 PHOSPHORUS - [facility] mg/dL 3.7 -- -- 2.8 -- -- 3.3 25-HYDROXY VITAMIN D - [facility] ng/mL -- 56 -- -- -- -- 43 < > = values in this interval not displayed. Recent Labs Units 01/26/24 1335 12/27/23 1309 09/13/23 0843 HEMOGLOBIN A1C - [facility] % 9.0* -- 8.4* HEMOGLOBIN A1C POCT - [facility] % -- 8.4* -- No results for input(s): "MICROALBUMIN", "PROCRRATIO" in the last 50143 hours. ASSESSMENT AND PLAN Shaan was seen today for chronic kidney disease (ckd) and medication administration. 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 Recent creatinine of 1.4 and GFR of 49 mL/minute. He had hyperkalemia of 5.2. We discussed the need to avoid high potassium foods. I provided a list of high potassium foods to limit. He knows to keep well hydrated and avoid NSAIDs. We also discussed need for optimal diabetes control to slow progressive CKD. Repeat BMP prior to next office visit. HTN, goal below 140/90 Blood pressure is controlled on current regimen. No changes. Will not start CITLALI inhibitors due to hyperkalemia. Type 2 diabetes mellitus with hemoglobin A1c goal of less than 7.0% (HCC) Recent A1c of 9. Patient likely need to start Ozempic. I sent a communication to [facility] pharmacist Follow Up: Return in about 6 months (around 09/06/2024). Betty Kasper MD Nephrology, [address] [address] This note was generated with the help of voice recognition software. Please excuse for errors. * Yu Navarrete RN - 03/08/2024 1:33 PM EDT PRE - ADMINISTRATION DOCUMENTATION Are you experiencing any cold symptoms or fever? No Have you had Guillain-Genoa Syndrome (an illness that causes paralysis) within the last 6 weeks? No Have you had the flu shot in the past? YES Have you ever had a reaction to the flu shot? No Yu Navarrete RN, 03/08/2024 1:33 PM Immunization Administration Documentation Time Out Procedure Performed: Yes Patient Identified (Ask Name/Date of ): Yes Does the patient have a fever greater than 101 degrees today? No Patient allergic to latex? No VFC Stock: No Immunization(s) verified: Yes, Immunization Name: Flu, VIS Sheet(s) given: Yes Injection(s) verified: Yes, Injection Name: flu Verified Side and Site: Yes Verified Shot(s) with Parent(s)/Patient: Yes documented in this encounter Nursing Notes * Yu Navarrete RN - 03/08/2024 1:37 PM EDT Follow up visit today. No recent illness. Sone with pt for visit today. documented in this encounter Plan of Treatment Upcoming Encounters Date Type Department Care Team (Late st Contact Info) Description 04/04/2024 1:30 PM EST Office Visit [facility], [address] [place] [address] Hortensia Hobbs MD [address] [facility] [place] [address] 04/16/2024 2:30 PM EST Office Visit Pharmacy, [address] [place] [address] [place] [address] 05/01/2024 2:00 PM EST Office Visit Ophthalmology, [address] [place] [address] Kirby Yousif, [address] [facility] [place] [address] 05/29/2024 11:00 AM EST Nurse Only Ancillary [address] [place] [address] [place], Nurse [address] [place] [phone] 07/19/2024 3:00 PM EST Office Visit Family Medicine [address] [place] [phone] Kena Razo PA-C [address] [place] [address] [place] [id number] 08/06/2024 2:00 PM EDT Cardiac Studies Cardiac Studies, [address] [place] [address] 09/07/2024 1:30 PM EDT Office Visit Cardiology, [address] [place] [address] Chong [place], DO [address] [place] [address] 09/07/2024 3:00 PM EDT Office Visit Nephrology, [facility] [address] [facility] [place], [place] [address] Betty Kasper MD [address] [facility] [place] [id number] 02/11/2025 1:20 PM EDT Office Visit Family Medicine [address] [place] [phone] Ken Carson MD [address] [place] [address] [place] [address] Health Maintenance Due Date Last Done Comments [...] Additional history exists CKD HGB USE SMARTSET 78518 01/25/202501/25, 01/26/2024, 10/05/2023, Additional history exists CKD PHOS USE SMARTSET 97274 01/25/202512/29, 09/09/2023, 04/14/2022, Additional history exists Pneumococcal [...] as of this encounter Visit Diagnoses Diagnosis Need for prophylactic vaccination and inoculation against influenza- Primary Stage 3a chronic kidney disease (HCC) HTN, goal below 140/90 Unspecified essential hypertension Type 2 diabetes mellitus with hemoglobin A1c goal of less than 7.0% (HCC) documented in this encounter Advance Directives [...] Discussed due to patient's condition Care Teams Third Cook Relationship Specialty Start Date End Date Ken Carson MD [address] [place] [address] [place] [address] PCP - General Family Medicine 04/18/12 documented as of this encounter
--- OUTSIDE RECORDS SUMMARY | 2024-08-19 12:34 | External Medical Summary | Summary of Care ---
Author Name Unknown Organization [facility] Address [address] [place] [address] Phone [phone] Care Team Providers Care Can Reconditioner Name Role Phone Ken Carson MD Primary Care Provide r Encounter Details Date Type Department Care Team (Late st Contact Info) Description 03/09/2024 Telephone Pharmacy, [address] [place] [address] [facility] [address] [place] [address] Allergies No known active allergiesdocumented as of this encounter (statuses as of 03/09/2024) Medications Medication Sig Dispensed Refills Start Date [...] long-term current use of insulin ([facility]),Anemia of chronic disease,Gastroesophag eal reflux disease with esophagitis without hemorrhage,Dyslipidem ia, goal LDL below 100 Take 1 Tablet by mouth in the morning. 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 90 Tablet 3 4 Active Vitamin C 500 MG Oral Capsule Take 2 Tablets by mouth in the morning. 3 Active Aspirin 81 MG Oral Tablet ChewableIndications:T ype 2 diabetes mellitus with stage 3b chronic kidney disease, without long-term current use of insulin ([facility]),Anemia of chronic disease,Gastroesophag eal reflux disease with esophagitis without hemorrhage,Dyslipidem ia, goal LDL below 100 Take 1 Tablet by mouth in the morning. with food.. 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, without long-term current use of insulin ([facility]),Anemia of chronic disease,Gastroesophag eal reflux disease with esophagitis without hemorrhage,Dyslipidem ia, goal LDL below 100 TAKE 1 TABLET BY MOUTH IN THE MORNING AND BEFORE BEDTIME 180 Tablet 1 4 Active Famotidine 20 MG Oral Tablet (Pepcid)Indications:T ype 2 diabetes mellitus with stage 3b chronic kidney disease, without long-term current use of insulin ([facility]),Gastroesophagea l reflux disease with esophagitis without hemorrhage [...] long-term current use of insulin ([facility]),Anemia of chronic disease,Gastroesophag eal reflux disease with [...] long-term current use of insulin ([facility]),Anemia of chronic disease,Gastroesophag eal reflux disease with esophagitis without hemorrhage,Dyslipidem ia, goal LDL below 100 TAKE 1 TABLET BY MOUTH IN THE MORNING. 30 MINUTES BEFORE A MEAL.. 90 Tablet 1 4 Active Carvedilol 6.25 MG Oral Tablet (Coreg)Indications:Ty pe 2 diabetes mellitus with stage 3b chronic kidney disease, without long-term current use of insulin ([facility]),Anemia of chronic disease,Gastroesophag eal reflux disease with esophagitis without hemorrhage,Dyslipidem ia, goal LDL below 100 TAKE 1 TABLET 2 TIMES A DAY WITH MORNING AND EVENING MEALS. 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 90 Tablet 1 4 Active Pantoprazole Sodium 20 MG Oral Tablet Delayed Release (Protonix)Indications :Type 2 diabetes mellitus with stage 3b chronic kidney disease, without long-term current use of insulin ([facility]),Anemia of chronic disease,Gastroesophag eal reflux disease with [...] long-term current use of insulin ([facility]),Anemia of chronic disease,Gastroesophag eal reflux disease with [...] goal of less than 8.0% ([facility]) test blood sugars once daily 100 Strip 3 4 Active documented as of this encounter (statuses as of 03/09/2024) Active Problems Problem Noted Date Diagnosed Date [...] as of this encounter (statuses as of 03/09/2024) Resolved Problems Problem Noted Date Diagnosed Date [...] #1 ACTIVE CASE MANAGEMENT- Callie Sargent RN [phone] 10/06/2009 03/16/2010 HTN, GOAL BELOW 140/90 04/04/200906/25 [...] LUMBAGO 11/18/2017 Overview: l5-s1 disc extrusion,severe stenosis l4-5,B3gkkoxkblh body lesion probable heman documented as of this encounter (statuses as of 03/09/2024) Immunizations Name Administration Dates Next Due COVID-19 [...] start Ozempic if agreeable. Thanks! Cheryl Barrow RPh, PharmD Clinical Pharmacist - Relay Assembler [facility] 03/09/2024, 2:53 PM [phone] * Telephone Encounter - Cheryl Barrow RPh - 03/09/2024 2:52 PM EDT ----- Message from Betty Kasper MD sent at 03/08/2024 2:13 PM EDT ----- Regarding: Richardic Kirstin, I saw mutual patient. He is A1c [...] PM EST Office Visit Interventional Pain Center, [facility] 132 [facility] [place] [address] Hortensia Hobbs MD [address] [place] [address] [place] [address] 04/16/2024 2:30 PM EST Office Visit Pharmacy, [address] [place] [address] [place] [address] 05/01/2024 2:00 PM EST Office Visit Ophthalmology, [facility] 132 [facility] [place] [address] Kirby Yousif, 132 [facility] [place] [address] 05/29/2024 11:00 AM EST Nurse Only Ancillary [address] [place] [address] [place], Nurse [facility] [address] [place] [address] [place] [address] 07/19/2024 3:00 PM EST Office Visit Family Medicine [address] [place] [phone] Kena Razo PA-C [address] [place] [address] [place] [address] 08/06/2024 2:00 PM EDT Cardiac Studies Cardiac Studies, [facility] 132 [facility] [place] [address] 09/07/2024 1:30 PM EDT Office Visit Cardiology, [facility] 132 [facility] [place] [address] [place], 132 [facility] [place] Pegu[place] [address] 09/07/2024 3:00 PM EDT Office Visit Nephrology, [address] [place] [address] Betty Kasper MD [address] [facility] [place] [address] 02/11/2025 1:20 PM EDT Office Visit Family Medicine [address] [place] [phone] Ken Carson MD [address] [place] [address] [place] [address] Health Maintenance Due Date Last Done Comments [...] Additional history exists CKD HGB USE SMARTSET 86830 01/25/202501/25, 01/26/2024, 10/05/2023, Additional history exists CKD PHOS USE SMARTSET 73517 01/25/202512/29, 09/09/2023, 04/14/2022, Additional history exists Pneumococcal [...] Discussed due to patient's condition Care Teams Can Reconditioner Relationship Specialty Start Date End Date Ken Carson MD [address] [place] [address] [place] [phone] PCP - General Family Medicine 04/18/12 documented as of this encounter
--- OUTSIDE RECORDS SUMMARY | 2024-08-19 12:34 | External Medical Summary | Summary of Care ---
Author Name Unknown Organization [facility] Address [address] [place] [address] Phone [phone] Care Team Providers Care Extrusion Bender Name Role Phone Ken Carson MD Primary Care Provide r Reason for Visit * Reason Comments eRx-Medication Refill Encounter Details Date Type Department Care Team (Late st Contact Info) Description 03/26/2024 Refill Family Medicine [address] [phone] Ken Carson MD [address] [place] [address] [place] [phone] Type 2 diabetes mellitus with stage 3b chronic kidney disease, without long-term current use of insulin (HCC); Anemia of chronic disease; Gastroesophageal reflux disease with esophagitis without hemorrhage; Dyslipidemia, goal LDL below 100 Allergies No known active allergiesdocumented as of this encounter (statuses as of 03/28/2024) Medications Medication Sig Dispensed Refills Start Date [...] 10/30/19 21 Active Prodigy AutoCode Blood Glucose DeviceIndications:Ty pe 2 diabetes mellitus with stage 3a chronic kidney disease and hypertension ([facility]),Type 2 diabetes mellitus with hemoglobin A1c goal of less than 8.0% ([facility]) Use daily. Dx E11.9 1 Each 12/17/19 21 Active Acetaminophen ER 650 MG Oral Tablet Extended Release Pt is taking 650mg tylenol extra strength one pill twice daily if needed for pain. Pt is not to exceed >6 in a 24hr period 05/20/20 21 Active Carboxymethylcellulo se Sodium 0.5 % Ophthalmic [...] 23 Active Cyanocobalamin 1000 MCG Oral Tablet (Cyanocobalamin)Calli cations:Type 2 diabetes mellitus with stage 3b chronic kidney disease, without long-term current use of insulin ([facility]),Anemia of chronic disease,Gastroesopha geal reflux disease with esophagitis without hemorrhage,Dyslipide nehal, goal LDL below 100 Take 1 Tablet by mouth in the morning. 90 Tablet 1 03/22/20 23 Active Vitamin D 25 MCG (1000 UT) Oral TabletIndications:Ty pe 2 diabetes mellitus with stage 3b chronic kidney disease, without long-term current use of insulin ([facility]),Anemia of chronic disease,Gastroesopha geal reflux disease [...] 23 Active Aspirin 81 MG Oral Tablet ChewableIndications: Type 2 diabetes mellitus with stage 3b chronic kidney disease, without long-term current use of insulin ([facility]),Anemia of chronic disease,Gastroesopha geal reflux disease with esophagitis without hemorrhage,Dyslipide nehal, goal LDL below 100 Take 1 Tablet by mouth in the morning. with food.. 100 Tablet 2 07/09/19 24 Active Famotidine 20 MG Oral Tablet (Pepcid)Indications: Type 2 diabetes mellitus with stage 3b chronic kidney disease, without long-term current use of insulin (HCC),Gastroesophage al reflux disease with esophagitis without hemorrhage [...] 24 Active Carvedilol 6.25 MG Oral Tablet (Coreg)Indications:T [...] of insulin ([facility]),Anemia of chronic disease,Gastroesopha geal reflux disease with esophagitis without hemorrhage,Dyslipide nehal, goal LDL below 100 TAKE 1 TABLET BY MOUTH EVERY DAY IN THE MORNING 90 Tablet 1 02/28/20 24 Active Januvia 50 MG Oral TabletIndications:Ty pe 2 diabetes mellitus with stage 3b chronic kidney disease, without long-term current use of insulin ([facility]),Anemia of chronic disease,Gastroesopha geal reflux disease with esophagitis without hemorrhage,Dyslipide nehal, goal LDL below 100 TAKE 1 TABLET BY MOUTH IN THE MORNING. 90 Tablet 1 02/28/20 24 Active Pantoprazole Sodium 20 MG Oral Tablet Delayed Release (Protonix)Indication s:Type 2 diabetes mellitus with stage 3b chronic kidney disease, without long-term current use of insulin ([facility]),Anemia of chronic disease,Gastroesopha geal reflux disease [...] of insulin ([facility]),Anemia of chronic disease,Gastroesopha geal reflux disease [...] 24 Active Folic Acid 1 MG Oral TabletIndications:Ty pe 2 diabetes mellitus with stage 3b chronic kidney disease, without long-term current use of insulin (HCC),Anemia of chronic disease,Gastroesopha geal reflux disease with esophagitis without hemorrhage,Dyslipide nehal, goal LDL below 100 TAKE 1 TABLET BY MOUTH IN THE MORNING AND BEFORE BEDTIME 180 Tablet 1 03/28/20 24 Active Folic Acid 1 MG Oral TabletIndications:Ty pe 2 diabetes mellitus with stage 3b chronic kidney disease, without long-term current use of insulin (HCC),Anemia of chronic disease,Gastroesopha geal reflux disease with esophagitis without hemorrhage,Dyslipide nehal, goal LDL below 100 TAKE 1 TABLET BY MOUTH IN THE MORNING AND BEFORE BEDTIME 180 Tablet 1 09/02/19 24 024 Discontinued documented as of this encounter (statuses as of 03/28/2024) Active Problems Problem Noted Date Diagnosed Date [...] as of this encounter (statuses as of 03/28/2024) Resolved Problems Problem Noted Date Diagnosed Date [...] #1 ACTIVE CASE MANAGEMENT- Callie Sargent RN [phone] 10/06/2009 03/16/2010 HTN, GOAL BELOW 140/90 04/04/200906/25 Overview: Modified per HTN Taxonomy. 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/2004 01/15/2019 Overview: saw Lzi for pain right leg, recieved epidurals (2) [...] LUMBAGO 11/18/2017 Overview: l5-s1 disc extrusion,severe stenosis l4-5,E1kfodrmgmq body lesion probable heman documented as of this encounter (statuses as of 03/28/2024) Immunizations Name Administration Dates Next Due COVID-19 [...] encounter Miscellaneous Notes * Telephone Encounter - Minoo Mendez, [facility] - 03/28/2024 7:46 AM EDTSigned Prescriptions: Disp Refills Folic Acid 1 MG Oral Tablet 180 Ta*1 Sig: TAKE 1 TABLET BY MOUTHIN THE MORNING AND BEFORE BEDTIMEAuthorizing Provider: KEN CARSON User: MINOO MENDEZ documented in this encounter Plan of Treatment Upcoming Encounters Date Type Department Care Team (Late st Contact Info) Description 04/04/2024 1:30 PM EST Office Visit Interventional Pain Center, [facility] 132 [facility] [place] [address] Hortensia Hobbs MD [address] [place] [address] 04/16/2024 2:30 PM EST Office Visit Pharmacy, [address] [place] [address] [place] [address] 05/01/2024 2:00 PM EST Office Visit Ophthalmology, [facility] 132 [facility] [place] [address] Kirby Yousif, 132 [facility] [place] [address] 05/29/2024 11:00 AM EST Nurse Only Ancillary [address] [place] [address] [place], Nurse [address] [place] [address] 07/19/2024 3:00 PM EST Office Visit Family Medicine [address] [place] [phone] Kena Razo PA-C [address] [place] [address] [place] [address] 08/06/2024 2:00 PM EDT Cardiac Studies Cardiac Studies, [facility] 132 [place] [address] 09/07/2024 1:30 PM EDT Office Visit Cardiology, [facility] [place] [address] [place], 132 [facility] [place] [address] 09/07/2024 3:00 PM EDT Office Visit Nephrology, [address] [place] [address] Betty Kasper MD [address] [place], [place] [address]J[place] [address] 02/11/2025 1:20 PM EDT Office Visit Family Medicine [address] [place] [phone] Ken Carson MD [address] [place] [address] [place] [address] Health Maintenance Due Date Last Done Comments [...] Additional history exists CKD HGB USE SMARTSET 94100 01/25/202501/25, 01/26/2024, 10/05/2023, Additional history exists CKD PHOS USE SMARTSET 11323 01/25/202512/29, 09/09/2023, 04/14/2022, Additional history exists Pneumococcal [...] Discussed due to patient's condition Care Teams Extrusion Bender Relationship Specialty Start Date End Date Ken Carson MD [address] [place] [address] [place] [phone] PCP - General Family Medicine 04/18/12 documented as of this encounter
--- OUTSIDE RECORDS SUMMARY | 2024-08-19 12:34 | External Medical Summary | Summary of Care ---
Author Name Unknown Organization [facility] Address [address] [place] [address] Phone [phone] Care Team Providers Care Inspector Shells Name Role Phone Ken Carson MD Primary Care Provide r Encounter Details Date Type Department Care Team (Late st Contact Info) Description 03/09/2024 Telephone Pharmacy, [address] [place] [address] [facility] [address] [place] [address] Allergies No known active allergiesdocumented as of [...] without long-term current use of insulin ([facility]),Anemia of chronic disease,Gastroesophag eal reflux disease with esophagitis without hemorrhage,Dyslipidem ia, goal LDL below 100 Take 1 Tablet by mouth in the morning. 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 90 Tablet 3 4 Active Vitamin C 500 MG Oral Capsule Take 2 Tablets by mouth in the morning. 3 Active Aspirin 81 MG Oral Tablet ChewableIndications:T ype 2 diabetes mellitus with stage 3b chronic kidney disease, without long-term current use of insulin ([facility]),Anemia of chronic disease,Gastroesophag eal reflux disease with esophagitis without hemorrhage,Dyslipidem ia, goal LDL below 100 Take 1 Tablet by mouth in the morning. with food.. 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, without long-term current use of insulin ([facility]),Anemia of chronic disease,Gastroesophag eal reflux disease with esophagitis without hemorrhage,Dyslipidem ia, goal LDL below 100 TAKE 1 TABLET BY MOUTH IN THE MORNING AND BEFORE BEDTIME 180 Tablet 1 4 Active Famotidine 20 MG Oral Tablet (Pepcid)Indications:T ype 2 diabetes mellitus with stage 3b chronic kidney disease, without long-term current use of insulin ([facility]),Gastroesophagea l reflux disease with esophagitis [...] without long-term current use of insulin ([facility]),Anemia of chronic disease,Gastroesophag eal reflux [...] without long-term current use of insulin ([facility]),Anemia of chronic disease,Gastroesophag eal reflux disease with esophagitis without hemorrhage,Dyslipidem ia, goal LDL below 100 TAKE 1 TABLET BY MOUTH IN THE MORNING. 30 MINUTES BEFORE A MEAL.. 90 Tablet 1 4 Active Carvedilol 6.25 MG Oral Tablet (Coreg)Indications:Ty pe 2 diabetes mellitus with stage 3b chronic kidney disease, without long-term current use of insulin ([facility]),Anemia of chronic disease,Gastroesophag eal reflux disease with esophagitis without hemorrhage,Dyslipidem ia, goal LDL below 100 TAKE 1 TABLET 2 TIMES A DAY WITH MORNING AND EVENING MEALS. 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 90 Tablet 1 4 Active Pantoprazole Sodium 20 MG Oral Tablet Delayed Release (Protonix)Indications :Type 2 diabetes mellitus with stage 3b chronic kidney disease, without long-term current use of insulin ([facility]),Anemia of chronic disease,Gastroesophag eal reflux [...] without long-term current use of insulin ([facility]),Anemia of chronic disease,Gastroesophag eal reflux [...] A1c goal of less than 8.0% ([facility]) test blood sugars once [...] #1 ACTIVE CASE MANAGEMENT- Callie Sargent RN [phone] 10/06/2009 03/16/2010 HTN, GOAL BELOW 140/90 04/04/200906/25 [...] LUMBAGO 11/18/2017 Overview: l5-s1 disc extrusion,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 Will plan to review and facilitate transition at next appointment. Cheryl Barrow RPh, PharmD Clinical Pharmacist - Cra Officer [facility]ication [facility] 03/12/2024, 10:55 AM Ph.[phone] * Telephone Encounter - Ken Carson MD - 03/12/2024 10:50 AM EDT I would fine with Gokulempic. * Telephone Encounter - Cheryl Barrow RP - 03/09/2024 2:[address] Carson - What are your thoughts on starting patient on Ozempic? A1c continuing to rise. Would plan to stop Januvia and start Ozempic if agreeable. Thanks! Cheryl Barrow [facility], PharmD Clinical Pharmacist - Cra Officer Medication Therapy [facility] 03/09/2024, 2:53 PM [phone] * Telephone Encounter - Cheryl Barrow RPh - 03/09/2024 2:52 PM EDT ----- Message from Betty Kasper MD sent at 03/08/2024 2:13 PM EDT ----- Regarding: Ozempkwame Eleanorglenroy, I saw mutual patient. He is [...] PM EST Office Visit Interventional Pain Center, [facility] 132 [facility] [place] [address] Hortensia Hobbs MD [address] [place] [address] [place] Bush [phone] 04/16/2024 2:30 PM EST Office Visit Pharmacy, [address] [place] [address] [place] [address] 05/01/2024 2:00 PM EST Office Visit Ophthalmology, [facility] [address] [place] [address] Kirby Yousif, DO [address] [place] [address] 05/29/2024 11:00 AM EST Nurse Only Ancillary [address] [place] [address] [place], Nurse Annual [address] [place] [address] 07/19/2024 3:00 PM EST Office Visit Family Medicine [address] [place] [phone] Kena Razo PA-C [address] [place] [address] [place] [address] 08/06/2024 2:00 PM EDT Cardiac Studies Cardiac Studies, [facility] 132 [facility] [place] [address] 09/07/2024 1:30 PM EDT Office Visit Cardiology, [facility] 132 [facility] [place] [address] [place], DO 132 [facility] [place] [address] 09/07/2024 3:00 PM EDT Office Visit Nephrology, [address] [place] [address] Betty Kasper MD [address] [place] [address] [place] [address] 02/11/2025 1:20 PM EDT Office Visit Family [address] [place] [phone] Ken Carson MD [address] [place] [address] [place] [address] Health Maintenance Due Date Last Done Comments [...] Additional history exists CKD HGB USE SMARTSET 76770 01/25/202501/25, 01/26/2024, 10/05/2023, Additional history exists CKD PHOS USE SMARTSET 43928 01/25/202512/29, 09/09/2023, 04/14/2022, Additional history exists Pneumococcal [...] Discussed due to patient's condition Care Teams Inspector Shells Relationship Specialty Start Date End Date Ken Carson MD [address] [place] [address] [place] [address] PCP - General Family Medicine 04/18/12 documented as of this encounter
--- OUTSIDE RECORDS SUMMARY | 2024-08-19 12:35 | External Medical Summary | Summary of Care ---
Author Name Unknown Organization [facility] Address [address] [place] [address] Phone [phone] Care Team Providers Care Supervisor Billposting Name Role Phone Ken Carson MD Primary Care Provide r Reason for Visit * Reason Comments eRx-Medication Refill Encounter Details Date Type Department Care Team (Late st Contact Info) Description 02/28/2024 Refill Family Medicine [address] [phone] Ken Carson MD [address] [place] [address] [place], [place] [id number] Type 2 diabetes mellitus with stage 3b chronic kidney disease, without long-term current use of insulin ([facility]); Anemia of chronic disease; Gastroesophageal reflux disease with esophagitis without hemorrhage; Dyslipidemia, goal LDL below 100 Allergies No known active allergiesdocumented as of this encounter (statuses as of 02/28/2024) Medications Medication Sig Dispensed Refills Start Date End Date Status cilostazol (PLETAL) 50 MG Tablet Take 1 Tablet by mouth in the morning. 03/24/20 15 Active zoster vac recomb adjuvanted (SHINGRIX) 50 MCG/0.5ML injection Inject 0.5 mL into a large muscle now and repeat dose in 60 to 180 days. Please fax date this was given to our office. 1 Each 1 07/19/19 Active Additional Information Patient not taking.Reported on 10/05/2023 Prodigy Control Solution High In Vitro Solution Use to calibrate glucometer 1 Each 10/30/19 21 Active Seratis AutoCode Blood Glucose DeviceIndications:Ty pe 2 diabetes [...] morning. 14 Each 1 12/18/19 23 Active Seratis No Coding Blood Gluc In Vitro Strip (Glucose Blood)Indications:Ty pe 2 diabetes mellitus with hemoglobin A1c goal of less than 8.0% (HCC) test blood sugars once daily 100 Strip 3 02/16/20 23 Active Cyanocobalamin 1000 MCG Oral Tablet [...] disease, without long-term current use of insulin ([facility]),Anemia of chronic disease,Gastroesopha geal reflux disease with esophagitis without hemorrhage,Dyslipide nehal, goal LDL below 100 Take 1 Tablet by mouth in the morning. with food.. 100 Tablet 2 07/09/19 24 Active Folic Acid 1 MG Oral TabletIndications:Ty pe 2 diabetes mellitus with stage 3b chronic kidney disease, without long-term current use of insulin ([facility]),Anemia of chronic disease,Gastroesopha geal reflux disease with esophagitis without hemorrhage,Dyslipide nehal, goal LDL below 100 TAKE 1 TABLET BY MOUTH IN THE MORNING AND BEFORE BEDTIME 180 Tablet 1 09/02/19 24 Active Famotidine 20 MG Oral Tablet (Pepcid)Indications: Type 2 diabetes mellitus with stage 3b chronic kidney disease, without long-term current use of insulin ([facility]),Gastroesophage al reflux disease with esophagitis without [...] disease, without long-term current use of insulin ([facility]),Anemia of chronic disease,Gastroesopha geal reflux disease [...] disease, without long-term current use of insulin ([facility]),Anemia of chronic disease,Gastroesopha geal reflux disease with esophagitis without hemorrhage,Dyslipide nehal, goal LDL below 100 TAKE 1 TABLET BY MOUTH IN THE MORNING. 30 MINUTES BEFORE A MEAL.. 90 Tablet 1 01/25/20 24 Active Carvedilol 6.25 MG Oral Tablet (Coreg)Indications:T ype 2 diabetes mellitus with stage 3b chronic kidney disease, without long-term current use of insulin ([facility]),Anemia of chronic disease,Gastroesopha geal reflux disease with esophagitis without hemorrhage,Dyslipide nehal, goal LDL below 100 TAKE 1 TABLET 2 TIMES A DAY WITH MORNING AND EVENING MEALS. 180 Tablet 1 02/28/20 24 Active amLODIPine Besylate 10 MG Oral Tablet (Norvasc)Indications :Type 2 diabetes mellitus with stage 3b chronic kidney disease, without long-term current use of insulin ([facility]),Anemia of chronic disease,Gastroesopha geal reflux disease with esophagitis without hemorrhage,Dyslipide nehal, goal LDL below 100 TAKE 1 TABLET BY MOUTH EVERY DAY IN THE MORNING 90 Tablet 1 02/28/20 24 Active Januvia 50 MG Oral TabletIndications:Ty pe 2 diabetes mellitus with stage 3b chronic kidney disease, without long-term current use of insulin ([facility]),Anemia of chronic disease,Gastroesopha geal reflux disease with esophagitis without hemorrhage,Dyslipide nehal, goal LDL below 100 TAKE 1 TABLET BY MOUTH IN THE MORNING. 90 Tablet 1 02/28/20 24 Active Pantoprazole Sodium 20 MG Oral Tablet Delayed Release (Protonix)Indication s:Type 2 diabetes mellitus with stage 3b chronic kidney disease, without long-term current use of insulin ([facility]),Anemia of chronic disease,Gastroesopha geal reflux disease [...] BEDTIME 90 Tablet 1 02/28/20 24 Active Pantoprazole [...] OR CHEW THE TABLET. 90 Tablet 1 09/02/19 24 024 Discontinued Atorvastatin Calcium 40 MG Oral Tablet (Lipitor)Indications :Type 2 diabetes mellitus with stage 3b chronic kidney disease, without long-term current use of insulin ([facility]),Anemia of chronic disease,Gastroesopha geal reflux disease with esophagitis without hemorrhage,Dyslipide nehal, goal LDL below 100 TAKE 1 TABLET BY MOUTH EVERYDAY AT BEDTIME 90 Tablet 1 09/02/19 24 024 Discontinued Carvedilol 6.25 MG Oral Tablet (Coreg)Indications:T ype 2 diabetes mellitus with stage 3b chronic kidney disease, without long-term current use of insulin ([facility]),Anemia of chronic disease,Gastroesopha geal reflux disease with esophagitis without hemorrhage,Dyslipide nehal, goal LDL below 100 TAKE 1 TABLET 2 TIMES A DAY WITH MORNING AND EVENING MEALS. 180 Tablet 1 09/02/19 24 024 Discontinued Januvia 50 MG Oral TabletIndications:Ty pe 2 diabetes mellitus with stage 3b chronic kidney disease, without long-term current use of insulin ([facility]),Anemia of chronic disease,Gastroesopha geal reflux disease with esophagitis without hemorrhage,Dyslipide nehal, goal LDL below 100 TAKE 1 TABLET BY MOUTH IN THE MORNING. 90 Tablet 1 09/02/19 24 024 Discontinued amLODIPine Besylate 10 MG Oral Tablet (Norvasc)Indications :Type 2 diabetes mellitus with stage 3b chronic kidney disease, without long-term current use of insulin (HCC),Anemia of chronic disease,Gastroesopha geal reflux disease with esophagitis without hemorrhage,Dyslipide nehal, goal LDL below 100 TAKE 1 TABLET BY MOUTH EVERY DAY IN THE MORNING 90 Tablet 12/23/19 24 024 Discontinued documented as of this encounter (statuses as of 02/28/2024) Active Problems Problem Noted Date Diagnosed Date [...] as of this encounter (statuses as of 02/28/2024) Resolved Problems Problem Noted Date Diagnosed Date [...] #1 ACTIVE CASE MANAGEMENT- Callie Sargent RN [phone] 10/06/2009 03/16/2010 HTN, GOAL BELOW 140/90 04/04/200906/25 [...] LUMBAGO 11/18/2017 Overview: l5-s1 disc extrusion,severe stenosis l4-5,[id number] body lesion probable heman documented as of this encounter (statuses as of 02/28/2024) Immunizations Name Administration Dates Next Due COVID-19 [...] (15 years old or older) No 11/27/19 23 Cognitive Status Response Date of Assessm ent Because of a physical, menta l, or emotional condition, do you have serious difficulty concentrating, remembering, or making decisions? (5 years old or older) No 11/26/2022 documented as of this encounter Miscellaneous Notes * Telephone Encounter - Autumn Lozano, [facility] - 02/28/2024 12:29 PM EDTSigned Prescriptions: Disp Refills Carvedilol 6.25 MG Oral Tablet (Coreg) 180 Ta*1 Sig: TAKE 1 TABLET 2 TIMES A DAY WITH MORNING AND EVENING MEALS.Authorizing Provider: KEN CARSON User: AUTUMN RETANA amLODIPine Besylate 10 MG Oral Tablet (Nor*90 Tab*1 Sig: TAKE 1 TABLET BY MOUTH EVERY DAY IN THE MORNINGAuthorizing Provider: KEN CARSON User: AUTUMN RETANA Januvia 50 MG Oral Tablet 90 Tab*1 Sig: TAKE 1 TABLET BY MOUTH IN THE MORNING.Authorizing Provider: KEN CARSON User: AUTUMN RETANA Pantoprazole Sodium 20 MG Oral Tablet Lashawn*90 Tab*1 Sig: TAKE 1 TABLET BY MOUTH IN THE MORNING. 30 MINUTES BEFORE THE FIRST MEAL OF THE DAY. DO NOT CRUSH, SPLIT OR CHEW THE TABLET.Authorizing Provider: KEN CARSON User: AUTUMN RETANA Atorvastatin Calcium 40 MG Oral Tablet (Li*90 Tab*1 Sig: TAKE 1 TABLET BY MOUTH EVERYDAY AT BEDTIMEAuthorizing Provider: KEN CARSON User: AUTUMN RETANA documented in this encounter Plan of Treatment Upcoming Encounters Date Type Department Care Team (Late st Contact Info) Description 03/05/2024 2:10 PM EDT Office Visit Pharmacy, [address] [place] [phone] [place] [phone] 03/08/2024 1:40 PM EDT Office Visit Nephrology, [address] [place] [address] Betty Kasper MD [address] [place] [address] [place], [place] [id number] 03/19/2024 1:00 PM EDT Cardiac Studies [facility] [address] [facility] [place] [address] 04/04/2024 1:30 PM EST Office Visit Interventional Pain Center, [facility] [address] [facility] [place] [address] Hortensia Hobbs MD [address] [place] [address] 05/01/2024 2:00 PM EST Office Visit Ophthalmology, [facility] [address] [place] [address] Kirby Yousif DO [address] [place] [address] 05/29/2024 11:00 AM EST Nurse Only Ancillary [address] [place] [address] [place], Nurse Annual Wellness [address] [place] [address] [place] [phone] 07/19/2024 3:00 PM EST Office Visit Family [address] [place] [phone] Kena Razo PA-C [address] [place] [address] [place] [id number] 02/11/2025 1:20 PM EDT Office Visit [address] [phone] Ken Carson MD [address] [place] [address] [place] [id number] Health Maintenance Due Date Last Done Comments [...] Additional history exists CKD HGB USE SMARTSET 87367 01/25/202501/25, 01/26/2024, 10/05/2023, Additional history exists CKD PHOS USE SMARTSET [id number] 01/25/2025 0801/2024, 09/09/2023, 04/14/2022, Additional history exists [...] Discussed due to patient's condition Care Teams Supervisor Billposting Relationship Specialty Start Date End Date Ken Carson MD [address] [place] [address] [place] [phone] PCP - General Family Medicine 04/18/12 documented as of this encounter
[2024-08-19] MEDS: ONDANSETRON INJ 2 MG/ML 2 ML VIAL IV STA (13:37)
[2024-08-19] MEDS: SODIUM CHLORIDE 0.9% 1,000 ML IV ONE ×2 (13:37→21:23)
[2024-08-19 13:38] LABS: Basophils # (auto) 0.06 K/uL (0.00-0.20); Basophils % (auto) 0.8 %; Eosinophils # (auto) 0.04 K/uL (0.00-0.50); Eosinophils % (auto) 0.5 %; Hematocrit (blood only) 36.3 % (42.0-52.0); Hemoglobin 12.3 g/dl (14.0-18.0); Immature Granulocytes # (auto) 0.03 K/uL (0.01-0.20); Immature Granulocytes % (auto) 0.4 %; Lymphocytes # (auto) 0.59 K/uL (1.20-3.40); Lymphocytes % (auto) 7.4 %; Mean Corpuscular Hemoglobin 28.8 pg (25.0-34.0); Mean Corpuscular Hgb Conc 33.9 g/dL (32.0-36.0); Mean Platelet Volume 10.6 fL (9.4-12.4); Monocytes # (auto) 0.75 K/uL (0.11-0.59); Monocytes % (auto) 9.4 %; Neutrophils # (auto) 6.52 K/uL (1.40-6.50); Neutrophils % (auto) 81.5 %; Platelet Count 203 K/uL (130-400); RDW Coefficient of Variation 14.6 % (11.5-14.5); RDW Standard Deviation 45.1 fL (36.4-46.3); Red Blood Count 4.27 M/uL (4.70-6.10); White Blood Count 7.99 K/ul (4.8-10.8)
[2024-08-19 13:46] LABS: Albumin Globulin Ratio 1.4 (0.9-2); Albumin Level 3.8 gm/dl (3.4-5.0); BUN Creatinine Ratio 22.3 (10-20); Bilirubin,Total 1.1 mg/dl (0.2-1.0); Calcium 8.4 mg/dl (8.6-10.3); Globulin 2.8 gm/dl (2.5-4.0); Potassium 3.4 mmol/L (3.5-5.1); Total Protein 6.6 gm/dl (6.0-8.3)
[2024-08-19 14:02] LABS: Troponin I High Sensitivity 123.3 pg/ml (0-20)
[2024-08-19 14:30] LABS: Influenza A virus by PCR Negative (Neg); Influenza B virus by PCR Negative (Neg); RSV by PCR Negative (Neg); SARS CoV2 RNA(COVID-19) Ceph NEGATIVE (Negative)
[2024-08-19] MEDS: ASPIRIN 300 MG SUPP PR ONE (16:19)
[2024-08-19] MEDS: ALBUT/IPRATROP 3MG/0.5MG NEB 3 ML VIAL NEB STA (16:19)
--- NOTE | 2024-08-19 16:19 | XRay Report ---
EXAM: X-ray chest one-view portable CLINICAL HISTORY: Vomiting, cough, AMI PRIORS: 11/28/2022 TECHNIQUE: Frontal view chest FINDINGS: The chest is well-expanded. Mild opacification present in the left upper lobe, appearing in the interval. Heart size is top normal. No pneumothorax. Elevation of the right hemidiaphragm, unchanged. Trachea is patent. Osseous structures demonstrate no acute abnormality. Right shoulder postsurgical change. No radiopaque foreign body. IMPRESSION: Mild opacification in the left upper lobe, appearing in the interval, favoring pneumonia. Electronically signed by Danielle Gaxiola 08-19-2024 4:19 PM
--- NOTE | 2024-08-19 16:57 | History & Physical Report ---
Date of Service August 19, 2024 Assessment & Plan (1) Nausea: Plan: -likely 2/2 CAP vs. viral illness -per patient symptoms have resolved Plan: -zofran prn for nausea -regular diet (2) CAP (community acquired pneumonia): Plan: -as supported by cough, not supported by no fever -oxygen requirement in room is inaccurate, saturating 94% on room air -likely cause of myocardial injury and wheezing Plan: -ceftriaxone/doxycycline x5 days -incentive spirometer -duonebs q6hr prn -wean off oxygen, goal saturation 88% and above (3) Myocardial injury: Plan: -likely type 2 ID in setting of CAP/dehydration -discussed with cardiology, new RBBB with no chest pain, no need for heparin unless troponins significantly increase Plan: -trend troponins -cardiology consult, appreciate recs -check A1c, lipids for risk stratification -f/u echo, recent echo relatively unchanged to prior (4) Acute dehydration: Plan: -given fluids in ED (5) Aortic stenosis: Plan: -hx of rheumatic fever as child -recent echo showed unchanged (6) Chronic kidney disease, stage 3: Plan: -improved from last check (7) History of prostate cancer: Plan: -s/p surgery (8) New onset right bundle branch block (RBBB): Plan: -unclear etiology -check TSH, cardiology consult (9) Diabetes mellitus, type 2: Plan: -insulin protocol, no pharmacy consult Plan Feeding/fluids: regular Analgesia: tylenol Sedation: na Thromboprophylaxis: heparin Head up position: na Ulcer prophylaxis: na Glycemic control: insulin protocol Spontaneous breathing trial: na Bowel care: miralax prn Indwelling catheter removal: na Deescalation of antibiotics: ceftriaxone/doxycyline I spent a total of 80 minutes in direct patient care, including thhs-bc-pyjp time with the patient and/or family, reviewing medical records, ordering and reviewing diagnostic tests, and coordinating care with other healthcare providers. This time includes: history taking, physical examination, medical decision making, counseling, ECG interpretation, imaging interpretation, lab interpretation, orders, and education, excluding time spent in the performance of separately billed services. History of Present Illness Chief Complaint: -nausea/vomiting Primary Care Provider: Ken Carson MD 88 yo male with pmhx hypertension, hyperlipidemia, moderate (TTE 2022), PVD, DM2 on oral medications, CKD stage 3b (baseline creatinine 1.6), GERD, prostate cancer status post surgery, recent thoracolumbar laminectomy, past tobacco abuse who presents for nausea/vomiting x1 day. Daughter present in room for conversation, patient gives permission. In the ED, noted to have uptrending troponin, admitted to medicine for chest pain r/o. Patient states symptoms started yesterday with nausea and vomiting. States he has not had solid food in 2 days. States he takes all his medications as prescribed, does not have issues with not eating. States this is new for him. Denies chest pain or SOB. Per daughter patient has been wheezing today, which she has not noticed before. Per daughter around 1 week ago had some chills and a cough, but has not had these symptoms since then. No tobacco use, no alcohol use, no drug use, DNRDNI, discussed with patient and daughter. Allergies Allergy/AdvReac Type Severity Reaction Status Date / Time No Known Allergies Allergy Verified 11/28/22 00:10 Home Medications Medication Instructions Recorded Confirmed Type aspirin 81 mg tablet,delayed 81 mg PO .RESUME IN 2 WEEKS 06/14/19 11/27/22 History release atorvastatin 40 mg tablet (Lipitor) 40 mg PO HS 06/14/19 11/27/22 History fluticasone propionate 50 1 spray intranasal QAM 06/14/19 11/27/22 History mcg/actuation nasal spray,suspension (Flonase Allergy Relief) sitagliptin phosphate 50 mg tablet 50 mg PO QAM 06/14/19 11/27/22 History (Januvia) timolol 0.5 % eye drops 1 drp OPB QAM 06/14/19 11/27/22 History acetaminophen 650 mg 650 mg PO BID PRN Pain 09/23/22 11/27/22 History tablet,extended release ascorbic acid (vitamin C) 1,000 mg 1 g PO QDL 09/23/22 11/27/22 History tablet (Vitamin C) carboxymethylcellulose sodium 0.5 1 drp OPB QID PRN Dry Eyes 09/23/22 11/27/22 History % eye drops cholecalciferol (vitamin D3) 25 25 mcg PO DAILY 09/23/22 11/27/22 History mcg (1,000 unit) capsule (Vitamin D3) cilostazol 50 mg tablet 50 mg PO .RESUME IN 2 WEEKS 09/23/22 11/27/22 History cyanocobalamin (vitamin B-12) 1,000 mcg PO DAILY 09/23/22 11/27/22 History 1,000 mcg tablet (Vitamin B-12) famotidine 20 mg tablet 20 mg PO HS 09/23/22 11/27/22 History folic acid 1 mg tablet 1 mg PO BID 09/23/22 11/27/22 History glipizide 2.5 mg tablet, extended 2.5 mg PO DAILYBB 09/23/22 11/27/22 History release 24 hr glucosamine-chondroitin 1,500 mg 30 ml PO DAILY 09/23/22 11/27/22 History -1,200 mg/30 mL oral liquid guaifenesin 600 mg tablet, 600 mg PO AMHS 11/27/22 11/27/22 History extended release 12 hr (Mucinex) hydrocortisone acetate 25 mg 25 mg MD AMHS PRN .. 11/27/22 11/28/22 History rectal suppository pantoprazole 20 mg tablet,delayed 20 mg PO QAM 11/27/22 11/28/22 History release tramadol 50 mg tablet 50 mg PO Q6 PRN Pain 11/27/22 11/28/22 History amlodipine 5 mg tablet (Norvasc) 10 mg (2 x 5 mg) PO DAILY #60 tabs 12/03/22 Rx Past Med/Surg History Problem List (Updated 08/19/24 @ 17:19 by Gaurav Lombardo MD) New onset right bundle branch block (RBBB) Myocardial injury Nausea CAP (community acquired pneumonia) Acute hyponatremia (Acute) Status post spinal surgery Acute renal failure (Acute) Hyponatremia Acute dehydration (Acute) Vomiting (Acute) Elevated troponin (Acute) COVID (Acute) Weakness (Acute) Encounter for pre-operative examination Medical History Aortic stenosis Follows with Dr. Woods Spinal stenosis Degenerative disc disease Osteoarthritis History of prostate cancer PROSTATECTOMY + RADIATION Chronic kidney disease, stage 3 FOLLOWS W/ DR. SORENSEN IN MYSTIC GERD (gastroesophageal reflux disease) Diabetes mellitus, type 2 NIDDM PLATINUM (hard of hearing) Glaucoma Cardiac murmur Hypertension Hyperlipidemia Surgical History History of cataract surgery History of right inguinal hernia repair X 2 History of appendectomy History of prostate biopsy History of right shoulder replacement History of lumbar surgery History of prostatectomy History of esophagogastroduodenoscopy (EGD) History of colonoscopy Family History Sister Family history of diabetes mellitus Family hx of colon cancer Sister Family history of diabetes mellitus Sister Family history of diabetes mellitus Brother Family history of diabetes mellitus Mother Family history of diabetes mellitus Other No family history of adverse response to anesthesia Social History Smoking Status: Never smoker Second Hand Exposure: No; Do You Dip or Chew Tobacco: No; Hx Alcohol Use: No Hx Substance Use: No Preferred Language: British Communication Ability: Effective Fiber Worker Required: No Beliefs That Will Affect Care: None Current Living Situation: Spouse Feels Safe at Home: Yes Assistive Devices: Cane and Walker Review of Systems Review of Systems: CONSTITUTIONAL: Patient denies fevers, chills, sweats and weight changes. EYES: Patient denies any visual symptoms. EARS, NOSE, AND THROAT: No difficulties with hearing. No symptoms of rhinitis or sore throat. CARDIOVASCULAR: Patient denies chest pains, palpitations, orthopnea and paroxysmal nocturnal dyspnea. RESPIRATORY: No dyspnea on exertion, no wheezing or cough. GI: nausea/vomiting : No urinary hesitancy or dribbling. No nocturia or urinary frequency. No abnormal urethral discharge. MUSCULOSKELETAL: No myalgias or arthralgias. NEUROLOGIC: No chronic headaches, no seizures. Patient denies numbness, tingling or weakness. PSYCHIATRIC: Patient denies problems with mood disturbance. No problems with anxiety. ENDOCRINE: No excessive urination or excessive thirst. DERMATOLOGIC: Patient denies any rashes or skin changes. Physical Exam Physical Exam: Gen: A&O 3 NAD HEENT: NCAT, EOMI, not icteric. External ears normal. No rhinorrhea. Moist mucous membranes. Neck: Supple, full range of motion, no observable masses, No meningeal sign. Lungs: trace expiratory wheezing CV: RRR, no edema. Abdomen: Soft, nondistended, No rebound tenderness. MSK: No joint swelling, no redness. Skin: No rashes, petechiae, lesions. Normal color per patient. Neuro: Normal Gait, Grossly intact. Psych: Appropriate for situation. Results & Data Results & Data Vital Signs (Past 12 Hours) Vital Signs Temp Pulse Pulse Pulse Resp BP BP 08/19/24 14:13 72 72 17 132/70 08/19/24 13:35 81 08/19/24 13:23 08/19/24 12:48 80 19 127/68 08/19/24 12:13 36.9 C 80 14 127/68 08/19/24 12:13 36.9 C 80 14 127/68 Pulse Ox O2 Del Method O2 Flow Rate 08/19/24 14:13 97 Nasal Cannula 2 08/19/24 13:35 08/19/24 13:23 100 Room Air 08/19/24 12:48 90 Room Air 08/19/24 12:13 90 Room Air 08/19/24 12:13 90 Room Air Laboratory Results -personally reviewed, creatinine well below baseline, potassium of 3.4 suggestive of mild hypokaelmia, uptrending troponin of 147 noted Diagnostic Findings Chest X-Ray 08/19/24 15:23 EXAM: X-ray chest one-view portable CLINICAL HISTORY: Vomiting, cough, AMI PRIORS: 11/28/2022 TECHNIQUE: Frontal view chest FINDINGS: The chest is well-expanded. Mild opacification present in the left upper lobe, appearing in the interval. Heart size is top normal. No pneumothorax. Elevation of the right hemidiaphragm, unchanged. Trachea is patent. Osseous structures demonstrate no acute abnormality. Right shoulder postsurgical change. No radiopaque foreign body. IMPRESSION: Mild opacification in the left upper lobe, appearing in the interval, favoring pneumonia. 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
[2024-08-19] MEDS ORDERED: CARBOHYDRATES FOR HYPOGLYCEMIA PO PRN (17:17)
[2024-08-19] MEDS ORDERED: GLUCOSE 10 TAB/TUBE PO PRN (17:17)
[2024-08-19] MEDS ORDERED: DEXTROSE 50% 50 ML SYRINGE IV PRN (17:17)
[2024-08-19] MEDS ORDERED: GLUCAGON FOR INJ 1 MG VIAL SQ PRN (17:17)
[2024-08-19] MEDS ORDERED: GLUCOSE 40% GEL 15 GM TUBE PO PRN (17:17)
[2024-08-19] MEDS ORDERED: NON-FORMULARY MEDICATION (Carboxymethylcellulose Sodium 0.5 % Drops) OPB PRN (17:48)
[2024-08-19 18:13] LABS: Chol HDL Ratio 3.4 (0-5)
--- NOTE | 2024-08-19 18:19 | Emergency Department Note ---
Impression & Plan Elevated troponin, Vomiting ED Provider Note CHIEF COMPLAINT: Vomiting HISTORY OF PRESENT ILLNESS: This 88-year-old male patient past medical history of hypertension hypercholesterolemia, seasonal allergies, diabetes and GERD presents to the emergency department with complaints of vomiting for 1 day. The patient denies any significant discomfort. He denies any diarrhea. He has not had any fevers and has no known sick contacts. His daughter is at the bedside. REVIEW OF SYSTEMS: A review of systems was performed with positives and pertinent negatives listed in the history of present illness. 10 systems were reviewed and are otherwise negative. ALLERGIES: see below MEDICATIONS: see below PMH: see below SOCIAL HISTORY: see below DDx: Viral gastroenteritis, dehydration, kidney injury, hypoglycemia, hyperglycemia, infectious etiology such as UTI, biliary process, ACS among others. PHYSICAL EXAM: Vital signs reviewed. General: Pleasant, elderly 88-year-old male in no significant distress. HEENT: No scleral icterus, PERRLA, neck supple. Slightly dehydrated Cardiovascular: Regular rate and rhythm, frequent ectopy, no extra sounds. Pulmonary: Clear to auscultation bilaterally, normal work of breathing. Abdomen: Soft, nontender, nondistended, positive bowel sounds. Musculoskeletal: Atraumatic, no peripheral edema. Neurologic: Patient awake alert and oriented x 3, speech is clear Skin: Warm, dry, no rash EMERGENCY DEPARTMENT COURSE/MDM: This patient was evaluated and appeared to be in no significant distress. IV access was obtained and laboratory work was drawn. The patient was placed on the lunchroom monitor and noted to be in a sinus rhythm with frequent PACs. IV fluids were initiated, patient was given IV Zofran. Laboratory work reveals a leukocytosis of 12, likely secondary to the patient's vomiting. High-sensitivity troponin is 123. Chest x-ray is largely significant for a mild left upper lobe infiltrate. Patient does not have any chest pain at this time. He was given a rectal aspirin due to his GI upset. Patient and his daughter were advised of the findings. He will be evaluated by the hospitalist service for admission and further management MONITORING: An order for cardiac monitoring was placed and the patient is noted to be in a sinus rhythm with frequent PVCs at 81 beats per minute. RADIOLOGY: Chest x-ray to my interpretation and radiology's over read reveals the possibility of a mild left upper lobe infiltrate. EKG: To my interpretation reveals a sinus rhythm with frequent PVCs, left axis deviation. Overall low voltage. 72 bpm. QTc of 477. 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 DISPOSITION: Admission Past Med/Surg History Problem List (Updated 08/25/24 @ 10:58 by Tonie Olsen MD) New onset right bundle branch block (RBBB) Myocardial injury Nausea CAP (community acquired pneumonia) Acute hyponatremia (Acute) Status post spinal surgery Acute renal failure (Acute) Hyponatremia Acute dehydration (Acute) Vomiting (Acute) Elevated troponin (Acute) COVID (Acute) Weakness (Acute) Encounter for pre-operative examination Medical History Aortic stenosis Follows with Dr. Woods Spinal stenosis Degenerative disc disease Osteoarthritis History of prostate cancer PROSTATECTOMY + RADIATION Chronic kidney disease, stage 3 FOLLOWS W/ DR. SORENSEN IN [place] GERD (gastroesophageal reflux disease) Diabetes mellitus, type 2 NIDDM QAGAN TAYAGUNGIN (hard of hearing) Glaucoma Cardiac murmur Hypertension Hyperlipidemia Surgical History History of cataract surgery History of right inguinal hernia repair X 2 History of appendectomy History of prostate biopsy History of right shoulder replacement History of lumbar surgery History of prostatectomy History of esophagogastroduodenoscopy (EGD) History of colonoscopy Family History Sister Family history of diabetes mellitus Family hx of colon cancer Sister Family history of diabetes mellitus Sister Family history of diabetes mellitus Brother Family history of diabetes mellitus Mother Family history of diabetes mellitus Other No family history of adverse response to anesthesia Social History Smoking Status: Never smoker Second Hand Exposure: No; Do You Dip or Chew Tobacco: No; Hx Alcohol Use: No Hx Substance Use: No Preferred Language: Estonian Communication Ability: Effective Solidworks Designer Required: No Beliefs That Will Affect Care: None Current Living Situation: Spouse Feels Safe at Home: Yes Assistive Devices: Cane and Walker Allergies Allergies Allergy/AdvReac Type Severity Reaction Status Date / Time No Known Allergies Allergy Verified 11/28/22 00:10 Home Meds Home Medications Medication Instructions Recorded Confirmed aspirin 81 mg tablet,delayed 81 mg PO QAM 06/14/19 08/19/24 release atorvastatin 40 mg tablet (Lipitor) 40 mg PO HS 06/14/19 08/19/24 fluticasone propionate 50 1 spray intranasal QAM 06/14/19 08/19/24 mcg/actuation nasal spray,suspension (Flonase Allergy Relief) sitagliptin phosphate 50 mg tablet 50 mg PO QAM 06/14/19 08/19/24 (Januvia) acetaminophen 650 mg 650 mg PO BID PRN Pain 09/23/22 08/19/24 tablet,extended release ascorbic acid (vitamin C) 1,000 mg 1 g PO QDL 09/23/22 08/19/24 tablet (Vitamin C) carboxymethylcellulose sodium 0.5 1 drp OPB QID PRN Dry Eyes 09/23/22 08/19/24 % eye drops cholecalciferol (vitamin D3) 25 25 mcg PO DAILY 09/23/22 08/19/24 mcg (1,000 unit) capsule (Vitamin D3) cilostazol 50 mg tablet 50 mg PO QAM 09/23/22 08/19/24 cyanocobalamin (vitamin B-12) 1,000 mcg PO DAILY 09/23/22 08/19/24 1,000 mcg tablet (Vitamin B-12) famotidine 20 mg tablet 20 mg PO HS 09/23/22 08/19/24 folic acid 1 mg tablet 1 mg PO BID 09/23/22 08/19/24 glucosamine-chondroitin 1,500 mg 30 ml PO DAILY 09/23/22 08/19/24 -1,200 mg/30 mL oral liquid guaifenesin 600 mg tablet, 600 mg PO AMHS 11/27/22 08/19/24 extended release 12 hr (Mucinex) amlodipine 10 mg tablet 10 mg PO QAM 08/19/24 08/19/24 carvedilol 6.25 mg tablet 6.25 mg PO BID 08/19/24 08/19/24 glipizide 5 mg tablet, extended 0 mg PO QAM 08/19/24 08/19/24 release 24 hr metformin 500 mg tablet,extended 500 mg PO QAM 08/19/24 08/19/24 release 24 hr pantoprazole 40 mg tablet,delayed 40 mg PO QAM 08/19/24 08/19/24 release Previous Rx's Medication Instructions Recorded amoxicillin 875 mg-potassium 1 tab PO BIDM 4 days #8 tabs 08/23/24 clavulanate 125 mg tablet doxycycline hyclate 100 mg capsule 100 mg PO BID 3 days #6 caps 08/23/24 furosemide 20 mg tablet 20 mg PO DAILY #20 tabs 08/23/24 Results & Data (ED) Vital Signs Vital Signs - 24 hr 08/19/24 12:13 08/19/24 12:13 08/19/24 12:48 Temperature 36.9 C 36.9 C Temperature Source Oral Oral Pulse Rate 80 Pulse Rate [Left Apical] 80 Pulse Rate [Right Brachial] 80 Pulse Rhythm Regular Pulse Rhythm [Right Brachial] Regular Pulse Strength Normal Pulse Strength [Right Brachial] Normal Respiratory Rate 14 14 19 Respiratory Effort / Characteristics Non-Labored Non-Labored Non-Labored Spontaneous Respiratory Depth Normal Normal Normal Respiratory Pattern Regular Regular Regular Blood Pressure 127/68 Blood Pressure [Right Arm] 127/68 127/68 Blood Pressure Mean 87 Blood Pressure Mean [Right Arm] 87 87 Blood Pressure Position Lying Blood Pressure Position [Right Arm] Lying Semi-fowlers Pulse Oximetry 90 90 90 Oxygen Delivery Method Room Air Room Air Room Air Oxygen Flow Rate Sepsis Recent Fever Within 48 Hours No Sepsis New/Unexplained Change in Mental Status N/A Sepsis Action Taken by Nursing No Action Required 08/19/24 13:23 08/19/24 13:35 08/19/24 14:13 Temperature Temperature Source Pulse Rate 81 Pulse Rate [Left Apical] 72 Pulse Rate [Right Brachial] 72 Pulse Rhythm Pulse Rhythm [Right Brachial] Regular Pulse Strength Pulse Strength [Right Brachial] Normal Respiratory Rate 17 Respiratory Effort / Characteristics Non-Labored Respiratory Depth Normal Respiratory Pattern Regular Blood Pressure Blood Pressure [Right Arm] 132/70 Blood Pressure Mean Blood Pressure Mean [Right Arm] 90 Blood Pressure Position Blood Pressure Position [Right Arm] Lying Pulse Oximetry 100 97 Oxygen Delivery Method Room Air Nasal Cannula Oxygen Flow Rate 2 Sepsis Recent Fever Within 48 Hours Sepsis New/Unexplained Change in Mental Status Sepsis Action Taken by Long Term Medications Current Medication List: was personally reviewed by me Laboratory Data Attestation: I reviewed the patient's lab results. 08/23/24 06:15 08/23/24 06:15 Lab Results 08/19/24 08/19/24 08/19/24 Range/Units 12:44 13:40 15:05 WBC 7.99 (4.8-10.8) K/ul RBC 4.27 L (4.70-6.10) M/uL Hgb 12.3 L (14.0-18.0) g/dl Hct 36.3 L (42.0-52.0) % MCV 85.0 (80.0-100.0) fL MCH 28.8 (25.0-34.0) pg MCHC 33.9 (32.0-36.0) g/dL RDW Std Deviation 45.1 (36.4-46.3) fL RDW Coeff of Desire 14.6 H (11.5-14.5) % Plt Count 203 (130-400) K/uL MPV 10.6 (9.4-12.4) fL Immature Gran % (Auto) 0.4 % Neut % (Auto) 81.5 % Lymph % (Auto) 7.4 % Whitley % (Auto) 9.4 % Eos % (Auto) 0.5 % Baso % (Auto) 0.8 % Neut # (Auto) 6.52 H (1.40-6.50) K/uL Lymph # (Auto) 0.59 L (1.20-3.40) K/uL Whitley # (Auto) 0.75 H (0.11-0.59) K/uL Eos # (Auto) 0.04 (0.00-0.50) K/uL Baso # (Auto) 0.06 (0.00-0.20) K/uL Immature Gran # (Auto) 0.03 (0.01-0.20) K/uL Sodium 132 L (136-145) mmol/L Potassium 3.4 L (3.5-5.1) mmol/L Chloride 101 (98-107) mmol/L Carbon Dioxide 24 (21-32) mmol/L Anion Gap 7 (3-11) BUN 21 (6-23) mg/dl Creatinine 0.94 (0.6-1.4) mg/dl Est Cr Clr Drug Dosing 58.0 ml/min eGFR 78.95 BUN/Creatinine Ratio 22.3 H (10-20) Glucose 174 H (70-99(Fasting)) mg/dl Estimat Average Glucose 177 mg/dl Hemoglobin A1c 7.8 H (4.5-5.6) % Calcium 8.4 L (8.6-10.3) mg/dl Total Bilirubin 1.1 H (0.2-1.0) mg/dl AST 17 (13-39) U/L ALT 10 (7-52) U/L Alkaline Phosphatase 85 (34-104) U/L Troponin I High Sens 123.3 H* 147.0 H* (0-20) pg/ml Total Protein 6.6 (6.0-8.3) gm/dl Albumin 3.8 (3.4-5.0) gm/dl Globulin 2.8 (2.5-4.0) gm/dl Albumin/Globulin Ratio 1.4 (0.9-2) Triglycerides 85 (0-150) mg/dl Cholesterol 136 (0-200) mg/dl LDL Cholesterol, Calc 79 mg/dl VLDL Cholesterol, Calc 17 (0-30) mg/dl HDL Cholesterol 40 mg/dl Cholesterol/HDL Ratio 3.4 (0-5) TSH 1.925 (0.300-4.500) uIu/ml SARS-CoV-2 (PCR) NEGATIVE (Negative) Influenza Type A (PCR) Negative (Neg) Influenza Type B (PCR) Negative (Neg) RSV (RT-PCR) Negative (Neg) Administered Medications Discontinued Medications Acetaminophen (Acetaminophen 325 Mg Tab) 650 mg PO Q4H PRN PRN Reason: pain/fever Stop: 09/18/24 17:47 Last Admin: 08/22/24 21:22 Dose: 650 mg Documented By: Admin: 08/21/24 22:38 Dose: 650 mg Documented By: Admin: 08/21/24 18:15 Dose: 650 mg Documented By: Admin: 08/21/24 08:10 Dose: 650 mg Documented By: Admin: 08/21/24 03:23 Dose: 650 mg Documented By: Admin: 08/19/24 20:51 Dose: 650 mg Documented By: PRATIMA Albuterol (Albut/Ipratrop 3mg/0.5mg Neb 3 Ml Vial) 3 ml NEB NOW STA; Protocol Stop: 08/19/24 15:35 Last Admin: 08/19/24 16:19 Dose: 3 ml Documented By: Albuterol (Albut/Ipratrop 3mg/0.5mg Neb 3 Ml Vial) 3 ml NEB Q6R PRN; Protocol PRN Reason: Shortness Of Breath Or Wheezing Stop: 09/18/24 17:07 Last Admin: 08/19/24 21:14 Dose: 3 ml Documented By: DIA Amlodipine Besylate (Amlodipine Besylate 5 Mg Tab) 10 mg PO DAILY [facility] Stop: 09/19/24 08:59 Last Admin: 08/23/24 09:02 Dose: 10 mg Documented By: Admin: 08/22/24 08:15 Dose: 10 mg Documented By: Admin: 08/21/24 08:05 Dose: 10 mg Documented By: Admin: 08/20/24 07:55 Dose: 10 mg Documented By: LIYAH Amoxicillin/Clavulanate Potassium (Amoxicillin/Clavulanate 875 Mg Tab) 1 tab PO BIDM [facility]; Protocol Stop: 08/26/24 16:59 Last Admin: 08/23/24 09:02 Dose: 1 tab Documented By: Admin: 08/22/24 16:35 Dose: 1 tab Documented By: Admin: 08/22/24 08:16 Dose: 1 tab Documented By: Admin: 08/21/24 17:25 Dose: 1 tab Documented By: KARLIE Aspirin (Aspirin 300 Mg Supp) 300 mg HI ONE ONE Stop: 08/19/24 15:25 Last Admin: 08/19/24 16:19 Dose: 300 mg Documented By: Aspirin (Aspirin 81 Mg Ectab) 81 mg PO DAILY [facility] Stop: 09/19/24 08:59 Last Admin: 08/23/24 09:01 Dose: 81 mg Documented By: Admin: 08/22/24 08:16 Dose: 81 mg Documented By: Admin: 08/21/24 08:05 Dose: 81 mg Documented By: Admin: 08/20/24 07:55 Dose: 81 mg Documented By: LIYAH Atorvastatin Calcium (Atorvastatin 40 Mg Tab) 40 mg PO HS [facility] Stop: 09/18/24 20:59 Last Admin: 08/22/24 21:28 Dose: 40 mg Documented By: Admin: 08/21/24 21:42 Dose: 40 mg Documented By: Admin: 08/20/24 21:06 Dose: 40 mg Documented By: Admin: 08/19/24 20:50 Dose: 40 mg Documented By: PRATIMA Calcium Carbonate (Calcium Carbonate 500 Mg Chewable Tab) 1,000 mg PO BID PRN PRN Reason: Indigestion Stop: 09/19/24 14:56 Last Admin: 08/21/24 17:44 Dose: 1,000 mg Documented By: Admin: 08/20/24 17:29 Dose: 1,000 mg Documented By: LIYAH Carvedilol (Carvedilol 6.25 Mg Tab) 6.25 mg PO BID [facility] Stop: 09/20/24 08:59 Last Admin: 08/23/24 09:03 Dose: 6.25 mg Documented By: Admin: 08/22/24 21:23 Dose: 6.25 mg Documented By: Admin: 08/22/24 08:16 Dose: 6.25 mg Documented By: Admin: 08/21/24 21:42 Dose: 6.25 mg Documented By: Admin: 08/21/24 09:12 Dose: 6.25 mg Documented By: KARLIE Doxycycline Hyclate (Doxycycline Hyclate 100 Mg Cap) 100 mg PO BID [facility] Stop: 08/24/24 20:59 Last Admin: 08/23/24 09:01 Dose: 100 mg Documented By: Admin: 08/22/24 21:23 Dose: 100 mg Documented By: Admin: 08/22/24 08:16 Dose: 100 mg Documented By: Admin: 08/21/24 21:42 Dose: 100 mg Documented By: Admin: 08/21/24 08:05 Dose: 100 mg Documented By: Admin: 08/20/24 21:06 Dose: 100 mg Documented By: Admin: 08/20/24 07:55 Dose: 100 mg Documented By: Admin: 08/19/24 20:50 Dose: 100 mg Documented By: PRATIMA Fluticasone Propionate (Fluticasone Propionate Na Spr 16 Gm Btl) 1 sprays CALLIE BLANCO [facility] Stop: 09/19/24 08:59 Last Admin: 08/23/24 09:01 Dose: 1 sprays Documented By: Admin: 08/22/24 08:15 Dose: 1 sprays Documented By: Admin: 08/21/24 08:38 Dose: 1 sprays Documented By: Admin: 08/20/24 07:56 Dose: 1 sprays Documented By: LIYAH Furosemide (Furosemide Inj 20 Mg/2 Ml Vial) 20 mg IV ONE ONE Stop: 08/21/24 12:41 Last Admin: 08/21/24 13:22 Dose: 20 mg Documented By: KARLIE Furosemide (Furosemide Inj 20 Mg/2 Ml Vial) 20 mg IV ONE ONE Stop: 08/22/24 16:28 Last Admin: 08/22/24 16:35 Dose: 20 mg Documented By: ANJUM Guaifenesin (Guaifenesin 600 Mg Tabcr) 600 mg PO Q12 [facility] Stop: 09/21/24 08:59 Last Admin: 08/23/24 09:02 Dose: 600 mg Documented By: Admin: 08/22/24 21:23 Dose: 600 mg Documented By: Admin: 08/22/24 09:36 Dose: 600 mg Documented By: ANJUM Heparin Sodium (Porcine) (Heparin Sod 5,000 Unit/0.5 Ml Vial) 5,000 units SQ Q8 [facility]ILEY Stop: 09/18/24 21:59 Last Admin: 08/23/24 13:13 Dose: Not Given Documented By: Admin: 08/23/24 04:32 Dose: Not Given Documented By: Admin: 08/22/24 21:36 Dose: 5,000 units Documented By: Admin: 08/22/24 14:18 Dose: 5,000 units Documented By: Admin: 08/22/24 05:59 Dose: 5,000 units Documented By: Admin: 08/21/24 21:41 Dose: 5,000 units Documented By: Admin: 08/21/24 13:22 Dose: 5,000 units Documented By: Admin: 08/21/24 05:53 Dose: 5,000 units Documented By: Admin: 08/20/24 21:06 Dose: 5,000 units Documented By: Admin: 08/20/24 14:53 Dose: 5,000 units Documented By: Admin: 08/20/24 05:30 Dose: 5,000 units Documented By: Admin: 08/19/24 21:16 Dose: 5,000 units Documented By: PRATIMA Sodium Chloride (Nss) 1,000 mls @ 999 mls/hr IV .Q1H1M ONE Stop: 08/19/24 14:24 Last Infusion: 08/19/24 14:47 Dose: Infused Documented By: Admin: 08/19/24 13:37 Dose: 999 mls/hr Documented By: ZACHERY Ceftriaxone Sodium (Rocephin) 2,000 mg in 50 mls @ 100 mls/hr IV Q24H KILEY Stop: 08/24/24 17:29 Last Infusion: 08/19/24 21:33 Dose: Infused Documented By: Admin: 08/19/24 20:50 Dose: 100 mls/hr Documented By: PRATIMA Magnesium Sulfate/Dextrose (Magnesium Sulfate / D5w) 1 gm in 100 mls @ 50 mls/hr IV Q2H KILEY Stop: 08/20/24 00:59 Last Infusion: 08/20/24 01:10 Dose: Infused Documented By: Admin: 08/19/24 23:07 Dose: 50 mls/hr Documented By: Infusion: 08/19/24 23:07 Dose: Infused Documented By: Admin: 08/19/24 21:27 Dose: 50 mls/hr Documented By: PRATIMA Ampicillin Sodium/Sulbactam Sodium (Unasyn) 3,000 mg in 100 mls @ 200 mls/hr IV Q6H KILEY Stop: 08/24/24 21:29 Last Infusion: 08/21/24 10:15 Dose: Infused Documented By: Admin: 08/21/24 09:12 Dose: 100 mls/hr Documented By: Infusion: 08/21/24 04:02 Dose: Infused Documented By: Admin: 08/21/24 03:29 Dose: 200 mls/hr Documented By: Infusion: 08/20/24 21:47 Dose: Infused Documented By: Admin: 08/20/24 21:08 Dose: 200 mls/hr Documented By: Infusion: 08/20/24 15:50 Dose: Infused Documented By: Admin: 08/20/24 14:53 Dose: 200 mls/hr Documented By: Infusion: 08/20/24 09:34 Dose: Infused Documented By: Admin: 08/20/24 08:58 Dose: 200 mls/hr Documented By: Infusion: 08/20/24 04:27 Dose: Infused Documented By: Admin: 08/20/24 03:54 Dose: 200 mls/hr Documented By: Infusion: 08/19/24 22:01 Dose: Infused Documented By: Admin: 08/19/24 21:22 Dose: 200 mls/hr Documented By: PRATIMA Sodium Chloride (Nss) 1,000 mls @ 50 mls/hr IV .Q20H ONE Stop: 08/20/24 16:58 Last Infusion: 08/20/24 19:32 Dose: Infused Documented By: Admin: 08/19/24 21:23 Dose: 50 mls/hr Documented By: PRATIMA Magnesium Sulfate/Dextrose (Magnesium Sulfate / D5w) 1 gm in 100 mls @ 50 mls/hr IV ONE ONE Stop: 08/21/24 10:36 Last Infusion: 08/21/24 11:12 Dose: Infused Documented By: Admin: 08/21/24 09:12 Dose: 50 mls/hr Documented By: KARLIE Insulin Aspart (Insulin Aspart Per Unit Charge) 0 units SC ACHS KILEY Stop: 09/18/24 20:59 Last Admin: 08/23/24 13:12 Dose: 4 units Documented By: DENY Co-signed By: MILA Admin: 08/23/24 09:00 Dose: Not Given Documented By: AETone Admin: 08/22/24 21:21 Dose: 1 units Documented By: ACO Co-signed By: NADEGE Admin: 08/22/24 17:37 Dose: Not Given Documented By: Admin: 08/22/24 13:18 Dose: 2 units Documented By: ELC Co-signed By: ZAHRA Admin: 08/22/24 09:38 Dose: Not Given Documented By: Admin: 08/21/24 21:41 Dose: 1 units Documented By: WALTER Co-signed By: NADEGE Admin: 08/21/24 18:15 Dose: 2 units Documented By: KARLIE Co-signed By: LUIS Admin: 08/21/24 13:13 Dose: 1 units Documented By: KARLIE Co-signed By: PRAVEEN Admin: 08/21/24 09:10 Dose: 2 units Documented By: KARLIE Co-signed By: LUIS Admin: 08/20/24 20:56 Dose: Not Given Documented By: Admin: 08/20/24 17:29 Dose: 3 units Documented By: LIYAH Co-signed By: LUIS Admin: 08/20/24 12:51 Dose: 5 units Documented By: LIYAH Co-signed By: PRAVEEN Admin: 08/20/24 08:57 Dose: 3 units Documented By: LIYAH Co-signed By: LUIS Admin: 08/19/24 21:15 Dose: 1 units Documented By: PRATIMA Co-signed By: ANA Levalbuterol HCl (Levalbuterol Hcl 0.63 Mg/3 Ml Neb) 0.63 mg NEB Q6H PRN; Protocol PRN Reason: Shortness Of Breath Or Wheezing Stop: 09/19/24 08:18 Last Admin: 08/23/24 04:41 Dose: 0.63 mg Documented By: Admin: 08/22/24 20:21 Dose: 0.63 mg Documented By: Admin: 08/21/24 03:38 Dose: 0.63 mg Documented By: ROCIO Melatonin (Melatonin 3 Mg Tab) 3 mg PO HS PRN PRN Reason: Insomnia Stop: 09/18/24 17:47 Last Admin: 08/22/24 21:22 Dose: 3 mg Documented By: RADHA Metoprolol Tartrate (Metoprolol Tartrate 1 Mg/Ml Vial) 2.5 mg IV NOW STA Stop: 08/19/24 20:57 Last Admin: 08/19/24 21:21 Dose: 2.5 mg Documented By: PRATIMA Ondansetron HCl (Ondansetron Inj 2 Mg/Ml 2 Ml Vial) 4 mg IV NOW STA Stop: 08/19/24 13:25 Last Admin: 08/19/24 13:37 Dose: 4 mg Documented By: ZACHERY Ondansetron HCl (Ondansetron Inj 2 Mg/Ml 2 Ml Vial) 4 mg IV Q6H PRN PRN Reason: Nausea And Vomiting Stop: 09/18/24 17:09 Last Admin: 08/19/24 20:32 Dose: 4 mg Documented By: PRATIMA Pantoprazole Sodium (Pantoprazole 40 Mg Tab) [facility] [place] Stop: 09/19/24 08:59 Last Admin: 08/23/24 09:02 Dose: 40 mg Documented By: Admin: 08/22/24 08:16 Dose: 40 mg Documented By: Admin: 08/21/24 08:05 Dose: 40 mg Documented By: Admin: 08/20/24 07:55 Dose: 40 mg Documented By: WRL Polyethylene Glycol (Polyethylene (Miralax) 17 Gm Pack) 17 gm PO DAILY PRN PRN Reason: Constipation Stop: 09/18/24 17:47 Last Admin: 08/21/24 17:44 Dose: 17 gm Documented By: Admin: 08/20/24 21:06 Dose: 17 gm Documented By: JANA Potassium Chloride (Potassium Chloride Crtab 20 Meq Tabcr) 40 meq PO NOW STA Stop: 08/19/24 18:04 Last Admin: 08/19/24 18:31 Dose: 40 meq Documented By: ELC Potassium Chloride (Potassium Chloride Crtab 20 Meq Tabcr) 40 meq PO ONE ONE Stop: 08/21/24 08:38 Last Admin: 08/21/24 09:12 Dose: 40 meq Documented By: KARLIE Prednisone (Prednisone 20 Mg Tab) 40 mg PO NOW ONE Stop: 08/19/24 17:16 Last Admin: 08/19/24 18:31 Dose: 40 mg Documented By: ELC Imaging Data Radiologist's Impression: Chest X-Ray 08/19/24 15:23 EXAM: X-ray chest one-view portable CLINICAL HISTORY: Vomiting, cough, AMI PRIORS: 11/28/2022 TECHNIQUE: Frontal view chest FINDINGS: The chest is well-expanded. Mild opacification present in the left upper lobe, appearing in the interval. Heart size is top normal. No pneumothorax. Elevation of the right hemidiaphragm, unchanged. Trachea is patent. Osseous structures demonstrate no acute abnormality. Right shoulder postsurgical change. No radiopaque foreign body. IMPRESSION: Mild opacification in the left upper lobe, appearing in the interval, favoring pneumonia. Electronically signed by Danielle Gaxiola 08-19-2024 4:19 PM Discharge Plan Visit Data Chief Complaint: Illness ED Provider: Tonie Olsen Discharge Problem: Elevated troponin, Vomiting Patient Disposition: Admitted As Inpatient Discharge Instructions Interventions: ED Discharge Assessment Last Done: 08/19/24 16:58 Discharge Problem: Vomiting Qualifiers: Vomiting type: unspecified Nausea presence: with nausea Qualified Code(s): R 11.2 - Nausea with vomiting, unspecified
[2024-08-19 18:25] LABS: Estimated Average Glucose 177 mg/dl; Hemoglobin A1C 7.8 % (4.5-5.6)
[2024-08-19 18:29] LABS: Thyroid Stimulating Hormone 1.925 uIu/ml (0.300-4.500)
[2024-08-19] MEDS: predniSONE 20 MG TAB PO ONE (18:31)
[2024-08-19] MEDS: POTASSIUM CHLORIDE CRTAB 20 MEQ TABCR PO STA (18:31)
[2024-08-19 19:44] LABS: BUN Creatinine Ratio 16.7 (10-20); Calcium 8.6 mg/dl (8.6-10.3); Creatinine Clr Calc Pharmacy 39.3 ml/min; Magnesium 1.6 mg/dl (1.7-2.4); Potassium 4.4 mmol/L (3.5-5.1)
[2024-08-19 19:47] LABS: Troponin I High Sensitivity 132.1 pg/ml (0-20)
[2024-08-19] MEDS: ONDANSETRON INJ 2 MG/ML 2 ML VIAL IV PRN (20:32)
[2024-08-19] MEDS: DOXYCYCLINE HYCLATE 100 MG CAP PO SCH (20:50)
[2024-08-19] MEDS: cefTRIAXone SODIUM 2,000 MG/50 ML BAG IV SCH (20:50)
[2024-08-19] MEDS: ATORVASTATIN 40 MG TAB PO SCH (20:50)
[2024-08-19] MEDS: ACETAMINOPHEN 325 MG TAB PO PRN (20:51)
--- NOTE | 2024-08-19 21:00 | Communication Note ---
Date of Service: August 19, 2024 Patient with nausea/emesis and noted to be febrile as per RN. No abdominal pain concerns as per RN. AP Sepsis Concern for aspiration pneumonia given nausea vomiting episodes as per H&P Aspiration precautions Clear liquid diet for now Unasyn in place of ceftriaxone for possible aspiration pneumonia Continue doxycycline for atypical coverage
[2024-08-19] MEDS: ALBUT/IPRATROP 3MG/0.5MG NEB 3 ML VIAL NEB PRN (21:14)
[2024-08-19] MEDS: INSULIN ASPART PER UNIT CHARGE SC SCH (21:15)
[2024-08-19] MEDS: HEPARIN SOD 5,000 UNIT/0.5 ML VIAL SQ SCH (21:16)
[2024-08-19] MEDS: METOPROLOL TARTRATE 1 MG/ML VIAL IV STA (21:21)
[2024-08-19] MEDS: AMPICILLIN/SULBACTAM SOD 3,000 MG/100 ML BAG IV SCH (21:22)
[2024-08-19] MEDS: MAGNESIUM SULFATE / D5W 1 GM/100 ML BAG IV SCH (21:27)
[2024-08-20 07:04] LABS: BUN Creatinine Ratio 24.4 (10-20); Calcium 8.3 mg/dl (8.6-10.3); Creatinine Clr Calc Pharmacy 41.7 ml/min; Magnesium 2.2 mg/dl (1.7-2.4)
[2024-08-20] MEDS: amLODIPine BESYLATE 5 MG TAB PO SCH (07:55)
[2024-08-20] MEDS: ASPIRIN 81 MG ECTAB PO SCH (07:55)
[2024-08-20] MEDS: PANTOprazole 40 MG TAB PO SCH (07:55)
[2024-08-20] MEDS: FLUTICASONE PROPIONATE NA SPR 16 GM BTL NAE SCH (07:56)
--- NOTE | 2024-08-20 08:58 | Cardiology Consultation ---
Date of Consultation August 20, 2024 Assessment & Plan (1) CAP (community acquired pneumonia): (2) Acute dehydration: (3) Elevated troponin: Plan Assessment: 88 year old male presents with one week of a persistent cough, acute URI symptoms and nausea/vomiting/poor oral intake. Further workup has found evidence of Pneumonia. Troponin elevation noted and cardiology has been requested for further evaluation. Plan: 1. CAP: 2. Acute Dehydration 3. Elevated Troponin -As noted on Chest xray -Continued management with antibiotics per primary team. (currently receiving Doxycycline and Unasyn) -Acute dehydration in the setting of new infectious process. Patient is now able to tolerate liquid diet and showing clinical improvement -Elevated troponin in the setting of an acute infectious process with dehydration being the precipitating factor. Troponin with mild elevation and flat trend. -EKG was reviewed and compared with prior OP study, no acute St-T wave changes. -New echocardiogram obtained and compared with recent study at [facility] which shows preserved LVEF, no new wall motion abnormality and known moderate -patient is euvolemic on exam. -Continue ASA 81mg, Atorvastatin, Amlodipine. OK to resume his OP dosing of Coreg 6.25mg PO BID as blood pressures have stablized. -Continue Pletal and ASA as his current regimen for known PVD -No further cardiac testing is needed during course of hospitalization. -Patient is currently scheduled to see our office next month. Please keep appt as scheduled. Case has been discussed with Dr. Woods. Further recommendations regarding plan of care as per his assessment. I spent a total of 30 minutes on the date of service in preparation, delivery, documentation of the care provided to the patient excluding any time spent in the performance of separately billed services. MARCY Macedo [facility] Cardiology [facility] Supervising Physician Co-Signing Physician Notes Attending attestation: Case reviewed with the advanced practitioner. I have personally performed a history and physical examination on the patient. I have reviewed the advanced practitioner's documentation on the date of service referenced in note, and I agree with, and take responsibility for the plan of care. Demand ischemia in the setting of noncardiac illness, clinical concern for pneumonia. Mildly elevated high-sensitivity troponin levels, flat trend. EKG without findings of ischemia. Denies symptoms suggestive of angina. Echocardiogram reveals normal LVEF without regional wall motion abnormalities, moderate aortic stenosis is relatively unchanged compared to study performed earlier this month as an outpatient. Consider de-escalating ampicillin therapy given degree of IV fluid administration necessary for this agent. Continue oral doxycycline. Agree with subcutaneous heparin for DVT prophylaxis. I spent a total of 20 minutes coordinating, documenting, and providing care for this patient excluding time spent in the performance of separately billed services or time spent by another provider. Chong Woods DO History of Present Illness Reason for Consultation: "cardiac Rule out" Requesting Physician: Ashlee hospitalist Attending Physician: Bright Kraft MD History of Present Illness HPI: Patient is a 88 year old male with PMHx significant for HTN, moderate LVH, Moderate , Ascending aortic dilation, HLD, DM type 2, CKD stage III, GERD, Prostate CA s/p surgery and PVD (ASA and Pletal) that presented to the ER on 08/19/2024 with complaints of Nausea and vomiting x1 day. Patient has very poor appetite, unable to keep solid food down. patient and daughter endorse acute URI symptoms that started approx one week ago. EKG on admission shows SR with occasional PVC, suggestion of prior inferior and Anterior infarct. Compared with prior study 11/03/2022 unchanged. chest xray: IMPRESSION: Mild opacification in the left upper lobe, appearing in the interval, favoring pneumonia. High sensitivity troponin: 123.3/147.0/132.1/133.0 Patient is feeling well today. He is sitting out of bed in chair resting comfortably. He reports that he had clear liquids for breakfast and appears to be tolerating well. Denies any chest pain or dyspnea that lead to his arrival or now. He states that he has a cough, but that continues to improve. Review of telemetry shows SR with occasional PVC's rates 70-100bpm. No acute events overnight. Allergies Allergy/AdvReac Type Severity Reaction Status Date / Time No Known Allergies Allergy Verified 11/28/22 00:10 Home Medications Medication Instructions Recorded Confirmed Type aspirin 81 mg tablet,delayed 81 mg PO QAM 06/14/19 08/19/24 History release atorvastatin 40 mg tablet (Lipitor) 40 mg PO HS 06/14/19 08/19/24 History fluticasone propionate 50 1 spray intranasal QAM 06/14/19 08/19/24 History mcg/actuation nasal spray,suspension (Flonase Allergy Relief) sitagliptin phosphate 50 mg tablet 50 mg PO QAM 06/14/19 08/19/24 History (Januvia) acetaminophen 650 mg 650 mg PO BID PRN Pain 09/23/22 08/19/24 History tablet,extended release ascorbic acid (vitamin C) 1,000 mg 1 g PO QDL 09/23/22 08/19/24 History tablet (Vitamin C) carboxymethylcellulose sodium 0.5 1 drp OPB QID PRN Dry Eyes 09/23/22 08/19/24 History % eye drops cholecalciferol (vitamin D3) 25 25 mcg PO DAILY 09/23/22 08/19/24 History mcg (1,000 unit) capsule (Vitamin D3) cilostazol 50 mg tablet 50 mg PO QAM 09/23/22 08/19/24 History cyanocobalamin (vitamin B-12) 1,000 mcg PO DAILY 09/23/22 08/19/24 History 1,000 mcg tablet (Vitamin B-12) famotidine 20 mg tablet 20 mg PO HS 09/23/22 08/19/24 History folic acid 1 mg tablet 1 mg PO BID 09/23/22 08/19/24 History glucosamine-chondroitin 1,500 mg 30 ml PO DAILY 09/23/22 08/19/24 History -1,200 mg/30 mL oral liquid guaifenesin 600 mg tablet, 600 mg PO AMHS 11/27/22 08/19/24 History extended release 12 hr (Mucinex) amlodipine 10 mg tablet 10 mg PO QAM 08/19/24 08/19/24 History carvedilol 6.25 mg tablet 6.25 mg PO BID 08/19/24 08/19/24 History glipizide 5 mg tablet, extended 0 mg PO QAM 08/19/24 08/19/24 History release 24 hr metformin 500 mg tablet,extended 500 mg PO QAM 08/19/24 08/19/24 History release 24 hr pantoprazole 40 mg tablet,delayed 40 mg PO QAM 08/19/24 08/19/24 History release Patient History Medical History Aortic stenosis Follows with Dr. Woods Spinal stenosis Degenerative disc disease Osteoarthritis History of prostate cancer PROSTATECTOMY + RADIATION Chronic kidney disease, stage 3 FOLLOWS W/ DR. SORENSEN IN [place] GERD (gastroesophageal reflux disease) Diabetes mellitus, type 2 NIDDM [place] (hard of hearing) Glaucoma Cardiac murmur Hypertension Hyperlipidemia Surgical History History of cataract surgery History of right inguinal hernia repair X 2 History of appendectomy History of prostate biopsy History of right shoulder replacement History of lumbar surgery History of prostatectomy History of esophagogastroduodenoscopy (EGD) History of colonoscopy Family History Sister Family history of diabetes mellitus Family hx of colon cancer Sister Family history of diabetes mellitus Sister Family history of diabetes mellitus Brother Family history of diabetes mellitus Mother Family history of diabetes mellitus Other No family history of adverse response to anesthesia Social History Smoking Status: Never smoker Second Hand Exposure: No; Do You Dip or Chew Tobacco: No; Hx Alcohol Use: No Hx Substance Use: No Preferred Language: Icelandic Communication Ability: Effective After School Driver Required: No Beliefs That Will Affect Care: None Current Living Situation: Spouse Other Information That Helps Us Care for You: No Feels Safe at Home: Yes Safety Concerns: Feels Safe At This Time Assistive Devices: Cane and Walker Review of Systems Review of Systems: All systems reviewed & are unremarkable except as noted in HPI & below Physical Exam Constitutional: well developed and well nourished; no acute distress and not ill appearing Neck: normal visual inspection and trachea midline Respiratory: normal respiratory effort and + cough (non-productive); no labored breathing Auscultation: + diminished lung sounds; no crackles, no rales, no rhonchi and no wheezes Cardiovascular: Rate/Rhythm: regular rate and regular rhythm Heart Sounds: normal S1, normal S2 and + murmur (+2/6 systolic ) Vessels: dorsalis pedis pulses present; no JVD Extremities: no edema Skin: no rashes, warm and dry Psychiatric: A+Ox3, euthymic affect Results & Data Vital Signs (Past 12 Hours) Vital Signs Temp Pulse Pulse Resp BP BP Pulse Ox 08/20/24 08:02 08/20/24 07:27 36.3 C L 112 H 20 139/78 98 08/20/24 05:46 83 08/20/24 03:57 36.4 C L 81 20 161/87 H 94 08/19/24 23:18 37 C 116 H 18 130/77 95 08/19/24 22:04 37.5 C 119 H 20 132/79 94 08/19/24 22:04 119 H 132/79 08/19/24 21:51 120 H 08/19/24 21:21 126 H 151/82 H O2 Del Method O2 Flow Rate 08/20/24 08:02 Nasal Cannula 2 08/20/24 07:27 Nasal Cannula 2 08/20/24 05:46 08/20/24 03:57 Nasal Cannula 2 08/19/24 23:18 Nasal Cannula 2 08/19/24 22:04 Nasal Cannula 2 08/19/24 22:04 08/19/24 21:51 08/19/24 21:21 Laboratory Results Cardiac Enzymes 08/19/24 08/19/24 08/19/24 Range/Units 12:44 15:05 18:52 AST 17 (13-39) U/L Troponin I High Sens 123.3 H* 147.0 H* 132.1 H* (0-20) pg/ml 08/19/24 Range/Units 21:04 AST (13-39) U/L Troponin I High Sens 133.0 H* (0-20) pg/ml Lipids 08/19/24 Range/Units 12:44 Triglycerides 85 (0-150) mg/dl Cholesterol 136 (0-200) mg/dl HDL Cholesterol 40 mg/dl Cholesterol/HDL Ratio 3.4 (0-5) CBC 08/19/24 Range/Units 12:44 WBC 7.99 (4.8-10.8) K/ul RBC 4.27 L (4.70-6.10) M/uL Hgb 12.3 L (14.0-18.0) g/dl Hct 36.3 L (42.0-52.0) % Plt Count 203 (130-400) K/uL Neut # (Auto) 6.52 H (1.40-6.50) K/uL Lymph # (Auto) 0.59 L (1.20-3.40) K/uL Petroleum # (Auto) 0.75 H (0.11-0.59) K/uL Eos # (Auto) 0.04 (0.00-0.50) K/uL Baso # (Auto) 0.06 (0.00-0.20) K/uL Comprehensive Metabolic Panel 08/19/24 08/19/24 08/20/24 Range/Units 12:44 18:52 06:07 Sodium 132 L 137 136 (136-145) mmol/L Potassium 3.4 L 4.4 D 4.0 (3.5-5.1) mmol/L Chloride 101 104 105 (98-107) mmol/L Carbon Dioxide 24 28 24 (21-32) mmol/L BUN 21 21 29 H (6-23) mg/dl Creatinine 0.94 1.26 D 1.19 (0.6-1.4) mg/dl Glucose 174 H 227 H 282 H (70-99(Fasting)) mg/dl Calcium 8.4 L 8.6 8.3 L (8.6-10.3) mg/dl AST 17 (13-39) U/L ALT 10 (7-52) U/L Alkaline Phosphatase 85 (34-104) U/L Total Protein 6.6 (6.0-8.3) gm/dl Albumin 3.8 (3.4-5.0) gm/dl Intake and Output 08/19/24 08/20/24 08/20/24 22:59 06:59 14:59 Intake Total 150 / 1753.333 603.333 / 1753.333 100 / 100 Output Total 450 / 450 Balance -300 / 1303.333 603.333 / 1303.333 100 / 100 Intake: IV 150 / 1433.333 283.333 / 1433.333 100 / 100 Ampicillin/Sulbactam Sod 3,000 100 / 200 100 / 200 100 / 100 mg In 100 ml @ 200 mls/hr IV Q6H [facility] Rx#:[id number] Magnesium Sulfate / D5w 1 gm In 183.333 / 183.333 100 ml @ 50 mls/hr IV Q2H [facility] Rx#:[id number] cefTRIAXone SODIUM 2,000 mg In 50 / 50 50 ml @ 100 mls/hr IV Q24H [facility] Rx#:[id number] Oral 320 / 320 Output: Urine 450 / 450 Other: # Unmeasured Voids 400 Weight 75 kg Weight Measurement Method Built in [facility] Diagnostic Findings Echocardiogram 08/06/2024 [facility]: Interpretation Summary The left ventricular cavity size is normal. The LV wall thickness is moderately increased (concentric). The left ventricular wall motion is normal. The qualitative LV ejection fraction is 55-59% (normal). The left atrium is moderately enlarged. The aortic valve is moderately calcified. Moderate aortic valve stenosis is present. Peak aortic valve velocity 3.1 m/sec Trace aortic regurgitation is present. Mild mitral regurgitation is present. Mild tricuspid regurgitation is present. The aortic root is moderately enlarged. 4.4 cm The proximal ascending thoracic aorta is mildly enlarged. 4.0 cm In comparison to prior study of June 28, 2023 aortic valve velocities have increased slightly as has aortic root size (1) CAP (community acquired pneumonia) Laterality: left Lung location: upper lobe of lung Qualified Code(s): J18.9 - Pneumonia, unspecified organism
[2024-08-20] MEDS ORDERED: predniSONE 20 MG TAB PO SCH (09:00)
[2024-08-20] MEDS ORDERED: cilostazoL 100 MG TAB PO SCH (09:00)
[2024-08-20] MEDS ORDERED: TIMOLOL 0.5% OPB SCH (09:00)
--- NOTE | 2024-08-20 13:09 | Hospitalist Progress Note ---
Date of Service August 20, 2024 Assessment & Plan (1) Nausea: (2) CAP (community acquired pneumonia): Plan: Suspected Aspiration Pneumonia DD: Viral etiology Possible Sepsis--POA Hypoxia due to above --CXR:Mild opacification in the left upper lobe, appearing in the interval, favoring pneumonia. 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 (6) Chronic kidney disease, stage 3: Plan: Renal function stable Monitor renal function (7) History of prostate cancer: Plan: -s/p surgery (8) New onset right bundle branch block (RBBB): (9) Diabetes mellitus, type 2: Plan: HbA1c 7.8 Continue insulin per protocol Monitor blood glucose levels DVT Px: Heparin SQ Code Status DNI/DNR Disposition PT/OT prior to discharge Admission and Anticipated Discharge Date Admission Date: August 19, 2024 Subjective Patient is seen and examined at bedside Nausea, vomiting resolved Tolerating diet Has minimal cough but otherwise no complaints Saturating well on 2 L supplemental oxygen Had speech therapy evaluation earlier Review of Systems Review of Systems: All systems reviewed & are unremarkable except as noted in Subjective Physical Exam Physical Exam: Physical Exam: Vitals signs as noted above General Appearance:Moderately built and nourished, no apparent distress Head: normocephalic, Atraumatic Eyes: normal inspection, EOMI Neck: supple, Trachea midline Respiratory/Chest: Decreased breath sounds, CTA, No accessory muscle use Cardiovascular: S1, S2, +murmur Abdomen/GI:Soft, Non tender, Bowel sounds present Extremities/Musculoskeletal:normal inspection, no edema Neurologic/Psych:AAOX3, grossly no focal neurological deficits , +decreased hearing Skin: normal color, warm Results & Data Results & Data Vital Signs (Past 12 Hours) Vital Signs Temp Pulse Pulse Resp BP Pulse Ox O2 Del Method 08/20/24 11:05 36.5 C 75 18 138/75 98 Nasal Cannula 08/20/24 08:02 Nasal Cannula 08/20/24 07:27 36.3 C L 112 H 20 139/78 98 Nasal Cannula 08/20/24 05:46 83 08/20/24 03:57 36.4 C L 81 20 161/87 H 94 Nasal Cannula O2 Flow Rate 08/20/24 11:05 2 08/20/24 08:02 2 08/20/24 07:27 2 08/20/24 05:46 08/20/24 03:57 2 Laboratory Results Short CBC 08/19/24 Range/Units 12:44 WBC 7.99 (4.8-10.8) K/ul Hgb 12.3 L (14.0-18.0) g/dl Hct 36.3 L (42.0-52.0) % Plt Count 203 (130-400) K/uL BMP 08/19/24 08/19/24 08/20/24 12:44 18:52 06:07 Sodium 132 L 137 136 Potassium 3.4 L 4.4 D 4.0 Chloride 101 104 105 Carbon Dioxide 24 28 24 BUN 21 21 29 H Creatinine 0.94 1.26 D 1.19 Glucose 174 H 227 H 282 H Calcium 8.4 L 8.6 8.3 L Liver Function 08/19/24 Range/Units 12:44 Total Bilirubin 1.1 H (0.2-1.0) mg/dl AST 17 (13-39) U/L ALT 10 (7-52) U/L Alkaline Phosphatase 85 (34-104) U/L Albumin 3.8 (3.4-5.0) gm/dl (2) CAP (community acquired pneumonia) Laterality: left Lung location: upper lobe of lung Qualified Code(s): J18.9 - Pneumonia, unspecified organism (5) Aortic stenosis Cardiac valve disease etiology: rheumatic Qualified Code(s): 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
--- NOTE | 2024-08-20 14:12 | Electrocardiogram Report ---
Test Reason : Blood Pressure : */* mmHG Vent. Rate : 72 BPM Atrial Rate : 72 BPM P-R Int : 186 ms QRS Dur : 70 ms QT Int : 436 ms P-R-T Axes : 82 -46 -5 degrees QTcB Int : 477 ms Sinus rhythm with frequent Premature ventricular complexes Left axis deviation Low voltage QRS Inferior infarct (cited on or before 23-Sep-2022) Cannot rule out Anterior infarct , age undetermined Abnormal ECG When compared with ECG of 28-Nov-2022 00:02, Premature ventricular complexes are now Present Premature atrial complexes are no longer Present Minimal criteria for Anterior infarct are now Present Confirmed by Jac Birmingham ([id number]) on 08/20/2024 2:11:38 PM Referred By: REFERRED SELF Confirmed By: Jac Birmingham
[2024-08-20] MEDS ORDERED: FAMOTIDINE 20 MG TAB PO PRN (14:57)
[2024-08-20] MEDS: CALCIUM CARBONATE 500 MG CHEWABLE TAB PO PRN (17:29)
[2024-08-20] MEDS: POLYETHYLENE (MIRALAX) 17 GM PACK PO PRN (21:06)
[2024-08-21] MEDS: LEVALBUTEROL HCL 0.63 MG/3 ML NEB NEB PRN (03:38)
[2024-08-21 07:30] LABS: BUN Creatinine Ratio 26.7 (10-20); Creatinine Clr Calc Pharmacy 37.8 ml/min; Magnesium 1.8 mg/dl (1.7-2.4); Potassium 3.6 mmol/L (3.5-5.1)
--- NOTE | 2024-08-21 08:51 | Cardiology Progress Note ---
Date of Service August 21, 2024 Assessment & Plan (1) CAP (community acquired pneumonia): (2) Acute dehydration: (3) Elevated troponin: Plan Assessment: 88 year old male presents with one week of a persistent cough, acute URI symptoms and nausea/vomiting/poor oral intake. Further workup has found evidence of Pneumonia. Troponin elevation noted and cardiology has been requested for further evaluation. Plan: 1. CAP: 2. Acute Dehydration 3. Elevated Troponin -As noted on Chest xray -Continued management with antibiotics per primary team. (currently receiving Doxycycline and Unasyn) -Acute dehydration in the setting of new infectious process. Patient is now able to tolerate liquid diet and showing clinical improvement -Elevated troponin in the setting of an acute infectious process with dehydration being the precipitating factor. Troponin with mild elevation and fl at trend. -EKG was reviewed and compared with prior OP study, no acute St-T wave changes. -New echocardiogram obtained and compared with recent study at [facility] which shows preserved LVEF, no new wall motion abnormality and known moderate -patient is euvolemic on exam. -Continue ASA 81mg, Atorvastatin, Amlodipine. OK to resume his OP dosing of Coreg 6.25mg PO BID as blood pressures have stabilized. -Continue Pletal and ASA as his current regimen for known PVD -No further cardiac testing is needed during course of hospitalization. -Patient is currently scheduled to see our office next month. Please keep appt as scheduled. Case has been discussed with Dr. Woods. Further recommendations regarding plan of care as per his assessment. 08/21/2024: -patient is resting in bed today, increased work of breathing with audible wheezes. No chest xray since 08/19/2024, Obtain 2 view PA and LAT chest xray now. Recommendations pending -Continued antibiotics per primary team. -Appetite fair -Does not appear volume overloaded on exam -Echocardiogram as obtained yesterday remains stable with no acute changes. -Continue ASA 81mg, Atorvastatin, Amlodipine and Coreg. Episode of PAT resolved shortly have administration of beta eda. -Continue Pletal and ASA as his current regimen for known PVD I spent a total of 30 minutes on the date of service in preparation, delivery, documentation of the care provided to the patient excluding any time spent in the performance of separately billed services. MARCY Macedo [facility] Admission and Anticipated Discharge Date Admission Date: August 19, 2024 Supervising Physician Co-Signing Physician Notes Attending attestation: Case reviewed with the advanced practitioner. I have personally performed a history and physical examination on the patient. I have reviewed the advanced practitioner's documentation on the date of service referenced in note, and I agree with, and take responsibility for the plan of care. Demand ischemia in the setting of noncardiac illness, clinical concern for pneumonia. Patient with wheezing on exam. Question of mild volume overload with IV fluid administration from IV antibiotics. We have received 20 mg of furosemide. Still with mild wheezing at the time my exam after the furosemide. Will likely need another dose tomorrow. Agree with subcutaneous heparin for DVT prophylaxis. I spent a total of 20 minutes coordinating, documenting, and providing care for this patient excluding time spent in the performance of separately billed services or time spent by another provider. Chong Woods DO Subjective 08/21/2024: Patient seen and examined in follow up today. Feeling fair. He is audibly wheezing and shows increased shortness of breath. Labs, vitals, diagnostics, telemetry and documentation reviewed. Telemetry reviewed showing SR with PVC's. there was a brief episode of PAT at 0813 which resolved shortly after AM medications. Continues to deny chest pain, pressure, palpitations, pre-syncope, syncope or edema. Review of Systems Review of Systems: All systems reviewed & are unremarkable except as noted in HPI & below Respiratory: + cough and + wheezing Physical Exam Constitutional: well developed and well nourished; no acute distress and not ill appearing Neck: normal visual inspection and trachea midline Respiratory: normal respiratory effort, + cough (non-productive) and + audible wheezes; no labored breathing Auscultation: + diminished lung sounds and + wheezes (bilaterally); no crackles, no rales and no rhonchi Cardiovascular: Rate/Rhythm: regular rate and regular rhythm Heart Sounds: normal S1, normal S2 and + murmur (+2/6 systolic ) Vessels: dorsalis pedis pulses present; no JVD Extremities: no edema Skin: no rashes, warm and dry Psychiatric: A+Ox3, euthymic affect Results & Data Vital Signs (Past 12 Hours) Vital Signs Temp Pulse Pulse Pulse Resp BP Pulse Ox 08/21/24 07:30 36.8 C 91 H 18 135/75 93 08/21/24 07:00 91 H 08/21/24 03:51 36.7 C 102 H 20 177/88 H 92 08/21/24 03:39 101 H 20 94 08/21/24 00:33 36.9 C 89 20 136/74 94 08/20/24 21:55 81 08/20/24 21:05 O2 Del Method O2 Flow Rate 08/21/24 07:30 Nasal Cannula 2 08/21/24 07:00 08/21/24 03:51 Nasal Cannula 2 08/21/24 03:39 Nasal Cannula 1 08/21/24 00:33 Nasal Cannula 2 08/20/24 21:55 08/20/24 21:05 Nasal Cannula 2 Laboratory Results Comprehensive Metabolic Panel 08/21/24 Range/Units 06:33 Sodium 137 (136-145) mmol/L Potassium 3.6 (3.5-5.1) mmol/L Chloride 107 (98-107) mmol/L Carbon Dioxide 25 (21-32) mmol/L BUN 35 H (6-23) mg/dl Creatinine 1.31 (0.6-1.4) mg/dl Glucose 186 H (70-99(Fasting)) mg/dl Calcium 8.0 L (8.6-10.3) mg/dl Intake and Output 08/20/24 08/21/24 08/21/24 22:59 06:59 14:59 Intake Total 1200 / 1740 440 / 1740 Output Total 600 / 600 Balance 1200 / 1140 -160 / 1140 Intake: IV 1200 / 1400 100 / 1400 Ampicillin/Sulbactam Sod 3,000 200 / 400 100 / 400 mg In 100 ml @ 200 mls/hr IV Q6H [facility] Rx#:[id number] Sodium Chloride 0.9% 1,000 ml @ 1000 / 1000 50 mls/hr IV .Q20H [facility] Rx#: [id number] Oral 340 / 340 Output: Urine 600 / 600 Other: # Unmeasured Voids 1 Weight 75 kg Weight Measurement Method Built in [facility] (1) CAP (community acquired pneumonia) Laterality: left Lung location: upper lobe of lung Qualified Code(s): J18.9 - Pneumonia, unspecified organism
[2024-08-21] MEDS: MAGNESIUM SULFATE / D5W 1 GM/100 ML BAG IV ONE (09:12)
[2024-08-21] MEDS: carvediloL 6.25 MG TAB PO SCH (09:12)
[2024-08-21] MEDS: POTASSIUM CHLORIDE CRTAB 20 MEQ TABCR PO ONE (09:12)
--- NOTE | 2024-08-21 12:33 | XRay Report ---
XR chest 2V PA/lateral CLINICAL HISTORY: wheezing, dyspnea COMPARISON STUDY: 08/19/2024 FINDINGS: There is stable mild cardiomegaly with mild pulmonary vascular congestion. Stable mild elev ation of the right hemidiaphragm. There is interval mild stranding opacity in the lung bases. No pleu ral effusion or pneumothorax. IMPRESSION: 1. Mild CHF. 2. Atelectasis versus early pneumonia in the lung bases. ACT 112: Negative or not required by law. Electronically signed by: Surinder Lopez M.D. 08/21/2024 12:31 PM
[2024-08-21] MEDS: FUROSEMIDE INJ 20 MG/2 ML VIAL IV ONE (13:22)
--- NOTE | 2024-08-21 15:01 | Hospitalist Progress Note ---
Date of Service August 21, 2024 Assessment & Plan (1) Nausea: (2) CAP (community acquired pneumonia): Plan: Suspected Aspiration Pneumonia DD: Viral etiology Possible Sepsis--POA Hypoxia due to above --CXR:Mild opacification in the left upper lobe, appearing in the interval, favoring pneumonia. -- Serology negative for COVID, influenza, RSV --Normal procalcitonin Wean off of supplemental oxygen as able Continue Unasyn, doxycycline transition to>> Augmentin, doxycycline Aspiration precautions May 2 step prior to discharge PT OT as able Pulmonary vascular congestion Likely secondary to tachycardia/PAT Received a dose of IV Lasix today Hold Pletal for now Monitor volume status Coreg resumed (3) Myocardial injury: Plan: Likely demand ischemia H/O IN Less likely ACS Echo showed no wall motion abnormality Appreciate cardiology input Hypomagnesemia Replete as needed Monitor (4) Acute dehydration: Plan: Resolved Monitor (5) Aortic stenosis: Plan: -hx of rheumatic fever as child (6) Chronic kidney disease, stage 3: Plan: Renal function stable Monitor renal function (7) History of prostate cancer: Plan: -s/p surgery (8) New onset right bundle branch block (RBBB): (9) Diabetes mellitus, type 2: Plan: HbA1c 7.8 Continue insulin per protocol Monitor blood glucose levels DVT Px: Heparin SQ Code Status DNI/DNR Disposition PT/OT: Recommends home with home health Admission and Anticipated Discharge Date Admission Date: August 19, 2024 Subjective Patient is seen and examined at bedside Patient had brief episode of PAT this morning States having an episode of shortness of breath associated with wheezing overnight Reports minimal cough Chest x-ray today suggestive of pulmonary vascular congestion No other complaints today Discussed with cardiology today Review of Systems Review of Systems: All systems reviewed & are unremarkable except as noted in Subjective Physical Exam Physical Exam: Physical Exam: Vitals signs as noted above General Appearance:Moderately built and nourished, no apparent distress Head: normocephalic, Atraumatic Eyes: normal inspection, EOMI Neck: supple, Trachea midline Respiratory/Chest: Decreased breath sounds, scattered crackles, wheezes, No accessory muscle use Cardiovascular: S1, S2, +murmur Abdomen/GI:Soft, Non tender, Bowel sounds present Extremities/Musculoskeletal:normal inspection, no edema Neurologic/Psych:AAOX3, grossly no focal neurological deficits , +decreased hearing Skin: normal color, warm Results & Data Results & Data Vital Signs (Past 12 Hours) Vital Signs Temp Pulse Pulse Pulse Resp BP Pulse Ox 08/21/24 13:57 95 08/21/24 13:55 08/21/24 11:35 36.7 C 75 18 130/76 93 08/21/24 09:37 08/21/24 07:30 36.8 C 91 H 18 135/75 93 08/21/24 07:00 91 H 08/21/24 03:51 36.7 C 102 H 20 177/88 H 92 08/21/24 03:39 101 H 20 94 Pulse Ox Pulse Ox Pulse Ox O2 Del Method O2 Flow Rate O2 Flow Rate O2 Flow Rate 08/21/24 13:57 08/21/24 13:55 94 91 87 L 2 2 08/21/24 11:35 Nasal Cannula 2 08/21/24 09:37 Nasal Cannula 2 08/21/24 07:30 Nasal Cannula 2 08/21/24 07:00 08/21/24 03:51 Nasal Cannula 2 08/21/24 03:39 Nasal Cannula 1 O2 Flow Rate 08/21/24 13:57 08/21/24 13:55 0 08/21/24 11:35 08/21/24 09:37 08/21/24 07:30 08/21/24 07:00 08/21/24 03:51 08/21/24 03:39 Laboratory Results BMP 08/21/24 06:33 Sodium 137 Potassium 3.6 Chloride 107 Carbon Dioxide 25 BUN 35 H Creatinine 1.31 Glucose 186 H Calcium 8.0 L (2) CAP (community acquired pneumonia) Laterality: left Lung location: upper lobe of lung Qualified Code(s): J18.9 - Pneumonia, unspecified organism (5) 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
[2024-08-21] MEDS: AMOXICILLIN/CLAVULANATE 875 MG TAB PO SCH (17:25)
[2024-08-22 07:26] LABS: Hematocrit (blood only) 29.7 % (42.0-52.0); Hemoglobin 9.9 g/dl (14.0-18.0); Mean Corpuscular Hemoglobin 28.9 pg (25.0-34.0); Mean Corpuscular Hgb Conc 33.3 g/dL (32.0-36.0); Mean Corpuscular Volume 86.8 fL (80.0-100.0); Mean Platelet Volume 11.2 fL (9.4-12.4); Platelet Count 179 K/uL (130-400); RDW Coefficient of Variation 14.3 % (11.5-14.5); RDW Standard Deviation 45.8 fL (36.4-46.3); Red Blood Count 3.42 M/uL (4.70-6.10); White Blood Count 6.42 K/ul (4.8-10.8)
[2024-08-22 07:42] LABS: BUN Creatinine Ratio 25.4 (10-20); Calcium 8.3 mg/dl (8.6-10.3); Creatinine Clr Calc Pharmacy 39.3 ml/min; Phosphorus 2.9 mg/dl (2.5-4.9); Potassium 4.2 mmol/L (3.5-5.1)
[2024-08-22] MEDS: guaiFENesin 600 MG TABCR PO SCH (09:36)
--- NOTE | 2024-08-22 16:29 | Cardiology Progress Note ---
Date of Service August 22, 2024 Assessment & Plan (1) CAP (community acquired pneumonia): (2) Acute dehydration: (3) Elevated troponin: Plan -Wheezing improved but noted to have mild bibasilar Rales. Proceed with noted dose of furosemide 20 mg x 1. No additional episodes of supraventricular tachycardia have been observed on telemetry Continue carvedilol 6.25 mg twice daily Continue course of Augmentin for complicated bronchitis versus pneumonia. Continue subcutaneous heparin for DVT prophylaxis. Will reassess 08/23/2024 with regards to candidacy for discharge. Admission and Anticipated Discharge Date Admission Date: August 19, 2024 Subjective Patient seen in cardiology follow-up. Denies chest discomfort. Shortness of breath improved. Telemetry reveals sinus rhythm in the 70s to 80s. Physical Exam Constitutional: well developed and well nourished; no acute distress and not ill appearing Neck: normal visual inspection and trachea midline Respiratory: normal respiratory effort and + cough (non-productive); no labored breathing and no audible wheezes Auscultation: + diminished lung sounds, + rales and + wheezes (bilaterally); no crackles and no rhonchi Cardiovascular: Rate/Rhythm: regular rate and regular rhythm Heart Sounds: normal S1, normal S2 and + murmur (+2/6 systolic ) Vessels: dorsalis pedis pulses present; no JVD Extremities: no edema Skin: no rashes, warm and dry Psychiatric: A+Ox3, euthymic affect Results & Data Vital Signs (Past 12 Hours) Vital Signs Temp Pulse Pulse Resp BP Pulse Ox O2 Del Method 08/22/24 15:59 36.6 C 71 18 133/81 97 Room Air 08/22/24 14:33 76 08/22/24 12:07 Nasal Cannula 08/22/24 12:05 36.6 C 73 18 120/73 96 Nasal Cannula 08/22/24 07:43 36.5 C 86 20 128/71 93 Nasal Cannula 08/22/24 07:39 79 O2 Flow Rate 08/22/24 15:59 08/22/24 14:33 08/22/24 12:07 1 08/22/24 12:05 2 08/22/24 07:43 2 08/22/24 07:39 (1) CAP (community acquired pneumonia) Laterality: left Lung location: upper lobe of lung Qualified Code(s): J18.9 - Pneumonia, unspecified organism
[2024-08-22] MEDS: FUROSEMIDE INJ 20 MG/2 ML VIAL IV ONE (16:35)
--- NOTE | 2024-08-22 19:32 | Hospitalist Progress Note ---
Date of Service August 22, 2024 Assessment & Plan (1) Nausea: (2) CAP (community acquired pneumonia): Plan: Suspected Aspiration Pneumonia DD: Viral etiology Possible Sepsis--POA Hypoxia due to above --CXR:Mild opacification in the left upper lobe, appearing in the interval, favoring pneumonia. -- Serology negative for COVID, influenza, RSV --Normal procalcitonin Wean off of supplemental oxygen as able Continue Unasyn, doxycycline transitioned to>> Augmentin, doxycycline Aspiration precautions May need 2 step prior to discharge PT OT as able Pulmonary vascular congestion Likely secondary to tachycardia/PAT Received a dose of IV Lasix yesterday and will give 1 today Hold Pletal for now Monitor volume status Coreg resumed, 6.25 mg twice daily (3) Myocardial injury: Plan: Likely demand ischemia H/O [place] Less likely ACS Echo showed no wall motion abnormality Appreciate cardiology input Hypomagnesemia Replete as needed Monitor (4) Acute dehydration: Plan: Resolved Monitor (5) Aortic stenosis: Plan: -hx of rheumatic fever as child (6) Chronic kidney disease, stage 3: Plan: Renal function stable Monitor renal function (7) History of prostate cancer: Plan: -s/p surgery (8) New onset right bundle branch block (RBBB): (9) Diabetes mellitus, type 2: Plan: HbA1c 7.8 Continue insulin per protocol Monitor blood glucose levels DVT Px: Heparin SQ Code Status DNI/DNR Disposition PT/OT: Recommends home with home health Admission and Anticipated Discharge Date Admission Date: August 19, 2024 Subjective Patient seen in follow up sitting up in chair in NAD, says he is feeling better than yesterday sputum cultx - pending no chest pain or shortness of breath, but pt feels he is still "wheezy" no abd. pain, n/v discussed w/ cardiology today - will give furosemide and re-assess tmrw Review of Systems Review of Systems: All systems reviewed & are unremarkable except as noted in Subjective Physical Exam Physical Exam: General Appearance:Moderately built and nourished, no apparent distress Head: normocephalic, Atraumatic Eyes: normal inspection, EOMI Neck: supple Respiratory/Chest: good breath sounds, minimal basilar crackles, minimal wheezes, No accessory muscle use Cardiovascular: S1, S2, +murmur Abdomen/GI:Soft, Non tender, Bowel sounds present Extremities/Musculoskeletal:normal inspection, no edema Neurologic/Psych:AAOX3, grossly no focal neurological deficits , +decreased hearing Skin: normal color, warm Results & Data Results & Data Vital Signs (Past 12 Hours) Vital Signs Temp Pulse Pulse Resp BP Pulse Ox O2 Del Method 08/22/24 15:59 36.6 C 71 18 133/81 97 Room Air 08/22/24 14:33 76 08/22/24 12:07 Nasal Cannula 08/22/24 12:05 36.6 C 73 18 120/73 96 Nasal Cannula 08/22/24 07:43 36.5 C 86 20 128/71 93 Nasal Cannula 08/22/24 07:39 79 O2 Flow Rate 08/22/24 15:59 08/22/24 14:33 08/22/24 12:07 1 08/22/24 12:05 2 08/22/24 07:43 2 08/22/24 07:39 Laboratory Results 08/22/24 08/22/24 08/22/24 Range/Units 17:16 12:27 08:20 WBC (4.8-10.8) K/ul RBC (4.70-6.10) M/uL Hgb (14.0-18.0) g/dl Hct (42.0-52.0) % MCV (80.0-100.0) fL MCH (25.0-34.0) pg MCHC (32.0-36.0) g/dL RDW Std Deviation (36.4-46.3) fL RDW Coeff of Desire (11.5-14.5) % Plt Count (130-400) K/uL MPV (9.4-12.4) fL Sodium (136-145) mmol/L Potassium (3.5-5.1) mmol/L Chloride (98-107) mmol/L Carbon Dioxide (21-32) mmol/L Anion Gap (3-11) BUN (6-23) mg/dl Creatinine (0.6-1.4) mg/dl Est Cr Clr Drug Dosing ml/min eGFR BUN/Creatinine Ratio (10-20) Glucose (70-99(Fasting)) mg/dl POC Glucose 169 H 190 H 176 H (70-99) mg/dl Calcium (8.6-10.3) mg/dl Phosphorus (2.5-4.9) mg/dl Magnesium (1.7-2.4) mg/dl 08/22/24 08/21/24 Range/Units 06:15 20:09 WBC 6.42 (4.8-10.8) K/ul RBC 3.42 L (4.70-6.10) M/uL Hgb 9.9 L (14.0-18.0) g/dl Hct 29.7 L (42.0-52.0) % MCV 86.8 (80.0-100.0) fL MCH 28.9 (25.0-34.0) pg MCHC 33.3 (32.0-36.0) g/dL RDW Std Deviation 45.8 (36.4-46.3) fL RDW Coeff of Desire 14.3 (11.5-14.5) % Plt Count 179 (130-400) K/uL MPV 11.2 (9.4-12.4) fL Sodium 138 (136-145) mmol/L Potassium 4.2 (3.5-5.1) mmol/L Chloride 106 (98-107) mmol/L Carbon Dioxide 27 (21-32) mmol/L Anion Gap 5 (3-11) BUN 32 H (6-23) mg/dl Creatinine 1.26 (0.6-1.4) mg/dl Est Cr Clr Drug Dosing 39.3 ml/min eGFR 55.55 BUN/Creatinine Ratio 25.4 H (10-20) Glucose 167 H (70-99(Fasting)) mg/dl POC Glucose 181 H (70-99) mg/dl Calcium 8.3 L (8.6-10.3) mg/dl Phosphorus 2.9 (2.5-4.9) mg/dl Magnesium 2.0 (1.7-2.4) mg/dl Medications Administered Current Inpatient Medications Acetaminophen (Acetaminophen 325 Mg Tab) 650 mg PO Q4H PRN PRN Reason: pain/fever Stop: 09/18/24 17:47 Last Admin: 08/21/24 22:38 Dose: 650 mg Amlodipine Besylate (Amlodipine Besylate 5 Mg Tab) 10 mg PO DAILY KILEY Stop: 09/19/24 08:59 Last Admin: 08/22/24 08:15 Dose: 10 mg Amoxicillin/Clavulanate Potassium (Amoxicillin/Clavulanate 875 Mg Tab) 1 tab PO BIDM [facility]; Protocol Stop: 08/26/24 16:59 Last Admin: 08/22/24 16:35 Dose: 1 tab Aspirin (Aspirin 81 Mg Ectab) 81 mg PO DAILY [facility] Stop: 09/19/24 08:59 Last Admin: 08/22/24 08:16 Dose: 81 mg Atorvastatin Calcium (Atorvastatin 40 Mg Tab) 40 mg PO HS [facility] Stop: 09/18/24 20:59 Last Admin: 08/21/24 21:42 Dose: 40 mg Calcium Carbonate (Calcium Carbonate 500 Mg Chewable Tab) 1,000 mg PO BID PRN PRN Reason: Indigestion Stop: 09/19/24 14:56 Last Admin: 08/21/24 17:44 Dose: 1,000 mg Carvedilol (Carvedilol 6.25 Mg Tab) 6.25 mg PO BID [facility] Stop: 09/20/24 08:59 Last Admin: 08/22/24 08:16 Dose: 6.25 mg Cilostazol (Cilostazol 100 Mg Tab) 50 mg PO DAILY [facility] Stop: 09/19/24 08:59 Dextrose (Dextrose 50% 50 Ml Syringe) 25 - 50 ml IV UD PRN; Protocol PRN Reason: Hypoglycemia Protocol Stop: 09/18/24 17:16 Doxycycline Hyclate (Doxycycline Hyclate 100 Mg Cap) 100 mg PO BID [facility] Stop: 08/24/24 20:59 Last Admin: 08/22/24 08:16 Dose: 100 mg Famotidine (Famotidine 20 Mg Tab) 20 mg PO BID PRN PRN Reason: Dyspepsia Stop: 09/19/24 20:59 Fluticasone Propionate (Fluticasone Propionate Na Spr 16 Gm Btl) 1 sprays CALLIE QAM [facility] Stop: 09/19/24 08:59 Last Admin: 08/22/24 08:15 Dose: 1 sprays Glucagon (Glucagon For Inj 1 Mg Vial) 1 mg SQ UD PRN; Protocol PRN Reason: Hypoglycemia Protocol Stop: 09/18/24 17:16 Glucose (Glucose 40% Gel 15 Gm Tube) 15 - 30 gm PO UD PRN; Protocol PRN Reason: Hypoglycemia Protocol Stop: 09/18/24 17:16 Glucose (Glucose 10 Tab/Tube) 4 - 8 tab PO UD PRN; Protocol PRN Reason: Hypoglycemia Protocol Stop: 09/18/24 17:16 Guaifenesin (Guaifenesin 600 Mg Tabcr) 600 mg PO Q12 KILEY Stop: 09/21/24 08:59 Last Admin: 08/22/24 09:36 Dose: 600 mg Heparin Sodium (Porcine) (Heparin Sod 5,000 Unit/0.5 Ml Vial) 5,000 units SQ Q8 KILEY Stop: 09/18/24 21:59 Last Admin: 08/22/24 14:18 Dose: 5,000 units Insulin Aspart (Insulin Aspart Per Unit Charge) 0 units SC ACHS KILEY Stop: 09/18/24 20:59 Last Admin: 08/22/24 17:37 Dose: Not Given Levalbuterol HCl (Levalbuterol Hcl 0.63 Mg/3 Ml Neb) 0.63 mg NEB Q6H PRN; Protocol PRN Reason: Shortness Of Breath Or Wheezing Stop: 09/19/24 08:18 Last Admin: 08/21/24 03:38 Dose: 0.63 mg Melatonin (Melatonin 3 Mg Tab) 3 mg PO HS PRN PRN Reason: Insomnia Stop: 09/18/24 17:47 Miscellaneous (Carbohydrates For Hypoglycemia ) 15 - 30 gm PO UD PRN PRN Reason: Hypoglycemia Protocol Stop: 09/18/24 17:16 Ondansetron HCl (Ondansetron Inj 2 Mg/Ml 2 Ml Vial) 4 mg IV Q6H PRN PRN Reason: Nausea And Vomiting Stop: 09/18/24 17:09 Last Admin: 08/19/24 20:32 Dose: 4 mg Pantoprazole Sodium (Pantoprazole 40 Mg Tab) 40 mg PO QAM KILEY Stop: 09/19/24 08:59 Last Admin: 08/22/24 08:16 Dose: 40 mg Polyethylene Glycol (Polyethylene (Miralax) 17 Gm Pack) 17 gm PO DAILY PRN PRN Reason: Constipation Stop: 09/18/24 17:47 Last Admin: 08/21/24 17:44 Dose: 17 gm (2) CAP (community acquired pneumonia) Laterality: left Lung location: upper lobe of lung Qualified Code(s): J18.9 - Pneumonia, unspecified organism (5) Aortic stenosis Cardiac valve disease etiology: rheumatic Qualified Code(s): 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
[2024-08-22] MEDS: MELATONIN 3 MG TAB PO PRN (21:22)
[2024-08-23 04:42] VITALS: RESP 18
[2024-08-23 06:55] LABS: Hematocrit (blood only) 28.2 % (42.0-52.0); Hemoglobin 9.3 g/dl (14.0-18.0); Mean Corpuscular Hemoglobin 28.3 pg (25.0-34.0); Mean Corpuscular Volume 85.7 fL (80.0-100.0); Mean Platelet Volume 10.8 fL (9.4-12.4); Platelet Count 187 K/uL (130-400); RDW Coefficient of Variation 14.3 % (11.5-14.5); RDW Standard Deviation 45.2 fL (36.4-46.3); Red Blood Count 3.29 M/uL (4.70-6.10); White Blood Count 5.06 K/ul (4.8-10.8)
[2024-08-23 07:18] LABS: BUN Creatinine Ratio 21.9 (10-20); Calcium 8.2 mg/dl (8.6-10.3); Creatinine Clr Calc Pharmacy 38.7 ml/min; Magnesium 1.8 mg/dl (1.7-2.4); Phosphorus 3.4 mg/dl (2.5-4.9); Potassium 3.5 mmol/L (3.5-5.1)
--- NOTE | 2024-08-23 08:37 | Cardiology Progress Note ---
Date of Service August 23, 2024 Assessment & Plan (1) CAP (community acquired pneumonia): (2) Acute dehydration: (3) Elevated troponin: Plan -Wheezing improved but noted to have mild bibasilar Rales. Proceed with noted dose of furosemide 20 mg x 1. No additional episodes of supraventricular tachycardia have been observed on telemetry Continue carvedilol 6.25 mg twice daily Continue course of Augmentin for complicated bronchitis versus pneumonia. Continue subcutaneous heparin for DVT prophylaxis. Will reassess 08/23/2024 with regards to candidacy for discharge. 08/23/2024: -Patient continues to remain stable from a cardiac perspective. No wheezing today on exam. -Continue Coreg 6.125mg PO BID -Euvolemic on exam. will discuss with Dr. Woods if any home diuretics will be appropriate given his clinical exam today. -Continued antibiotics per primary team. -No further cardiac work up is indicated at this time. patient is aware that he has a cardiology appt with us in the next 2 weeks and will keep that. Case has been discussed with Dr. Woods. Further recommendations regarding plan of care as per his assessment. I spent a total of 30 minutes on the date of service in preparation, delivery, documentation of the care provided to the patient excluding any time spent in the performance of separately billed services. MARCY Macedo [facility] Admission and Anticipated Discharge Date Admission Date: August 19, 2024 Supervising Physician Co-Signing Physician Notes Attending attestation: Case reviewed with the advanced practitioner. I have personally performed a history and physical examination on the patient. I have reviewed the advanced practitioner's documentation on the date of service referenced in note, and I agree with, and take responsibility for the plan of care. Wheezing and bibasilar rales resolved today. Oxygen successfully weaned. Patient stable for discharge would add furosemide 20 mg 3 days/week on Mondays, Wednesdays and Fridays as outpatient. He already has cardiology follow-up with me in August, and this will be continued. I spent a total of 20 minutes coordinating, documenting, and providing care for this patient excluding time spent in the performance of separately billed services or time spent by another provider. Chong Woods, DO Subjective 08/23/2024: Patient seen and examined in follow up today. Feeling well. Offers no acute concerns. He is out of bed in a chair, completing his ADLs. No chest pain, pressure, palpitations, no shortness of breath, no PND, no pre-syncope, syncope or edema. Labs, vitals, diagnostics, telemetry and documentation reviewed. Telemetry reviewed showing SR with occasional PAC's. Rates 60-70's. Review of Systems Review of Systems: All systems reviewed & are unremarkable except as noted in HPI & below Physical Exam Constitutional: well developed and well nourished; no acute distress and not ill appearing Neck: normal visual inspection and trachea midline Respiratory: normal respiratory effort; no respiratory distress and no labored breathing Auscultation: lungs clear to auscultation bilaterally; no crackles, no rales, no rhonchi and no wheezes Cardiovascular: Rate/Rhythm: regular rate and regular rhythm Heart Sounds: normal S1, normal S2 and + murmur (+2/6 systolic ) Vessels: dorsalis pedis pulses present; no JVD Extremities: no edema Skin: no rashes, warm and dry Psychiatric: A+Ox3, euthymic affect Results & Data Vital Signs (Past 12 Hours) Vital Signs Temp Pulse Pulse Resp BP Pulse Ox O2 Del Method 08/23/24 08:06 36.3 C L 64 18 104/64 99 Nasal Cannula 08/23/24 04:42 68 18 93 Nasal Cannula 08/23/24 03: 36.6 C 60 16 144/71 H 99 Room Air 08/22/24 23:32 37.0 C 71 20 118/67 94 Nasal Cannula 08/22/24 22:13 79 O2 Flow Rate 08/23/24 08:06 2 08/23/24 04:42 1 08/23/24 03:27 08/22/24 23:32 2 08/22/24 22:13 Laboratory Results CBC 08/23/24 Range/Units 06:15 WBC 5.06 (4.8-10.8) K/ul RBC 3.29 L (4.70-6.10) M/uL Hgb 9.3 L (14.0-18.0) g/dl Hct 28.2 L (42.0-52.0) % Plt Count 187 (130-400) K/uL Comprehensive Metabolic Panel 08/23/24 Range/Units 06:15 Sodium 139 (136-145) mmol/L Potassium 3.5 (3.5-5.1) mmol/L Chloride 107 (98-107) mmol/L Carbon Dioxide 27 (21-32) mmol/L BUN 28 H (6-23) mg/dl Creatinine 1.28 (0.6-1.4) mg/dl Glucose 161 H (70-99(Fasting)) mg/dl Calcium 8.2 L (8.6-10.3) mg/dl Intake and Output 08/22/24 08/23/24 08/23/24 22:59 06:59 14:59 Intake Total 250 / 470 100 / 470 Output Total 325 / 329 Balance -75 / 141 99 / 141 Intake: Oral 250 / 470 100 / 470 Output: Urine 325 / 325 # Bowel Movements 1 / Other: # Unmeasured Voids 1 1 Weight 77.1 kg (1) CAP (community acquired pneumonia) Laterality: left Lung location: upper lobe of lung Qualified Code(s): J18.9 - Pneumonia, unspecified organism
[2024-08-23 11:29] VITALS: TEMP 97.5
[2024-08-23 13:18] VITALS: O2SAT 97
--- NOTE | 2024-08-23 14:07 | Discharge Summary ---
Date of Service August 23, 2024 Admission HPI Per Admitting Provider 88 yo male with pmhx hypertension, hyperlipidemia, moderate (TTE 2022), PVD, DM2 on oral medications, CKD stage 3b (baseline creatinine 1.6), GERD, prostate cancer status post surgery, recent thoracolumbar laminectomy, past tobacco abuse who presents for nausea/vomiting x1 day. Daughter present in room for conversation, patient gives permission. In the ED, noted to have uptrending troponin, admitted to medicine for chest pain r/o. Patient states symptoms started yesterday with nausea and vomiting. States he has not had solid food in 2 days. States he takes all his medications as prescribed, does not have issues with not eating. States this is new for him. Denies chest pain or SOB. Per daughter patient has been wheezing today, which she has not noticed before. Per daughter around 1 week ago had some chills and a cough, but has not had these symptoms since then. No tobacco use, no alcohol use, no drug use, DNRDNI, discussed with patient and daughter. Admission Exam Per Admitting Provider Gen: A&O 3 NAD HEENT: NCAT, EOMI, not icteric. External ears normal. No rhinorrhea. Moist mucous membranes. Neck: Supple, full range of motion, no observable masses, No meningeal sign. Lungs: trace expiratory wheezing CV: RRR, no edema. Abdomen: Soft, nondistended, No rebound tenderness. MSK: No joint swelling, no redness. Skin: No rashes, petechiae, lesions. Normal color per patient. Neuro: Normal Gait, Grossly intact. Psych: Appropriate for situation. Principal Diagnosis CAP (community acquired pneumonia), Suspected Aspiration Pneumonia Elevated troponin Discharge Exam General Appearance:Moderately built and nourished, no apparent distress Head: normocephalic, Atraumatic Eyes: normal inspection, EOMI Neck: supple Respiratory/Chest: good breath sounds, no crackles, no wheezes, No accessory muscle use Cardiovascular: S1, S2, +murmur Abdomen/GI:Soft, Non tender, Bowel sounds present Extremities/Musculoskeletal:normal inspection, no edema Neurologic/Psych:AAOX3, grossly no focal neurological deficits , + decreased hearing Skin: normal color, warm Discharge Data Allergies Allergy/AdvReac Type Severity Reaction Status Date / Time No Known Allergies Allergy Verified 11/28/22 00:10 Consultations 08/19/24 15:44 ED Decision to Admit Stat 08/20/24 08:57 Consult Cardiology Routine Hospital Course (1) Nausea: (2) CAP (community acquired pneumonia): Suspected Aspiration Pneumonia DD: Viral etiology Possible Sepsis--POA Hypoxia due to above --CXR:Mild opacification in the left upper lobe, appearing in the interval, favoring pneumonia. -- Serology negative for COVID, influenza, RSV --Normal procalcitonin Wean off of supplemental oxygen as able Continue Unasyn, doxycycline transitioned to>> Augmentin, doxycycline Aspiration precautions PT OT as able Pulmonary vascular congestion Likely secondary to tachycardia/PAT Received IV Lasix while inpt Hold Pletal for now Monitor volume status Coreg resumed, 6.25 mg twice daily Discharge on lasix 20 mg MWF (3) Myocardial injury: Likely demand ischemia H/O GA Less likely ACS Echo showed no wall motion abnormality Appreciate cardiology input Hypomagnesemia Replete as needed Monitor (4) Acute dehydration: Resolved Monitor (5) Aortic stenosis: -hx of rheumatic fever as child (6) Chronic kidney disease, stage 3: Renal function stable Monitor renal function (7) History of prostate cancer: -s/p surgery (8) New onset right bundle branch block (RBBB): (9) Diabetes mellitus, type 2: HbA1c 7.8 Continue insulin per protocol Monitor blood glucose levels Total Time Total Time Spent Total Time Spent (In Minutes): 40 Discharge Plan Discharge Items Patient Disposition: Home - Home Health Services Reason For Visit: NAUSEA,VOMITING Discharge Diagnosis: CAP (community acquired pneumonia), Suspected Aspiration Pneumonia Elevated troponin Activity: Per Instructions section Non-emergency contact: Primary Care Provider and Medical Sales Representative Call non-emergency contact if: you have any medication questions and your symptoms worsen Follow-up/Referrals: Ken Carson MD [Primary Care Provider] - (Date & Time 08/27/2024 12:20 PM Provider: Ken Carson MD Family Medicine [facility] ) Diet: Carb Consistent or DM2 and Heart Healthy Addtl Attending Provider Instructions: Follow up with your primary care doctor and applications specialist. The appointment with your primary care physician was scheduled for you for 08/27/2024. Finish antibiotics as prescribed. Take furosemide 20 mg - Tuesday, Tuesday, Tuesday. Pending Studies at Discharge: Yes Studies:: final sputum cultx results Stand-Alone Forms: My [facility] [employer], Smoking Cessation Medications and DC Order Prescriptions: New doxycycline hyclate 100 mg Capsule 100 mg PO BID 3 Days Qty: 6 0RF amoxicillin-pot clavulanate 875-125 mg Tablet 1 tab PO BIDM 4 Days Qty: 8 0RF furosemide 20 mg tablet 20 mg PO DAILY Qty: 20 0RF Rx Instructions: take Tue atorvastatin [Lipitor] 40 mg Tablet 40 mg PO HS aspirin 81 mg Tablet,Delayed Release (Dr/Ec) 81 mg PO QAM fluticasone propionate [Flonase Allergy Relief] 50 mcg/actuation [place],Suspension 1 spray INTRANASAL QAM Rx Instructions: Unable to verify OTC meds at this date/time. Januvia 50 mg Tablet 50 mg PO QAM guaifenesin [Mucinex] 600 mg Tablet Extended Release 12hr 600 mg PO AMHS Rx Instructions: Unable to verify OTC meds at this date/time. ascorbic acid (vitamin C) [Vitamin C] 1,000 mg Tablet 1 g PO QDL Rx Instructions: Unable to verify OTC meds at this date/time. cyanocobalamin (vitamin B-12) [Vitamin B-12] 1,000 mcg Tablet 1,000 mcg PO DAILY Rx Instructions: Unable to verify OTC meds at this date/time. acetaminophen 650 mg Tablet Extended Release 650 mg PO BID MDD 6 TABS/24 HOURS PRN (Reason: Pain) Rx Instructions: Unable to verify OTC meds at this date/time. famotidine 20 mg Tablet 20 mg PO HS carboxymethylcellulose sodium 0.5 % Drops 1 drp OPB QID PRN (Reason: Dry Eyes) Rx Instructions: Unable to verify OTC meds at this date/time. folic acid 1 mg Tablet 1 mg PO BID cholecalciferol (vitamin D3) [Vitamin D3] 25 mcg (1,000 unit) Capsule 25 mcg PO DAILY Rx Instructions: Unable to verify OTC meds at this date/time. glucosamine-chondroitin 1,500-1,200 mg/30 mL Liquid 30 ml PO DAILY Rx Instructions: Unable to verify OTC meds at this date/time. carvedilol 6.25 mg tablet 6.25 mg PO BID glipizide 5 mg tablet extended release 24hr 0 mg PO QAM Rx Instructions: Per pharmacy, new script for 5mg by mouth twice daily recently sent in but never picked up. Original Directions: 5mg by mouth in the morning before breakfast. Unable to verify how pt is taking medication amlodipine 10 mg tablet 10 mg PO QAM pantoprazole 40 mg tablet,delayed release (DR/EC) 40 mg PO QAM metformin 500 mg tablet extended release 24 hr 500 mg PO QAM Held cilostazol 50 mg tablet 50 mg PO QAM Hold Instructions: Resume on 08/28/24. until discussed with your primary care doctor Discharge Orders: Discharge Order (Routine); Ordered 08/23/24 Ordered By: George Mcclain/Other Patient Handouts: Managing Type 2 Diabetes Admission Data Admit Date/Time: 08/19/24 15:41 Attending Provider: George Clark Admit Provider: Gaurav Lombardo Primary Care Provider: Ken Carson Other Providers: Gaurav Lombardo; [place]; IRB Approved Study,[employer]; [employer]; [facility]
[2024-08-23 14:57] VITALS: BP 134/78; PULSE 67
== END 2024-08-23 17:45 | disposition home health service (06) | DRG 871 ==
LOC: ED 12:27 → SUATTDRO 15:41 → 2N 15:41